=== PATIENT | female | born 1940 | race Caucasian/White ===

== ENCOUNTER 2024-03-20 10:29 | Outpatient (CLI) | payer MEDICARE, OTHER, SELFPAY ==
[2024-03-20 19:34] LABS: Appearance Urine Clear (Clear); Bilirubin Urine Negative (Negative); Blood Urine Negative (Negative); Color Urine Yellow (Yellow); Glucose Urine UA Negative (Negative); Ketones Urine Negative (Negative); Leukocyte Esterase Ur Negative LEU/UL (Negative); Nitrate Urine Negative (Negative); Protein Urine Negative (Negative); Specific Grav Ur 1.005 (1.001-1.035); Urobilinogen Urine 0.2 mg/dL (<2.0); pH Urine 6.5 (5.0-9.0)
[2024-03-20 21:18] LABS: Add Urine Microscopic? NO
== END 2024-03-20 10:30 | disposition home or self-care (01) ==
PROVIDERS: PCP Nurse Practitioner Adult Health; Visit Provider Nurse Practitioner Adult Health
DX: N39.0 Urinary tract infection, site not specified (principal)
CPT/HCPCS: 81003; 87086; 87088

== ENCOUNTER 2024-04-03 16:04 | Outpatient (CLI) | payer MEDICARE, OTHER, SELFPAY ==
[2024-04-03 19:17] LABS: Appearance Urine Clear (Clear); Bilirubin Urine Negative (Negative); Blood Urine Negative (Negative); Color Urine Yellow (Yellow); Glucose Urine UA Negative (Negative); Ketones Urine Negative (Negative); Leukocyte Esterase Ur Negative LEU/UL (Negative); Nitrate Urine Negative (Negative); Protein Urine Negative (Negative); Specific Grav Ur 1.006 (1.001-1.035); Urobilinogen Urine 0.2 mg/dL (<2.0)
[2024-04-03 19:27] LABS: Add Urine Microscopic? NO
== END 2024-04-03 16:05 | disposition home or self-care (01) ==
LOC: ANHBWCLAB 16:07
PROVIDERS: PCP Nurse Practitioner Adult Health; Visit Provider Nurse Practitioner Adult Health
DX: N39.0 Urinary tract infection, site not specified (principal)
CPT/HCPCS: 81003; 87086

== ENCOUNTER 2024-05-01 13:13 | Outpatient (CLI) | payer MEDICARE, OTHER, SELFPAY ==
[2024-05-01 20:13] LABS: Appearance Urine Clear (Clear); Bacteria Urine Rare /hpf; Bilirubin Urine Negative (Negative); Blood Urine Negative (Negative); Color Urine Dark Yellow (Yellow); Glucose Urine UA Negative (Negative); Ketones Urine Negative (Negative); Leukocyte Esterase Ur Trace LEU/UL (Negative); Nitrate Urine Positive (Negative); Protein Urine Negative (Negative); RBC Urine 0-2 /hpf (0-2); Specific Grav Ur 1.006 (1.001-1.035); Squamous Epithelial Cell Urine Occasional /hpf (Few); Urobilinogen Urine 0.2 mg/dL (<2.0); WBC Urine 0-5 /hpf (0-3)
[2024-05-01 20:22] LABS: Add Urine Microscopic? YES
== END 2024-05-01 13:14 | disposition home or self-care (01) ==
PROVIDERS: PCP Nurse Practitioner Adult Health; Visit Provider Nurse Practitioner Adult Health
DX: N39.0 Urinary tract infection, site not specified (principal)
CPT/HCPCS: 81001; 87086

== ENCOUNTER 2024-05-08 11:58 | Outpatient (CLI) | payer MEDICARE, OTHER, SELFPAY ==
[2024-05-08 19:12] LABS: Basophils Absolute Auto 0.1 K/mm3 (0.0-0.1); Eosinophils Absolute Auto 0.2 K/mm3 (0-0.3); Eosinophils Percent Auto 2.5 % (0-4.4); Hematocrit 41.8 % (37.0-47.0); Hemoglobin 13.4 g/dL (12.0-15.0); Immature Granulocyte Absolute 0.02 K/mm3 (0.00-0.031); Immature Granulocyte Percent A 0.3 % (0-0.5); Lymphocytes Absolute Auto 1.54 K/mm3 (0.9-3.2); Lymphocytes Percent Auto 25.5 % (18.3-44.2); Mean Corpuscular HGB Conc 32.1 g/dl (32-36); Mean Corpuscular Hemoglobin 34.1 pg (26-34); Mean Corpuscular Volume 106.4 fl (80-100); Mean Platelet Volume 10.1 fl (7.4-10.4); Monocytes Absolute Auto 0.6 K/mm3 (0.1-0.6); Monocytes Percent Auto 10.1 % (2.6-8.5); Neutrophils Absolute Auto 3.7 K/mm3 (1.3-6.7); Neutrophils Percent Auto 60.6 % (45.5-73.1); Platelet Count Result 240 k/mm3 (150-375); Red Blood Count 3.93 M/mm3 (4.2-5.4)
[2024-05-08 19:57] LABS: Platelet Estimate Adequate (Adequate); Schistocytes None Seen
[2024-05-08 19:58] LABS: Macrocytosis 1+ (NORMAL)
[2024-05-08 20:33] LABS: Alanine Aminotransferase 17 U/L (6-35); Albumin Level 4.6 g/dL (3.5-5.1); Alkaline Phosphatase 93 U/L (38-126); Anion Gap 12 mmol/L (4-12); Aspartate Amino Transferase 45 U/L (14-36); Bilirubin,Total 0.7 mg/dL (0.2-1.3); Blood Urea Nitrogen 28 mg/dL (7-17); Calcium 9.7 mg/dL (8.4-10.2); Carbon Dioxide 26 mmol/L (22-30); Chloride 97 mmol/L (98-107); Estimated Glomerular Filt Rate 31; Glucose 112 mg/dL (65-110); Potassium 4.7 mmol/L (3.4-5.0); Sodium 135 mmol/L (137-145)
[2024-05-08 20:34] LABS: Appearance Urine Clear (Clear); Bacteria Urine 1+ /hpf; Bilirubin Urine Negative (Negative); Blood Urine Negative (Negative); Color Urine Yellow (Yellow); Glucose Urine UA Negative (Negative); Hyaline Casts Urine Present /lpf; Ketones Urine Negative (Negative); Leukocyte Esterase Ur 1+ LEU/UL (Negative); Nitrate Urine Negative (Negative); Protein Urine Negative (Negative); RBC Urine 0-2 /hpf (0-2); Specific Grav Ur 1.008 (1.001-1.035); Squamous Epithelial Cell Urine Few /hpf (Few); Urobilinogen Urine 0.2 mg/dL (<2.0); WBC Urine 0-5 /hpf (0-3); pH Urine 6.5 (5.0-9.0)
[2024-05-08 20:35] LABS: Add Urine Microscopic? YES
== END 2024-05-08 11:59 | disposition home or self-care (01) ==
PROVIDERS: PCP Nurse Practitioner Adult Health; Visit Provider Nurse Practitioner Adult Health
DX: R10.31 Right lower quadrant pain (principal)
CPT/HCPCS: 36415; 80053; 81001; 85025; 87077; 87086; 87088; 87186

== ENCOUNTER 2024-05-11 07:17 | Outpatient (CLI) | payer MEDICARE, OTHER, SELFPAY ==
--- NOTE | ~2024-05-11 | US_ITS ---
US abdomen limited INDICATION: Right upper quadrant pain PROCEDURE: Realtime right upper abdominal ultrasound. COMPARISON: No prior studies for comparison. FINDINGS: The pancreas is normal without focal mass or pancreatic ductal dilation. Liver echotexture is normal without focal mass or intrahepatic biliary dilatation. There is normal directional flow i n the portal vein. There is gallbladder sludge. Shadowing is noted, suspicious for stones. Common bile duct measures 7 m m. No sonographic Neff's sign. IMPRESSION: 1: Gallbladder sludge and possible gallstones. No gallbladder wall thickening or pericholecystic flui d. Mildly dilated common bile duct. Consider cholecystitis in the appropriate clinical setting. Reviewed, dictated and finalized at location B. IMPRESSION: 1: Gallbladder sludge and possible gallstones. No gallbladder wall thickening o r pericholecystic fluid. Mildly dilated common bile duct. Consider cholecystiti s in the appropriate clinical setting.
== END 2024-05-11 07:18 ==
LOC: MICIMG 07:18
PROVIDERS: PCP Nurse Practitioner Adult Health; Visit Provider Nurse Practitioner Adult Health
DX: K80.20 Calculus of gallbladder without cholecystitis without obstruction (principal)
CPT/HCPCS: 76705

== ENCOUNTER 2024-05-11 08:10 | Outpatient (CLI) | payer MEDICARE, OTHER, SELFPAY ==
[2024-05-11 09:22] LABS: Iron 127 ug/dL (37-170)
[2024-05-11 09:31] LABS: Percent Iron Saturation 40 % (20-50)
== END 2024-05-11 08:11 | disposition home or self-care (01) ==
PROVIDERS: PCP Nurse Practitioner Adult Health; Visit Provider Nurse Practitioner Adult Health
DX: D64.9 Anemia, unspecified (principal)
CPT/HCPCS: 36415; 82607; 82728; 83540; 83550

== ENCOUNTER 2024-06-12 12:33 | Outpatient (CLI) | payer MEDICARE, OTHER, SELFPAY ==
[2024-06-12 19:13] LABS: Add Urine Microscopic? NO; Appearance Urine Clear (Clear); Bilirubin Urine Negative (Negative); Blood Urine Negative (Negative); Color Urine Yellow (Yellow); Glucose Urine UA Negative (Negative); Ketones Urine Negative (Negative); Leukocyte Esterase Ur Negative LEU/UL (Negative); Nitrate Urine Negative (Negative); Protein Urine Negative (Negative); Specific Grav Ur 1.006 (1.001-1.035); Urobilinogen Urine 0.2 mg/dL (<2.0)
== END 2024-06-12 12:34 | disposition home or self-care (01) ==
LOC: ANHBWCLAB 12:35
PROVIDERS: PCP Nurse Practitioner Adult Health; Visit Provider Nurse Practitioner Adult Health
DX: N39.0 Urinary tract infection, site not specified (principal)
CPT/HCPCS: 81003

== ENCOUNTER 2024-07-04 10:45 | Outpatient (CLI) | payer MEDICARE, OTHER, SELFPAY ==
[2024-07-04 19:42] LABS: Add Urine Microscopic? YES; Appearance Urine Cloudy (Clear); Bacteria Urine None Seen /hpf; Bilirubin Urine Negative (Negative); Blood Urine Negative (Negative); Color Urine Yellow (Yellow); Glucose Urine UA Negative (Negative); Ketones Urine Negative (Negative); Leukocyte Esterase Ur Negative LEU/UL (Negative); Nitrate Urine Negative (Negative); Non Pathogenic Casts 0-2; Protein Urine Negative (Negative); Specific Grav Ur 1.007 (1.001-1.035); Squamous Epithelial Cell Urine Occasional /hpf (Few); Urobilinogen Urine 0.2 mg/dL (<2.0); WBC Urine 0-5 /hpf (0-3)
== END 2024-07-04 10:46 | disposition home or self-care (01) ==
PROVIDERS: PCP Nurse Practitioner Adult Health; Visit Provider Nurse Practitioner Adult Health
DX: R39.9 Unspecified symptoms and signs involving the genitourinary system (principal)
CPT/HCPCS: 81001; 87086

== ENCOUNTER 2025-01-14 16:17 | Outpatient (CLI) | payer MEDICARE, OTHER, SELFPAY ==
--- OUTSIDE RECORDS SUMMARY | 2025-01-14 17:26 | XMS_ITS ---
Author Name Esperanza Wolf Address [address] [place] [address] Phone [phone] [facility] Address [address] [place] [address] Phone [phone] Care Team Providers Care Inspector Floor Sub Assembly Name Role Phone Esperanza Wolf Unavailable [phone] Carly Coleman Unavailable Deisi White Unavailable [phone] Functional Status No Results Mental Status No Results Allergies and Intolerances Name Onset Date Reaction Severity Lasix (Allergy) MonDec 09 12:32:00 EST 2024 Sulfa (Sulfonamide Antibiotics) (Allergy) Mon 12:32:00 EST 2024 sulfamethoxazole-trimethoprim (Allergy) MonDec 09 12:32:00 EST 2024 amoxicillin (Allergy) MonDec 09 12:31:00 EST 20 25 Encounters Program Name Primary Diagnosis Admission Date/Time Dis charge Date/Time [facility] MonDec 09 08:00:00 EST 2024Dec 30 08:30:00 EDT 2024 Immunizations Name Dates Status TST-PPD intradermal MonDec 09 01:00:00 EST 2024 Completed TST-PPD intradermal MonDec 16 01:00:00 EST 2024 Completed TST-PPD intradermal MonDec 18 01:00:00 EST 2024 Completed TST-PPD intradermal MonDec 11 01:00:00 EST 2024 Completed Medications Medication Directions Start Date End Date HYDROcodone 5 mg-acetaminophen 325 mg tablet 2 tablets TABLET Oral 1 Time Daily Indication: Pain MonDec 24 18:33:00 EDT 2024Dec 30 01:00:00 EDT 2024 Miralax 17 gram oral powder packet 17 g POWDER IN PACKET (EA) Oral 2 Times Daily Indication: constipation MonDec 20 11:05:00 EST 2024Dec 30 01:00:00 EDT 2024 Miralax 17 gram oral powder packet 17 g POWDER IN PACKET (EA) Oral 1 Time Daily Indication: constipation MonDec 19 18:26:00 EST 2024Dec 20 11:07:00 EST 2024 fluconazole 150 mg tablet 1 TABLET Oral Every 3 Days for 4 Days Indication: yeast infection MonDec 18 07:00:00 EST 2024Dec 22 06:59:00 EDT 2024 HYDROcodone 5 mg-acetaminophen 325 mg tablet 2 tablet TABLET Oral 1 Time Daily 2 tablets Indication: pain MonDec 17 14:00:00 EST 2024Dec 24 18:34:00 EDT 2024 HYDROcodone 5 mg-acetaminophen 325 mg tablet 1 tablet TABLET Oral 1 Time Daily Indication: pain MonDec 17 07:00:00 EST 2024Dec 17 14:02:00 EST 2024 Vitamin C 500 mg tablet 1 tablet TABLET Oral 2 Times Daily Indication: supplement MonDec 15 21:00:00 EST 2024Dec 30 01:00:00 EDT 2024 Miralax 17 gram oral powder packet 17 grams POWDER IN PACKET (EA) Oral Every 2 Days Indication: Constipation MonDec 10 17:02:00 EST 2024Dec 10 17:03:00 EST 2024 Miralax 17 gram oral powder packet 17 g POWDER IN PACKET (EA) Oral Every 2 Days Indication: constipation MonDec 11 09:00:00 EST 2024Dec 19 18:28:00 EST 2024 albuterol sulfate HFA 90 mcg/actuation aerosol inhaler 2 puffs HFA AEROSOL WITH ADAPTER (GRAM) Inhalation PRN Every 6 Hours Indication: SOB MonDec 09 12:36:00 EST 2024Dec 30 01:00:00 EDT 2024 anastrozole 1 mg tablet 1 tab TABLET Ora l 1 Time Daily Indication: Breast cancer MonDec 09 12:37:00 EST 2024Dec 30 01:00:00 EDT 2024 Vitamin C 500 mg chewable tablet 1 tab TABLET,CHEWABLE Oral 2 Times Daily Indication: Supplement MonDec 09 12:38:00 EST 2024Dec 15 12:22:00 EST 2024 aspirin 81 mg tablet,delayed release 1 tab TABLET, DELAYED RELEASE (ENTERIC COATED) Oral 1 Time Daily Indication: Heart health MonDec 09 12:39:00 EST 2024Dec 30 01:00:00 EDT 2024 atorvastatin 20 mg tablet 1 tab TABLET O ral 1 Time Daily Indication: HLD MonDec 10 12:40:00 EST 2024Dec 30 01:00:00 EDT 2024 Oyster Shell Calcium-Vitamin D3 500 mg-5 mcg (200 unit) tablet 1 tab TABLET Oral 1 Time Daily Indication: Supplement MonDec 09 13:09:00 EST 2024Dec 30 01:00:00 EDT 2024 DILT-XR 180 mg capsule, extended release 1 cap CAPSULE,EXTENDED-RELEASE 24HR DEGRADABLE Oral 1 Time Daily Indication: A-fib MonDec 09 13:10:00 EST 2024Dec 30 01:00:00 EDT 2024 Eliquis 2.5 mg tablet 1 tab TABLET Oral 2 Times Daily Indication: A-fib MonDec 09 13:11:00 EST 2024Dec 30 01:00:00 EDT 2024 ergocalciferol (vitamin D2) 1,250 mcg (50,000 unit) capsule 1 cap CAPSULE Oral 1 Time Weekly Indication: Supplement MonDec 09 13:12:00 EST 2024Dec 30 01:00:00 EDT 2024 ferrous sulfate 325 mg (65 mg iron) tablet,delayed release 1 tab TABLET, DELAYED RELEASE (ENTERIC COATED) Oral 1 Time Daily Indication: Anemia MonDec 09 14:12:00 EST 2024Dec 30 01:00:00 EDT 2024 HYDROcodone 5 mg-acetaminophen 325 mg tablet 1-2 tabs TABLET Oral PRN Every 4 Hours Indication: Pain MonDec 09 13:14:00 EST 2024Dec 09 19:00:00 EST 2024 Miralax 17 gram oral powder packet 17 grams POWDER IN PACKET (EA) Oral Every 3 Days Indication: Constipation MonDec 09 13:15:00 EST 2024Dec 10 17:03:00 EST 2024 nebivoloL 20 mg tablet 1 tab TABLET Oral 1 Time Daily Indication: A-fib/HTN MonDec 09 13:16:00 EST 2024Dec 30 01:00:00 EDT 2024 omeprazole 40 mg capsule,delayed release 1 cap CAPSULE,DELAYED RELEASE (ENTERIC COATED) Oral 2 Times Daily Indication: GERD MonDec 09 13:17:00 EST 2024Dec 30 01:00:00 EDT 2024 ondansetron 4 mg disintegrating tablet 1 tab TABLET,DISINTEGRATING Oral PRN Every 6 Hours Indication: N/V MonDec 09 13:17:00 2024Dec 29 15:35:00 EDT 2024 Stimulant Laxative Plus 8.6 mg-50 mg tablet 1 tab TABLET Oral 1 Time Daily Indication: Constipation MonDec 09 13:18:00 EST 2024Dec 09 19:22:00 EST 2024 torsemide 10 mg tablet 1 tab TABLET Oral 1 Time Daily Indication: Edema MonDec 09 13:19:00 EST 2024Dec 30 01:00:00 EDT 2024 TubersoL 5 tub. unit/0.1 mL intradermal injection solution 0.1 ml VIAL (ML) Intradermal 1 Time Weekly for 2 Weeks Indication: TB screeening 1st injection on admission, then one week after. Read between 48 and 72 hours MonDec 09 15:37:00 EST 2024Dec 23 15:36:00 EDT 2024 TubersoL 5 tub. unit/0.1 mL intradermal injection solution Read Results VIAL (ML) Other 1 Time Weekly for 2 Weeks Indication: TB screening Read results between 48-72 hours after 1st and 2nd (1 week apart). Any reading of 10mm or greater results in a positive test, an x-ray will need to be ordered as a follow up. MonDec 09 15:38:00 EST 2024Dec 23 15:37:00 EDT 2024 HYDROcodone 5 mg-acetaminophen 325 mg tablet 1-2 tabs TABLET Oral PRN Every 4 Hours Indication: Pain MonDec 09 18:59:00 EST 2024Dec 30 01:00:00 EDT 2024 Stimulant Laxative Plus 8.6 mg-50 mg tablet 1 tab TABLET Oral PRN 2 Times Daily Indication: Constipation MonDec 09 19:21:00 EST 2024Dec 29 15:35:00 EDT 2024 Problems Active Concerns * Aftercare following joint replacement surgery* Code: * Start Date: MonDec 09 00:00:00 EST 2024 * End Date: * Text: * Unspecified atrial fibrillation* Code: * Start Date: MonDec 09 00:00:00 EST 2024 * End Date: * Text: * Personal history of malignant neoplasm of breast* Code: * Start Date: MonDec 09 00:00:00 EST 2024 * End Date: * Text: * Chronic obstructive pulmonary disease, unspecified* Code: * Start Date: MonDec 09 00:00:00 EST 2024 * End Date: * Text: * Gastro-esophageal reflux disease without esophagitis* Code: * Start Date: MonDec 09 00:00:00 EST 2024 * End Date: * Text: * Unspecified glaucoma* Code: * Start Date: MonDec 09 00:00:00 EST 2024 * End Date: * Text: * Unspecified hearing loss, unspecified ear* Code: * Start Date: MonDec 09 00:00:00 EST 2024 * End Date: * Text: * Old myocardial infarction* Code: * Start Date: MonDec 09 00:00:00 EST 2024 * End Date: * Text: * Pulmonary hypertension, unspecified* Code: * Start Date: MonDec 09 00:00:00 EST 2024 * End Date: * Text: * Personal history of nicotine dependence* Code: * Start Date: MonDec 09 00:00:00 EST 2024 * End Date: * Text: * Vitamin D deficiency, unspecified* Code: * Start Date: MonDec 09 00:00:00 2024 * End Date: * Text: * Presence of artificial knee joint, bilateral* Code: * Start Date: MonDec 09 00:00:00 EST 2024 * End Date: * Text: * Presence of coronary angioplasty implant and graft* Code: * Start Date: MonDec 09 00:00:00 EST 2024 * End Date: * Text: * group home (current) use of aromatase inhibitors* Code: * Start Date: MonDec 09 00:00:00 EST 2024 * End Date: * Text: * superintendent terminal (current) use of aspirin* Code: * Start Date: MonDec 09 00:00:00 EST 2024 * End Date: * Text: * Hyperlipidemia, unspecified* Code: * Start Date: MonDec 09 00:00:00 EST 2024 * End Date: * Text: * group home (current) use of anticoagulants* Code: * Start Date: MonDec 09 00:00:00 2024 * End Date: * Text: * Anemia, unspecified* Code: * Start Date: MonDec 09 00:00:00 2024 * End Date: * Text: * superintendent terminal (current) use of opiate analgesic* Code: * Start Date: MonDec 09 00:00:00 2024 * End Date: * Text: * Constipation, unspecified* Code: * Start Date: MonDec 09 00:00:00 2024 * End Date: * Text: * Hypertensive chronic kidney disease with stage 1 through stage 4 chronic kidney disease, or unspecified chronic kidney disease* Code: * Start Date: MonDec 09 00:00:00 2024 * End Date: * Text: * Chronic kidney disease, stage 3b* Code: * Start Date: MonDec 09 00:00:00 2024 * End Date: * Text: * Secondary hyperparathyroidism of renal origin* Code: * Start Date: MonDec 09 00:00:00 2024 * End Date: * Text: * Elevation of levels of liver transaminase levels* Code: * Start Date: MonDec 09 00:00:00 2024 * End Date: * Text: * [id number] Betsy receives a therapeutic diet. (12)* Code: * Start Date: MonDec 17 00:00:00 2024 * End Date: * Text: [id number] Betsy receives a therapeutic diet. (12) * LSS_Falls - Betsy is at risk for falls/injury as evidenced by: history of falls, cognitive status/behavior, vision status, continence, mobility, balance.* Code: * Start Date: MonDec 19 00:00:00 2024 * End Date: * Text: LSS_Falls - Betsy is at risk for falls/injury as evidenced by: history of falls, cognitive status/behavior, vision status, continence, mobility, balance. * LSS_Pain - Betsy is experiencing pain or is at high risk for pain.* Code: * Start Date: MonDec 19 00:00:00 2024 * End Date: * Text: LSS_Pain - Betsy is experiencing pain or is at high risk for pain. * LSS_Skin Integrity - (Potential Alteration of)- Betsy is at risk for developing impaired skin integrity.* Code: * Start Date: MonDec 19 00:00:00 EST 2024 * End Date: * Text: LSS_Skin Integrity - (Potential Alteration of)- Betsy is at risk for developing impaired skinintegrity. * LSS_ADLs - Betsy has ADL selfcare deficit related to decreased mobility and muscle weakness* Code: * Start Date: MonDec 19:00:00 EST 2024 * End Date: * Text: LSS_ADLs - Betsy has ADL selfcare deficit related to decreased mobility and muscle weakness * LSS_Vision - Betsy has impaired vision as evidenced by: legally blind ( ), blurry/hazy/cloudy vision ( ), double vision ( ), side vision deficit ( ), visual loss ( ).* Code: * Start Date: MonDec 19 00:00:00 EST 2024 * End Date: * Text: LSS_Vision - Betsy has impaired vision as evidenced by: legally blind ( ), blurry/hazy/cloudyvision ( ), double vision ( ), side vision deficit ( ), visual loss ( ). * LSS_Social Services- Betsy's wishes will be followed (Advanced Directive/Code Status).* Code: * Start Date: MonDec 20::2024 * End Date: * Text: LSS_Social ServicesMadelaine Meyer's wishes will be followed (Advanced Directive/Code Status). * LSS_Social Services- Betsy will be involved in goal development to the best of his or her ability.* Code: * Start Date: MonDec 20::00 2024 * End Date: * Text: LSS_Social Services- Betsy will be involved in goal development to the best of his or her ability. * LSS_Social Services- Betsy has family/friends who are supportive.* Code: * Start Date: MonDec 20::00 EST 2024 * End Date: * Text: JESSS_Social ServicesMadelaine Meyer has family/friends who are supportive. * LSS_Social Services- Betsy's mobility level is different than prior level due to current medical condition.* Code: * Start Date: MonDec 20:00:00 2024 * End Date: * Text: MACY_Social Ramírez Meyer's mobility level is different than prior level due to current medical condition. * ADRIANASocial ServicesMadelaine Meyer will be involved in discharge planning.* Code: * Start Date: MonDec 20 00:00:00 EST 2024 * End Date: * Text: ADRIANASocial Ramírez Meyer will be involved in discharge planning. Resolved Concerns * Problem Presence of right artificial knee joint* Code: * Start Date: MonDec 09 00:00:00 EST 2024 * End Date: MonDec 11 00:00:00 EST 2024 * Problem Essential (primary) hypertension* Code: * Start Date: MonDec 09 00:00:00 EST 2024 * End Date: MonDec 13 00:00:00 EST 2024 Vital Signs Vital Sign Measurement Date Systolic Blood Pressure 118.00 mm[Hg] MonDec 30 09:39:44 EDT 2024 Diastolic Blood Pressure 77.00 mm[Hg] MonDec 30 09:39:44 EDT 2024 Systolic Blood Pressure 118.00 mm[Hg] MonDec 30 09:39:44 EDT 2024 Diastolic Blood Pressure 77.00 mm[Hg] MonDec 30 09:39:44 EDT 2024 Heart Rate 91.00 /min MonDec 30 09:39 :44 EDT 2024 Heart Rate 91.00 /min MonDec 30 09:39 :44 EDT 2024 Systolic Blood Pressure 113.00 mm[Hg] MonDec 30 01:18:37 EDT 2024 Diastolic Blood Pressure 69.00 mm[Hg] MonDec 30 01:18:37 EDT 2024 Heart Rate 82.00 /min MonDec 30 01:18 :37 EDT 2024 Body temperature 97.30 [degF] MonDec 30 01:1 8:37 EDT 2024 Respiratory rate 16.00 /min MonDec 30 01:1 8:37 EDT 2024 Pulse Oximetry 98.00 % MonDec 30 01:18 :37 EDT 2024 Body weight 155.20 [lb_av] MonDec 29 12:46 :35 EDT 2024 Systolic Blood Pressure 104.00 mm[Hg] MonDec 29 08:32:23 EDT 2024 Diastolic Blood Pressure 66.00 mm[Hg] MonDec 29 08:32:23 EDT 2024 Heart Rate 88.00 /min Sun Mar 16 08:32 :23 EDT 2024 Body temperature 97.50 [degF] Sun Mar 16 08:3 2:23 EDT 2024 Respiratory rate 18.00 /min Sun Mar 16 08:3 2:23 EDT 2024 Pulse Oximetry 92.00 % Sun Mar 16 08:32 :23 EDT 2024 Systolic Blood Pressure 104.00 mm[Hg] Sun Mar 16 08:31:37 EDT 2024 Diastolic Blood Pressure 66.00 mm[Hg] Sun Mar 16 08:31:37 EDT 2024 Systolic Blood Pressure 104.00 mm[Hg] Sun Mar 16 08:31:37 EDT 2024 Diastolic Blood Pressure 66.00 mm[Hg] Sun Mar 16 08:31:37 EDT 2024 Heart Rate 88.00 /min Sun Mar 16 08:31 :37 EDT 2024 Heart Rate 88.00 /min Sun Mar 16 08:31 :37 EDT 2024 Systolic Blood Pressure 121.00 mm[Hg] Sun Mar 16 00:52:48 EDT 2024 Diastolic Blood Pressure 66.00 mm[Hg] Sun Mar 16 00:52:48 EDT 2024 Heart Rate 92.00 /min Sun Mar 16 00:52 :48 EDT 2024 Body temperature 97.30 [degF] Sun Mar 16 00:5 2:48 EDT 2024 Respiratory rate 16.00 /min Sun Mar 16 00:5 2:48 EDT 2024 Pulse Oximetry 98.00 % Sun Mar 16 00:52 :48 EDT 2024 Body weight 156.40 [lb_av] Sat Mar 15 15:34 :06 EDT 2024 Systolic Blood Pressure 101.00 mm[Hg] Sat Mar 15 09:31:33 EDT 2024 Diastolic Blood Pressure 66.00 mm[Hg] Sat Mar 15 09:31:33 EDT 2024 Heart Rate 80.00 /min Sat Mar 15 09:31 :33 EDT 2024 Body temperature 97.50 [degF] Sat Mar 15 09:3 1:33 EDT 2024 Respiratory rate 18.00 /min Sat Mar 15 09:3 1:33 EDT 2024 Pulse Oximetry 94.00 % Sat Mar 15 09:31 :33 EDT 2024 Systolic Blood Pressure 101.00 mm[Hg] Sat Mar 15 09:19:27 EDT 2024 Diastolic Blood Pressure 66.00 mm[Hg] Sat Mar 15 09:19:27 EDT 5 Systolic Blood Pressure 101.00 mm[Hg] Sat Mar 15 09:19:27 EDT 2024 Diastolic Blood Pressure 66.00 mm[Hg] Sat Mar 15 09:19:27 EDT 2024 Heart Rate 80.00 /min Sat Mar 15 09:19 :27 EDT 2024 Heart Rate 80.00 /min Sat Mar 15 09:19 :27 EDT 2024 Systolic Blood Pressure 104.00 mm[Hg] Sat Mar 15 03:15:32 EDT 2024 Diastolic Blood Pressure 59.00 mm[Hg] Sat Mar 15 03:15:32 EDT 2024 Heart Rate 91.00 /min [facility] Mar 15 03:15 :32 EDT 2024 Body temperature 97.40 [degF] [facility] Mar 15 03:1 5:32 EDT 2024 Respiratory rate 20.00 /min [facility] Mar 15 03:1 5:32 EDT 2024 Pulse Oximetry 98.00 % [facility] Mar 15 03:15 :32 EDT 2024 Body weight 157.00 [lb_av] Mon Mar 14 15:03 :59 EDT 2024 Systolic Blood Pressure 107.00 mm[Hg] Mon Mar 14 10:50:53 EDT 2024 Diastolic Blood Pressure 74.00 mm[Hg] Mon Mar 14 10:50:53 EDT 2024 Heart Rate 97.00 /min Mon 14 10:50 :53 EDT 2024 Body temperature 98.60 [degF] Mon Mar 14 10:5 0:53 EDT 2024 Respiratory rate 20.00 /min Mon 14 10:5 0:53 EDT 2024 Pulse Oximetry 96.00 % Mon 14 10:50 :53 EDT 2024 Systolic Blood Pressure 107.00 mm[Hg] Mon Mar 14 09:13:21 EDT 2024 Diastolic Blood Pressure 74.00 mm[Hg] Mon Mar 14 09:13:21 EDT 2024 Systolic Blood Pressure 107.00 mm[Hg] Mon Mar 14 09:13:21 EDT 2024 Diastolic Blood Pressure 74.00 mm[Hg] Mon Mar 14 09:13:21 EDT 2024 Heart Rate 97.00 /min Mon 14 09:13 :21 EDT 2024 Heart Rate 97.00 /min Mon 14 09:13 :21 EDT 2024 Systolic Blood Pressure 109.00 mm[Hg] Mon 14 01:51:50 EDT 2024 Diastolic Blood Pressure 69.00 mm[Hg] Mon 14 01:51:50 EDT 2024 Heart Rate 90.00 /min Mon 14 01:51 :50 EDT 2024 Body temperature 97.60 [degF] Mon 14 01:5 1:50 EDT 2024 Respiratory rate 18.00 /min Mon 14 01:5 1:50 EDT 2024 Pulse Oximetry 96.00 % Mon 14 01:51 :50 EDT 2024 Body weight 159.70 [lb_av] Karendec 13 16:09 :53 EDT 2024 Systolic Blood Pressure 109.00 mm[Hg] Karendec 13 09:47:54 EDT 2024 Diastolic Blood Pressure 68.00 mm[Hg] Karendec 13 09:47:54 EDT 2024 Heart Rate 99.00 /min Karendec 13 09:47 :54 EDT 2024 Body temperature 97.30 [degF] Karendec 13 09:4 7:54 EDT 2024 Respiratory rate 18.00 /min Karendec 13 09:4 7:54 EDT 2024 Pulse Oximetry 97.00 % Karendec 13 09:47 :54 EDT 2024 Systolic Blood Pressure 109.00 mm[Hg] Karendec 13 08:48:23 EDT 2024 Diastolic Blood Pressure 68.00 mm[Hg] Karendec 13 08:48:23 EDT 2024 Systolic Blood Pressure 109.00 mm[Hg] Karendec 13 08:48:23 EDT 2024 Diastolic Blood Pressure 68.00 mm[Hg] Karendec 13 08:48:23 EDT 2024 Heart Rate 99.00 /min Karendec 13 08:48 :23 EDT 2024 Heart Rate 99.00 /min Karendec 13 08:48 :23 EDT 2024 Systolic Blood Pressure 113.00 mm[Hg] Karendec 13 00:13:33 EDT 2024 Diastolic Blood Pressure 65.00 mm[Hg] Karendec 13 00:13:33 EDT 2024 Heart Rate 80.00 /min Karendec 13 00:13 :33 EDT 2024 Body temperature 97.40 [degF] Karendec 13 00:1 3:33 EDT 2024 Respiratory rate 18.00 /min Mon 13 00:1 3:33 EDT 2024 Pulse Oximetry 95.00 % MonDec 26 00:13 :33 EDT 2024 Body weight 160.00 [lb_av] MonDec 25 12:43 :18 EDT 2024 Systolic Blood Pressure 110.00 mm[Hg] MonDec 25 08:41:20 EDT 2024 Diastolic Blood Pressure 79.00 mm[Hg] MonDec 25 08:41:20 EDT 2024 Systolic Blood Pressure 110.00 mm[Hg] MonDec 25 08:41:20 EDT 2024 Diastolic Blood Pressure 79.00 mm[Hg] MonDec 25 08:41:20 EDT 2024 Heart Rate 84.00 /min MonDec 25 08:41 :20 EDT 2024 Heart Rate 84.00 /min MonDec 25 08:41 :20 EDT 2024 Systolic Blood Pressure 110.00 mm[Hg] MonDec 25 08:15:08 EDT 2024 Diastolic Blood Pressure 79.00 mm[Hg] MonDec 25 08:15:08 EDT 2024 Heart Rate 84.00 /min MonDec 25 08:15 :08 EDT 2024 Body temperature 98.60 [degF] MonDec 25 08:1 5:08 EDT 2024 Respiratory rate 18.00 /min MonDec 25 08:1 5:08 EDT 2024 Pulse Oximetry 96.00 % MonDec 25 08:15 :08 EDT 2024 Systolic Blood Pressure 116.00 mm[Hg] MonDec 24 23:34:51 EDT 2024 Diastolic Blood Pressure 69.00 mm[Hg] MonDec 24 23:34:51 EDT 2024 Heart Rate 82.00 /min MonDec 24 23:34 :51 EDT 2024 Body temperature 97.80 [degF] MonDec 24 23:3 4:51 EDT 2024 Respiratory rate 20.00 /min MonDec 24 23:3 4:51 EDT 2024 Pulse Oximetry 95.00 % MonDec 24 23:34 :51 EDT 2024 Body weight 160.50 [lb_av] MonDec 24 17:04 :13 EDT 2024 Systolic Blood Pressure 127.00 mm[Hg] MonDec 24 09:04:26 EDT 2024 Diastolic Blood Pressure 80.00 mm[Hg] MonDec 24 09:04:26 EDT 5 Heart Rate 91.00 /min MonDec 24 09:04 :26 EDT 5 Body temperature 98.20 [degF] MonDec 24 09:0 4:26 EDT 2024 Respiratory rate 18.00 /min MonDec 24 09:0 4:26 EDT 2024 Pulse Oximetry 97.00 % MonDec 24 09:04 :26 EDT 2024 Systolic Blood Pressure 127.00 mm[Hg] MonDec 24 08:19:16 EDT 5 Diastolic Blood Pressure 80.00 mm[Hg] MonDec 24 08:19:16 EDT 2024 Systolic Blood Pressure 127.00 mm[Hg] MonDec 24 08:19:16 EDT 2024 Diastolic Blood Pressure 80.00 mm[Hg] MonDec 24 08:19:16 EDT 2024 Heart Rate 91.00 /min MonDec 24 08:19 :16 EDT 2024 Heart Rate 91.00 /min MonDec 24 08:19 :16 EDT 2024 Systolic Blood Pressure 115.00 mm[Hg] MonDec 23 23:06:36 EDT 2024 Diastolic Blood Pressure 66.00 mm[Hg] MonDec 23 23:06:36 EDT 2024 Heart Rate 78.00 /min MonDec 23 23:06 :36 EDT 2024 Body temperature 96.80 [degF] MonDec 23 23:0 6:36 EDT 2024 Respiratory rate 18.00 /min MonDec 23 23:0 6:36 EDT 2024 Pulse Oximetry 97.00 % MonDec 23 23:06 :36 EDT 2024 Body weight 160.20 [lb_av] MonDec 23 15:04 :55 EDT 2024 Systolic Blood Pressure 118.00 mm[Hg] MonDec 23 09:18:46 EDT 5 Diastolic Blood Pressure 78.00 mm[Hg] MonDec 23 09:18:46 EDT 5 Heart Rate 96.00 /min MonDec 23 09:18 :46 EDT 2024 Body temperature 97.10 [degF] MonDec 23 09:1 8:46 EDT 2024 Respiratory rate 16.00 /min MonDec 23 09:1 8:46 EDT 2024 Pulse Oximetry 97.00 % MonDec 23 09:18 :46 EDT 2024 Systolic Blood Pressure 118.00 mm[Hg] Mon 10 09:17:14 EDT 5 Diastolic Blood Pressure 78.00 mm[Hg] Mon 10 09:17:14 EDT 2024 Systolic Blood Pressure 118.00 mm[Hg] Mon 10 09:17:14 EDT 2024 Diastolic Blood Pressure 78.00 mm[Hg] Mon 10 09:17:14 EDT 5 Heart Rate 96.00 /min Mon 10 09:17 :14 EDT 2024 Heart Rate 96.00 /min MonDec 23 09:17 :14 EDT 2024 Systolic Blood Pressure 122.00 mm[Hg] MonDec 23 01:07:30 EDT 2024 Diastolic Blood Pressure 69.00 mm[Hg] MonDec 23 01:07:30 EDT 2024 Heart Rate 93.00 /min MonDec 23 01:07 :30 EDT 2024 Body temperature 98.30 [degF] MonDec 23 01:0 7:30 EDT 2024 Respiratory rate 18.00 /min MonDec 23 01:0 7:30 EDT 2024 Pulse Oximetry 99.00 % MonDec 23 01:07 :30 EDT 2024 Body weight 160.40 [lb_av] MonDec 22 18:23 :27 EDT 2024 Systolic Blood Pressure 124.00 mm[Hg] MonDec 22 10:07:56 EDT 2024 Diastolic Blood Pressure 78.00 mm[Hg] MonDec 22 10:07:56 EDT 2024 Heart Rate 92.00 /min MonDec 22 10:07 :56 EDT 2024 Body temperature 98.00 [degF] MonDec 22 10:0 7:56 EDT 2024 Respiratory rate 20.00 /min MonDec 22 10:0 7:56 EDT 2024 Pulse Oximetry 97.00 % MonDec 22 10:07 :56 EDT 2024 Systolic Blood Pressure 124.00 mm[Hg] MonDec 22 09:55:36 EDT 2024 Diastolic Blood Pressure 78.00 mm[Hg] MonDec 22 09:55:36 EDT 2024 Systolic Blood Pressure 124.00 mm[Hg] MonDec 22 09:55:36 EDT 2024 Diastolic Blood Pressure 78.00 mm[Hg] MonDec 22 09:55:36 EDT 2024 Heart Rate 92.00 /min MonDec 22 09:55 :36 EDT 2025 Heart Rate 92.00 /min Sun Mar 09 09:55 :36 EDT 5 Systolic Blood Pressure 110.00 mm[Hg] Sat Mar 08 23:42:20 EST 2024 Diastolic Blood Pressure 69.00 mm[Hg] Sat Mar 08 23:42:20 EST 2024 Heart Rate 88.00 /min Sat Mar 08 23:42 :20 EST 2024 Body temperature 97.80 [degF] Sat Mar 08 23:4 2:20 EST 2024 Respiratory rate 18.00 /min Sat Mar 08 23:4 2:20 EST 2024 Pulse Oximetry 97.00 % Sat Mar 08 23:42 :20 EST 2024 Body weight 160.00 [lb_av] Sat Mar 08 15:56 :42 EST 2024 Systolic Blood Pressure 116.00 mm[Hg] Sat Mar 08 10:54:07 EST 2024 Diastolic Blood Pressure 72.00 mm[Hg] Sat Mar 08 10:54:07 EST 2024 Heart Rate 91.00 /min Sat Mar 08 10:54 :07 EST 2024 Body temperature 98.50 [degF] Sat Mar 08 10:5 4:07 EST 2024 Respiratory rate 20.00 /min Sat Mar 08 10:5 4:07 EST 2024 Pulse Oximetry 95.00 % Sat Mar 08 10:54 :07 EST 2024 Systolic Blood Pressure 116.00 mm[Hg] Sat Mar 08 09:26:13 EST 2024 Diastolic Blood Pressure 72.00 mm[Hg] Sat Mar 08 09:26:13 EST 2024 Systolic Blood Pressure 116.00 mm[Hg] Sat Mar 08 09:26:13 EST 2024 Diastolic Blood Pressure 72.00 mm[Hg] Sat Mar 08 09:26:13 EST 2024 Heart Rate 91.00 /min Sat Mar 08 09:26 :13 EST 2024 Heart Rate 91.00 /min Sat Mar 08 09:26 :13 EST 2024 Systolic Blood Pressure 100.00 mm[Hg] Sat Mar 08 01:01:23 EST 2024 Diastolic Blood Pressure 61.00 mm[Hg] Sat Mar 08 01:01:23 EST 2024 Heart Rate 80.00 /min Sat Mar 08 01:01 :23 EST 5 Body temperature 98.10 [degF] Sat Mar 08 01:0 1:23 EST 2024 Respiratory rate 20.00 /min Sat Mar 08 01:0 1:23 EST 2024 Pulse Oximetry 97.00 % Sat Mar 08 01:01 :23 EST 5 Body weight 187.90 [lb_av] MonDec 20 14:49 :44 EST 2024 Systolic Blood Pressure 129.00 mm[Hg] MonDec 20 10:40:41 EST 2024 Diastolic Blood Pressure 80.00 mm[Hg] MonDec 20 10:40:41 EST 2024 Heart Rate 91.00 /min MonDec 20 10:40 :41 EST 2024 Body temperature 97.50 [degF] MonDec 20 10:4 0:41 EST 2024 Respiratory rate 20.00 /min MonDec 20 10:4 0:41 EST 2024 Pulse Oximetry 92.00 % MonDec 20 10:40 :41 EST 2024 Systolic Blood Pressure 129.00 mm[Hg] MonDec 20 09:10:02 EST 2024 Diastolic Blood Pressure 80.00 mm[Hg] MonDec 20 09:10:02 EST 2024 Systolic Blood Pressure 129.00 mm[Hg] MonDec 20 09:10:02 EST 2024 Diastolic Blood Pressure 80.00 mm[Hg] MonDec 20 09:10:02 EST 2024 Heart Rate 102.00 /min MonDec 20 09:10 :02 EST 2024 Heart Rate 102.00 /min MonDec 20 09:10 :02 EST 2024 Systolic Blood Pressure 120.00 mm[Hg] MonDec 19 23:28:27 EST 2024 Diastolic Blood Pressure 72.00 mm[Hg] MonDec 19 23:28:27 EST 2024 Heart Rate 97.00 /min MonDec 19 23:28 :27 EST 2024 Body temperature 97.40 [degF] MonDec 19 23:2 8:27 EST 2024 Respiratory rate 18.00 /min MonDec 19 23:2 8:27 EST 2024 Pulse Oximetry 96.00 % MonDec 19 23:28 :27 EST 2024 Body weight 160.20 [lb_av] MonDec 19 13:00 :03 EST 2024 Systolic Blood Pressure 127.00 mm[Hg] MonDec 19 09:06:28 EST 2024 Diastolic Blood Pressure 75.00 mm[Hg] MonDec 19 09:06:28 EST 5 Systolic Blood Pressure 127.00 mm[Hg] MonDec 19 09:06:28 EST 2024 Diastolic Blood Pressure 75.00 mm[Hg] MonDec 19 09:06:28 EST 2025 Systolic Blood Pressure 127.00 mm[Hg] Mon 06 09:06:28 EST 2024 Diastolic Blood Pressure 75.00 mm[Hg] Mon 06 09:06:28 EST 2024 Heart Rate 99.00 /min Mon 06 09:06 :28 EST 2024 Heart Rate 99.00 /min Mon 06 09:06 :28 EST 2024 Heart Rate 99.00 /min Mon 06 09:06 :28 EST 2024 Body temperature 97.40 [degF] Mon 06 09:0 6:28 EST 2024 Respiratory rate 18.00 /min MonDec 19 09:0 6:28 EST 2024 Pulse Oximetry 97.00 % MonDec 19 09:06 :28 EST 2024 Systolic Blood Pressure 126.00 mm[Hg] MonDec 18 22:59:25 EST 2024 Diastolic Blood Pressure 88.00 mm[Hg] MonDec 18 22:59:25 EST 2024 Heart Rate 86.00 /min MonDec 18 22:59 :25 EST 2024 Body temperature 97.40 [degF] MonDec 18 22:5 9:25 EST 2024 Respiratory rate 18.00 /min MonDec 18 22:5 9:25 EST 2024 Pulse Oximetry 98.00 % MonDec 18 22:59 :25 EST 2024 Body weight 161.90 [lb_av] MonDec 18 10:17 :18 EST 2024 Systolic Blood Pressure 118.00 mm[Hg] MonDec 18 08:38:22 EST 2024 Diastolic Blood Pressure 71.00 mm[Hg] MonDec 18 08:38:22 EST 2024 Systolic Blood Pressure 118.00 mm[Hg] MonDec 18 08:38:22 EST 2024 Diastolic Blood Pressure 71.00 mm[Hg] MonDec 18 08:38:22 EST 2024 Systolic Blood Pressure 118.00 mm[Hg] MonDec 18 08:38:22 EST 2024 Diastolic Blood Pressure 71.00 mm[Hg] MonDec 18 08:38:22 EST 2024 Heart Rate 74.00 /min MonDec 18 08:38 :22 EST 2024 Heart Rate 74.00 /min MonDec 18 08:38 :22 EST 2024 Heart Rate 74.00 /min MonDec 18 08:38 :22 EST 2024 Body temperature 97.60 [degF] Wed Mar 05 08:3 8:22 EST 2024 Respiratory rate 18.00 /min MonDec 18 08:3 8:22 EST 2024 Pulse Oximetry 97.00 % MonDec 18 08:38 :22 EST 2024 Systolic Blood Pressure 128.00 mm[Hg] MonDec 18 00:24:48 EST 2024 Diastolic Blood Pressure 87.00 mm[Hg] MonDec 18 00:24:48 EST 2024 Heart Rate 86.00 /min MonDec 18 00:24 :48 EST 2024 Body temperature 97.30 [degF] MonDec 18 00:2 4:48 EST 2024 Respiratory rate 18.00 /min MonDec 18 00:2 4:48 EST 2024 Pulse Oximetry 97.00 % MonDec 18 00:24 :48 EST 2024 Body weight 160.40 [lb_av] MonDec 17 11:05 :04 EST 2024 Systolic Blood Pressure 124.00 mm[Hg] MonDec 17 09:28:53 EST 2024 Diastolic Blood Pressure 64.00 mm[Hg] MonDec 17 09:28:53 EST 2024 Systolic Blood Pressure 124.00 mm[Hg] MonDec 17 09:28:53 EST 2024 Diastolic Blood Pressure 64.00 mm[Hg] MonDec 17 09:28:53 EST 2024 Heart Rate 95.00 /min MonDec 17 09:28 :53 EST 2024 Heart Rate 95.00 /min MonDec 17 09:28 :53 EST 2024 Systolic Blood Pressure 124.00 mm[Hg] MonDec 17 08:24:35 EST 2024 Diastolic Blood Pressure 64.00 mm[Hg] MonDec 17 08:24:35 EST 2024 Heart Rate 95.00 /min MonDec 17 08:24 :35 EST 2024 Body temperature 97.50 [degF] MonDec 17 08:2 4:35 EST 2024 Respiratory rate 18.00 /min MonDec 17 08:2 4:35 EST 2024 Pulse Oximetry 96.00 % MonDec 17 08:24 :35 EST 2024 Systolic Blood Pressure 112.00 mm[Hg] Mon 04 01:34:01 EST 2024 Diastolic Blood Pressure 60.00 mm[Hg] Mon 04 01:34:01 EST 2024 Heart Rate 69.00 /min Mon 04 01:34 :01 EST 2024 Body temperature 97.30 [degF] MonDec 17 01:3 4:01 EST 2024 Respiratory rate 18.00 /min MonDec 17 01:3 4:01 EST 2024 Pulse Oximetry 96.00 % MonDec 17 01:34 :01 EST 2024 Systolic Blood Pressure 125.00 mm[Hg] MonDec 16 11:29:45 EST 2024 Diastolic Blood Pressure 85.00 mm[Hg] MonDec 16 11:29:45 EST 2024 Body weight 161.60 [lb_av] MonDec 16 11:29 :45 EST 2024 Heart Rate 112.00 /min MonDec 16 11:29 :45 EST 2024 Body temperature 97.40 [degF] MonDec 16 11:2 9:45 EST 2024 Respiratory rate 20.00 /min MonDec 16 11:2 9:45 EST 2024 Pulse Oximetry 97.00 % MonDec 16 11:29 :45 EST 2024 Systolic Blood Pressure 125.00 mm[Hg] MonDec 16 09:24:29 EST 2024 Diastolic Blood Pressure 85.00 mm[Hg] MonDec 16 09:24:29 EST 2024 Systolic Blood Pressure 125.00 mm[Hg] MonDec 16 09:24:29 EST 2024 Diastolic Blood Pressure 85.00 mm[Hg] MonDec 16 09:24:29 EST 2024 Heart Rate 112.00 /min MonDec 16 09:24 :29 EST 2024 Heart Rate 112.00 /min MonDec 16 09:24 :29 EST 2024 Systolic Blood Pressure 113.00 mm[Hg] MonDec 15 23:06:27 EST 2024 Diastolic Blood Pressure 71.00 mm[Hg] MonDec 15 23:06:27 EST 2024 Heart Rate 82.00 /min MonDec 15 23:06 :27 EST 2024 Body temperature 97.80 [degF] MonDec 15 23:0 6:27 EST 2024 Respiratory rate 18.00 /min MonDec 15 23:0 6:27 EST 2024 Pulse Oximetry 99.00 % MonDec 15 23:06 :27 EST 2024 Systolic Blood Pressure 124.00 mm[Hg] MonDec 15 10:47:43 EST 2024 Diastolic Blood Pressure 76.00 mm[Hg] MonDec 15 10:47:43 EST 2024 Body weight 161.80 [lb_av] MonDec 15 10:47 :43 EST 2025 Heart Rate 91.00 /min Sun Mar 10:47 :43 EST 2024 Body temperature 97.80 [degF] Sun Mar 10:4 7:43 EST 2024 Respiratory rate 18.00 /min Sun Mar 10:4 7:43 EST 2024 Pulse Oximetry 97.00 % Sun Mar 10:47 :43 EST 2024 Systolic Blood Pressure 124.00 mm[Hg] Sun Mar 02 09:20:47 EST 2024 Diastolic Blood Pressure 76.00 mm[Hg] Sun Mar 09:20:47 EST 2024 Systolic Blood Pressure 124.00 mm[Hg] Sun Mar 09:20:47 EST 2024 Diastolic Blood Pressure 76.00 mm[Hg] Sun Mar 09:20:47 EST 2024 Heart Rate 91.00 /min Sun Mar 09:20 :47 EST 2024 Heart Rate 91.00 /min Sun Mar 09:20 :47 EST 2024 Systolic Blood Pressure 118.00 mm[Hg] Sun Mar 03:52:46 EST 2024 Diastolic Blood Pressure 72.00 mm[Hg] Sun Mar 03:52:46 EST 2024 Heart Rate 96.00 /min Sun Mar 03:52 :46 EST 2024 Body temperature 97.30 [degF] Sun Mar 03:5 2:46 EST 2024 Respiratory rate 18.00 /min Sun Mar 03:5 2:46 EST 2024 Pulse Oximetry 97.00 % Sun Mar 03:52 :46 EST 2024 Body weight 164.20 [lb_av] Sat Mar 11:18 :25 EST 2024 Systolic Blood Pressure 114.00 mm[Hg] Sat Mar 09:33:29 EST 2024 Diastolic Blood Pressure 73.00 mm[Hg] Sat Mar 09:33:29 EST 2024 Systolic Blood Pressure 114.00 mm[Hg] Sat Mar 09:33:29 EST 2024 Diastolic Blood Pressure 73.00 mm[Hg] Sat Mar 01 09:33:29 EST 2024 Systolic Blood Pressure 114.00 mm[Hg] Sat Mar 09:33:29 EST 2024 Diastolic Blood Pressure 73.00 mm[Hg] Sat Mar 09:33:29 EST 5 Heart Rate 106.00 /min Sat Mar 01 09:33 :29 EST 2024 Heart Rate 106.00 /min Sat Mar 09:33 :29 EST 2024 Heart Rate 106.00 /min Sat Mar 01 09:33 :29 EST 2024 Body temperature 97.90 [degF] MonDec 14 09:3 3:29 EST 2024 Respiratory rate 18.00 /min MonDec 14 09:3 3:29 EST 2024 Pulse Oximetry 97.00 % MonDec 14 09:33 :29 EST 2024 Systolic Blood Pressure 130.00 mm[Hg] Monb 23:46:33 EST 2024 Diastolic Blood Pressure 89.00 mm[Hg] Monb 23:46:33 EST 5 Heart Rate 92.00 /min MonDec 13 23:46 :33 EST 2024 Body temperature 97.50 [degF] Monb 23:4 6:33 EST 2024 Respiratory rate 18.00 /min Monb 23:4 6:33 EST 2024 Pulse Oximetry 94.00 % MonDec 13 23:46 :33 EST 2024 Body weight 162.20 [lb_av] Monb 15:36 :57 EST 2024 Systolic Blood Pressure 120.00 mm[Hg] Monb 10:41:59 EST 2024 Diastolic Blood Pressure 75.00 mm[Hg] Monb 10:41:59 EST 2024 Heart Rate 91.00 /min Monb 10:41 :59 EST 2024 Body temperature 98.00 [degF] Monb 10:4 1:59 EST 2024 Respiratory rate 20.00 /min MonDec 13 10:4 1:59 EST 2024 Pulse Oximetry 96.00 % MonDec 13 10:41 :59 EST 2024 Systolic Blood Pressure 120.00 mm[Hg] Monb 08:34:42 EST 2024 Diastolic Blood Pressure 75.00 mm[Hg] Monb 08:34:42 EST 5 Systolic Blood Pressure 120.00 mm[Hg] Monb 08:34:42 EST 2024 Diastolic Blood Pressure 75.00 mm[Hg] Monb 08:34:42 EST 2024 Heart Rate 91.00 /min MonDec 13 08:34 :42 EST 2024 Heart Rate 91.00 /min Monb 08:34 :42 EST 5 Systolic Blood Pressure 113.00 mm[Hg] Karen Feb 23:21:13 EST 5 Diastolic Blood Pressure 72.00 mm[Hg] Karenb 23:21:13 EST 2024 Heart Rate 93.00 /min Karen Feb 27 23:21 :13 EST 2024 Body temperature 98.20 [degF] Karen Feb 27 23:2 1:13 EST 2024 Respiratory rate 19.00 /min Karen Feb 27 23:2 1:13 EST 2024 Pulse Oximetry 95.00 % Karen Feb 27 23:21 :13 EST 2024 Body weight 162.20 [lb_av] Karen Feb 27 10:56 :10 EST 2024 Systolic Blood Pressure 105.00 mm[Hg] Karen Feb 27 10:46:54 EST 2024 Diastolic Blood Pressure 69.00 mm[Hg] Karen Feb 27 10:46:54 EST 2024 Heart Rate 99.00 /min Karen Feb 27 10:46 :54 EST 2024 Body temperature 98.20 [degF] Karen Feb 27 10:4 6:54 EST 2024 Respiratory rate 18.00 /min Karen Feb 27 10:4 6:54 EST 2024 Pulse Oximetry 98.00 % Karen Feb 27 10:46 :54 EST 2024 Systolic Blood Pressure 105.00 mm[Hg] Karen Feb 27 09:15:51 EST 5 Diastolic Blood Pressure 69.00 mm[Hg] Karen Feb 27 09:15:51 EST 2024 Systolic Blood Pressure 105.00 mm[Hg] Karen Feb 27 09:15:51 EST 5 Diastolic Blood Pressure 69.00 mm[Hg] Karen Feb 27 09:15:51 EST 2024 Heart Rate 99.00 /min Karen Feb 27 09:15 :51 EST 2024 Heart Rate 99.00 /min Karen Feb 27 09:15 :51 EST 5 Systolic Blood Pressure 109.00 mm[Hg] Wed Feb 26 22:20:02 EST 2024 Diastolic Blood Pressure 70.00 mm[Hg] Wed Feb 26 22:20:02 EST 2024 Heart Rate 82.00 /min Wed Feb 26 22:20 :02 EST 2024 Body temperature 97.60 [degF] Wed Feb 22:2 0:02 EST 2024 Respiratory rate 18.00 /min Wed Feb 26 22:2 0:02 EST 2024 Pulse Oximetry 96.00 % Wed Feb 22:20 :02 EST 2024 Systolic Blood Pressure 128.00 mm[Hg] Wed Feb 11:05:40 EST 2024 Diastolic Blood Pressure 80.00 mm[Hg] Wed Feb 11:05:40 EST 2024 Body weight 163.60 [lb_av] Mon Feb 11:05 :40 EST 2024 Heart Rate 97.00 /min Wed Feb 11:05 :40 EST 2024 Body temperature 97.80 [degF] Mon Feb 11:0 5:40 EST 2024 Respiratory rate 18.00 /min Wed Feb 11:0 5:40 EST 2024 Pulse Oximetry 95.00 % Mon Feb 11:05 :40 EST 2024 Systolic Blood Pressure 128.00 mm[Hg] Wed Feb 09:16:08 EST 2024 Diastolic Blood Pressure 80.00 mm[Hg] Mon Feb 09:16:08 EST 2024 Systolic Blood Pressure 128.00 mm[Hg] Wed Feb 09:16:08 EST 2024 Diastolic Blood Pressure 80.00 mm[Hg] Wed Feb 09:16:08 EST 2024 Heart Rate 97.00 /min Mon Feb 09:16 :08 EST 2024 Heart Rate 97.00 /min Mon Feb 09:16 :08 EST 2024 Systolic Blood Pressure 119.00 mm[Hg] Monb 23:39:36 EST 2024 Diastolic Blood Pressure 69.00 mm[Hg] Monb 23:39:36 EST 2024 Heart Rate 83.00 /min Monb 23:39 :36 EST 2024 Body temperature 98.10 [degF] Monb 23:3 9:36 EST 2024 Respiratory rate 20.00 /min Monb 23:3 9:36 EST 2024 Pulse Oximetry 96.00 % Monb 23:39 :36 EST 2024 Body weight 164.20 [lb_av] Monb 14:17 :22 EST 2024 Systolic Blood Pressure 127.00 mm[Hg] Mon Feb 09:03:03 EST 2024 Diastolic Blood Pressure 76.00 mm[Hg] Mon Feb 09:03:03 EST 2024 Heart Rate 97.00 /min Mon Feb 09:03 :03 EST 2024 Body temperature 97.40 [degF] Mon Feb 09:0 3:03 EST 2024 Respiratory rate 18.00 /min Mon Feb 09:0 3:03 EST 2024 Pulse Oximetry 95.00 % Monb 09:03 :03 EST 2024 Systolic Blood Pressure 127.00 mm[Hg] Mon Feb 08:54:22 EST 2024 Diastolic Blood Pressure 76.00 mm[Hg] Mon Feb 08:54:22 EST 2024 Systolic Blood Pressure 127.00 mm[Hg] Mon Feb 08:54:22 EST 2024 Diastolic Blood Pressure 76.00 mm[Hg] Mon Feb 08:54:22 EST 2024 Heart Rate 97.00 /min Monb 08:54 :22 EST 2024 Heart Rate 97.00 /min Mon Feb 08:54 :22 EST 2024 Systolic Blood Pressure 112.00 mm[Hg] Monb 00:18:12 EST 2024 Diastolic Blood Pressure 66.00 mm[Hg] Monb 00:18:12 EST 2024 Heart Rate 91.00 /min Monb 00:18 :12 EST 2024 Body temperature 97.20 [degF] Monb 00:1 8:12 EST 2024 Respiratory rate 22.00 /min Monb 00:1 8:12 EST 2024 Pulse Oximetry 97.00 % Monb 00:18 :12 EST 2024 Systolic Blood Pressure 114.00 mm[Hg] Monb 12:33:00 EST 2024 Diastolic Blood Pressure 70.00 mm[Hg] Monb 12:33:00 EST 2024 Heart Rate 100.00 /min Monb 12:33 :00 EST 2024 Body temperature 97.40 [degF] MonDec 09 12:3 3:00 EST 2024 Respiratory rate 18.00 /min Monb 12:3 3:00 EST 2024 Pulse Oximetry 97.00 % MonDec 09 12:33 :00 EST 2024 Body Height 60.00 [in_i] MonDec 09 12:33 :00 EST 5 Reason for Referral
--- OUTSIDE RECORDS SUMMARY | 2025-01-14 17:26 | XMS_ITS | CONTINUITY OF CARE DOCUMENT ---
Author Name doris george Address Unknown Organization [facility] Address [address] [address] [place] [address] Phone [phone] Care Team Providers Care Real Estate Paralegal Name Role Phone Sima GARCIA, Triny Unavailable JUANJOSE MECHANICAL SHOVEL OPERATOR, KEN M Unavailable SOW MECHANICAL SHOVEL OPERATOR, KEN M Unavailable PROBLEMS Condition Status Date Provider Notes Family History of Hypertension: completed - David Walker CAD - tetlin vessel active Triny rockwell MD Hx of NSTEMI active Triny Gao MD Tobacco use, quit active Theodore Walker COPD active Triny Gao MD Hyperlipidemia active Adelita Hernandez Hypertension active ? Theodore Walker Atrial fib chronic active Triny Gao MD Mitral regurgitation active Triny bryan MD Sick sinus syndrome active Triny rockwell MD CHF - diastolic active Triny Gao MD Current use of Warfarin - IN R per [facility] active Triny Gao MD ENCOUNTERS Date Type Provider Location Encounter Diag nosis - In-person encounter Office Visit Triny Gao MD [place] [facility] Atrial fib chronicSick sinus syndromeCHF - diastolicCurrent use of Warfarin - INR per HV - In-person encounter Office Visit Triny Gao MD [facility] Office - In-person encounter Office Visit Triny Gao MD [facility] [place] Hx of NSTEMIHyperlipidemiaMitral regurgitation - In-person encounter Office Visit Triny Gao MD [facility] Office - In-person encounter Office Visit Triny Gao [place] [facility] [facility] [place]-person encounter Office Visit Triny Gao MD [facility] - In-person encounter Office Visit Triny Gao MD [facility] [place] Atrial fib chronic - In-person encounter Office Visit Triny Gao MD [facility] Office - In-person encounter Office Visit Triny Gao MD [facility] Family History of Hypertension:CAD - tetlin vesselHx of NSTEMITobacco use, quitCOPDHyperlipidemiaHypertension VITAL SIGNS Date Observation Value Provider Body Mass Index (Ratio) 26.15 kg/m2 Jimmy Gao MD blood pressure, diastolic 72 mm[Hg] Da jaycee Dillon blood pressure, systolic 118 mm[Hg] Dac [facility] oxygen saturation, oximetry 94 % [facility] respiratory rate E&M 16 /min Ana V oss pulse rate 109 /min Ana Dillon weight E&M 167 [lb_av] Ana Dillon height E&M 67 [in_i] Ana Dillon Body Mass Index (Ratio) 25.21 kg/m2 Jimmy Gao MD blood pressure, resting Yes Anti ruddy Dobson blood pressure, diastolic 78 mm[Hg] An tiruddy Dobson blood pressure, systolic 122 mm[Hg] Ant charlene Dobson oxygen saturation, oximetry 98 % Sahara Dobson respiratory rate E&M 18 /min Eliseo Dobson pulse rate 109 /min Sahara Jone s weight E&M 161 [lb_av] Sahara Jian s blood pressure, diastolic 70 mm[Hg] Yazan Hanley blood pressure, systolic 118 mm[Hg] Edwar Gaonahley pulse rate 84 /min Marilee Gaonahley oxygen saturation, oximetry 95 % Marilee Gaonahley respiratory rate E&M 18 /min Marilee Gaonahley Body Mass Index (Ratio) 25.09 kg/m2 Niko Hanley weight E&M 160.2 [lb_av] Marilee ying blood pressure, diastolic 80 mm[Hg] Ralph Elizabeth blood pressure, systolic 118 mm[Hg] Brodie Joyby pulse rate 78 /min Ana Joyby oxygen saturation, oximetry 97 % Ana Joyby respiratory rate E&M 16 /min Ana Joyby Body Mass Index (Ratio) 25.06 kg/m2 Jack Joyby weight E&M 160 [lb_av] Ana Joyby blood pressure, diastolic 80 mm[Hg] Mitchel Herrera blood pressure, systolic 122 mm[Hg] Addison Herrera pulse rate 107 /min Maria Teresa Herrera oxygen saturation, oximetry 98 % Maria Teresa Herrera respiratory rate E&M 17 /min Maria Teresa Herrera Body Mass Index (Ratio) 25.06 kg/m2 Cait Herrera weight E&M 160 [lb_av] Maria Teresa Herrera pulse rate 100 /min Lorri Ramirez oxygen saturation, oximetry 100 % Lorri Ramirez blood pressure, diastolic 96 mm[Hg] Al ky Ramirez blood pressure, systolic 133 mm[Hg] All matteo Ramirez respiratory rate E&M 18 /min Lorri Ramirez Body Mass Index (Ratio) 24.90 kg/m2 Jesus Ramirez weight E&M 159 [lb_av] Lorri Ramirez blood pressure, diastolic 80 mm[Hg] Ralph Elizabeth blood pressure, systolic 112 mm[Hg] Brodie Elizabeth pulse rate 78 /min Ana Elizabeth oxygen saturation, oximetry 98 % Ana Elizabeth respiratory rate E&M 18 /min Ana Elizabeth Body Mass Index (Ratio) 24.99 kg/m2 Jack Elizabeth weight E&M 159.6 [lb_av] Ana Elizabeth blood pressure, diastolic 80 mm[Hg] Ralph Elizabeth blood pressure, systolic 120 mm[Hg] Brodie Elizabeth pulse rate 77 /min Ana Elizabeth oxygen saturation, oximetry 98 % Ana Eliazbeth respiratory rate E&M 18 /min Ana Elizabeth Body Mass Index (Ratio) 25.37 kg/m2 Jack Elizabeth height E&M 67 [in_i] Ana Elizabeth weight E&M 162 [lb_av] Ana Elizabeth ALLERGIES Allergy Name Onset Date Reaction Criticality Status SULFA Low Criticality active AMOXICILLIN Low Criticality active RESULTS Date Observation Value Provider Reference Range Interpretation Location coagulation managed by Abilio Garcia RN international normalized ratio (INR) 1.97 Abilio Garcia RN Normal prothrombin time (patient) 23.1 s Abilio Garcia RN coagulation managed by Adelita Hernandez prothrombin time (patient) 22.2 s Sahara Dobson international normalized ratio (INR) 1.8 Sahara Dobson Normal coagulation managed by Adelita Hernandez international normalized ratio (INR) 1.7 Sahara Dobson Normal prothrombin time (patient) 20.8 s Sahara Dobson coagulation managed by Abilio Garcia RN international normalized ratio (INR) 1.79 Abilio Garcia RN Normal prothrombin time (patient) 20.9 s Abilio Garcia RN coagulation managed by Aminta Matthews RN prothrombin time (patient) 37.6 s Aminta Matthews RN international normalized ratio (INR) 3.13 Aminta Matthews RN Normal coagulation managed by Francisco Boland RN international normalized ratio (INR) 3.99 Francisco Boland RN Normal prothrombin time (patient) 48.5 s Francisco Boland RN coagulation managed by Abilio Garcia RN international normalized ratio (INR) 2.94 Abilio Garcia RN Normal prothrombin time (patient) 35.2 s Abilio Garcia RN coagulation managed by Francisco Boland RN international normalized ratio (INR) 2.94 Francisco Boland RN Normal prothrombin time (patient) 35.1 s Francisco Boland RN coagulation managed by Diana Dorsey RN international normalized ratio (INR) 3.8 Marilee Hanley Normal prothrombin time (patient) 36.6 s Marilee Hanley coagulation managed by Diana Dorsey RN international normalized ratio (INR) 3.0 Diana Dorsey RN Normal prothrombin time (patient) 38.1 s Diana Dorsey RN coagulation managed by Abilio Garcia RN international normalized ratio (INR) 3.7 Ivis Jacksonal Normal prothrombin time (patient) 40.7 s Ivis O'Nikita international normalized ratio (INR) 1.8 Corry Price RN Normal international normalized ratio (INR) 1.8 Marilee Talon Normal prothrombin time (patient) 18.8 s Marilee Talon coagulation managed by Adelita Hernandez international normalized ratio (INR) 1.1 Marilee Talon Normal prothrombin time (patient) 13.1 s Marilee Talon coagulation managed by Diana Dorsey RN international normalized ratio (INR) 1.8 Marilee Talon Normal prothrombin time (patient) 21.2 s Marilee Talon coagulation managed by Diana Dorsey RN international normalized ratio (INR) 1.9 Ivis O'Nikita Normal prothrombin time (patient) 23.1 s Ivis O'Nikita coagulation managed by Abilio Garcia RN international normalized ratio (INR) 1.9 Marilee Talon Normal prothrombin time (patient) 22.9 s Marilee Talon triglyceride, serum, fasting 79 mg/dL Triny Gao MD HDL cholesterol, serum 103 mg/dL ulius Sima GARCIA LDL cholesterol, serum 35 mg/dL ulius Sima GARCIA cholesterol, serum 154 mg/dL ulius Sima GARCIA coagulation managed by Diana Dorsey RN prothrombin time (patient) 20.0 s Ana [place] international normalized ratio (INR) 1.7 Ana [place] Normal international normalized ratio (INR) 1.3 Ana [place] Low prothrombin time (patient) 16.2 s Ana Elizabeth HISTORY OF MEDICATION USE Medication Status Instructions Dates Provider Indications Com ments LISINOPRIL 2.5 MG ORAL TABLET active one tablet each night Triny Gao MD ASPIRIN EC 81 MG ORAL TABLET DELAYED RELEASE active one tab daily Triny Gao MD stop brillinta. c ontinue coumadin COUMADIN 3 MG ORAL TABLET active Take 1 tab (3mg) sat/sun only Adelita Hernandez COUMADIN 4 MG ORAL TABLET active 1 tab daily, Mon-Monday Adelita Hernandez COUMADIN 1 MG ORAL TABLET completed take 1 tab with 3mg coumadin - Corry Price RN DILTIAZEM HCL 60 MG ORAL TABLET active One tablet four times a day Triny Gao MD BYSTOLIC 20 MG ORAL TABLET active ONE TAB. DAILY Triny Gao MD DILTIAZEM HCL 30 MG ORAL TABLET completed 1 tablet 3 times a day - Maria Teresa Herrera COUMADIN 5 MG ORAL TABLET completed take one tab daily - Abilio Garcia RN stop fish oil and aspirin because pt starts coumadin CALCIUM 1000 + D 1000-800 MG-UNIT ORAL TABLET active take one tab by mouth every day Lorri Ramirez E-400 400 UNIT ORAL CAPSULE active take one cap by mouth every day Lorri Ramirez PROBIOTIC DAILY ORAL CAPSULE active take one tab by mouth every day Lorri Ramirez PRAVACHOL 20 MG ORAL TABLET completed ONE TAB. DAILY - Corry Price RN may substitute to preffered statin TRIAMTERENE-HCT Z 37.5-25 MG ORAL TABLET active one tablet by mouth once daily Ana SHEN VITAMIN C 500 MG ORAL TABLET active one tablet by mouth twice daily Triny Gao MD ATORVASTATIN CALCIUM 20 MG ORAL TABLET active take one tab daily Corry Price RN LISINOPRIL TABLET completed one tablet by mouth once daily - Ana Elizabeth MIRALAX ORAL POWDER active every other night Ana Elizabeth OMEPRAZOLE 40 MG ORAL CAPSULE DELAYED RELEASE active one tablet by mouth once daily Ana Elizabeth ASPIRIN 81 MG ORAL TABLET completed one tablet by mouth once daily - Triny Gao MD BRILINTA 90 MG ORAL TABLET completed twice daily - Triny Gao MD BYSTOLIC 20 MG ORAL TABLET completed one tablet by mouth once daily - Maria Teresankechi Herrera SOCIAL HISTORY Date Observation Value Provider number of years as a smoker 56 a Triny Gao MD social history reviewed E&M revi ewed - no changes required Triny Gao MD passive cigarette sm torrey exposure yes Ana Bernadette smoking, year quit 2015 Ana Tiny s smoking, date started 1960 Ana Bernadette cigarette use yes Ana Bernadette smoking status Former smoker Ana Bernadette smoking history, tot al pack/year 57 Adelita Hernandez smoking status Former smoker Sahara Dubon olga lidia smoking history, tot al pack/year 56 Francisco Boland RN social history reviewed E&M revi ewed - no changes required Triny Gao MD social history E&M Smoking Histo ry: Cali nieves is a former smoker. Triny Gao MD passive cigarette sm torrey exposure yes Triny Gao MD smoking, year quit 2015 Triny soto MD smoking, date started 1959 Margarito Gao MD cigarette use yes Triny licea MD smoking status Former smoker Triny grewal MD social history reviewed E&M revi ewed - no changes required Triny Gao MD smoking, year quit 2015 Triny soto MD smoking, date started 1959 Margarito Gao MD cigarette use yes Triny licea MD smoking status Former smoker Triny grewal MD social history reviewed E&M revi ewed - no changes required Triny Gao MD social history reviewed E&M revi ewed - no changes required Triny Gao MD social history E&M Smoking Histo ry: Patient is a former smoker. Triny Gao MD smoking, year quit 2015 Lorri whitfield smoking, date started 1959 Karie Ramirez cigarette use yes Lorri Ramirez smoking status Former smoker Lorri Batresashley cabral social history E&M S moking History: P atelkin is a former smoker. Triny Gao MD smoking status Former smoker Triny grewal MD social history reviewed E&M revi ewed - no changes required Triny Gao MD social history E&M Smoking Histo ry: Cali nieves is a former smoker. Theodore Walker social history reviewed E&M revi ewed - no changes required Theodore Walker number of grandchildren Triny Elizabeth smoking, year quit 2015 Ana devi smoking, date started 1959 Ana Elizabeth cigarette use yes Ana Elizabeth smoking status Former smoker Ana Elizabeth FUNCTIONAL STATUS Date Observation Value Provider HRA, CV Assess/Plan, Angina (inactive) Management Plan continue current therapy Triny Gao MD HRA, CV Assess/Plan, Angina (inactive) Management Plan continue current therapy Triny Gao MD HRA, CV Assess/Plan, Angina (inactive) Management Plan continue current therapy Triny Gao MD HRA, CV Assess/Plan, Angina (inactive) Management Plan continue current therapy Triny Gao MD HRA, CV Assess/Plan, Angina (inactive) Management Plan continue current therapy Triny Gao MD HRA, CV Assess/Plan, Angina (inactive) Management Plan continue current therapy Theodore Walker FAMILY HISTORY Family Member Condition Father Family History of Hy pertension: INSURANCE PROVIDERS Payer name Policy type / Coverage type [employer] Other 3 [id number] [place] B Medicare [id number] ADVANCE DIRECTIVES Name Date LIVING WILL ON FILE TREATMENT PLAN Date Name Performer Cardiology Follow up faxed 12/06/16:Continues on Warfarin for chronic afib. INR monitored by [facility]. Triny Gao MD Cardiology Follow up faxed 12/06/16:No chest pain. Her updated medication list for this problem includes: Lisinopril 2.5 Mg Oral Tabs (Lisinopril) ..... One tablet each night Aspirin Ec 81 Mg Tbec (Aspirin) ..... One tab daily Coumadin 3 Mg Tabs (Warfarin sodium) ..... Take 1 tab (3mg) sat/sun only Coumadin 4 Mg Oral Tabs (Warfarin sodium) ..... 1 tab daily, mon-monday Diltiazem Hcl 60 Mg Tabs (Diltiazem hcl) ..... One tablet four times a day Bystolic 20 Mg Tabs (Nebivolol hcl) ..... One tab. daily Triny Gao MD Cardiology Follow up faxed 12/06/16:Her updated medication list for this problem includes: Lisinopril 2.5 Mg Oral Tabs (Lisinopril) ..... One tablet each night Aspirin Ec 81 Mg Tbec (Aspirin) ..... One tab daily Coumadin 3 Mg Tabs (Warfarin sodium) ..... Take 1 tab (3mg) sat/sun only Coumadin 4 Mg Oral Tabs (Warfarin sodium) ..... 1 tab daily, mon-monday Diltiazem Hcl 60 Mg Tabs (Diltiazem hcl) ..... One tablet four times a day Bystolic 20 Mg Tabs (Nebivolol hcl) ..... One tab. daily Triamterene-hctz 37.5-25 Mg Oral Tabs (Triamterene-hctz) ..... One tablet by mouth once daily Triny Gao MD Cardiology Follow up faxed 12/06/16:PFT's 03/28/2016: C onclusions: Minimal Obstructive Airways Disease. Following administration of bronchodilators, there is no significant response. No restriction. Moderate Diffusion Defect Triny Gao MD Cardiology Follow up faxed 12/06/16:Mild to moderate on echo in July 2016. Triny Gao MD Cardiology Follow up faxed 12/06/16:Her updated medication list for this problem includes: Aspirin Ec 81 Mg Tbec (Aspirin) ..... One tab daily Coumadin 3 Mg Tabs (Warfarin sodium) ..... Take 1 tab (3mg) sat/sun only Coumadin 4 Mg Oral Tabs (Warfarin sodium) ..... 1 tab daily, mon-monday Bystolic 20 Mg Tabs (Nebivolol hcl) ..... One tab. daily 11/24/2016 Telesentry: R hythm: Atrial Fibrillation T he average heart rate was 126BPM with a maximum heart rate of 160BPM. The minimum heart rate was 91BPM. D kobi collection was limited due to poor signal at patient's residence. Multiple attempts to troubleshoot this issue were unsuccessful. Data w as only collected on patient's first day of wearing monitor. Triny Gao MD Cardiology Follow up faxed 12/06/16:Cannot tolerate being bradycardic. Recommend AV node ablation and [facility] pacemaker implantation at [facility]. Triny Gao MD EP: O rders: [id number] [phone] MOD Complex (CPT-44044) Triny Gao MD Cardiology faxed :Her updated medication list for this problem includes: Atorvastatin Calcium 20 Mg Oral Tabs (Atorvastatin calcium) ..... Take one tab daily Triny Gao MD Cardiology faxed :Her updated medication list for this problem includes: Diltiazem Hcl 60 Mg Tabs (Diltiazem hcl) ..... One tablet three times a day Bystolic 20 Mg Tabs (Nebivolol hcl) ..... One tab. daily Triamterene-hctz 37.5-25 Mg Oral Tabs (Triamterene-hctz) ..... One tablet by mouth once daily BP today: 118/70 P rior BP: 118/80 (06/29/2016) Triny Gao MD Cardiology faxed :No asiprin due to coumadin and brillinta. Her updated medication list for this problem includes: Bystolic 20 Mg Tabs (Nebivolol hcl) ..... One tab. daily Diltiazem Hcl 60 Mg Tabs (Diltiazem hcl) ..... One tablet three times a day Coumadin 5 Mg Oral Tabs (Warfarin sodium) ..... Take one tab daily Brilinta 90 Mg Oral Tabs (Ticagrelor) ..... Twice daily Orders: S NOMED-CT: [id number] Current Medications Documented ([facility]-[id number]) E KG (CPT-14609) M obile Cardiac Tele (CPT-87848) Triny Gao MD Cardiology faxed 06/17 12/29:Her updated medication list for this problem includes: Atorvastatin Calcium 20 Mg Oral Tabs (Atorvastatin calcium) ..... Take one tab daily Triny Gao MD Cardiology faxed 06/17 12/29:BP today: 118/80 P rior BP: 122/80 (06/22/2016) Triny Gao MD Cardiology faxed 06/17 12/29:Patient continues to not-smoke. She needs to limit her exposure to second-hand smoke and it would benefit her greatly if her stopped smoking altogether or at least stopped smoking in their house/car. Triny Gao MD Cardiology faxed 07/08/16:No hesham na. Triny Gao MD Cardiology faxed 06/17 12/29:Her updated medication list for this problem includes: Bystolic 20 Mg Tabs (Nebivolol hcl) ..... One tab. daily Warfarin Sodium 3 Mg Oral Tabs (Warfarin sodium) ..... Take on tab daily Brilinta 90 Mg Oral Tabs (Ticagrelor) ..... Twice daily Diltiazem 60mg Oral Tabs ................... TID Doubled dose of Diltiazem. Amiodarone is not an option due to significantly decreased DLCO. If both tachy and eder arrhythmia are seen, in a patient with rate that is difficult to control, a pacemaker would be recommended. Triny Gao MD Cardiology faxed 06/17 12/29:Recommended scheduling an appointment with a mechanical cad drafter. Triny Gao MD Cardiology faxed 06/29/16 1337:No chest pain. Triny Gao MD Cardiology faxed 06/16 01/29 1337:BP today: 122/80 P rior BP: 133/96 (05/18/2016) Her updated medication list for this problem includes: Diltiazem Hcl 30 Mg Tabs (Diltiazem hcl) ..... One tablet three times a day Bystolic 20 Mg Tabs (Nebivolol hcl) ..... One tab. daily Triamterene-hctz 37.5-25 Mg Oral Tabs (Triamterene-hctz) ..... One tablet by mouth once daily Triny Gao MD Cardiology faxed 06/16 01/29 1337:Cardioverted on 06/14/2016. Was put on Amiodarone. Back in Afib now. Triny Gao MD EP faxed 05/28/16 Triny bryan MD EP faxed 05/28/16:Her updated medication list for this problem includes: Diltiazem Hcl 30 Mg Tabs (Diltiazem hcl) ..... 1 tablet 3 times a day Triamterene-hctz 37.5-25 Mg Oral Tabs (Triamterene-hctz) ..... One tablet by mouth once daily Bystolic 20 Mg Oral Tabs (Nebivolol hcl) ..... One tablet by mouth once daily BP today: 133/96 P rior BP: 112/80 (03/30/2016) Triny Gao MD EP faxed 05/28/16: H er updated medication list for this problem includes: Aspirin 81 Mg Oral Tabs (Aspirin) ..... One tablet by mouth once daily Brilinta 90 Mg Oral Tabs (Ticagrelor) ..... Twice daily Bystolic 20 Mg Oral Tabs (Nebivolol hcl) ..... One tablet by mouth once daily Triny Gao MD EP faxed 03/31/16: T he following medications were removed from the medication list: Lisinopril Tabs (Lisinopril tabs) ..... One tablet by mouth once daily Her updated medication list for this problem includes: Triamterene-hctz 37.5-25 Mg Oral Tabs (Triamterene-hctz) ..... One tablet by mouth once daily Aspirin 81 Mg Oral Tabs (Aspirin) ..... One tablet by mouth once daily Bystolic 20 Mg Oral Tabs (Nebivolol hcl) ..... One tablet by mouth once daily BP today: 112/80 P rior BP: 120/80 (02/24/2016) Triny Gao MD EP faxed 03/31/16 Triny bryan MD Cardiology faxed 02/14 03/31 1012:BP today: 120/80 Her updated medication list for this problem includes: Triamterene-hctz 37.5-25 Mg Oral Tabs (Triamterene-hctz) ..... One tablet by mouth once daily Lisinopril Tabs (Lisinopril tabs) ..... One tablet by mouth once daily Aspirin 81 Mg Oral Tabs (Aspirin) ..... One tablet by mouth once daily Bystolic 20 Mg Oral Tabs (Nebivolol hcl) ..... One tablet by mouth once daily Theodore Walker Cardiology faxed 02/14 03/31 1012:Her updated medication list for this problem includes: Atorvastatin Calcium 20 Mg Oral Tabs (Atorvastatin calcium) ..... Take one tab daily Theodore Walker Cardiology faxed 03/10/16 1012:Or ders: PFT'moiz Walker Cardiology faxed 03/10/16 1012 David Walker Cardiology faxed 02/14 03/31 1012:Her updated medication list for this problem includes: Lisinopril Tabs (Lisinopril tabs) ..... One tablet by mouth once daily Aspirin 81 Mg Oral Tabs (Aspirin) ..... One tablet by mouth once daily Brilinta 90 Mg Oral Tabs (Ticagrelor) ..... Twice daily Bystolic 20 Mg Oral Tabs (Nebivolol hcl) ..... One tablet by mouth once daily Theodore Walker Date Name ABLATION w/ Anesthes ia Pacemaker Bi-V - CNE DLCO - 48226 FRC - 77984 FVC - 15785 Mobile Cardiac Tele Mobile Cardiac Tele Holter Monitor 24 Hr Mobile Cardiac Tele Cardioversion - CNE JAYDA - CNE Aortic Abdominal Ult rasound Complete Echo LIPID PANEL PROBNP, N TERMINAL CBC (INCLUDES DIFF/P LT) COMPREHENSIVE METABO LIC PANEL W/EGFR DLCO - 70095 FRC - 84139 FVC - 10606 HISTORY OF PROCEDURES Procedure Date Procedure Name Provider Procedure Notes S tatus EKG Triny rockwell MD completed SNOMED-CT: [id number] Current Medications Documented Triny Gao MD completed Tika rockwell MD completed Mobile Cardiac Telem etry - Tech Triny Gao MD completed Mobile Cardiac Telem etry - Prof Triny Gao MD completed SNOMED-CT: [id number] Current Medications Documented Saulius Kalkiloitis completed EKG ulius Guanakito rockwell MD completed Tika rockwell MD completed Tika rockwell MD completed Tika rockwell MD completed Tika rockwell MD completed Schedule Followup Triny licea MD in 6 months completed EKG Triny rockwell MD completed SNOMED-CT: 325862786220840 Current Medications Documented Saulius Kalkiloitis completed Tika rockwell MD completed Protime Marilee Hanley completed Holter, 24 or 48 Marilee Hanley com pleted Protjuan carlos rockwell MD completed Protime Triny rockwell MD completed Tika rockwell MD completed Tika rockwell MD completed SNOMED-CT: [id number] Smoking Cessation Counseling Triny Gao MD completed SNOMED-CT: 141854506485405 Current Medications Documented Saulius Kalkiloitis completed Tika rockwell MD completed Protjuan carlos rockwell MD completed EKG Triny rockwell MD completed SNOMED-CT: 510904078916043 Current Medications Documented ulius Kalkiki GARCIA completed EKG Triny rockwell MD completed SNOMED-CT: [id number] Current Medications Documented ulius Sima GARCIA completed Schedule Followup Triny licea MD 4 months completed EKG Triny rockwell MD completed SNOMED-CT: [id number] Current Medications Documented ulius Sima GARCIA completed BLOOD COUNT HEMOGLOBIN Saulius Evans alvaitis MD completed FVC - 53175 Triny rockwell MD completed FRC - 42652 Triny rockwell MD completed DLCO - 90276 Triny rockwell MD completed EKG Triny rockwell MD completed SNOMED-CT: 214483494053512 Current Medications Documented Triny Gao MD completed
--- OUTSIDE RECORDS SUMMARY | 2025-01-14 17:27 | XMS_ITS | Clinical Summary ---
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 Name Role Phone Stas Stafford MD Unavailable [phone] Zachary Gabriel MD Unavailable [phone] Mode Sanderson MD PhD Unavailable [phone] [facility] Un[facility] Latesha Munroe NP Primary Care Provider [phone] Javan Puente NP Unavailable [phone] Allergies Active Allergy Reactions Criticality Noted Date Comments Amoxicillin Hives,Rash,Itching Medium 04/21/2017 Furosemide Hives Medium 01/04/2019 Sulfa (Sulfonamide Antibiotics) Hives,Itching,Rash Medium 09/30/2009 Sulfamethoxazole-Trimethoprim Itching Low 2016 Medications polyethylene glycol (MIRALAX) 17 gram/dose powder take 15 milliliter by oral route every 3 days powder mixed with 8 oz. water, juice, soda, coffee, or tea 0 0 02/11/20 16 Active aspirin (ASPIR-81) 81 mg tablet take 1 tablet by oral route every day 0 0 03/16/20 17 Active albuterol HFA (PROVENTIL HFA,VENTOLIN HFA,PROAIR HFA) 90 mcg/actuation inhaler INHALE 2 PUFFS BY MOUTH EVERY 6 HOURS NEEDED 18 g 04/07/20 20 Active torsemide (DEMADEX) 10 mg tablet Take 1 tablet (10 mg total) by mouth daily 01/14/20 21 Active omeprazole (PriLOSEC) 40 mg capsule Take 1 tablet twice daily x 1 month 60 capsule 03/10/20 22 Active Additional Information Patient taking differently: 40 mg oral Daily, (No instructions reported), Reported on 01/03/2025 ergocalciferol (VITAMIN D) 50,000 unit capsule TAKE 1 CAPSULE BY MOUTH 1 TIME A WEEK 12 capsule 2 07/22/20 22 Active nebivoloL (BYSTOLIC) 20 mg tabletIndications: Primary hypertension TAKE 1 TABLET(20 MG) BY MOUTH DAILY 90 tablet 1 11/07/19 23 Active atorvastatin (LIPITOR) 20 mg tablet Take 1 tablet (20 mg total) by mouth daily 90 tablet 1 12/28/19 23 Active anastrozole (ARIMIDEX) 1 mg tabletIndications: Hormone Receptor + Postmenopausal Advanced Breast Cancer Take 1 tablet (1 mg total) by mouth daily 30 tablet 11 08/29/20 24 Active Eliquis 2.5 mg tabletIndications: Persistent atrial fibrillation (HCC) TAKE 1 TABLET(2.5 MG) BY MOUTH TWICE DAILY 60 tablet 11 08/29/20 24 Active DILT-XR 180 mg 24 hr capsule TAKE 1 CAPSULE(180 MG) BY MOUTH DAILY 90 capsule 3 09/10/20 24 Active calcium citrate 250 mg calcium tablet tablet Take by mouth every evening Active HYDROcodone-acetam inophen (NORCO) 5-325 mg per tabletIndications: Pain Take 1-2 tablets by mouth every 4 (four) hours as needed for pain 63 tablet 12/06/19 25 Active senna-docusate (PERICOLACE) 8.6-50 mg 1-2 times daily as needed for constipation 60 tablet 1 12/09/19 25 Active ondansetron (ZOFRAN) 4 mg tablet Every 4-6 hours as needed 30 tablet 1 12/09/19 25 Active Additional Information Patient not taking.Reported on 01/03/2025 ascorbic acid (VITAMIN C) 500 mg tablet,chewable Take 1 tablet/chew tab (500 mg total) by mouth 2 (two) times a day 60 tablet/chew tab 12/09/19 25 Active ferrous sulfate 325 mg (65 mg of elemental iron) tabletIndications: Iron Deficiency Anemia Take 1 tablet (325 mg total) by mouth daily with breakfast 30 tablet 12/09/19 025 nitrofurantoin monohydrate (MACROBID) 100 mg capsuleIndications :Acute cystitis without hematuria Take 1 capsule (100 mg total) by mouth 2 (two) times a day for 5 days 10 capsule 01/04/20 25 025 Active Problems Problem Noted Date Diagnosed Date Status post total knee replacement, right 2024 Status post total right knee replacement 025 Acquired valgus deformity knee, right 09/02/2024 Malignant neoplasm of upper- outer quadrant of left breast in female, estrogen receptor positive 03/28/2024 Cancer Staging:Clinical stage from 04/04/2024:Stage IA(cT1b, cN0, cM0, G1, ER+, AK+, HER2-) - Signed by Mode Sanderson MD PhD on 04/04/2024 Pathologic stage from 05/24/2024:Stage IA(pT1c, pN0(sn), cM0, G2, ER+, AK+, HER2-) - Signed by Mode Sanderson MD PhD on 07/04/2024 Dysphagia 02/08/2023 Non-seasonal allergic rhinitis due to pollen Assessment & Plan (02/01/2023 11:10 AM CDT): - chronic, worse - has stopped all her antihistamines and allergy medications as they were not effective - advices to start taking nasal steroids Acute low back pain 08/24/2022 Assessment & Plan (08/24/2022 12:34 PM DRIFTMAN): Tylenol as needed for pain. Prediabetes 10/05/2021 Assessment & Plan (02/01/2023 11:06 AM CDT): - chronic, stable - most recent A1c as shown below - has known hx of CAD- - currently on atorvastatin 20 mg daily - not on any medications for prediabetes - continue current management - recheck labs, order placed Lab Results Component Value Date HGBA1C 6.2 (H) 01/20/2022 HGBA1C 5.8 (H) 04/21/2021 HGBA1C 5.9 (H) 03/26/2019 Assessment & Plan (09/13/2022 12:20 PM DRIFTMAN): - chronic, stable - most recent A1c as shown below - has known hx of CAD- - currently on atorvastatin 20 mg daily - not on any medications for prediabetes - continue current management Lab Results Component Value Date HGBA1C 6.2 (H) 01/20/2022 HGBA1C 5.8 (H) 04/21/2021 HGBA1C 5.9 (H) 03/26/2019 Assessment & Plan (05/11/2022 12:23 PM CDT): - chronic, stable - most recent A1c as shown below - has known hx of CAD- - currently on atorvastatin 20 mg daily - not on any medications for prediabetes - continue current management Lab Results Component Value Date HGBA1C 6.2 (H) 01/20/2022 HGBA1C 5.8 (H) 04/21/2021 HGBA1C 5.9 (H) 03/26/2019 Assessment & Plan (01/20/2022 10:17 AM CDT): - chronic, stable - most recent A1c as shown below Lab Results Component Value Date HGBA1C 5.8 (H) 04/21/2021 - has known hx of CAD- - currently on atorvastatin 20 mg daily - no on any medications for prediabetes - will monitor from time to time, check A1c Assessment & Plan (10/05/2021 9:48 AM DRIFTMAN): - chronic, stable - most recent A1c as shown below Lab Results Component Value Date HGBA1C 5.8 (H) 04/21/2021 - has known hx of CAD- - currently on atorvastatin 20 mg daily - no on any medications for prediabetes - will monitor from time to time Former smoker 09/24/2021 Assessment & Plan (01/20/2022 10:16 AM CDT): Social History Tobacco Use Smoking Status Former Smoker Packs/day: 0.25 Types: Cigarettes Quit date: 2013 Years since quittin.2 Smokeless Tobacco Never Used Tobacco Comment Smoking History Packs/day: 6 Cigarettes - quit after AR in 2013 - also got a lot of second hand smoking from her in past History of colon polyps 07/23/2021 Overview (09/07/2021): - colonoscopy on 09/05 - found one polyp, repeat in 5 years Family history of colon cancer in mother 021 Overview (07/23/2021): Added automatically from request for surgery [id number] Vitamin B12 deficiency 04/21/2021 Assessment & Plan (02/01/2023 11:07 AM CDT): Lab Results Component Value Date VITB12 482 01/20/2022 - chronic condition, not at goal - not taking daily Vitamin B12 oral Supplementation --> restart therapy - most recent labs as shown below - check labs Assessment & Plan (05/11/2022 12:22 PM CDT): - chronic condition, stable - currently on daily Vitamin B12 oral Supplementation - continue current therapy Lab Results Component Value Date VITB12 482 01/20/2022 Assessment & Plan (01/20/2022 10:18 AM CDT): Lab Results Component Value Date VITB12 475 04/21/2021 - chronic condition, stable - currently on daily Vitamin B12 oral Supplementation - continue current therapy Assessment & Plan (04/21/2021 10:51 AM CDT): Lab Results Component Value Date VITB12 346 09/30/2020 - Patient is currently on daily Vitamin B12 oral Supplementation - Condition is stable - will determine if she needs continued therapy with vitamin B12 Secondary hyperparathyroidism 12/23/2020 Asymptomatic microscopic hematuria 10/19/2020 Overview (04/21/2021): - on anticoagulation due to Atrial fibrillation - noted on 09/2020, also past labs have showed it - will check again in future and if persistent will have urology take a look at her Macrocytosis without anemia 09/29/2020 Glaucoma of both eyes 07/10/2020 Assessment & Plan (07/10/2020 10:08 AM CDT): - follows with ophthalmology - currently uses Latanoprost in both eyes Tortuous aorta 06/26/2020 Assessment & Plan (06/26/2020 12:39 PM CDT): 06/2019 - incidental finding on CXR Continue HTN control, statin, ASA S/P total knee arthroplasty, left 06/25/2020 Assessment & Plan (06/26/2020 11:46 AM CDT): 06/03/2020 - Dr. Ziggy Contreras [facility] - patient has graduated from PT and OT Follow-up visit scheduled with Ortho 07/14/2020 Basal cell carcinoma 05/11/2020 History of odontogenic keratocyst 03/31/2020 Assessment & Plan (01/20/2022 10:33 AM CDT): - s/p surgical removal, at least 5 or more years ago - it was a benign condition, told it was a cyst - done by dental surgeon Cyst of right ovary 03/04/2020 Assessment & Plan (03/04/2020 11:26 AM CDT): Will follow up with [employer]. Ultrasound for monitoring in 6 months approximately 08/2020 CKD (chronic kidney disease) stage 4, GFR 15-29 ml/min 12/25/2019 Assessment & Plan (02/01/2023 11:05 AM CDT): - chronic, stable - follows with nephrology Dr. Gabriel - hx of CAD as well as Hypertension - she is curerntly on Torsemide 10mg Every other day - already on Aldactone 25 mg daily - she is on calcitrol and on vitamin D supplementation - stable with some improvement in renal function - recheck labs Lab Results Component Value Date CREATININE 1.98 (H) 11/08/2022 BUNSER 39 (H) 11/08/2022 SODIUM 134 (L) 11/08/2022 POTASSIUM 4.2 11/08/2022 CO2 26 11/08/2022 Lab Results Component Value Date 25HYDROVITD 72 01/20/2022 25HYDROVITD 50 08/27/2020 25HYDROVITD 38 03/26/2019 25HYDROVITD 27 (L) 02/07/2019 25HYDROVITD 46 05/18/2018 Assessment & Plan (09/13/2022 12:19 PM DRIFTMAN): - chronic, stable - follows with nephrology Dr. Gabriel - zackary of CAD as well as Hypertension - she is curerntly on Torsemide 10mg Every other day - already on Aldactone 25 mg daily - she is on calcitrol and on vitamin D supplementation - stable with some improvement in renal function Lab Results Component Value Date CREATININE 1.76 (H) 08/11/2022 BUNSER 24 08/11/2022 SODIUM 136 08/11/2022 POTASSIUM 4.3 08/11/2022 CO2 26 08/11/2022 Assessment & Plan (08/24/2022 12:34 PM DRIFTMAN): Increase water intake. Assessment & Plan (05/11/2022 12:27 PM CDT): - follows with nephrology Dr. Gabriel - zackary of CAD as well as Hypertension - she is curerntly on Torsemide 10mg Every other day - already on Aldactone 25 mg daily - she is on calcitrol and on vitamin D supplementation - stable with some improvement in renal function Lab Results Component Value Date CREATININE 1.93 (H) 03/10/2022 BUNSER 32 (H) 03/10/2022 SODIUM 135 03/10/2022 POTASSIUM 4.7 03/10/2022 CO2 26 03/10/2022 Assessment & Plan (04/21/2021 11:08 AM CDT): - follows with nephrology Dr. Gabriel - zackary of CAD as well as Hypertension - she is curerntly on Torsemide 10mg Every other day - already on Aldactone 25 mg daily - she is on calcitrol and on vitamin D supplementation - stable with some improvement in renal function Assessment & Plan (10/19/2020 12:19 PM DRIFTMAN): - follows with nephrology Dr. Harvey raymundo of CAD as well as Hypertension - she is curerntly on Torsemide 10mg Every other day - already on Aldactone 25 mg daily - she is on calcitrol and on vitamin D supplementation - will obtain a BMP to see where her renal function is, stable or changing at this time Assessment & Plan (07/10/2020 11:16 AM CDT): - follows with nephrology - based on most recent lab results patient is waxing and waning between stage 3 and 4 CKD - she is curerntly on Torsemide 10mg Every other day - already on Aldactone 25 mg daily - she is on calcitrol and on vitamin D supplementation Assessment & Plan (06/26/2020 11:51 AM CDT): Next appt with Nephrology Nov 2020 Already decreased the spironolactone to 25 mg daily instead of 50 mg daily encouraged hydration Will decrease the torsemide to every OTHER day. BMI 26.0-26.9,adult 12/04/2019 Assessment & Plan (06/26/2020 11:38 AM CDT): discussed healthy diet, exercise and adequate sleep Body mass index is 25.13 kg/m . Assessment & Plan (12/04/2019 7:43 AM DRIFTMAN): Healthy BMI noted, encouraged to maintain current BMI Osteopenia of left hip 04/15/2019 Assessment & Plan (05/15/2019 7:43 PM CDT): Discussed treatment options with patient including Prolia injections every 6 months. With her declining kidney function recommended this as the best option, bisphosphonates would not be the best option due to her kidney function. I discussed that she will need dental clearance prior to starting Prolia injections. Would also want to monitor her electrolytes after starting injection therapy. I discussed the potential side effects of osteonecrosis of the jaw and fracture, also susceptibility to infection. She would like to think more about this and discuss more at her follow-up appointment if she would like to pursue Prolia. I discussed the risk factors of osteopenia and osteoporosis such as fracture and complications from hip fracture including but not limited due to pneumonia, hospitalization and . She will continue exercising 30 minutes daily. I recommended that she start calcium supplement she should get 1200 mg of calcium daily either through diet or supplement. Continue vitamin D3 67570 units once weekly. Acute cystitis without hematuria 07/24/2018 Overview (09/19/2018): 09/14/3018 Patient saw urology nurse practitioner at [facility]. Started Methenamine Hippurate 1 g BID with 500 mg vitamin C BID. Follow up in 1 year Assessment & Plan (08/24/2022 12:35 PM DRIFTMAN): Will prescribe antibiotics, however will lower the does and treat longer due to her chronic kidney disease stage 4. Patient is aware that if she does not improve in the next 24-36 hours, she has to go to her nearest emergency room for further evaluation and management. Urine culture sent. Assessment & Plan (05/27/2021 1:54 PM CDT): Urine dip positive for nitrates. However she did take AZO sometime within the last 24 hours. Treat her for presumed UTI again. I also gave her Diflucan to take with her antibiotics. Pelvic exam unremarkable. BVP swab taken and will await results. Assessment & Plan (05/17/2021 2:32 PM CDT): Urine dip shows 1+ leukocytes. However she is having acute symptoms. Will restart Cipro 250 b.i.d. for 7 days. I told her if symptoms do not resolve or they returned after she is done with Cipro the wound we should consider doing a swab for BV which she has had in the past in 2019. Urine sent for culture. Assessment & Plan (08/11/2018 4:50 PM CDT): Patient with recurrent UTIs. Has now been on 2 courses of Cipro 1 of 3 days in 1 of 7 days with minimal improvement of symptoms. Urine dip was positive for leukocyte esterase today, negative for nitrites. Will send for culture. Recommend she follow up with her Urology specialist. We will help coordinate that appointment today. Encouraged aggressive hydration. If patient develops fever, nausea, vomiting, confusion she should seek emergency care. Joint pain 01/25/2018 Lower urinary tract symptoms (LUTS) 12/27/2017 Assessment & Plan (10/05/2021 9:44 AM DRIFTMAN): - chronic, recurrent condition, not at goal - patient with longstanding LUTs at times without any UTIs on urine cultures - she has had evaluation by urology in the past and at one time was told to try elavil but she was not interested in it per documentation due to potential side effects - patient does not recall this - I think it is likely to be interstitial cystitis - she has seen Urology in past without much help, told to go to PCP for UTIs - however, recommend Urogynecology, referral will be placed Assessment & Plan (07/10/2020 11:19 AM CDT): - patient with longstanding LUTs that have been treated for UTI - however, she states UA as well as urine cultures are often negative - she has had evaluation by urology in the past and at one time was told to try elavil but she was not interested in it per documentation due to potential side effects - patient does not recall this - I think it is likely to be interstitial cystitis - had long discussion with her and she is open to Urology referral again Assessment & Plan (12/27/2017 1:54 PM CDT): No improvement with macrobid, cipro, or levaquin. Patient doesn't want to try the elavil as recommended by Urology because of the side effect profile. I doubt patient has a UTI at this point. Recommend no douching. No cleaning inside vagina. Increase the premarin vaginal cream Send urine for culture. Benign hypertension with chronic kidney disease, stage IV 06/12/2017 Assessment & Plan (02/01/2023 11:05 AM CDT): - chronic, stable - BP is well controlled at this time with current medications - currently following with nephrology due to CKD stage 4 - currently on Bystolic 20mg, Cardizem 180mg daily - she is also on Spironolactone and Torsemide - following with Nephrology for CKD Stage 4 - continue current therapy - monitor eletrolytes regularly Lab Results Component Value Date POTASSIUM 4.2 11/08/2022 Assessment & Plan (01/12/2023 10:25 AM CDT): BP Readings from Last 3 Encounters: 01/12/23 114/80 12/29/22 117/82 12/23/22 118/74 Vitals BP 114/80 (BP Location: Left arm, Patient Position: Sitting) Pulse 79 Resp 16 Ht 165.1 cm (5' 5 ) Wt 69.9 kg (154 lb) LMP (LMP Unknown) SpO2 98% BMI 25.63 kg/m Lab Results Component Value Date POTASSIUM 4.2 11/08/2022 At goal at this time - continue aldactone 25 mg every day Assessment & Plan (09/13/2022 12:19 PM DRIFTMAN): - chronic, stable - BP is well controlled at this time with current medications - currently following with nephrology due to CKD stage 4 - currently on Bystolic 20mg, Cardizem 180mg daily - she is also on Spironolactone and Torsemide - continue current therapy - monitor eletrolytes regularly Lab Results Component Value Date POTASSIUM 4.3 08/11/2022 Assessment & Plan (05/11/2022 12:25 PM CDT): - chronic, stable - BP is well controlled at this time with current medications - currently following with nephrology due to CKD stage 4 - currently on Bystolic 20mg, Cardizem 180mg daily - she is also on Spironolactone and Torsemide - continue current therapy - monitor eletrolytes regularly Lab Results Component Value Date POTASSIUM 4.7 03/10/2022 Assessment & Plan (10/05/2021 9:46 AM DRIFTMAN): - chronic, stable - BP is well controlled at this time with current medications - currently following with nephrology due to CKD stage 4 - currently on Bystolic 20mg, Cardizem 180mg daily - she is also on Spironolactone and Torsemide - continue current therapy - monitor eletrolytes regularly Assessment & Plan (10/19/2020 12:20 PM DRIFTMAN): - BP is well controlled at this time with current medications - currently following with nephrology due to CKD stage 4 - currently on Bystolic 20mg, Cartia XT 180mg daily - she is also on Spironolactone and Torsemide Assessment & Plan (07/10/2020 10:06 AM CDT): - currently following with nephrology due to CKD stage 4 - currently on Bystolic 20mg, Cartia XT 180mg daily - BP well controlled at this time Assessment & Plan (06/26/2020 12:41 PM CDT): Currently taking Cartia XT 180 mg daily; bystolic 20 mg daily; spironolactone 50 mg daily; and Demadex 10 mg daily Although she already decreased the spironolactone over the past week or two BP well controlled Assessment & Plan (03/04/2020 11:29 AM CDT): Continue current medication Condition stable Assessment & Plan (12/04/2019 7:41 AM DRIFTMAN): Continue current medication Condition stable Assessment & Plan (08/07/2019 4:15 PM CDT): Hypertension is improving with treatment. Continue current treatment regimen. Dietary sodium restriction. Regular aerobic exercise. Continue current medications. Blood pressure will be reassessed at the next regular appointment. Assessment & Plan (05/15/2019 7:40 PM CDT): Hypertension is improving with treatment. Continue current treatment regimen. Dietary sodium restriction. Regular aerobic exercise. Continue current medications. Blood pressure will be reassessed at the next regular appointment. Assessment & Plan (03/21/2019 11:56 AM CDT): Hypertension is improving with treatment. Continue current treatment regimen. Dietary sodium restriction. Regular aerobic exercise. Continue current medications. Blood pressure will be reassessed at the next regular appointment. Assessment & Plan (12/23/2018 7:39 PM CDT): Hypertension is improving with treatment. Continue current treatment regimen. Dietary sodium restriction. Weight loss. Continue current medications. Blood pressure will be reassessed at the next regular appointment. Assessment & Plan (09/21/2018 12:27 PM DRIFTMAN): Hypertension is improving with treatment. Continue current treatment regimen. Dietary sodium restriction. Weight loss. Continue current medications. Blood pressure will be reassessed at the next regular appointment. Vitamin D deficiency 05/15/2017 Assessment & Plan (02/01/2023 11:07 AM CDT): - chronic condition, stable status - continue current management - most recent labs as shown below - continue with vitamin D supplementation Lab Results Component Value Date 25HYDROVITD 72 01/20/2022 25HYDROVITD 50 08/27/2020 25HYDROVITD 38 03/26/2019 25HYDROVITD 27 (L) 02/07/2019 25HYDROVITD 46 05/18/2018 Assessment & Plan (05/15/2019 7:43 PM CDT): Continue vitamin D3 14298 units once weekly, Calcitrol 0.25 mcg daily. Assessment & Plan (03/21/2019 11:54 AM CDT): Continue vitamin D3 68913 units once weekly, Calcitrol 0.25 mcg daily. She will have vitamin-D level with next lab work for Nephrology. Assessment & Plan (04/08/2018 9:33 PM CDT): Plan to check Vitamin D level. Assessment & Plan (01/28/2018 1:57 PM CDT): Check Vitamin D level. History of myocardial infarction 03/02/2017 Assessment & Plan (04/21/2021 10:41 AM CDT): - hx of AR, s/p stent plaecment in 2013 - currently on lipitor 20mg daily, aspirin 81mg daily but not on beta abhi - goal LDL < 70 Lab Results Component Value Date LDLCALC 58 07/10/2020 - [facility] Assessment & Plan (07/10/2020 10:07 AM CDT): - hx of AR, s/p stent plaecment in 2013 - currently on lipitor 20mg daily, aspirin 81mg daily but bot on bet ablocker - [facility] Stafford Assessment & Plan (05/15/2017 2:15 PM CDT): Coronary artery disease is stable. Concerned of stress she is under with her and his outburst. Continue current treatment regimen. Dietary sodium restriction. Stop smoking. Cardiac status will be reassessed at her upcoming appt with Patient Observer.. Myocardial infarction 03/02/2017 Overview (02/26/2021): Overview: Myocardial infarction Last Assessment & Plan: Coronary artery disease is stable. Concerned of stress she is under with her and his outburst. Continue current treatment regimen. Dietary sodium restriction. Stop smoking. Cardiac status will be reassessed at her upcoming appt with Patient Observer.. Sick sinus syndrome 11/25/2016 [facility] (current) use of anticoagulants 2015 Chronic atrial fibrillation, unspecified 016 Assessment & Plan (05/11/2022 12:38 PM CDT): - chronic, stable - persitent afib - currently on Eliquis 2.5mg BID and Diltiazem Xl 180mg - CHADS2-Vasc of 5 - was on coumadin ,now on eliquis - failed cardioversion in 2016 - she is also on aspirin 81mg due to hx of CAD - following with Cardiology - currently stable, continue with current medications Assessment & Plan (04/21/2021 10:43 AM CDT): - currently on Eliquis 2.5mg BID and Diltiazem Xl 180mg - she is also on aspirin 81mg due to hx of CAD - currently stable, continue with current medications - following with Cardiology Assessment & Plan (10/19/2020 12:22 PM DRIFTMAN): - currently on Eliquis 2.5mg BID and Diltiazem Xl 180mg - she is also on aspirin 81mg due to hx of CAD - following with Cardiology - currently stable, continue with current medications Assessment & Plan (07/10/2020 10:04 AM CDT): - currently on Eliquis 2.5mg BID and Diltiazem Xl 180mg - she is also on aspirin 81mg due to hx of CAD Assessment & Plan (03/04/2020 11:27 AM CDT): Tolerating Eliquis 5 mg BID well. Continue Diltiazem 180 mg daily for rate control. Assessment & Plan (12/04/2019 7:42 AM DRIFTMAN): Will transition to xarelto, repeat INR next Monday if INR less than 2 we can start xarelto. She is to hold coumadin today then take 2 mg every other day until her next INR test Assessment & Plan (08/07/2019 4:14 PM CDT): Stable. Continue Bystolic 20 mg daily, diltiazem 180 mg daily and warfarin for stroke prophylaxis. Assessment & Plan (03/21/2019 11:57 AM CDT): Stable. Continue Bystolic 20 mg daily, diltiazem 180 mg daily and warfarin for stroke prophylaxis. Repeat INR in 1 week. Assessment & Plan (12/23/2018 7:38 PM CDT): Stable. Continue Bystolic 20 mg daily and warfarin 3 mg daily for stroke prophylaxis. Repeat INR in 1 month. Assessment & Plan (09/21/2018 12:25 PM DRIFTMAN): Stable. Continue Bystolic 20 mg daily and warfarin 3 mg daily for stroke prophylaxis. Repeat INR in 1 month. Assessment & Plan (08/11/2018 4:52 PM CDT): Rate controlled. Continue current therapy. INR minimally elevated at 3.43 after completing course of ciprofloxacin. Recommend checking INR next week. Standing order placed in computer. Assessment & Plan (04/08/2018 9:37 PM CDT): Controlled. On warfarin. Will check PT/INR Assessment & Plan (05/15/2017 2:22 PM CDT): Stable. Remains on coumadin. Mixed hyperlipidemia 02/24/2016 Assessment & Plan (02/01/2023 11:06 AM CDT): - chronic condition, well controlled - hx of CAD and hypertension - she is currently on Lipitor 20mg daily - continue with current therapy at this time Lab Results Component Value Date CHOL 147 01/20/2022 CHOL 164 04/21/2021 CHOL 130 07/10/2020 Lab Results Component Value Date HDL 73 01/20/2022 HDL 84 04/21/2021 HDL 57 07/10/2020 Lab Results Component Value Date LDLCALC 61 01/20/2022 LDLCALC 70 04/21/2021 LDLCALC 58 07/10/2020 LDL 35 05/24/2016 LDL 82 02/05/2016 LDL 97 01/27/2016 Lab Results Component Value Date TRIG 65 01/20/2022 TRIG 50 04/21/2021 TRIG 76 07/10/2020 Assessment & Plan (05/11/2022 12:23 PM CDT): - chronic condition, well controlled - hx of CAD and hypertension - she is currently on Lipitor 20mg daily - continue with current therapy at this time Lab Results Component Value Date LDLCALC 61 01/20/2022 Assessment & Plan (01/20/2022 10:17 AM CDT): - chronic condition, well controlled - hx of CAD and hypertension - she is currently on Lipitor 20mg daily Lab Results Component Value Date LDLCALC 70 04/21/2021 - continue with current therapy at this time Assessment & Plan (04/21/2021 10:52 AM CDT): - hx of CAD and hypertension - she is currently on Lipitor 20mg daily Lab Results Component Value Date LDLCALC 58 07/10/2020 - continue with current therapy at this time Assessment & Plan (10/19/2020 12:21 PM DRIFTMAN): - hx of CAD and hypertension - she is currently on Lipitor 20mg daily - LDL within goal of 58 on 06/2020 - continue with current therapy Assessment & Plan (07/10/2020 10:05 AM CDT): - she is currently on Lipitor 20mg daily - will check lipid panel Assessment & Plan (08/07/2019 4:15 PM CDT): Lipid abnormalities are unchanged. Nutritional counseling was provided. and Pharmacotherapy as ordered. Lipids will be reassessed Today. Recommended repeat lipid profile with next INR. Assessment & Plan (03/21/2019 11:55 AM CDT): Lipid abnormalities are unchanged. Nutritional counseling was provided. and Pharmacotherapy as ordered. Lipids will be reassessed in 3 months. Assessment & Plan (12/23/2018 7:40 PM CDT): Lipid abnormalities are improving with treatment. Last checked 06/12/2018 Nutritional counseling was provided. and Pharmacotherapy as ordered. Lipids will be reassessed May 2019. Assessment & Plan (09/21/2018 12:27 PM DRIFTMAN): Lipid abnormalities are improving with treatment. Last checked 06/12/2018 Nutritional counseling was provided. and Pharmacotherapy as ordered. Lipids will be reassessed May 2019. Assessment & Plan (04/08/2018 9:34 PM CDT): Lipid abnormalities are controlled. . Pharmacotherapy as ordered. Lipids will be reassessed today. Assessment & Plan (05/15/2017 2:23 PM CDT): Lipid abnormalities are well controlled. . Pharmacotherapy as ordered. On atorvastatin. Lipids will be reassessed today and recheck in 6 months. Chronic obstructive pulmonary disease 02/24/2016 Overview (02/26/2021): Last Assessment & Plan: - stable without exacerbation - currently on on rescue inhaler albuterol inhaler Assessment & Plan (07/10/2020 11:16 AM CDT): - stable without exacerbation - currently on on rescue inhaler albuterol inhaler Assessment & Plan (08/07/2019 4:15 PM CDT): COPD is stable. Discussed monitoring symptoms and use of quick-relief medications and contacting us early in the course of exacerbations. Warning signs of respiratory distress were reviewed with the patient. Counseled to avoid exposure to cigarette smoke. Continue follow up with pulmonology Assessment & Plan (03/21/2019 11:56 AM CDT): COPD is stable. Discussed monitoring symptoms and use of quick-relief medications and contacting us early in the course of exacerbations. Warning signs of respiratory distress were reviewed with the patient. Counseled to avoid exposure to cigarette smoke. Continue follow up with pulmonology Assessment & Plan (12/23/2018 7:41 PM CDT): COPD is unchanged. Albuterol p.r.n. Chest x-ray will be ordered today to evaluate dyspnea on exertion Discussed monitoring symptoms and use of quick-relief medications and contacting us early in the course of exacerbations. Warning signs of respiratory distress were reviewed with the patient. Mitral regurgitation 02/05/2016 Atherosclerosis of augustine co ronary artery of augustine heart without angina pectoris 02/04/2016 Assessment & Plan (04/21/2021 10:42 AM CDT): - 10/2019 - Stress test - Mild, small, fixed, anteroapical defect. No ischemia; Normal left ventricular performance; Calculated gated EF 55% - currently on aspirin 81mg daily, Lipitor 20mg daily - most recent LDL below, Goal LDL < 70 Lab Results Component Value Date LDLCALC 58 07/10/2020 - currently on Bystolic 20 mg dialy - follows with Cardiology - Dr. Stafford Assessment & Plan (10/19/2020 12:25 PM DRIFTMAN): - 10/2019 - Stress test - Mild, small, fixed, anteroapical defect. No ischemia; Normal left ventricular performance; Calculated gated EF 55% - currently on aspirin 81mg daily, Lipitor 20mg daily - Lipid panel shows LDL of 58 on 06/2020 - follows with Cardiology - Dr. Stafford Assessment & Plan (07/10/2020 11:17 AM CDT): 10/2019 - Stress test - Mild, small, fixed, anteroapical defect. No ischemia; Normal left ventricular performance; Calculated gated EF 55% - currently on aspirin 81mg daily, Lipitor 20mg daily - will check lipid panel - follows with ardiology Assessment & Plan (06/25/2020 7:15 PM CDT): 10/2019 - Stress test - Mild, small, fixed, anteroapical defect. No ischemia; Normal left ventricular performance; Calculated gated EF 55% Assessment & Plan (03/04/2020 11:26 AM CDT): -History of NSTEMI. stable. No chest pain today. -Medications as prescribed. -Lipids due at follow up. Continue care with Dr. Nolan Assessment & Plan (08/07/2019 4:14 PM CDT): -History of NSTEMI. stable. No chest pain today. -Continue Bystolic 20 mg daily, triamterene-HCTZ 37.5-25 mg daily, diltiazem extended release 120 mg daily, aspirin 81 mg daily, atorvastatin 20 mg daily Continue care with Dr. Nolan Assessment & Plan (03/21/2019 11:56 AM CDT): -History of NSTEMI. stable. No chest pain today. -Continue Bystolic 20 mg daily, triamterene-HCTZ 37.5-25 mg daily, diltiazem extended release 120 mg daily, aspirin 81 mg daily, atorvastatin 20 mg daily Continue care with Dr. Nolan Assessment & Plan (12/23/2018 7:39 PM CDT): -History of NSTEMI. stable. No chest pain today. -Continue Bystolic 20 mg daily, triamterene-HCTZ 37.5-25 mg daily, diltiazem extended release 120 mg daily, aspirin 81 mg daily, atorvastatin 20 mg daily Continue care with Dr. Nolan Assessment & Plan (09/21/2018 12:26 PM DRIFTMAN): -History of NSTEMI. stable. No chest pain today. -Continue Bystolic 20 mg daily, lisinopril 2.5 mg, triamterene-HCTZ 37.5-25 mg daily, diltiazem extended release 120 mg daily, aspirin 81 mg daily, atorvastatin 20 mg daily Continue care with Dr. Nolan Gastroesophageal reflux disease 03/01/2014 Assessment & Plan (10/05/2021 9:45 AM DRIFTMAN): - chronic, stable - currently on omeprazole 40 mg daily - continue current medications - avoid trigger foods Assessment & Plan (04/21/2021 10:44 AM CDT): - currently on omeprazole 40 mg daily - working well for her - continue current medications Assessment & Plan (07/10/2020 10:09 AM CDT): - currently on omeprazole 40 mg daily - working well for her -Continue on current meds, encouraged healthy diet and exercise. Avoid trigger foods including: carbonated beverages, caffeine, spicy, fried foods, tomatoes, cucumbers, and mint Avoid eating/drinking anything for at least 2 hours before bed. Sleep with bed propped. 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 Plans to have total knee replacement in 2019. Will schedule pre-op when surgery date it scheduled. Handicap placard filled out today. Assessment & Plan (12/23/2018 7:43 PM CDT): Continue follow-up with Orthopedic Resolved Problems Problem Noted Date Diagnosed Date Resolved Date Cholelithiasis 09/20/2024 11/12/2024 Neoplasm of soft tissue 05/07/2021 04/0 04/2022 Hematuria 06/30/2020 07/10/2020 Syncope 06/25/2020 04/21/2021 Assessment & Plan (06/26/2020 12:36 PM CDT): 06/18/2020 - ER Visit [facility] - Cr 1.65, eGFR 29 (stable) EKG unchanged to prior Glu 128, Ca++ 10.7 Microcytosis w/out anemia X-ray left hip and pelvis normal. INR 1.5 Currently under a lot of emotional stress Some persistent symptoms and low BP Recommend decrease the Demadex from 10 mg daily to 10 mg every OTHER day. Continue on spironolactone 25 mg daily (patient already decreased from 50 mg daily) Follow-up for BP check and repeat labs Hypokalemia 10/11/2019 06/26/2020 Monitoring for anticoagulant use 05/24/2019 01/20/2022 Assessment & Plan (03/04/2020 11:29 AM CDT): Continue Eliquis BID tolerating well. Assessment & Plan (08/07/2019 4:16 PM CDT): Discussed importance of iron are monitoring. Patient has been compliant. Muscle cramps 05/15/2019 03/04/2020 Assessment & Plan (05/15/2019 7:44 PM CDT): Discussed checking electrolytes due to muscle cramps. Patient is still on Bumex 1 mg b.i.d. And potassium 10 mEq b.i.d.. Encouraged adequate hydration. Fatigue 03/21/2019 03/04/2020 Assessment & Plan (03/21/2019 11:59 AM CDT): Previous CBC unremarkable. Encourage ways to relieve stress. Will check a TSH today. Encounter for Medicare annual wellness exam 03/21/2019 10/11/2019 Assessment & Plan (03/21/2019 11:59 AM CDT): See patient plan. DEXA ordered today. Mammogram will be due in 2018. She will bring POA paperwork to her next appointment identifies son Pop as POA. Dyspnea on exertion 12/23/2018 03/21/20 19 Assessment & Plan (03/21/2019 11:50 AM CDT): Resolved. Assessment & Plan (12/23/2018 7:42 PM CDT): COPD versus coronary artery disease versus heart failure. Chest x-ray ordered today as well as BNP. Recommend follow-up with Cardiology. Discussed warning signs of when to seek emergency care for chest pain including chest pain that does not go away, severe in nature, associated dizziness, shortness of breath or fatigue. Abrasion 09/21/2018 12/20/2018 Assessment & Plan (09/21/2018 12:25 PM DRIFTMAN): Appears to be healing well. Recommended avoiding peroxide. Use soap and water to clean wound. Mupirocin ointment t.i.d. For the next 7-10 days. Discussed warning signs of when to return to clinic including signs of worsening infection: Erythema, drainage, fevers. Diarrhea of presumed infectious origin 09/04/2018 12/20/2018 Fecal smearing 09/04/2018 09/21/2018 Situational stress 06/22/2018 1 Assessment & Plan (03/04/2020 11:30 AM CDT): Encourage patient to reach out to social networks for further support. She identifies son as good support as well. Assessment & Plan (08/07/2019 4:14 PM CDT): Encourage patient to reach out to social networks for further support. She identifies son as good support as well. Assessment & Plan (03/21/2019 11:55 AM CDT): Encourage patient to reach out to social networks for further support. She identifies son as good support as well. Assessment & Plan (12/23/2018 7:40 PM CDT): Offered counseling. Patient declined need for medication today. She will look further into counseling Assessment & Plan (09/21/2018 12:28 PM DRIFTMAN): Offered counseling again for patient today. Encouraged her to go to therapist that either I recommended at her last office visit or [facility] in [place]. -Discussed ways to relieve stress. -offered medication, patient declines Poison la dermatitis 06/22/20182017 Endometrial hyperplasia 06/22/201802/14 Overview (06/22/2018): Endometrial thickness 7 mm on ultrasound. She was seen at [facility] by Dr. Hopkins who did an endometrial biopsy on 04/21/2017 which was negative. BMI 26.0-26.9,adult 01/28/2018 03/04/20 Assessment & Plan (09/21/2018 12:25 PM DRIFTMAN): Continue physical activity and healthy diet Assessment & Plan (04/08/2018 9:38 PM CDT): weight is improved with lifestyle change. Discussed the patient's BMI. The BMI is above average; BMI management plan is completed. General weight loss/lifestyle modification strategies discussed (elicit support from others; identify saboteurs; non-food rewards, etc). Assessment & Plan (01/28/2018 1:59 PM CDT): Weight is unchanged. Discussed the patient's BMI. The BMI is above average; BMI management plan is completed. General weight loss/lifestyle modification strategies discussed (elicit support from others; identify saboteurs; non-food rewards, etc). Vaginal itching 01/25/2018 03/04/2020 Assessment & Plan (08/11/2018 4:53 PM CDT): Exam consistent with a jagdish vulvovaginitis. Will treat with clotrimazole cream. Could be contributing to burning upon urination. Secondary to postmenopausal atrophy. Discussed use of premarin cream and hx of UTIs-benefits and risks reviewed Assessment & Plan (01/28/2018 1:58 PM CDT): Secondary to postmenopausal atrophy. Discussed use of premarin cream and hx of UTIs-benefits and risks reviewed Medication monitoring encounter 2017 07/10/2020 Assessment & Plan (01/25/2018 12:11 PM CDT): INR elevated. Plan to change warfarin dose to 3 mg to T-TH-S-S and 4 mg to M-W-F and recheck 2 weeks. Abdominal discomfort 11/12/2017 03/ 018 Assessment & Plan (11/12/2017 8:20 PM DRIFTMAN): Reviewed colonoscopy. Feel possibly related to diverticulosis. Encouraged to start Levaquin recently purchased. Apply warm compress and start liquid diet and advance slowly. Call Monday with update. Endometrial thickening on ultra sound 05/15/2017 04/02/2018 Assessment & Plan (05/15/2017 2:12 PM CDT): EMB was negative. Planning to repeat US in 6 months. Hypertension 03/02/2017 01/20/2022 Assessment & Plan (04/08/2018 9:34 PM CDT): Hypertension is well controlled. . Continue current treatment regimen. Dietary sodium restriction. Blood pressure will be reassessed at the next regular appointment. Assessment & Plan (05/15/2017 2:13 PM CDT): Hypertension is well controlled. . Continue current treatment regimen. Dietary sodium restriction. Blood pressure will be reassessed at the next regular appointment. Chronic diastolic (congestive) heart failure 7 05/11/2022 Acute non-ST elevation myoca rdial infarction (NSTEMI) 02/04/2016 04/21/2021 Primary open angle glaucoma 09/08/2014 05/11/2022 Frequent UTI 03/01/2014 02/15/2021 Assessment & Plan (06/26/2020 12:35 PM CDT): Check UA today Assessment & Plan (03/04/2020 11:29 AM CDT): Patient with frequent UTI symptoms. Previously on Premarin, but this was not helping her symptoms. She was told to stop this medication today. Previously seeing Aminta Hernandez NP. Recommended additional urology consultation regarding urinary symptoms. She will be referred to [facility] at [facility] today. Assessment & Plan (05/15/2017 2:22 PM CDT): Has been stable. Current smoker 03/01/2014 06/22/2018 Overview (01/20/2017): Smoker Assessment & Plan (05/15/2017 2:24 PM CDT): Tobacco use is unchanged. Smoking cessation counseling was provided. Tobacco use will be reassessed at the next regular appointment. Encounters Date Type Department Care Team Description 01/05/2025 Results Follow-Up [facility] at [address] [phone] Vu Berg NP 01/03/2025 2:10 PM CDT - 01/03/2025 11:59 PM CDT Hospital Encounter [address] [address] Acute cystitis without hematuria Discharge Disposition: Discharge to home or self care 01/03/2025 2:00 PM CDT Office Visit [facility] Medical [facility] at [address] [place] [phone] uEla Patel PA Acute cystitis without hematuria (Primary Dx) 12/30/2024 11:15 AM CDT Telemedicine [facility] Medical [facility] Orth[facility]ics [facility] Sports Medicine [address] [place] [address] [address] [place] [phone] Abel, Stu R., PA S/P TKR (total knee replacement) not using cement, right (Primary Dx); Orthopedic aftercare 12/05/2024 9:01 AM DRIFTMAN Anesthesia Event [facility] Operating [facility] [address] [place] [address] Erin Dickinson MD 12/05/2024 8:45 AM DRIFTMAN - 12/05/2024 11:15 AM DRIFTMAN Surgery [facility] [address] [place] [address] Min Malhotra MD Right total knee arthroplasty with robotic assistance 12/05/2024 6:45 AM DRIFTMAN - 12/09/2024 1:40 PM DRIFTMAN Hospital Encounter [facility] [address] [place] [address] Min Malhotra MD Status post total knee replacement, right (Primary Dx); Primary osteoarthritis of right knee Discharge Disposition: Discharge to [facility] 11/28/2024 9:15 AM DRIFTMAN Office Visit [facility] Oncology [address] [place] [address] Medical Office [address] [place] [address] Ava Pimentel NP Malignant neoplasm of upper-outer quadrant of left breast in female, estrogen receptor positive (HCC) (Primary Dx) 11/28/2024 8:45 AM DRIFTMAN Lab [facility] [address] [facility] [address] [place] [address] Malignant neoplasm of upper-outer quadrant of left breast in female, estrogen receptor positive (HCC) 11/25/2024 Telephone [facility] at [facility] [address] [place] [address] Jimi Dumont MA 11/21/2024 Orders Only [facility] Orthopedics and Sports Medicine [address] [place] [address] [address] [place] [address] Min Malhotra MD Primary osteoarthritis of right knee (Primary Dx) 11/12/2024 1:15 PM DRIFTMAN Office Visit [facility] [address] [place] [address] [address] [place] [address] Radha Vidales NP Calculus of gallbladder with chronic cholecystitis without obstruction (Primary Dx) 11/06/2024 12:24 PM DRIFTMAN - 11/06/2024 11:59 PM DRIFTMAN Hospital Encounter [facility] [address] [place] [address] Pre-op testing Discharge Disposition: Discharge to home or self care 11/06/2024 12:23 PM DRIFTMAN - 11/06/2024 11:59 PM DRIFTMAN Hospital Encounter [facility] [address] [place] [address] Pre-op testing Discharge Disposition: Discharge to home or self care 11/06/2024 12:20 PM DRIFTMAN Lab [address] [address] Pre-op testing 11/01/2024 Telephone [facility] [address] [place] [address] José Manuel Arroyo MA 10/30/2024 Telephone [facility] [address] [place] [address] Min Malhotra MD 10/28/2024 12:32 PM DRIFTMAN Anesthesia Event [facility] [address] [place] [address] Erin Dickinson MD Reynolds, Ethan Emerson, MD 10/28/2024 12:15 PM DRIFTMAN - 10/28/2024 1:45 PM DRIFTMAN Surgery [facility] [address] [place] [address] Zaki Vazquez MD LAPAROSCOPIC CHOLECYSTECTOMY 10/28/2024 10:32 AM DRIFTMAN - 10/28/2024 3:25 PM DRIFTMAN Hospital Encounter [facility] [address] [place] [address] Zaki Vazquez MD Biliary calculus of other site without obstruction Discharge Disposition: Discharge to home or self care 10/25/2024 2:45 PM DRIFTMAN Office Visit [facility] at [place] [address] [place] [address] [address] [place] [address] Vu Berg NP Dysuria (Primary Dx); Acute midline thoracic back pain 10/25/2024 2:37 PM DRIFTMAN - 10/25/2024 11:59 PM DRIFTMAN Hospital Encounter [address] [address] Dysuria Discharge Disposition: Discharge to home or self care 10/18/2024 3:04 PM DRIFTMAN - 10/18/2024 11:59 PM DRIFTMAN Hospital Encounter [address] [address] Dysuria Discharge Disposition: Discharge to home or self care 10/18/2024 3:00 PM DRIFTMAN Office Visit [facility] at [address] [place] [phone] Eula Patel PA Dysuria (Primary Dx) from Last 3 Months Immunizations Immunization Administration Dates Next Due Influenza, Quadrivalent, Hig h Dose, Preservative Free, Intrr 06/30/2022,06/25/2021,06/26/2020 Influenza, Trivalent, Adjuva nted, Intramuscular 06/19/2019 Influenza, Trivalent, High D ose, Split, Preservative Free, Intramuscular 08/16/2017,07/12/2016,07/05/2015,06/24,06/24/2014 Influenza, Trivalent, Preser vative Free, Intramuscular 07/31/2013 Influenza, Unspecified 06/16/2024,06/16/2018,10/2016 Pneumococcal Conjugate PCV 13 03/24/2016 Pneumococcal Polysaccharide PPV23 09/04/2014, Tdap 09/04/2014,09/04/2014 ZOSTER LIVE 02/12/2019,10/11/2018 ZOSTER Recombinant 02/12/2019,10/11/2018 Surgical History Surgery Date Site/Laterality Comments CARPAL TUNNEL RELEASE 10/16/2011 - 10/15/2012 [facility] OTHER SURGICAL HISTORY Hammer toe repair and Right great toe repair OTHER SURGICAL HISTORY 10/16/2007 - 10/15/2008 Knee arthroscopy x 2; Dr. Fernandes [facility] HAND SURGERY 10/16/2012 - 10/15/2013 Left REPLACEMENT TOTAL KNEE 05/16/2020 - 06/15/2020 Left COLONOSCOPY 07/26/2016 CARDIAC STENT PLACEMENT 1 BREAST SURGERY 05/24/2024 Left breast lumpectomy LAPAROSCOPIC CHOLECYSTECTOMY 10/28/2024 Medical History Medical History Date Comments Recurrent urinary tract infection Atrial fibrillation (HCC) 12/05/2016 Myocardial infarction (HCC) 01/2016 NSTE AR Gastroesophageal reflux disease 03/01/2014 Vitamin D deficiency 05/15/2017 Pulmonary hypertension (HCC) COPD (chronic obstructive pu lmonary disease) (HCC) triggers are air quality and second hand smoking Osteoarthritis of both knees Glaucoma Essential hypertension Smoking former Kidney disease HL (hearing loss) Cancer (HCC) Breast Left Breast cancer (HCC) Family History Medical History Relation Name Comments Heart attack Brother Cancer Father Cancer; /Cancer , unknown; Hypertension Father Other Father Brain Tumors; / Brain tumors; /Blastoma brain tumors; Cause of : Blastoma brain tumors Cancer Mother Cancer, unknown ; Colon cancer Mother Cancer, colon; /Cancer, colon; /Cancer, colon; Cause of : Cancer, colon Hypertension Mother Hypertension; Ovarian cancer Mother Cancer, ovari an; /Cancer, ovarian; Rheumatic fever Mother Rheumatic fe romulo; Breast cancer Neg Hx Thyroid cancer Neg Hx Relation Name Status Comments Brother Father (Age 82) Mother (Age 81) Social History Tobacco Use Types Packs/Day Years Used Date Smoking Tobacco: Former Cigarettes Q uit: 2013 Smokeless Tobacco: Never Tobacco Cessation:Counseling Given: Not Answered Comments:Smoking History Packs/day: 6 Cigarettes Alcohol Use Standard Drinks/Week Comments Never 0 (1 standard drink = 0.6 oz pur e alcohol) [employer] Utilities Answer Date Recorded In the past 12 months has [employer], gas, oil, or water [employer] threatened to shut off services in your home? No 12/06/2024 Social Connection and Isolat ion Panel [NHANES] Answer Date Recorded In a typical week, how many times do you talk on the phone with family, friends, or neighbors? More than three times a week 12/06/2024 How often do you get togethe r with friends or relatives? More than three times a week 12/06/2024 How often do you attend chur ch or yarsanism services? 1 to 4 times per year 12/06/2024 Do you belong to any clubs o r organizations such as voodoo groups, unions, fraternal or athletic groups, or school groups? Patient declined 12/06/2024 How often do you attend meet ings of the clubs or organizations you belong to? Patient declined 12/06/2024 Are you , , di vorced, , never , or living with a partner? 12/06/2024 AUDIT-C Answer Date Recorded Q1: How often do you have a drink containing alc ohol? 2-4 times a month 11/27/2024 Q2: How many drinks containi ng alcohol do you have on a typical day when you are drinking? 1 or 2 11/27/2024 Q3: How often do you have si x or more drinks on one occasion? Never 11/27/2024 Overall Financial Resource Strain (CARDIA) Answe r Date Recorded How hard is it for you to pa y for the very basics like food, housing, medical care, and heating? Somewhat hard 12/06/2024 PHQ-2 Answer Date Recorded PHQ-2 Total Score (If total score is 3 or more points, staff should administer the PHQ-9) 0 12/05/2024 Hunger Vital Sign Answer Date Recorded Within the past 12 months, y ou worried that your food would run out before you got the money to buy more. Never true 12/06/19 25 Within the past 12 months, t he food you bought just didn't last and you didn't have money to get more. Never true 12/06/2024 PRAPARE - Transportation Answer Date Re corded In the past 12 months, has l ack of transportation kept you from medical appointments or from getting medications? No 11/17 In the past 12 months, has l ack of transportation kept you from meetings, work, or from getting things needed for daily living? No 12/06/2024 Housing Stability Vital Sign Answer Cristofer e Recorded In the last 12 months, was t here a time when you were not able to pay the mortgage or rent on time? No 12/06/2024 In the past 12 months, how m any times have you moved where you were living? 0 12/06/2024 At any time in the past 12 m [facility], were you homeless or living in a chcf (including now)? No 12/06/2024 Personal Safety Answer Date Recorded Have you ever been in or are you currently in a harmful physical or emotional relationship or is someone making you feel afraid or unsafe? Denies 12/05/2024 Comments No Sex and Gender Information Value Date Recorded Sex Assigned at Not on file Legal Sex Female 1:46 AM DRIFTMAN Gender Identity Not on file Sexual Orientation Not on file Occupation Industry Job Start Date Job End Date Retired Not on file Not on file Not on file Obstetrics History Para Term AB IAB SAB Ectopic Multiple Livin g Live Births 2 2 2 2 2 Date Outcome GA Total Labor Labor/2nd/3rd Weight Sex Type Anes PTL Chanelle A1 A5 Name Clin 1963 Term 40w 0d 3.345 kg (7 lb 6 oz) M Vaginal Living 1963 Term 40w 0d 3.941 kg (8 lb 11 oz) M Vaginal Living Last Filed Vital Signs Vital Sign Reading Time Taken Comments Blood Pressure 128/78 01/03/2025 2:10 PM CDT Pulse 88 01/03/2025 2:10 PM CDT Temperature 36.7 C (98.1 F) 01/03/2025 2:10 PM CDT Respiratory Rate 19 01/03/2025 2:10 PM CDT Oxygen Saturation 99% 01/03/2025 2:10 PM CDT Inhaled Oxygen Concentration - - Weight 69.9 kg (154 lb) 01/03/2025 2:10 PM CDT Height 165.1 cm (5' 5 ) 01/03/2025 2:10 PM CDT Body Mass Index 25.63 01/03/2025 2:10 PM CDT Plan of Treatment Health Maintenance Due Date Last Done Comments Hepatitis B Screening 1958 Well Visit 65+ 01/20/2023 01/20/2022, 04/0 03/2021, 03/21/2019 Covid-19 Vaccine (2023-2 5 season) 2024 05/17/2022, 10/31/2021, 12/09/2020, Additional history exists DTaP/Tdap/Td Vaccine (3 - Td or Tdap) 09/04/2024 09/04/2014, 09/04/2014 Depression Screening 11/14/2025 11/14/2024, 02/01/2023, 12/23/2022, Additional history exists Fall Risk Assessment 12/09/2025 12/09/2024, 11/14/2024, 09/20/2024, Additional history exists Colon Cancer Screening-Colonoscopy 09/06/2026 09/06/2021, 07/26/2016, 07/26/2016, Additional history exists Osteoporosis Screening-Bone Density Scan 09/05/2029 09/05/2024, 04/09/2019, 04/09/2019, Additional history exists Zoster Vaccine Completed 02/12/2019, 01/16, 10/11/2018, Additional history exists Pneumococcal vaccine 65+ Completed 024, 03/24/2016, 09/04/2014, Additional history exists Influenza Vaccine Completed 06/24/2024, , 06/30/2022, Additional history exists Medical Devices Implanted Type Area B2B Account Executive Device Identifier Shelf Expiration Date Model / Serial / Lot [employer] Attune Cruciate Retain Cementless Knee Right 5 Component Femoral [id number] - [id number] Implanted:Qty: 1 on 12/05/2024 by Min Malhotra MD at [facility] Right: Knee [employer] [id number] 03/15/2032 [id number] / / [id number] [employer] Insert Attune Right Medial Stabilized Size 5 10mm [id number] - [id number] Implanted:Qty: 1 on 12/05/2024 by Min Malhotra MD at [facility] Right: Knee [employer] 10/15/2032 [id number] / / [id number] [employer] Attune Fb Tib Base Sz 5 Por [id number] - [id number] Implanted:Qty: 1 on 12/05/2024 by Min Malhotra MD at [facility] Right: Knee [employer] 05/15/2034 [id number] / / [id number] Procedures Procedure Name Priority Date/Time Associated Diagnosis Comments URINE CULTURE Routine 01/03/2025 2:10 PM CDT Acute cystitis without hematuria POCT URINALYSIS DIPSTICK Routine 01/03/2025 2:09 PM CDT Acute cystitis without hematuria EGFR Routine 12/06/2024 7:26 AM DRIFTMAN BASIC METABOLIC PANEL Routine 12/06/2024 7:26 AM DRIFTMAN SURGICAL PATHOLOGY Routine 12/05/2024 1:33 PM DRIFTMAN Primary osteoarthritis of right knee XR KNEE RIGHT 1 OR 2 VIEWS IP Routine 12/05/2024 11:42 AM DRIFTMAN ANESTHESIA SPINAL BLOCK Routine 12/05/2024 9:20 AM DRIFTMAN ARTHROPLASTY TOTAL KNEE 12/05/2024 8:35 AM DRIFTMAN Primary osteoarthritis of right knee Special Needs Depuy Attune , Velys, NMES, CPM, Cooling unit, 1 liter beta rinse and aquamantys (overnight)< POTASSIUM LEVEL Routine 12/05/2024 7:20 AM DRIFTMAN APTT STAT 12/05/2024 7:20 AM DRIFTMAN PROTIME-INR STAT 12/05/2024 7:20 AM DRIFTMAN EGFR Routine 11/28/2024 8:25 AM DRIFTMAN Malignant neoplasm of upper-outer quadrant of left breast in female, estrogen receptor positive (HCC) DIFFERENTIAL AUTO Routine 11/28/2024 8:25 AM DRIFTMAN Malignant neoplasm of upper-outer quadrant of left breast in female, estrogen receptor positive (HCC) CBC WITH AUTO DIFFERENTIAL Routine 11/28/2024 8:25 AM DRIFTMAN Malignant neoplasm of upper-outer quadrant of left breast in female, estrogen receptor positive (HCC) COMPREHENSIVE METABOLIC PANEL Routine 11/28/2024 8:25 AM DRIFTMAN Malignant neoplasm of upper-outer quadrant of left breast in female, estrogen receptor positive (HCC) CEA Routine 11/28/2024 8:25 AM DRIFTMAN Malignant neoplasm of upper-outer quadrant of left breast in female, estrogen receptor positive (HCC) CANCER ANTIGEN 15-3 Routine 11/28/2024 8:25 AM DRIFTMAN Malignant neoplasm of upper-outer quadrant of left breast in female, estrogen receptor positive (HCC) ECG 12-LEAD Routine 11/06/2024 1:11 PM DRIFTMAN Pre-op testing XR CHEST PA LATERAL 2 VIEWS Schedule Routine, Read Routine (OP Routine) 11/06/2024 12:46 PM DRIFTMAN Pre-op testing URINALYSIS, MICROSCOPIC ONLY Routine 11/06/2024 12:31 PM DRIFTMAN Pre-op testing URINALYSIS AND REFLEX TO MICROSCOPIC AND CULTURE Routine 11/06/2024 12:31 PM DRIFTMAN Pre-op testing EGFR Routine 11/06/2024 12:28 PM DRIFTMAN Pre-op testing DIFFERENTIAL AUTO Routine 11/06/2024 12:28 PM DRIFTMAN Pre-op testing CBC WITH AUTO DIFFERENTIAL Routine 11/06/2024 12:28 PM DRIFTMAN Pre-op testing COMPREHENSIVE METABOLIC PANEL Routine 11/06/2024 12:28 PM DRIFTMAN Pre-op testing SURGICAL PATHOLOGY Routine 10/28/2024 1:39 PM DRIFTMAN Biliary calculus of other site without obstruction AK AN ELECTIVE ENDOTRACHEAL AIRWAY Routine 10/28/2024 12:49 PM DRIFTMAN LAPAROSCOPIC CHOLECYSTECTOMY 10/28/2024 12:17 PM DRIFTMAN Biliary calculus of other site without obstruction ECG 12-LEAD Routine 10/28/2024 11:17 AM DRIFTMAN POTASSIUM, WHOLE BLOOD STAT 10/28/2024 11:15 AM DRIFTMAN URINE CULTURE Routine 10/25/2024 2:52 PM DRIFTMAN Dysuria POCT URINALYSIS DIPSTICK Routine 10/25/2024 2:51 PM DRIFTMAN Dysuria POCT URINALYSIS DIPSTICK Routine 10/18/2024 3:07 PM DRIFTMAN Dysuria URINE CULTURE Routine 10/18/2024 3:07 PM DRIFTMAN Dysuria DEXA AXIAL SKELETON BONE DENSITY 1 OR MORE SITES Schedule Routine, Read Routine (OP Routine) 09/05/2024 11:26 AM DRIFTMAN FDC (current) use of aromatase inhibitors COLONOSCOPY 09/06/2021 9:21 AM DRIFTMAN from Last 3 Months or Most Recently Relevant to Health Maintenance Results * (ABNORMAL) Urine culture Urine, bladder (01/03/2025 2:10 PM CDT) Report Final Report: Greater than or equal to 100,000 colonies/mL of Enterococcus faecalis (.) Comment:Testing performed by : [facility], [address] [place]., [address] Organism ENTEROCOCCUS FAECALIS JOLENE Urine, bladder 01/03/2025 2: 10 PM CDT 01/04/2025 2:59 AM CDT Narrative JOLENE PATTERSON - 01/06/2025 3:10 PM CDT Testing performed by [facility] Microbiology Laboratory ([phone]) Organism Antibiotic Method Susceptibility Enterococcus faecalis Ampicillin (KIRA) INTERPRETATIO N Susceptible Enterococcus faecalis Vancomycin (KIRA) INTERPRETATIO N Susceptible Enterococcus faecalis Linezolid (KIRA) INTERPRETATIO N Susceptible Enterococcus faecalis Doxycycline (KIRA) INTERPRETATIO N Resistant Enterococcus faecalis Nitrofurantoin (KIRA) INTERPRETAT ION Susceptible Eula ORTIZ LAB MICROBIOLOGY - GENERAL ORDERABLES Final Result JOLENE [id number] [address] Department of Laboratories [place], [place] [id number] * (ABNORMAL) POCT urinalysis dipstick (01/03/2025 2:09 PM CDT) Color, Urine, POC [place] Clarity, ur, POC Clear Clear Glucose, ur, POC 100.(A) Negative MG/DL Bilirubin, ur, POC Negative Negative, Small, Moderate, Large Ketones, ur, POC Negative Negative Specific [place], POC 1.005 1.003 - 1.030 Blood, ur, POC Negative Negative pH, ur, POC 5.0 5.0 - 8.0 Protein, ur, POC Negative Negative Urobilinogen, urine, POC 1.0 0.2 - 1.0 mg/dL Nitrite, ur, POC Positive(A) Negative Leukocytes, ur, POC Negative Negative Lot Number [id number] Urine 01/03/2025 2:09 PM CDT us Eula ORTIZ POINT OF CARE TEST ORDERABLES Final Result * (ABNORMAL) eGFR (12/06/2024 7:26 AM DRIFTMAN) [facility] eGFR 40(L) >=60 mL/min/1. 73 m2 Comment: Interpretive Data Reference Interval Normal >/= 90 mL/min/1.73m2 Mildly decreased* 60 - 89 mL/min/1.73m2 Mildly to moderately decreased 45 - 59 mL/min/1.73m2 Moderately to severely decreased 30 - 44 mL/min/1.73m2 Severely decreased 15 - 29 mL/min/1.73m2 Kidney Failure < 15 mL/min/1.73m2 *Relative to young adult level Estimated glomerular filtration rate is determined by the 2020 CKD-EPI equation recommended by the National Kidney Foundation (A Unifying Approach to GFR Estimation: Recommendations of the NKF-ASK Task Force on Reassessing the Inclusion of Race in Diagnosing Kidney Disease, JASN 2020). The CKD-EPI equation should not be used for patients with unstable renal function and has not been validated in children and those over 70. Current interpretive data was last reviewed 2021. Blood 12/06/2024 7:26 AM DRIFTMAN 12/06/2024 7:46 AM DRIFTMAN us Javan Puente CUSTOMER SERVICE SPECIALIST LAB BLOOD ORDERABLES Fin al Result [facility]) 1 [facility] Department [place] [address] * (ABNORMAL) Basic metabolic panel (12/06/2024 7:26 AM DRIFTMAN) Sodium 135 135 - 145 mmol/L Potassium, pl 4.0 3.3 - 4.9 mmol/L [facility] ([place]) Chloride 103 97 - 110 mmol/L [facility] ([place]) CO2 22 22 - 32 mmol/L [facility] ([place]) Anion gap 9 2 - 15 mmol/L [facility] ([place]) BUN 20 6 - 25 mg/dL [facility] ([place]) Creatinine 1.32(H) 0.60 - 1.10 mg/dL [facility] ([place]) Glucose 132 70 - 199 mg/dL [facility] ([place]) Comment: Interpretive Data Fasting glucose >/= 126 mg/dl is diagnostic for diabetes. Fasting is defined as no caloric intake for at least 8 hours. Fasting glucose between 100 mg/dl to 125 mg/dl is diagnostic of prediabetes. In a patient with classic symptoms of hyperglycemia or hyperglycemic crisis, a random glucose >/= 200 mg/dl is diagnostic for diabetes. In the absence of unequivocal hyperglycemia, results should be confirmed by repeat testing. The classification and Diagnosis of Diabetes Diabetes Care 2021; 46: S19-S40. Current interpretive data was last revised 2022. Calcium 8.6 8.5 - 10.3 mg/dL [facility] ([place]) Blood 12/06/2024 7:26 AM DRIFTMAN 12/06/2024 7:46 AM DRIFTMAN Javan Puente NP LAB BLOOD ORDERABLES Fin al Result [facility] ([place]) [address] [place] [address] Department [place] [address] * Surgical pathology (12/05/2024 1:33 PM DRIFTMAN) Tissue (Bone Fragment(s),) 12/05/2024 9:54 AM DRIFTMAN Narrative PATHOLOGY [facility] ([place]) - 12/09/2024 4:07 PM DRIFTMAN EPIC results best viewed via link to PDF [facility] Department of Pathology [address] [place] [id number] Note to Patients: This report may contain a detailed description of human tissue sent by a health care provider to the laboratory for pathologic evaluation. The content of this report is essential for diagnosis and may provide important critical findings. This information may be unfamiliar to patients to review without a medical professional present. It is advised that the patient review this report in the presence of a health care provider who can answer questions and explain the details. Final Report Patient Name: PEDRO PABLO RECINOS Address: [address] [place] [address] [place] [address] Gender: F : 1940 (Age: 84) Service: Surgery Location: [facility] Hospital #: [id number] Patient Type: [facility] Taken: 12/05/2024 Received: 12/05/2024 Accessioned: 12/05/2024 Reported: 12/09/2024 Physician(s):Dr. Min Malhotra M.D. Diagnosis: Right knee, arthroplasty: - Degenerative joint disease consistent with osteoarthritis. Haile Phillips M.D. Report Electronically Reviewed and Signed Out By Haile Phillips M.D. 12/09/2024 16:07:37 Specimen(s) Received: A: Right knee bone and tissue Microscopic Description: Sections show fragments of benign bone and cartilage. The overlying articular cartilaginous surface shows degenerative features including areas of erosion with fissures and clefting. The underlying medullary space shows some focal medullary fibrosis. No significant inflammatory infiltrate is seen. There is no evidence of malignancy. Sections from the soft tissue shows benign fibroconnective tissue with reactive synovium. Clinical History: Osteoarthritis of right knee. Right total knee arthroplasty. Gross Description: The container is labeled PEDRO PABLO RECINOS and right knee . It is a 6 x 5 x 4 cm in aggregate of irregularly-shaped fragments of bone and an approximate 10 cc aggregate of soft tissue consisting of adipose tissue, portions of menisci and some synovium. Recognizable pieces of bone include the tibial plateau and portions of femoral condyles. Some of the bone fragments are covered by articular cartilage showing varying degrees of degenerative changes that include eburnation, pitting and roughened granularity. Decalcified and represented in two cassettes. Markus Murillo R.N., P.A./Poppy Mcguire M.D. REPORT IMAGES AND SCANNED DOCUMENTS, IF INCLUDED, ONLY VIEWABLE IN PDF VERSION OF REPORT The performance characteristics of some immunohistochemical stains, fluorescence in-situ hybridization tests and immunophenotyping by flow cytometry cited in this report (if any) were determined by the Surgical Pathology Department at [facility] as part of an ongoing quality control representative program and in compliance with federally mandated regulations drawn from the Clinical Laboratory Improvement Act of 1988 (CLIA '88). Some of these tests rely on the use of analyte specific reagents and are subject to specific labeling requirements by the US Food and Drug Administration. Such diagnostic tests may only be performed in a facility that is certified by the Department of Health and Human Services as a high complexity laboratory under CLIA '88. The FDA has determined that such clearance or approval is not necessary. This test is used for clinical purposes. It should not be regarded as investigational or for research. Nevertheless, federal rules concerning the medical use of analyte specific reagents require that the following disclaimer be attached to the report: This test was developed and its performance characteristics determined by the Surgical Pathology Department [facility]. It has not been cleared or approved by the U. S. Food and Drug Administration. Note for decalcified specimens: This assay has not been validated on decalcified tissues. Results should be interpreted with caution given the possibility of false negativity on decalcified specimens Min Malhotra MD LAB PATHOLOGY ORDERABLES [facility] al Result PATHOLOGY [facility] ([place]) [address] [place], [place] [id number] * XR Knee Right 1 or 2 Views (12/05/2024 11:42 AM DRIFTMAN) Anatomical Region Laterality Modality Lower Extremities, Knee Right Computed Radiography 12/05/2024 2:15 PM DRIFTMAN Narrative 12/05/2024 2:18 PM DRIFTMAN EXAM DESCRIPTION: XR KNEE RIGHT 1 OR 2 VIEWS REASON FOR STUDY: post op right knee post op TECHNIQUE: 2 radiographic view(s) of the right knee . COMPARISON: 08/01/2024 FINDINGS: Interval right knee arthroplasty. Alignment is near anatomic. No evidence of periprosthetic fracture or loosening. There is gas in the surrounding soft tissues. There are atherosclerotic vascular calcifications. IMPRESSION: Interval right knee arthroplasty with expected postoperative findings. THIS IS AN ELECTRONICALLY VERIFIED FINAL REPORT 12/05/2024 2:18 PM - Electronically signed by Miguel Elkins M.D. AM: AM Report ID: [id number] Reading Location: [id number] Procedure Note Miguel Elkins MD - 12/05/2024 EXAM DESCRIPTION: XR KNEE RIGHT 1 OR 2 VIEWS REASON FOR STUDY: post op right knee post op TECHNIQUE: 2 radiographic view(s) of the right knee . COMPARISON: 08/01/2024 FINDINGS: Interval right knee arthroplasty. Alignment is near anatomic. Noevidence of periprosthetic fracture or loosening. There is gas in the surroundingsoft tissues. There are atherosclerotic vascular calcifications. IMPRESSION: Interval right knee arthroplasty with expected postoperative findings. THIS IS AN ELECTRONICALLY VERIFIED FINAL REPORT 12/05/2024 2:18 PM - Electronically signed by Miguel Elkins M.D. AM: AM Report ID: [id number] Reading Location: [id number] Javan Be Cnidi CUSTOMER SERVICE SPECIALIST IMG XR PROCEDURES Final Result * Spinal Block (12/05/2024 9:20 AM DRIFTMAN) Narrative Adan Singh CRNA - 12/05/2024 9:20 AM DRIFTMAN Adan Singh CRNA 12/05/2024 9:20 AM Spinal Block Patient location: OR End time: 12/05/2024 9:10 AM Reason for block: primary anesthetic Staff: Supervising provider: Erin Dickinson MD Placed by: MAJOR ASSEMBLER:Adan Singh CRNA Procedure prep: Preprocedure checklist: patient identified, procedure contraindications assessed, site marked, procedure consent, surgical consent, IV checked, risks, benefits and alternatives discussed, monitors and equipment checked and timeout performed Patient position: sitting Procedure performed while patient: awake Monitoring: oximetry and blood pressure Prep solution: chlorhexadine/alcohol PPE: provider hat/mask, sterile gloves and sterile drape Skin infiltrated with lidocaine 1%: yes Spinal: Approach: midline Introducer used: yes Location: L3-4 Spinal injection: CSF demonstrated, no aspiration of heme and no paresthesias noted Number of attempts: 2 Other sites attempted: L3-4 Spinal Needle: Needle type: Armando Needle gauge: 22 G Needle length: 5 cm Assessment: Sensory deficit - left: T4 Sensory deficit - right: T4 Events: patient tolerated procedure well with no complications Erin Dickinson MD ANESTHESIA ORDERABLES Fi nal Result * aPTT (12/05/2024 7:20 AM DRIFTMAN) aPTT 34 28 - 38 sec [facility] ([place]) Comment: Interpretive Data Heparin therapeutic range: 66.0 - 100.0 seconds. Range based on correlation with therapeutic heparin activity range of 0.3 - 0.7 Units/mL. Current interpretive data was last revised on 2023. Blood 12/05/2024 7:20 AM DRIFTMAN 12/05/2024 7:22 AM DRIFTMAN Erin Dickinson MD LAB BLOOD ORDERABLES Fin al Result [facility] ([place]) 1 [facility] Department [place] [address] * Protime-INR (12/05/2024 7:20 AM DRIFTMAN) PT 10.6 9.7 - 13.0 sec [facility] ([place]) INR 0.98 0.90 - 1.20 [facility] ([place]) Comment: Interpretive data Oral anticoagulant therapeutic ranges: Venous thromboembolism prophylaxis or treatment: 2.0-3.0 CARDIOLOGY Standard range: 2.0-3.0 High-intensity range: 2.5-3.5 Refer to indication-specific guidelines for appropriate target ranges for prosthetic heart valve replacement. Current interpretive data was last revised on 2019. Blood 12/05/2024 7:20 AM DRIFTMAN 12/05/2024 7:22 AM DRIFTMAN Erin Dickinson MD LAB BLOOD ORDERABLES Fin al Result [facility] ([place]) 1 [facility] [place] [address] * Potassium (12/05/2024 7:20 AM DRIFTMAN) Potassium, pl 3.9 3.3 - 4.9 mmol/L Blood 12/05/2024 7:20 AM DRIFTMAN 12/05/2024 7:22 AM DRIFTMAN Erin Dickinson MD LAB BLOOD ORDERABLES Fin al Result Performing Organization Address [facility] Co de Phone Number [facility] ([place]) 1 [facility] Department [place] [address] * (ABNORMAL) eGFR (11/28/2024 8:25 AM DRIFTMAN) eGFR 48(L) >=60 mL/min/1. 73 m2 Comment: Interpretive Data Reference Interval Normal >/= 90 mL/min/1.73m2 Mildly decreased* 60 - 89 mL/min/1.73m2 Mildly to moderately decreased 45 - 59 mL/min/1.73m2 Moderately to severely decreased 30 - 44 mL/min/1.73m2 Severely decreased 15 - 29 mL/min/1.73m2 Kidney Failure < 15 mL/min/1.73m2 *Relative to young adult level Estimated glomerular filtration rate is determined by the 2020 CKD-EPI equation recommended by the National Kidney Foundation (A Unifying Approach to GFR Estimation: Recommendations of the NKF-ASK Task Force on Reassessing the Inclusion of Race in Diagnosing Kidney Disease, JASN 2020). The CKD-EPI equation should not be used for patients with unstable renal function and has not been validated in children and those over 70. Current interpretive data was last reviewed 2021. Testing performed by: [facility], [facility], [place], [address] Blood 11/28/2024 8:25 AM DRIFTMAN 11/28/2024 8:58 AM DRIFTMAN us Nidhi Powell CUSTOMER SERVICE SPECIALIST LAB BLOOD ORDERABLES Final Re sult [facility] ([place]) 1 [facility] Department [place] [address] * Differential, auto (11/28/2024 8:25 AM DRIFTMAN) Neutrophil abs 2.3 1.5 - 6.5 K/cumm Comment:Testing performed by : [facility] [place] [address], Medical Office [facility] [address], [place] [address] Imm gran abs 0.0 0.0 - 0.1 K/cumm [facility] (ABDIEL) Comment:Testing performed by : [facility] [address], Medical Office [facility] [address], [place] [address] Lymphocyte abs 1.8 0.8 - 3.3 K/cumm [facility] ([place]EL) Comment:Testing performed by : [facility] [address], Medical Office [facility] [address], [place] [address] Monocyte abs 0.5 0.2 - 0.8 K/cumm [facility] ([place]) Comment:Testing performed by : [facility] [address], Medical Office [facility] [address], [place] [address] Eosinophil abs 0.5 0.0 - 0.5 K/cumm [facility] ([place]) Comment:Testing performed by : [facility] [address], Medical Office [facility] [address], [place] [address] Basophil abs 0.0 0.0 - 0.1 K/cumm [facility] ([place]) Comment:Testing performed by : [facility] [address], Medical Office [facility] [address], [place] [address] Neutrophil pct 44.3 % [facility] ([place]) Comment: Interpretive Data Percent cell count reference ranges are not reported, since discordance with absolute values may lead to misinterpretation of CBC data. Current Interpretive Data was last revised on 2022. Testing performed by: [facility] [address], Medical Office [address], [place] [address] Imm gran pct 0.2 % [facility] ([place]) Comment: Interpretive Data Percent cell count reference ranges are not reported, since discordance with absolute values may lead to misinterpretation of CBC data. Current Interpretive Data was last revised on 2022. Testing performed by: [facility] [address], Medical Office [facility] [address], [place] [address] Lymphocyte pct 35.9 % [facility] ([place]) Comment: Interpretive Data Percent cell count reference ranges are not reported, since discordance with absolute values may lead to misinterpretation of CBC data. Current Interpretive Data was last revised on 2022. Testing performed by: [facility] [address], Medical Office [facility] B [facility] [address], [place] [address] Monocyte pct 10.0 % [facility] ([place]EL) Comment: Interpretive Data Percent cell count reference ranges are not reported, since discordance with absolute values may lead to misinterpretation of CBC data. Current Interpretive Data was last revised on 2022. Testing performed by: [facility] [address], Medical Office [facility] B [facility] [address], [place] [address] Eosinophil pct 8.8 % [facility] ([place]EL) Comment: Interpretive Data Percent cell count reference ranges are not reported, since discordance with absolute values may lead to misinterpretation of CBC data. Current Interpretive Data was last revised on 2022. Testing performed by: [facility] [address], Medical Office [facility] B [facility] [address], [place] [address] Basophil pct 0.8 % [facility] ([place]EL) Comment: Interpretive Data Percent cell count reference ranges are not reported, since discordance with absolute values may lead to misinterpretation of CBC data. Current Interpretive Data was last revised on 2022. Testing performed by: [facility] [address], Medical Office [facility] [address], [place] [address] Blood 11/28/2024 8:25 AM DRIFTMAN 11/28/2024 8:28 AM DRIFTMAN Nidhi Powell CUSTOMER SERVICE SPECIALIST LAB BLOOD ORDERABLES Final Re sult JOLENE BOYLE (ABDIEL) 1 [facility] Department [place] [address] * (ABNORMAL) CBC with auto differential (11/28/2024 8:25 AM DRIFTMAN) WBC 5.1 3.8 - 9.9 K/cumm Comment:Testing performed by : [facility] [address], Medical Office [address], [place] [address] Hgb 12.1 11.9 - 15.5 g/dL [facility] ([place]EL) Comment:Testing performed by : [facility] [address], Medical Office [address], [place] [address] Hct 35.8 35.6 - 45.5 % [facility] ([place]) Comment:Testing performed by : [facility] [address], Medical Office [facility] [address], [place] [address] Plt 253 150 - 400 K/cumm [facility] ([place]EL) Comment:Testing performed by : [facility] [address], Medical Office [facility] [address], [place] [address] MPV 8.9(L) 9.1 - 12.3 fL [facility] ([place]) Comment:Testing performed by : [facility] [address], Medical Office [facility] [address], [place] [address] RBC 3.52(L) 3.90 - 5.20 M/cumm [facility] ([place]) Comment:Testing performed by : [facility] [address], Medical Office [address], [place] [address] MCV 101.7(H) 81.3 - 96.4 fL [facility] ([place]) Comment:Testing performed by : [facility] [address], Medical Office [address], [place] [address] MCH 34.4(H) 27.1 - 33.3 pg [facility] ([place]) Comment:Testing performed by : [facility] [address], Medical Office [address], [place] [address] MCHC 33.8 32.3 - 35.7 g/dL JOLENE BOYLE (ABDIEL) Comment:Testing performed by : [facility] [address], Medical Office [address], [place] [address] RDW CV 13.7 11.1 - 14.9 % JOLENE BOYLE (ABDIEL) Comment:Testing performed by : [facility] [address], Medical Office [address], [place] [address] RDW SD 52.4(H) 35.7 - 48.1 fL JOLENE BOYLE (ABDIEL) Comment:Testing performed by : [facility] [address], Medical Office [address], [place] [address] NRBC abs Not Measured 0.00 - 0.01 K/cumm JOLENE BOYLE (ABDIEL) Comment:Testing performed by : [facility] [address], Medical Office [address], [place] [address] Blood 11/28/2024 8:25 AM DRIFTMAN 11/28/2024 8:28 AM DRIFTMAN Nidhi Powell CUSTOMER SERVICE SPECIALIST LAB BLOOD ORDERABLES Final Re sult Performing Organization Address [facility]/ZIP Co de Phone Number JOLENE BOYLE (LARIMER) 1 [facility] [employer] [place] [address] * Cancer antigen 15-3 (11/28/2024 8:25 AM DRIFTMAN) CA 15-3 ag 18.0 1.0 - 30.0 units/mL Comment: Interpretive Data The Ann CA 15-3 assay procedure was used. Results from different manufacturers or methods may not be comparable. Serial testing should be performed using the same method. Testing performed by: [facility], [address] [place] [address], [place]., [address] Blood 11/28/2024 8:2 5 AM DRIFTMAN 11/28/2024 11:18 AM DRIFTMAN Nidhi Powell CUSTOMER SERVICE SPECIALIST LAB BLOOD ORDERABLES Final Re sult Performing Organization Address City/[facility]/ZIP Co de Phone Number JOLENE BOYLE (LARIMER) 1 [facility] Department [place] [address] * CEA (11/28/2024 8:25 AM DRIFTMAN) CEA 2.6 0.1 - 5.0 ng/mL Comment: Interpretive Data The Ann CEA assay procedure was used. Results from different manufacturers or methods may not be comparable. Serial testing should be performed using the same method. Testing performed by: [facility], [address] [place] [address], [place]., [address] Blood 11/28/2024 8:25 AM DRIFTMAN 11/28/2024 11:18 AM DRIFTMAN us Nidhi Powell CUSTOMER SERVICE SPECIALIST LAB BLOOD ORDERABLES Final Re sult [facility] ([place]) 1 [facility] Department [place] [address] * (ABNORMAL) Comprehensive metabolic panel (11/28/2024 8:25 AM DRIFTMAN) Pathologist [facility] Sodium 139 135 - 145 mmol/L Comment:Testing performed by : [place], [address] Potassium, pl 3.7 3.3 - 4.9 mmol/L [facility] ([place]) Comment:Testing performed by : [place], [address] Chloride 100 97 - 110 mmol/L [facility] ([place]) Comment:Testing performed by : [place], [address] CO2 25 22 - 32 mmol/L [facility] ([place]) Comment:Testing performed by : [place], [address] Anion gap 14 2 - 15 mmol/L [facility] ([place]) Comment:Testing performed by : [place], [address] BUN 18 6 - 25 mg/dL [facility] ([place]) Comment:Testing performed by : [place], [address] Creatinine 1.15(H) 0.60 - 1.10 mg/dL [facility] ([place]) Comment:Testing performed by : [place], [address] Glucose 90 70 - 199 mg/dL [facility] ([place]) Comment: Interpretive Data Fasting glucose >/= 126 mg/dl is diagnostic for diabetes. Fasting is defined as no caloric intake for at least 8 hours. Fasting glucose between 100 mg/dl to 125 mg/dl is diagnostic of prediabetes. In a patient with classic symptoms of hyperglycemia or hyperglycemic crisis, a random glucose >/= 200 mg/dl is diagnostic for diabetes. In the absence of unequivocal hyperglycemia, results should be confirmed by repeat testing. The classification and Diagnosis of Diabetes Diabetes Care 2021; 46: S19-S40. Current interpretive data was last revised 2022. Testing performed by: [facility], [place], [address] Calcium 9.7 8.5 - 10.3 mg/dL [facility] ([place]) Comment:Testing performed by : [place], [address] Bilirubin, total 0.4 0.1 - 1.2 mg/dL [facility] ([place]) Comment:Testing performed by : [facility], [place], [address] Protein, pl 7.6 6.5 - 8.5 g/dL [facility] ([place]) Comment:Testing performed by : [facility], [place], [address] Albumin 4.0 3.5 - 5.0 g/dL [facility] ([place]) Comment:Testing performed by : [facility], [place], [address] Alk phos 114 40 - 130 Units/L [facility] ([place]) Comment:Testing performed by : [facility], [place], [address] ALT 11 7 - 45 Units/L [facility] ([place]) Comment:Testing performed by : [facility], [place], [address] AST 19 10 - 45 Units/L [facility] ([place]) Comment:Testing performed by : [facility], [place], [address] Blood 11/28/2024 8:25 AM DRIFTMAN 11/28/2024 8:58 AM DRIFTMAN us Nidhi Powell NP LAB BLOOD ORDERABLES Final Re sult JOLENE BOYLE (ABDIEL) 1 [facility] Department [place] [address] * ECG 12 lead (11/06/2024 1:11 PM DRIFTMAN) 11/06/2024 1:07 PM DRIFTMAN Narrative [facility] - 11/06/2024 2:20 PM DRIFTMAN Vent Rate: 71 bpm RR Interval: 838 msec AK Interval: 0 msec QRS Duration: 98 msec QT Interval: 416 msec QTC Interval: 439 msec P-R-T Mobile: [id number] - 75 - 53 degrees IMPRESSION: ATRIAL FIBRILLATION WITH ABERRANT CONDUCTION OR VENTRICULAR PREMATURE COMPLEXES INDETERMINATE AXIS LOW QRS VOLTAGE IN PRECORDIAL LEADS [QRS DEFLECTION < 1.0 mV IN CHEST LEADS] INCOMPLETE RIGHT BUNDLE BRANCH BLOCK [90+ ms QRS DURATION, TERMINAL R IN V1/V2, 40+ ms S IN I/aVL/V4/V5/V6] ABNORMAL RHYTHM ECG NO CHANGE FROM PREVIOUS TRACING NOTED Electronically Signed By: Stas Stafford MD Min Malhotra MD ECG ORDERABLES Final Result Performing Organization Address [facility] de Phone Number [facility] [employer] [facility] * XR Chest PA Lateral 2 View (11/06/2024 12:46 PM DRIFTMAN) Anatomical Region Laterality Modality Body, Chest N/A Computed Radiogr aphy 11/07/2024 6:11 AM DRIFTMAN Narrative 11/07/2024 6:12 AM DRIFTMAN EXAM DESCRIPTION: XR CHEST PA LATERAL 2 VIEWS REASON FOR STUDY: Preop for right TKA dec 05 non smoker Hx of heart stent TECHNIQUE: Two views COMPARISON: 08/05/2024 FINDINGS: Heart size upper limits of normal to slightly enlarged. Aortic arch well-defined on the left. Central vascularity are not markedly enlarged. Lungs are well expanded without consolidation, effusion or pneumothorax. Lungs are moderately hyperexpanded suggesting air trapping emphysema. IMPRESSION: No acute findings. THIS IS AN ELECTRONICALLY VERIFIED FINAL REPORT 11/07/2024 6:12 AM - Electronically signed by Pop Escalante M.D. RB: RB Report ID: [id number] Reading Location: [id number] Procedure Note Pop Escalante MD - 11/07/2024 EXAM DESCRIPTION: XR CHEST PA LATERAL 2 VIEWS REASON FOR STUDY: Preop for right TKA dec 05 non smoker Hx of heart stent TECHNIQUE: Two views COMPARISON: 08/05/2024 FINDINGS: Heart size upper limits of normal to slightly enlarged. Aortic arch well-defined on the left. Central vascularity are not markedly enlarged. Lungs are well expanded without consolidation, effusion or pneumothorax. Lungs are moderately hyperexpanded suggesting air trapping emphysema. IMPRESSION: No acute findings. THIS IS AN ELECTRONICALLY VERIFIED FINAL REPORT 11/07/2024 6:12 AM - Electronically signed by Pop Escalante M.D. RB: RB Report ID: [id number] Reading Location: [place] [address] us Min Malhotra MD IMG XR PROCEDURES Final Resu lt * (ABNORMAL) Urinalysis reflex to microscopic and culture Urine (11/06/2024 12:31 PM DRIFTMAN) Color, ur Yellow Yellow Clarity, ur Turbid(A) Clear [facility] (ABDIEL) Specific gravity, ur 1.019 1.003 - 1.030 [facility] ([place]) pH, urine 5.5 [facility] ([place]) Comment: Interpretive Data U rine pH is affected by diet, medications, systemic acid-base disturbances, and renal tubular function. pH may affect urinary stone formation. For example, urine pH below 6.0 may help reduce the tendency for calcium phosphate stones and pH greater than 6.0 may reduce the tendency for uric acid stone formation. Source: [employer] Current Interpretive Data was last revised on 2017 Protein, ur ql Negative Negative [facility] ([place]) Glucose, ur ql Negative Negative [facility] ([place]) Ketones, ur Negative Negative [facility] (AB[place]EL) Bilirubin, ur Negative Negative [facility] ([place]) Blood, ur Negative Negative [facility] ([place]) Urobilinogen, ur <2.0 <2.0 mg/dL [facility] ([place]) Nitrite, ur Negative Negative [facility] (AB[place]EL) Leukocyte esterase, ur 1+(A) Negative [facility] ([place]) UA reflex comment Reflex to microscopic UA will be performed. [facility] ([place]) Urine 11/06/2024 12:3 1 PM DRIFTMAN 11/06/2024 12:40 PM DRIFTMAN us Min Malhotra MD LAB MICROBIOLOGY - GENERAL O RDERABLES Final Result Performing Organization Address [facility] Co de Phone Number JOLENE BOYLE (ABDIEL) [address] [place] [address] [employer] [place] [address] * (ABNORMAL) Urinalysis, microscopic only (11/06/2024 12:31 PM DRIFTMAN) WBC, ur 0-5 0 - 5 /HPF RBC, ur 0-2 0 - 2 /HPF [facility] ([place]) Epithelial cells, squamous, ur 11-20(A) 0 - 5 /HPF [facility] ([place]) Bacteria, ur Trace(A) [facility] ([place]) Hyaline casts, ur 21-50(A) 0 - 10 /LPF [facility] ([place]) Culture Reflex Comment Reflex conditions for urine culture (WBC >10) not met. [facility] ([place]) Urine 11/06/2024 12:3 1 PM DRIFTMAN 11/06/2024 12:40 PM DRIFTMAN us Min Malhotra MD LAB URINE ORDERABLES Final R esult Performing Organization Address [facility] Co de Phone Number JOLENE BOYLE (ABDIEL) 1 [facility] [place] [address] * (ABNORMAL) eGFR (11/06/2024 12:28 PM DRIFTMAN) eGFR 39(L) >=60 mL/min/1. 73 m2 Comment: Interpretive Data Reference Interval Normal >/= 90 mL/min/1.73m2 Mildly decreased* 60 - 89 mL/min/1.73m2 Mildly to moderately decreased 45 - 59 mL/min/1.73m2 Moderately to severely decreased 30 - 44 mL/min/1.73m2 Severely decreased 15 - 29 mL/min/1.73m2 Kidney Failure < 15 mL/min/1.73m2 *Relative to young adult level Estimated glomerular filtration rate is determined by the 2020 CKD-EPI equation recommended by the National Kidney Foundation (A Unifying Approach to GFR Estimation: Recommendations of the NKF-ASK Task Force on Reassessing the Inclusion of Race in Diagnosing Kidney Disease, JASN 2020). The CKD-EPI equation should not be used for patients with unstable renal function and has not been validated in children and those over 70. Current interpretive data was last reviewed 2021. Blood 11/06/2024 12:2 8 PM DRIFTMAN 11/06/2024 12:43 PM DRIFTMAN us Min Malhotra MD LAB BLOOD ORDERABLES Final R esult [facility] (LARIMER) 1 [facility] Department [place] [address] * Differential, auto (11/06/2024 12:28 PM DRIFTMAN) Pathologist [facility] [place] Neutrophil abs 4.7 1.5 - 6.5 K/cumm Imm gran abs 0.0 0.0 - 0.1 K/cumm [facility] ([place]) Lymphocyte abs 1.7 0.8 - 3.3 K/cumm [facility] ([place]) Monocyte abs 0.8 0.2 - 0.8 K/cumm [facility] ([place]) Eosinophil abs 0.3 0.0 - 0.5 K/cumm [facility] ([place]) Basophil abs 0.1 0.0 - 0.1 K/cumm [facility] ([place]) Neutrophil pct 62.7 % [facility] ([place]) Comment: Interpretive Data Percent cell count reference ranges are not reported, since discordance with absolute values may lead to misinterpretation of CBC data. Current Interpretive Data was last revised on 2018. Imm gran pct 0.4 % [facility] ([place]EL) Comment: Interpretive Data Percent cell count reference ranges are not reported, since discordance with absolute values may lead to misinterpretation of CBC data. Current Interpretive Data was last revised on 2018. Lymphocyte pct 22.5 % [facility] ([place]EL) Comment: Interpretive Data Percent cell count reference ranges are not reported, since discordance with absolute values may lead to misinterpretation of CBC data. Current Interpretive Data was last revised on 2018. Monocyte pct 10.3 % [facility] ([place]EL) Comment: Interpretive Data Percent cell count reference ranges are not reported, since discordance with absolute values may lead to misinterpretation of CBC data. Current Interpretive Data was last revised on 2018. Eosinophil pct 3.3 % [facility] ([place]EL) Comment: Interpretive Data Percent cell count reference ranges are not reported, since discordance with absolute values may lead to misinterpretation of CBC data. Current Interpretive Data was last revised on 2018. Basophil pct 0.8 % [facility] ([place]EL) Comment: Interpretive Data Percent cell count reference ranges are not reported, since discordance with absolute values may lead to misinterpretation of CBC data. Current Interpretive Data was last revised on 2018. Blood 11/06/2024 12:2 8 PM DRIFTMAN 11/06/2024 12:43 PM DRIFTMAN us Min Malhotra MD LAB BLOOD ORDERABLES Final R esult JOLENE BOYLE (ABDIEL) 1 [facility] Department of Laboratories [place], [place] [id number] * (ABNORMAL) CBC with auto differential (11/06/2024 12:28 PM DRIFTMAN) WBC 7.5 3.8 - 9.9 K/cumm Hgb 12.8 11.9 - 15.5 g/dL JOLENE BOYLE (ABDIEL) Hct 38.7 35.6 - 45.5 % [facility] ([place]) Plt 248 150 - 400 K/cumm [facility] ([place]) MPV 9.5 9.1 - 12.3 fL [facility] ([place]) RBC 3.72(L) 3.90 - 5.20 M/cumm [facility] ([place]) MCV 104.0(H) 81.3 - 96.4 fL [facility] ([place]) MCH 34.4(H) 27.1 - 33.3 pg [facility] ([place]) MCHC 33.1 32.3 - 35.7 g/dL [facility] ([place]) RDW CV 14.5 11.1 - 14.9 % [facility] ([place]) RDW SD 55.8(H) 35.7 - 48.1 fL [facility] ([place]) NRBC abs 0.00 0.00 - 0.01 K/cumm [facility] ([place]) Blood 11/06/2024 12:2 8 PM DRIFTMAN 11/06/2024 12:43 PM DRIFTMAN us Min Malhotra MD LAB BLOOD ORDERABLES Final R esult [facility] ([place]) 1 [facility] Department [place] [address] * (ABNORMAL) Comprehensive metabolic panel (11/06/2024 12:28 PM DRIFTMAN) Sodium 136 135 - 145 mmol/L Potassium, pl 4.4 3.3 - 4.9 mmol/L [facility] ([place]) Chloride 100 97 - 110 mmol/L [facility] ([place]) CO2 24 22 - 32 mmol/L [facility] ([place]) Anion gap 11 2 - 15 mmol/L [facility] ([place]) BUN 21 6 - 25 mg/dL [facility] ([place]) Creatinine 1.36(H) 0.60 - 1.10 mg/dL [facility] ([place]) Glucose 118 70 - 199 mg/dL [facility] ([place]) Comment: Interpretive Data Fasting glucose >/= 126 mg/dl is diagnostic for diabetes. Fasting is defined as no caloric intake for at least 8 hours. Fasting glucose between 100 mg/dl to 125 mg/dl is diagnostic of prediabetes. In a patient with classic symptoms of hyperglycemia or hyperglycemic crisis, a random glucose >/= 200 mg/dl is diagnostic for diabetes. In the absence of unequivocal hyperglycemia, results should be confirmed by repeat testing. The classification and Diagnosis of Diabetes Diabetes Care 2021; 46: S19-S40. Current interpretive data was last revised 2022. Calcium 10.0 8.5 - 10.3 mg/dL [facility] ([place]) Bilirubin, total 0.5 0.1 - 1.2 mg/dL [facility] ([place]) Protein, pl 7.6 6.5 - 8.5 g/dL [facility] ([place]) Albumin 3.8 3.5 - 5.0 g/dL [facility] ([place]) Alk phos 114 40 - 130 Units/L [facility] ([place]) ALT 11 7 - 45 Units/L [facility] ([place]) AST 17 10 - 45 Units/L [facility] ([place]) Blood 11/06/2024 12:2 8 PM DRIFTMAN 11/06/2024 12:43 PM DRIFTMAN Min Malhotra MD LAB BLOOD ORDERABLES Final R esult [facility] ([place]ER) [address] [place] [address] Department [place] [address] * Surgical pathology (10/28/2024 1:39 PM DRIFTMAN) Tissue (Gallbladder) 10/28/2024 1:09 PM DRIFTMAN Narrative PATHOLOGY [facility] ([place]ER) - 10/29/2024 3:44 PM DRIFTMAN EPIC results best viewed via link to PDF [facility] Department of Pathology [address] [place] [id number] Note to Patients: This report may contain a detailed description of human tissue sent by a health care provider to the laboratory for pathologic evaluation. The content of this report is essential for diagnosis and may provide important critical findings. This information may be unfamiliar to patients to review without a medical professional present. It is advised that the patient review this report in the presence of a health care provider who can answer questions and explain the details. Final Report Patient Name: PEDRO PABLO RECINOS Address: [address] [place] [address] Gender: F : 1940 (Age: 83) Service: Surgery Location: [facility] Hospital #: [id number] Patient Type: [facility] Taken: 10/28/2024 Received: 10/28/2024 Accessioned: 10/28/2024 Reported: 10/29/2024 Physician(s):Zaki Vazquez M.D. Diagnosis: A. Gallbladder, laparoscopic cholecystectomy- Chronic cholecystitis Cholelithiasis Poppy Mcguire M.D. Report Electronically Reviewed and Signed Out By Poppy Mcguire M.D. 10/29/2024 15:44:41 Specimen(s) Received: A: Gallbladder Microscopic Description: Microscopic examination corroborates the diagnosis. Clinical History: Biliary calculus of other site without obstruction. Laparoscopic cholecystectomy. Gross Description: The specimen is received in a single container labeled PEDRO PABLO RECINOS and gallbladder . It is a gallbladder that measures 9 x 5 cm. The serosa is pink-cummins and smooth. The wall measures up to 0.2 cm in thickness. The lumen contains green brown bile. 3 stones are within the lumen measuring up to 4 mm. The mucosa is green and velvety. The bile duct margin is inked blue. Represented in one cassette. Markus Murillo R.N., P.A./Elin Clemens M.D. REPORT IMAGES AND SCANNED DOCUMENTS, IF INCLUDED, ONLY VIEWABLE IN PDF VERSION OF REPORT The performance characteristics of some immunohistochemical stains, fluorescence in-situ hybridization tests and immunophenotyping by flow cytometry cited in this report (if any) were determined by the Surgical Pathology Department at [facility] as part of an ongoing quality control representative program and in compliance with federally mandated regulations drawn from the Clinical Laboratory Improvement Act of 1988 (CLIA '88). Some of these tests rely on the use of analyte specific reagents and are subject to specific labeling requirements by the US Food and Drug Administration. Such diagnostic tests may only be performed in a facility that is certified by the Department of Health and Human Services as a high complexity laboratory under CLIA '88. The FDA has determined that such clearance or approval is not necessary. This test is used for clinical purposes. It should not be regarded as investigational or for research. Nevertheless, federal rules concerning the medical use of analyte specific reagents require that the following disclaimer be attached to the report: This test was developed and its performance characteristics determined by the Surgical Pathology Department [facility]. It has not been cleared or approved by the U. S. Food and Drug Administration. Note for decalcified specimens: This assay has not been validated on decalcified tissues. Results should be interpreted with caution given the possibility of false negativity on decalcified specimens us Zaki Vazquez MD LAB PATHOLOGY ORDER DINAH Final Result PATHOLOGY [facility] [address] [place] [address] * AK AN ELECTIVE ENDOTRACHEAL AIRWAY (10/28/2024 12:49 PM DRIFTMAN) Narrative Min Thompson CRNA - 10/28/2024 12:49 PM DRIFTMAN Min Thompson CRNA 10/28/2024 12:49 PM Airway Patient location: OR Urgency: elective Indications for airway management: anesthesia Difficult airway: no Staff: Placed by: MAJOR ASSEMBLER: Min Thompson CRNA Emergent airway documentation: Risks and benefits discussed: yes Consent obtained: yes Consent given by: patient Airway prep: Preoxygenated: yes Patient position: sniffing MILS maintained throughout: yes Mask difficulty assessment: 1 - vent by mask Spontaneous ventilation during airway: absent Sedation level during airway: GA Final airway details: Final airway type: endotracheal airway Tube type: ETT ETT size: 7.0 mm Cuffed: yes Technique used for successful ETT placement: video laryngoscopy Insertion site: oral Blade type: Nguyễn Video blade type: Wilder Blade size: 3 Cormack-Lehane (video): grade I - full view of glottis Cuff inflated with: air ETT to teeth: 20 cm Placement verified by: auscultation and CO2 detection Airway secured with: silk tape Number of attempts: 1 Ventilation between attempts: none Planned trial extubation: yes us Erin Dickinson MD ANESTHESIA ORDERABLES Fi nal Result * ECG 12 lead (10/28/2024 11:17 AM DRIFTMAN) 10/28/2024 11:1 7 AM DRIFTMAN Narrative [facility] - 10/28/2024 1:38 PM DRIFTMAN Vent Rate: 91 bpm RR Interval: 659 msec AK Interval: 0 msec QRS Duration: 93 msec QT Interval: 388 msec QTC Interval: 436 msec P-R-T Mobile: [id number] - 12 - 32 degrees IMPRESSION: ATRIAL FIBRILLATION WITH ABERRANT CONDUCTION OR VENTRICULAR PREMATURE COMPLEXES LOW QRS VOLTAGE IN PRECORDIAL LEADS [QRS DEFLECTION < 1.0 mV IN CHEST LEADS] INCOMPLETE RIGHT BUNDLE BRANCH BLOCK [90+ ms QRS DURATION, TERMINAL R IN V1/V2, 40+ ms S IN I/aVL/V4/V5/V6] ABNORMAL RHYTHM ECG No change from prior EKG Electronically Signed By: Stas Stafford MD us Zaki Vazquez MD ECG ORDERABLES Fin al Result Performing Organization Address [facility] Co de Phone Number [facility] [employer] [facility] * Potassium, whole blood (10/28/2024 11:15 AM DRIFTMAN) Potassium, bld 3.7 3.3 - 4.9 mmol/L Comment: Interpretive Data This method is not able to assess for hemolysis, which may falsely increase potassium concentrations. If further testing is needed to evaluate this result, consider in-laboratory plasma potassium. Current Interpretive Data was last revised on 2022. Blood 10/28/2024 11:1 5 AM DRIFTMAN 10/28/2024 11:18 AM DRIFTMAN us Hector Vaughn MD LAB BLOOD ORDERABLES F inal Result Performing Organization Address City/[facility]/ZIP Co de Phone Number JOLENE BOYLE (LARIMER) 1 [facility] Department [place] [address] * Urine culture Urine, bladder (10/25/2024 2:52 PM DRIFTMAN) Report Final Report: Less than 100,000 colonies/mL (clinically insignificant growth based on current clinical standards) Comment:Testing performed by : [facility], [address] [place]., [address] Organism (CLINICALLY INSIGNIFICANT GROWTH JOLENE PATTERSON Urine, bladder 10/25/2024 2: 52 PM DRIFTMAN 10/25/2024 8:35 PM DRIFTMAN Narrative JOLENE PATTERSON - 10/27/2024 10:17 AM DRIFTMAN Testing performed by [facility] Microbiology Laboratory ([phone]) Vu Berg NP LAB MICROBIOLOGY - GENERA L ORDERABLES Final Result JOLENE [address] [address] Department [place] [address] * POCT urinalysis dipstick (10/25/2024 2:51 PM DRIFTMAN) Color, Urine, POC Light Yellow Clarity, ur, POC Clear Clear Glucose, ur, POC Negative Negative MG/DL Bilirubin, ur, POC Negative Negative, Small, Moderate, Large Ketones, ur, POC Negative Negative Specific [place], POC 1.005 1.003 - 1.030 Blood, ur, POC Negative Negative pH, ur, POC 5.5 5.0 - 8.0 Protein, ur, POC Negative Negative Urobilinogen, urine, POC 0.2 0.2 - 1.0 mg/dL Nitrite, ur, POC Negative Negative Leukocytes, ur, POC Negative Negative Lot Number [id number] Urine 10/25/2024 2:51 PM DRIFTMAN Vu Berg CUSTOMER SERVICE SPECIALIST POINT OF CARE TEST ORDERA BLES Final Result * POCT urinalysis dipstick (10/18/2024 3:07 PM DRIFTMAN) Color, Urine, POC Yellow Clarity, ur, POC Clear Clear Glucose, ur, POC Negative Negative MG/DL Bilirubin, ur, POC Negative Negative, Small, Moderate, Large Ketones, ur, POC Negative Negative Specific [place], POC 1.015 1.003 - 1.030 Blood, ur, POC Negative Negative pH, ur, POC 5.5 5.0 - 8.0 Protein, ur, POC Negative Negative Urobilinogen, urine, POC 0.2 0.2 - 1.0 mg/dL Nitrite, ur, POC Negative Negative Leukocytes, ur, POC Negative Negative Lot Number [id number] Urine 10/18/2024 3:07 PM DRIFTMAN Eula ORTIZ POINT OF CARE TEST ORDERABLES Final Result * Urine culture Urine, bladder (10/18/2024 3:07 PM DRIFTMAN) Report Final Report: Less than 100,000 colonies/mL (clinically insignificant growth based on current clinical standards) Comment:Testing performed by : [facility], [address] [place]., [address] Organism (CLINICALLY INSIGNIFICANT GROWTH [facility] Urine, bladder 10/18/2024 3: 07 PM DRIFTMAN 10/18/2024 10:08 PM DRIFTMAN Narrative JOLENE - 10/20/2024 7:40 AM DRIFTMAN Testing performed by [facility] Microbiology Laboratory ([phone]) Eula ORTIZ LAB MICROBIOLOGY - GENERAL ORDERABLES Final Result JOLENE [address] [address] Department [place] [address] * Dexa Axial Skeleton Bone Density 1 or 2 Site (09/05/2024 11:26 AM DRIFTMAN) Anatomical Region Laterality Modality Body N/A Other 09/05/2024 4:44 PM DRIFTMAN Narrative 09/05/2024 4:45 PM DRIFTMAN EXAM DESCRIPTION: DEXA AXIAL SKELETON BONE DENSITY 1 OR MORE SITES REASON FOR STUDY: 83 y/o year old F with given history of: Assess for bone loss while on AI., Assess for bone strength vs loss. 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 FINDINGS: AP LUMBAR SPINE L1-L4: Total BMD is 1.170 g/cm2 T-score is 1.1 LEFT HIP: Total BMD is 0.857 g/cm2 T-score is -0.7 Femoral neck BMD is 0.736 g/cm2 T-score is -1.0 FRAX: FRAX not reported due to T-scores of hip, femoral neck and/or spine being at or above -1.0 (Normal). IMPRESSION: Normal bone mass. REFERENCE: Bone mineral density: T-Score: Normal (T-score above or = -1.0) Low bone mass (T-score between -1.0 and -2.5) replaces the previously used term osteopenia Osteoporosis (T-score = or below -2.5) Z-Score: Within the expected range for age (Z-score above -2.0) Below the expected range for age (Z-score is -2.0 or below) Please see below follow up recommendations. Medical evaluation for secondary causes of low bone mineral density may be appropriate. FRAX is a World Health Organization validated fracture risk assessment tool that calculates a person's 10 year probability of a major osteoporosis related fracture and hip fracture. According to the National Osteoporosis Foundation guidelines, postmenopausal women and men age 50 or older with low bone mass and a 10 year probability of a major osteoporosis related fracture = or greater than 20% or a 10 year probability of a hip fracture = or greater than 3% should be considered for pharmacological treatment for the prevention of osteoporosis. For further information, including treatment recommendations, please refer to the 2019 ISCD Official Positions (http://www.iscd.org) and the NOF's Clinician's Guide to Prevention and Treatment of Osteoporosis (http://www.nof.org/professionals/clinical-guidelines) THIS IS AN ELECTRONICALLY VERIFIED FINAL REPORT 09/05/2024 4:45 PM - Electronically signed by Haile Adler M.D. MF: [email or web address] Report ID: [id number] Reading Location: [id number] Procedure Note Haile Adler MD - 09/05/2024 EXAM DESCRIPTION: DEXA AXIAL SKELETON BONE DENSITY 1 OR MORE SITES REASON FOR STUDY: 83 y/o year old F with given history of: Assess for bone loss while on AI., Assess for bone strength vs loss. 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 FINDINGS: AP LUMBAR SPINE L1-L4: Total BMD is 1.170 g/cm2 T-score is 1.1 LEFT HIP: Total BMD is 0.857 g/cm2 T-score is -0.7 Femoral neck BMD is 0.736 g/cm2 T-score is -1.0 FRAX: FRAX not reported due to T-scores of hip, femoral neck and/or spine beingat or above -1.0 (Normal). IMPRESSION: Normal bone mass. REFERENCE: Bone mineral density: T-Score: Normal (T-score above or = -1.0) Low bone mass (T-score between -1.0 and -2.5) replaces thepreviously used term osteopenia Osteoporosis (T-score = or below -2.5) Z-Score: Within the expected range for age (Z-score above -2.0) Below the expected range for age (Z-score is -2.0 or below) Please see below follow up recommendations. Medical evaluation forsecondary causes of low bone mineral density may be appropriate. FRAX is a World Health Organization validated fracture risk assessmenttool that calculates a person's 10 year probability of a major osteoporosisrelated fracture and hip fracture. According to the National OsteoporosisFoundation guidelines, postmenopausal women and men age 50 or older with low bonemass and a 10 year probability of a major osteoporosis related fracture = or greater than 20% or a 10 year probability of a hip fracture = or greaterthan 3% should be considered for pharmacological treatment for the preventionof osteoporosis. For further information, including treatment recommendations, please referto the 2019 ISCD Official Positions (http://www.iscd.org) and the NOF's Clinician's Guide to Prevention and Treatment of Osteoporosis (http://www.nof.org/professionals/clinical-guidelines) THIS IS AN ELECTRONICALLY VERIFIED FINAL REPORT 09/05/2024 4:45 PM - Electronically signed by Haile Adler M.D. MF: [email or web address] Report ID: [id number] Reading Location: [id number] us Ava Pimentel CUSTOMER SERVICE SPECIALIST IMG DXA PROCEDURES Final R esult * COLONOSCOPY (09/06/2021 9:21 AM DRIFTMAN) Anatomical Region Laterality Modality Other Narrative Procedure Note Abilio Pond MD - 09/06/2021 9:21 AM CST [facility] Patient Name: Pedro Pablo Recinos Procedure Date: 09/06/2021 9:21 AM Date of : 1940 Admit Type: Outpatient Age: 80 Gender: Female Attending MD: Abilio Pond M.D. Room: [facility] ENDOSCOPY ROOM 2 Note Status: Finalized Patient Profile: Refer to note in patient chart for documentation of history and physical. Procedure: Colonoscopy Indications: High risk colon cancer surveillance: Personalhistory of colonic polyps, Family history of colon cancerin a first-degree relative before age 60 years, Last colonoscopy: July 2016 Referring MD: Fernando Christina M.D. Providers: Abilio Pond M.D. Impression: - Hemorrhoids found on perianal exam. - One 5 mm polyp in the descending colon, removedwith a hot biopsy forceps. Resected and retrieved. - Diverticulosis in the sigmoid colon, in the descending colon, in the transverse colon and inthe ascending colon. - The examination was otherwise normal. Recommendation: - Discharge patient to home. - Resume previous diet. - Continue present medications. - Await pathology results. - Repeat colonoscopy in 5 years for surveillance. - Return to primary care physician as previously scheduled. - Resume Eliquis (apixaban) at prior dose in 3days. [Management]. Medicines: Propofol per Anesthesia Complications: No immediate complications. Estimated Blood Loss: Estimated blood loss: none. Procedure: Pre-Anesthesia Assessment: - This assessment was completed [Time ofAssessment] prior to the administration of sedation. The benefits, risks and alternatives of theprocedure and sedation were discussed and informed consentwas obtained. All questions were answered. Please referto the signed informed consent document in the medical record. The bowel preparation used was Miralax and bisacodyl tablets via single dose instruction. The scope was passed under direct vision. TheColonoscope [id number] was introduced through the anus and advanced to the the cecum, identified by appendiceal orifice and ileocecal valve. The colonoscopy was performed without difficulty. The patient tolerated the procedure well. The qualityof the bowel preparation was good. Findings: Hemorrhoids were found on perianal exam. A 5 mm polyp was found in the descending colon. The polyp wassessile. The polyp was removed with a hot biopsy forceps. Resection andretrieval were complete. Verification of patient identification for thespecimen was done by the physician and nurse using the patient's name andbirth date. Estimated blood loss was minimal. Multiple small and large-mouthed diverticula were found in thesigmoid colon, descending colon, transverse colon and ascending colon. The exam was otherwise without abnormality. Electronically signed by Abilio Pond M.D. Abilio Pond M.D. 09/06/2021 10:30:24 AM Number of Addenda: 0 Note Initiated On: 09/06/2021 9:21 AM Procedure Code(s): --- Professional --- 74425, Colonoscopy, flexible; with removal of tumor(s), polyp(s), or other lesion(s) by hot biopsy forceps Diagnosis Code(s): --- Professional --- K57.30, Diverticulosis of large intestine without perforation orabscess without bleeding Z80.0, Family history of malignant neoplasm of digestive organs K63.5, Polyp of colon K64.9, Unspecified hemorrhoids Z86.010, Personal history of colonic polyps CPT copyright 2019 [employer]. All rights reserved. The codes documented in this report are preliminary and upon navy material inspector reviewmay be revised to meet current compliance requirements. Recognized by the [employer] for promoting quality in endoscopy Abilio Pond MD ENDOSCOPY PROCEDURES Final Re sult from Last 3 Months or Most Recently Relevant to Health Maintenance Insurance MEDICARE [facility] Address: [address] [address] [employer] Advance Directives For more information, please contact: [phone] * Full Code (Latest Code Status on File) Date Activated Date Inactivated Comments 12/05/2024 12:43 PM 12/09/2024 5:40 PM * Full Code Date Activated Date Inactivated Comments 02/16/2023 8:08 AM 02/16/2023 1:59 PM * Full Code Date Activated Date Inactivated Comments 02/16/2023 8:08 AM 02/16/2023 8:08 AM * Full Code Date Activated Date Inactivated Comments 09/06/2021 9:41 AM 09/06/2021 3:29 PM * Full Code Date Activated Date Inactivated Comments 09/06/2021 9:39 AM 09/06/2021 9:41 AM Care Teams Grain Elevator Clerk Relationship Specialty Start Date End Date Latesha Munroe NP [facility] [place] [address] PCP - General Nurse Practitioner 08/05/24 Stas Stafford MD Consulting Physician Cardiology 01/08/19 Zachary Gabriel MD Consulting Physician Nephrology 03/04/20 Mode Sanderson MD PhD [address] [place] [id number] Radiation Oncologist Radiation Oncology 07/30/24 [place] [id number] [address] [facility] [address] [place] [address] Consulting Physician General Surgery 07/30/24 Javan Puente NP [address] [place] [address] [address] [place] [address] Nurse Practitioner Orthopedic Surgery 12/09/24
--- OUTSIDE RECORDS SUMMARY | 2025-01-14 17:27 | XMS_ITS | Clinical Summary ---
Author Organization Unknown Care Team Providers Care Tail Trimmer Name Role Phone [employer], JACK Unavailable Unavailable SOHAIL RN, JAVI Unavailable Unavailabl timothy LYN LPN, HENRY Unavailable Unavailable RAUL PT, MIKIE Unavailable Unavailable SHALA FOOD STOREROOM CLERK, XIOMARA Unavailable Unavailabl e ALEC OT, ANÍBAL Unavailable Unavailable Payers Payer Name Policy Type Policy Number Effective Date Expira tion Date MEDICARE.[facility] [id number] Problems Condition Name Condition Details Condition Category Status Onset Date Resolution Date Last Treatment Date Treating Clinician Comments AFTERCARE FOLLOWING JOINT REPLACEMENT SURGERY Active 01-01 00:00: 00 HYPERTENSIVE CHRONIC KIDNEY DISEASE W STG 1-4/UNSP CHR KDNY Active 01-01 00:00: 00 CHRONIC KIDNEY DISEASE, STAGE 3B Active 01-01 00:00: 00 ANEMIA IN CHRONIC KIDNEY DISEASE Active 01-01 00:00: 00 ATHSCL HEART DISEASE OF [place] CORONARY ARTERY W/O ANG PCTRS Active 01-01 00:00: 00 UNSPECIFIED ATRIAL FIBRILLATION Active 01-01 00:00: 00 CHRONIC OBSTRUCTIVE PULMONARY DISEASE, UNSPECIFIED Active 01-01 00:00: 00 SECONDARY HYPERPARATHY ROIDISM OF RENAL ORIGIN Active 01-01 00:00: 00 UNSPECIFIED OSTEOARTHRIT IS, UNSPECIFIED SITE Active 01-01 00:00: 00 VITAMIN D DEFICIENCY, UNSPECIFIED Active 01-01 00:00: 00 PULMONARY HYPERTENSION , UNSPECIFIED Active 01-01 00:00: 00 ACUTE CANDIDIASIS OF VULVA AND VAGINA Active 01-01 00:00: 00 UNSPECIFIED GLAUCOMA Active 01-01 00:00: 00 UNSPECIFIED HEARING LOSS, UNSPECIFIED EAR Active 01-01 00:00: 00 CONSTIPATION , UNSPECIFIED Active 01-01 00:00: 00 GASTRO-ESOPH AGEAL REFLUX DISEASE WITHOUT ESOPHAGITIS Active 01-01 00:00: 00 HYPERLIPIDEM IA, UNSPECIFIED Active 01-01 00:00: 00 OLD MYOCARDIAL INFARCTION Active 01-01 00:00: 00 PRESENCE OF RIGHT ARTIFICIAL KNEE JOINT Active 01-01 00:00: 00 PRESENCE OF LEFT ARTIFICIAL KNEE JOINT Active 01-01 00:00: 00 SCRIP CLERK (CURRENT) USE OF ASPIRIN Active 01-01 00:00: 00 SCRIP CLERK (CURRENT) USE OF ANTICOAGULAN TS Active 01-01 00:00: 00 SCRIP CLERK (CURRENT) USE OF AROMATASE INHIBITORS Active 12-14 00:00: 00 PERSONAL HISTORY OF MALIGNANT NEOPLASM OF BREAST Active 01-01 00:00: 00 PERSONAL HISTORY OF URINARY (TRACT) INFECTIONS Active 01-01 00:00: 00 PERSONAL HISTORY OF NICOTINE DEPENDENCE Active 01-01 00:00: 00 Allergies, Adverse Reactions, Alerts Allergy Name Allergy Type Status Severity Reaction(s) Onset Date Inactive Date Treating Clinician Comments LASIX Propensity to adverse reactions Active 2024-12 11:50:1 7 AMOXICILL IN-- Propensity to adverse reactions Active 2024-12 11:50:3 1 'SULFA DRUGS' Propensity to adverse reactions Active 2024-12 11:50:3 7 Medications Ordered Medication Name Filled Medication Name Start Date Stop Date Current Medication? Ordering Clinician Indication Dosage Frequency Signature (SIG) Comments Components atorvastati n 20 mg tablet 12-23 00:00: 00 Yes [id number] CHOLESTEROL 1 tablet DAILY 1 tablet DAILY (route: oral) Med Classific ation: Cardiovas cular Therapy Agents DILT-XR 180 mg capsule, extended release 09 00:00: 00 Yes [id number] A FIB 1 capsule DAILY 1 capsule DAILY (route: oral) Med Classific ation: Cardiovas cular Therapy Agents torsemide 10 mg tablet 2-17 00:00: 00 Yes [id number] FLUID OVERLOAD 1 tablet DAILY 1 tablet DAILY (route: oral) Med Classific ation: Cardiovas cular Therapy Agents Eliquis 2.5 mg tablet 2-14 00:00: 00 Yes [id number] BLOOD THINNER 1 tablet 2 TIMES DAILY 1 tablet 2 TIMES DAILY (route: oral) Med Classific ation: Hematolog ical Agents Antacid Regular Strength 200 mg-200 mg-20 mg/5 mL oral suspension - 00:00: 00 01-01 00:00 :00 No [id number] Per instruc tions Per instructio ns (route: oral) Med Classific ation: Gastroint estinal Therapy Agents chlorhexidi ne gluconate 0.12 % mouthwash 11-28 00:00: 00 01-01 00:00 :00 No [id number] Per instruc tions TWICE DAILY Per instructio ns TWICE DAILY (route: mucous membrane) Med Classific ation: Mouth-Thr oat-Denta l - Preparati ons diphenhydra mine 12.5 mg/5 mL oral liquid 11-28 00:00: 00 01-01 00:00 :00 No [id number] Per instruc tions Per instructio ns (route: oral) Med Classific ation: Respirato ry Therapy Agents lidocaine HCl 2 % mucosal solution 11-28 00:00: 00 01-01 00:00 :00 No [id number] Per instruc tions Per instructio ns (route: mucous membrane) Med Classific ation: Mouth-Thr oat-Denta l - Preparati ons anastrozole 1 mg tablet 01-01 00:00: 00 Yes [id number] BREAST CANCER 1 tablet DAILY 1 tablet DAILY (route: oral) Med Classific ation: Antineopl astics aspirin 81 mg tablet,yunier yed release 01-01 00:00: 00 Yes [id number] BLOOD THINNER 1 tablet DAILY 1 tablet DAILY (route: oral) Med Classific ation: Hematolog ical Agents ergocalcife rol (vitamin D2) 1,250 mcg (50,000 unit) capsule 01-01 00:00: 00 Yes [id number] SUPPLEMENT 1 capsule WEEKLY 1 capsule WEEKLY (route: oral) Med Classific ation: Electroly te Balance-N utritiona l Products ferrous sulfate 325 mg (65 mg iron) tablet 01-01 00:00: 00 Yes [id number] ANEMIA 1 tablet DAILY 1 tablet DAILY (route: oral) Med Classific ation: Electroly te Balance-N utritiona l Products hydrocodone 5 mg-acetamin ophen 325 mg tablet 01-01 00:00: 00 Yes [id number] NEEDED FOR MODERATE TO SEVERE PAIN. TAKE 2 TABS FOR PAIN RATING >7 ON 1/10 SCALE 1-2 tablet EVERY 4 HOURS 1-2 tablet EVERY 4 HOURS (route: oral) Med Classific ation: Analgesic , Anti-infl ammatory or Antipyret ic Miralax 17 gram oral powder packet 01-01 00:00: 00 Yes [id number] NEEDED FOR CONSTIPATIO N 17 gram DAILY 17 gram DAILY (route: oral) Med Classific ation: Gastroint estinal Therapy Agents nebivolol 20 mg tablet 01-01 00:00: 00 Yes [id number] HIGH BLOOD PRESSURE / AFIB 1 tablet DAILY 1 tablet DAILY (route: oral) Med Classific ation: Cardiovas cular Therapy Agents omeprazole 40 mg capsule,del ayed release 01-01 00:00: 00 Yes [id number] GERD 1 capsule EVERY 12 HOURS 1 capsule EVERY 12 HOURS (route: oral) Med Classific ation: Gastroint estinal Therapy Agents Oyster Shell Calcium-Vit luis D3 500 mg-5 mcg (200 unit) tablet 01-01 00:00: 00 Yes [id number] SUPPLEMENT 1 tablet DAILY 1 tablet DAILY (route: oral) Med Classific ation: Electroly te Balance-N utritiona l Products Vitamin C 500 mg tablet 01-01 00:00: 00 Yes [id number] SUPPLEMENT 1 tablet EVERY 12 HOURS 1 tablet EVERY 12 HOURS (route: oral) Med Classific ation: Electroly te Balance-N utritiona l Products Vital Signs Vital Name Observation Time Observation Value Commen ts Temperature 2025-01-14 12:26:00.000 97.1 [degF] Temperature 2025-01-09 14:51:00.000 97 [degF] Temperature 2025-01-09 14:22:00.000 97.3 [degF] Temperature 2025-01-07 14:00:00.000 96 [degF] Temperature 2025-01-01 12:54:00.000 97.4 [degF] BMI (%) 2025-01-01 12:07:04.000 25 kg/m2 Height 2025-01-01 12:06:52.000 65 [in_us] Pulse 2025-01-14 12:26:00.000 84 /min Pulse 2025-01-09 14:51:00.000 81 /min Pulse 2025-01-09 14:22:00.000 81 /min Pulse 2025-01-07 14:00:00.000 91 /min Pulse 2025-01-01 12:54:00.000 91 /min O2 Saturation (%) 2025-01-14 12:28:00.000 97 % O2 Saturation (%) 2025-01-09 14:51:00.000 98 % O2 Saturation (%) 2025-01-09 14:23:00.000 98 % O2 Saturation (%) 2025-01-07 14:00:00.000 98 % O2 Saturation (%) 2025-01-01 12:54:00.000 98 % Respirations 2025-01-14 12:26:00.000 18 /min Respirations 2025-01-09 14:51:00.000 18 /min Respirations 2025-01-09 14:22:00.000 18 /min Respirations 2025-01-07 14:00:00.000 18 /min Respirations 2025-01-01 12:54:00.000 18 /min Weight (lbs) 2025-01-01 12:07:04.000 155 [lb_av] Systolic Blood Pressure 2025-01-14 12:26:00.000 98 mm[ Hg] Systolic Blood Pressure 2025-01-09 14:51:00.000 112 mm [Hg] Systolic Blood Pressure 2025-01-09 14:22:00.000 112 mm [Hg] Systolic Blood Pressure 2025-01-07 14:00:00.000 112 mm [Hg] Systolic Blood Pressure 2025-01-01 12:54:00.000 112 mm [Hg] Diastolic Blood Pressure 2025-01-14 12:26:00.000 72 mm [Hg] Diastolic Blood Pressure 2025-01-09 14:51:00.000 68 mm [Hg] Diastolic Blood Pressure 2025-01-09 14:22:00.000 68 mm [Hg] Diastolic Blood Pressure 2025-01-07 14:00:00.000 78 mm [Hg] Diastolic Blood Pressure 2025-01-01 12:54:00.000 70 mm [Hg] Plan of Treatment Planned Activity Planned Date Details Comments Future Scheduled Test RN TO OBSE RVE, ASSESS, EVALUATE, AND DEVELOP AN INDIVIDUALIZED PLAN OF CARE. RN TO OBSERVE AND ASSESS, CORRESPONDENT/TUG BOAT ENGINEER TO OBSERVE FOR RISK FOR FALLS AND INSTRUCT IN FALL PREVENTION, HOME SAFETY, MEDICATION MANAGEMENT, INFECTION PREVENTION, AND NUTRITION MANAGEMENT. RN/CORRESPONDENT/TUG BOAT ENGINEER NURSE MAY PERFORM O2 SATURATION LEVEL ON ADMISSION AND PRN FOR SOB FOR RN TO ASSESS/CORRESPONDENT TO OBSERVE PATIENT, WITH NOTIFICATION TO THE PHYSICIAN IF SATURATION IS 90% IN THE ABSENCE OF MORE SPECIFIC PARAMETERS FROM THE PHYSICIAN. AGENCY MAY PERFORM A RESUMPTION OF CARE VISIT FOLLOWING ANY HOSPITAL ADMISSION. RN/CORRESPONDENT/TUG BOAT ENGINEER TO MONITOR CO-MORBID CONDITIONS LISTED ON THE PLAN OF CARE AND ANY NEW CONDITIONS THAT PRESENT THEMSELVES DURING THIS EPISODE TO IDENTIFY CHANGES AND INTERVENE TO MINIMIZE COMPLICATIONS. [code = RN TO OBSERVE, ASSESS, EVALUATE, AND DEVELOP AN INDIVIDUALIZED PLAN OF CARE. RN TO OBSERVE AND ASSESS, CORRESPONDENT/TUG BOAT ENGINEER TO OBSERVE FOR RISK FOR FALLS AND INSTRUCT IN FALL PREVENTION, HOME SAFETY, MEDICATION MANAGEMENT, INFECTION PREVENTION, AND NUTRITION MANAGEMENT. RN/CORRESPONDENT/TUG BOAT ENGINEER NURSE MAY PERFORM O2 SATURATION LEVEL ON ADMISSION AND PRN FOR SOB FOR RN TO ASSESS/CORRESPONDENT TO OBSERVE PATIENT, WITH NOTIFICATION TO THE PHYSICIAN IF SATURATION IS 90% IN THE ABSENCE OF MORE SPECIFIC PARAMETERS FROM THE PHYSICIAN. AGENCY MAY PERFORM A RESUMPTION OF CARE VISIT FOLLOWING ANY HOSPITAL ADMISSION. RN/CORRESPONDENT/TUG BOAT ENGINEER TO MONITOR CO-MORBID CONDITIONS LISTED ON THE PLAN OF CARE AND ANY NEW CONDITIONS THAT PRESENT THEMSELVES DURING THIS EPISODE TO IDENTIFY CHANGES AND INTERVENE TO MINIMIZE COMPLICATIONS.] Future Scheduled Test PHYSICAL T HERAPIST TO EVALUATE FOR EVALUATE AND TREAT [code = PHYSICAL THERAPIST TO EVALUATE FOR EVALUATE AND TREAT] Future Scheduled Test OCCUPATION AL THERAPIST TO EVALUATE FOR EVALUATE AND TREAT [code = OCCUPATIONAL THERAPIST TO EVALUATE FOR EVALUATE AND TREAT] Future Scheduled Test MEDICATION MANAGEMENT; RN/CORRESPONDENT/TUG BOAT ENGINEER TO REVIEW MEDICATIONS FOR INTERACTIONS, EFFECTIVENESS OF DRUG THERAPY, AND SIGNS/SYMPTOMS OF ADVERSE REACTIONS. MAY INSTRUCT AND REINFORCE MEDICATION TEACHING RELATED TO THE USE OF MEDICATIONS, DOSAGE, FREQUENCY, PURPOSE, SIDE EFFECTS, AND TO REPORT COMPLICATIONS. [code = MEDICATION MANAGEMENT; RN/CORRESPONDENT/TUG BOAT ENGINEER TO REVIEW MEDICATIONS FOR INTERACTIONS, EFFECTIVENESS OF DRUG THERAPY, AND SIGNS/SYMPTOMS OF ADVERSE REACTIONS. MAY INSTRUCT AND REINFORCE MEDICATION TEACHING RELATED TO THE USE OF MEDICATIONS, DOSAGE, FREQUENCY, PURPOSE, SIDE EFFECTS, AND TO REPORT COMPLICATIONS.] Future Scheduled Test ANTICOAGUL ATION MANAGEMENT; RN TO ASSESS AND TEACH, CORRESPONDENT/TUG BOAT ENGINEER TO OBSERVE/TEACH/MONITOR EFFECTIVENESS OF ANTICOAGULATION THERAPY. RN/CORRESPONDENT/TUG BOAT ENGINEER TO INSTRUCT ON SIGNS AND SYMPTOMS OF BLEEDING/ADVERSE REACTIONS TO REPORT TO PHYSICIAN. PT PRESCRIBED ELIQUIS [code = ANTICOAGULATION MANAGEMENT; RN TO ASSESS AND TEACH, CORRESPONDENT/TUG BOAT ENGINEER TO OBSERVE/TEACH/MONITOR EFFECTIVENESS OF ANTICOAGULATION THERAPY. RN/CORRESPONDENT/TUG BOAT ENGINEER TO INSTRUCT ON SIGNS AND SYMPTOMS OF BLEEDING/ADVERSE REACTIONS TO REPORT TO PHYSICIAN. PT PRESCRIBED ELIQUIS] Future Scheduled Test RESPIRATOR Y SYSTEM MANAGEMENT; RN TO ASSESS AND TEACH, CORRESPONDENT/TUG BOAT ENGINEER TO OBSERVE AND TEACH RELATED TO ALTERED RESPIRATORY STATUS TO MINIMIZE COMPLICATIONS AND REDUCE HOSPITALIZATION. [code = RESPIRATORY SYSTEM MANAGEMENT; RN TO ASSESS AND TEACH, CORRESPONDENT/TUG BOAT ENGINEER TO OBSERVE AND TEACH RELATED TO ALTERED RESPIRATORY STATUS TO MINIMIZE COMPLICATIONS AND REDUCE HOSPITALIZATION.] Future Scheduled Test COPD MANAG EMENT; RN TO ASSESS AND TEACH, CORRESPONDENT/TUG BOAT ENGINEER TO OBSERVE AND TEACH SIGNS/SYMPTOMS OF COPD EXACERBATION AND PROVIDE EARLY INTERVENTIONS TO MINIMIZE RISK OF HOSPITALIZATION. RN/CORRESPONDENT/TUG BOAT ENGINEER TO INSTRUCT ON SELF-CARE MANAGEMENT INCLUDING BREATHING TECHNIQUES, AIRWAY CLEARANCE, AND PROPER USE OF COPD MEDICATIONS. RN TO ASSESS AND TEACH, CORRESPONDENT/TUG BOAT ENGINEER TO OBSERVE AND TEACH PATIENT/CAREGIVER ABILITY TO MONITOR AND RECORD VITAL SIGNS INCLUDING PULSE OXIMETRY AND BLOOD PRESSURE. PULSE OXIMETER AND BP MONITOR TO BE PROVIDED IF NEEDED [code = COPD MANAGEMENT; RN TO ASSESS AND TEACH, CORRESPONDENT/TUG BOAT ENGINEER TO OBSERVE AND TEACH SIGNS/SYMPTOMS OF COPD EXACERBATION AND PROVIDE EARLY INTERVENTIONS TO MINIMIZE RISK OF HOSPITALIZATION. RN/CORRESPONDENT/TUG BOAT ENGINEER TO INSTRUCT ON SELF-CARE MANAGEMENT INCLUDING BREATHING TECHNIQUES, AIRWAY CLEARANCE, AND PROPER USE OF COPD MEDICATIONS. RN TO ASSESS AND TEACH, CORRESPONDENT/TUG BOAT ENGINEER TO OBSERVE AND TEACH PATIENT/CAREGIVER ABILITY TO MONITOR AND RECORD VITAL SIGNS INCLUDING PULSE OXIMETRY AND BLOOD PRESSURE. PULSE OXIMETER AND BP MONITOR TO BE PROVIDED IF NEEDED ] Future Scheduled Test FALL REDUC TION MANAGEMENT; RN TO ASSESS AND OBSERVE, CORRESPONDENT/TUG BOAT ENGINEER TO OBSERVE FALL RISK FACTORS AND EDUCATE PATIENT/CAREGIVER ON STRATEGIES TO MINIMIZE THE RISK OF FALLING. [code = FALL REDUCTION MANAGEMENT; RN TO ASSESS AND OBSERVE, CORRESPONDENT/TUG BOAT ENGINEER TO OBSERVE FALL RISK FACTORS AND EDUCATE PATIENT/CAREGIVER ON STRATEGIES TO MINIMIZE THE RISK OF FALLING.] Future Scheduled Test ANEMIA MAN AGEMENT; RN TO ASSESS AND TEACH, TUG BOAT ENGINEER/CORRESPONDENT TO OBSERVE AND TEACH AND PROVIDE EDUCATION ON ANEMIA. [code = ANEMIA MANAGEMENT; RN TO ASSESS AND TEACH, TUG BOAT ENGINEER/CORRESPONDENT TO OBSERVE AND TEACH AND PROVIDE EDUCATION ON ANEMIA.] Future Scheduled Test PAIN MANAG EMENT; RN TO ASSESS AND TEACH, TUG BOAT ENGINEER/CORRESPONDENT TO OBSERVE AND TEACH AND PROVIDE EDUCATION ON PAIN MANAGEMENT TECHNIQUES. [code = PAIN MANAGEMENT; RN TO ASSESS AND TEACH, TUG BOAT ENGINEER/CORRESPONDENT TO OBSERVE AND TEACH AND PROVIDE EDUCATION ON PAIN MANAGEMENT TECHNIQUES.] Future Scheduled Test CANCER MAN AGEMENT; RN TO ASSESS AND TEACH, TUG BOAT ENGINEER/CORRESPONDENT TO OBSERVE AND TEACH AND PROVIDE EDUCATION ON CANCER. [code = CANCER MANAGEMENT; RN TO ASSESS AND TEACH, TUG BOAT ENGINEER/CORRESPONDENT TO OBSERVE AND TEACH AND PROVIDE EDUCATION ON CANCER.] Future Scheduled Test RISK FOR H OSPITALIZATION; RN TO ASSESS/TEACH, TUG BOAT ENGINEER/CORRESPONDENT TO OBSERVE/TEACH PATIENT/CAREGIVER ON RISK FOR HOSPITALIZATION/EMERGENCY ROOM VISITS, TEACH SIGNS AND SYMPTOMS THAT PUT PATIENT AT RISK, WHEN TO NOTIFY NURSE/PHYSICIAN OF COMPLICATIONS/DECLINE, AND WHEN TO CALL 911. [code = RISK FOR HOSPITALIZATION; RN TO ASSESS/TEACH, TUG BOAT ENGINEER/CORRESPONDENT TO OBSERVE/TEACH PATIENT/CAREGIVER ON RISK FOR HOSPITALIZATION/EMERGENCY ROOM VISITS, TEACH SIGNS AND SYMPTOMS THAT PUT PATIENT AT RISK, WHEN TO NOTIFY NURSE/PHYSICIAN OF COMPLICATIONS/DECLINE, AND WHEN TO CALL 911.] Future Scheduled Test CARDIOVASC ULAR SYSTEM; RN TO ASSESS/TEACH, CORRESPONDENT/TUG BOAT ENGINEER TO OBSERVE/TEACH RELATED TO ALTERED CARDIOVASCULAR STATUS TO MINIMIZE COMPLICATIONS AND REDUCE HOSPITALIZATION. [code = CARDIOVASCULAR SYSTEM; RN TO ASSESS/TEACH, CORRESPONDENT/TUG BOAT ENGINEER TO OBSERVE/TEACH RELATED TO ALTERED CARDIOVASCULAR STATUS TO MINIMIZE COMPLICATIONS AND REDUCE HOSPITALIZATION.] Future Scheduled Test ACUTE MYOC ARDIAL INFARCT; RN TO ASSESS/TEACH, CORRESPONDENT/TUG BOAT ENGINEER TO OBSERVE/TEACH WARNING SIGNS AND SYMPTOMS TO AVOID HOSPITALIZATION. [code = ACUTE MYOCARDIAL INFARCT; RN TO ASSESS/TEACH, CORRESPONDENT/TUG BOAT ENGINEER TO OBSERVE/TEACH WARNING SIGNS AND SYMPTOMS TO AVOID HOSPITALIZATION.] Future Scheduled Test HYPERTENSI ON MANAGEMENT; RN TO ASSESS AND TEACH, CORRESPONDENT/TUG BOAT ENGINEER TO OBSERVE AND TEACH WARNING SIGNS AND SYMPTOMS TO AVOID HOSPITALIZATION. [code = HYPERTENSION MANAGEMENT; RN TO ASSESS AND TEACH, CORRESPONDENT/TUG BOAT ENGINEER TO OBSERVE AND TEACH WARNING SIGNS AND SYMPTOMS TO AVOID HOSPITALIZATION.] Future Scheduled Test ARRHYTHMIA MANAGEMENT; RN TO ASSESS AND TEACH, CORRESPONDENT/TUG BOAT ENGINEER TO OBSERVE AND TEACH WARNING SIGNS AND SYMPTOMS TO AVOID HOSPITALIZATION. [code = ARRHYTHMIA MANAGEMENT; RN TO ASSESS AND TEACH, CORRESPONDENT/TUG BOAT ENGINEER TO OBSERVE AND TEACH WARNING SIGNS AND SYMPTOMS TO AVOID HOSPITALIZATION.] Goal Patient Goal - T O BE ABLE TO WALK WITHOUT PAIN Goal Provider Goal - A PLAN OF CARE WILL BE ESTABLISHED THAT MEETS THE PATIENTS NEEDS. PATIENT WILL DEMONSTRATE OXYGEN SATURATION WITHIN NORMAL LIMITS OR PATIENTS OPTIMAL LEVEL ESTABLISHED BY THE PHYSICIAN THROUGHOUT CARE. CHANGES TO CO-MORBID CONDITIONS AND ANY NEW CONDITIONS WILL BE IDENTIFIED AND REPORTED TO THE PHYSICIAN. Goal Provider Goal - PATIENT WILL BENEFIT FROM PT SERVICES BY 5.17.25 Goal Provider Goal - PATIENT WILL BENEFIT FROM OT SERVICES BY 5.17.25 Goal Provider Goal - PATIENT/CAREGIVER TO VERBALIZE, AND CONSISTENTLY DEMONSTRATE EFFECTIVE, SAFE MANAGEMENT OF MEDICATION INCLUDING KNOWLEDGE OF EFFECTIVENESS, POTENTIAL SIDE EFFECTS AND DRUG REACTIONS AND WHEN TO CONTACT THE APPROPRIATE CARE PROVIDER. PATIENT/CAREGIVER WILL BE ABLE TO VERBALIZE UNDERSTANDING OF MEDICATION REGIMEN AND ACCURATELY TAKE MEDICATIONS PRESCRIBED WITHOUT ADVERSE EFFECTS BY 5.17.25 Goal Provider Goal - INEFFECTIVE ANTICOAGULATION THERAPY WILL BE IDENTIFIED AND PROMPTLY REPORTED TO THE PHYSICIAN. PATIENT / CAREGIVER WILL VERBALIZE UNDERSTANDING OF MEASURES TO MAINTAIN EFFECTIVE ANTICOAGULATION THERAPY BY 5.17.25 Goal Provider Goal - PATIENT / CAREGIVER WILL VERBALIZE/DEMONSTRATE UNDERSTANDING OF MEASURES TO MANAGE ALTERED RESPIRATORY STATUS BY 5.17.25 Goal Provider Goal - PATIENT / CAREGIVER WILL VERBALIZE/DEMONSTRATE AN ABILITY TO ADHERE TO SELF-MANAGEMENT OF COPD TO MINIMIZE COMPLICATIONS AND AVOID HOSPITALIZATION BY 5.17.25 Goal Provider Goal - PATIENT/CAREGIVER WILL VERBALIZE/DEMONSTRATE UNDERSTANDING OF FALL RISK FACTORS AND IMPLEMENT STRATEGIES TO MINIMIZE FALL RISK. PATIENT/CAREGIVER WILL VERBALIZE/DEMONSTRATE AN ABILITY TO ADHERE TO FALL REDUCTION SELF-MANAGEMENT AND LIFE-STYLE CHANGES BY 5.17.25 Goal Provider Goal - PATIENT/CAREGIVER WILL VERBALIZE UNDERSTANDING OF CARE AND MANAGEMENT OF ANEMIA BY 5.17.25 Goal Provider Goal - PATIENT / CAREGIVER WILL VERBALIZE / DEMONSTRATE UNDERSTANDING OF PAIN CONTROL MEASURES BY 5.17.25 Goal Provider Goal - PATIENT / CAREGIVER WILL VERBALIZE/DEMONSTRATE UNDERSTANDING OF MEASURES TO MINIMIZE COMPLICATIONS AND REDUCE HOSPITALIZATION RELATED TO CANCER BY 5.17.25 Goal Provider Goal - PATIENT/CAREGIVER WILL VERBALIZE UNDERSTANDING OF SIGNS AND SYMPTOMS THAT PUT THE PATIENT AT RISK FOR HOSPITALIZATION /EMERGENCY ROOM VISITS, WHEN TO NOTIFY NURSE/PHYSICIAN OF COMPLICATIONS/DECLINE AND WHEN TO CALL 911. Goal Provider Goal - PATIENT / CAREGIVER WILL VERBALIZE/DEMONSTRATE UNDERSTANDING OF MEASURES TO MANAGE ALTERED CARDIOVASCULAR STATUS BY 5.17.25 Goal Provider Goal - PATIENT / CAREGIVER WILL VERBALIZE/DEMONSTRATE CARE AND SELF-MANAGEMENT OF AMI TO MINIMIZE COMPLICATIONS AND AVOID HOSPITALIZATION BY 5.17.25 Goal Provider Goal - PATIENT / CAREGIVER WILL VERBALIZE/DEMONSTRATE AN ABILITY TO ADHERE TO SELF-MANAGEMENT OF HTN TO MINIMIZE COMPLICATIONS AND AVOID HOSPITALIZATION BY 5.17.25 Goal Provider Goal - PATIENT / CAREGIVER WILL VERBALIZE/DEMONSTRATE AN ABILITY TO ADHERE TO SELF-MANAGEMENT OF HEART ARRHYTHMIA TO MINIMIZE COMPLICATIONS AND AVOID HOSPITALIZATION BY 5.17.25 Encounters Start Date/Time End Date/Time Encounter Type Admission Type Attending [facility] Care Department Encounter ID Discharge Date Discharge Status Discharge Condition Discharge Reason Percent Goals Met 2025-01-01 00:00:00 2025-03-01 00:00:00 Outpatient NEW ADMISSION JAVI SAUCEDA [facility] [id number] 28.95
--- OUTSIDE RECORDS SUMMARY | 2025-01-14 17:27 | XMS_ITS | Clinical Summary ---
Author Organization [facility] [place] Address [address] [place] [address] Phone Care Team Providers Care Teacher Instrumental Name Role Phone Fernando Christina MD Primary Care Provider Allergies Active Allergy Reactions Criticality Noted Date Comments Amoxicillin Hives,Itching,Rash Medium 02/24/2016 Furosemide Hives Medium 01/04/2019 Sulfa Antibiotics Hives,Itching,Rash Medium 04/21/2017 Medications Nebivolol HCl 20 MG Tablet 02/24/2022 Active apixaban (ELIQUIS) 2.5 MG Tablet Take 2.5 mg by mouth. 03/09/2021 Active dilTIAZem (CARDIZEM) 60 MG Tablet Take by mouth. 06/22/2016 Active calcitRIOL (ROCALTROL) 0.25 MCG Capsule 04/07/2022 Active atorvastatin (LIPITOR) 20 MG Tablet 04/02/2022 Active spironolactone (ALDACTONE) 25 MG Tablet Take 25 mg by mouth. 09/23/2019 Active torsemide (DEMADEX) 10 MG Tablet 03/30/2022 Active aspirin EC 81 MG Tablet Delayed Response 81 mg. 11/16/2016 Active ergocalciferol (VITAMIN D) 63339 UNIT Capsule TAKE 1 CAPSULE BY MOUTH 1 TIME A WEEK 02/11/2022 Active omeprazole (PriLOSEC) 40 MG CAPSULE DELAYED RELEASE Take 1 tablet twice daily x 1 month 10/16/1969 Active latanoprost (XALATAN) 0.005 % Solution INSTILL 1 DROP IN BOTH EYES EVERY DAY IN THE EVENING 04/11/2022 Active Calcium Carb-Cholecalci ferol (Calcium 1000 + D) 1000-800 MG-UNIT Tablet Take by mouth. 10/16/1969 Active Active Problems No known active problems Social History Tobacco Use Types Packs/Day Years Used Date Smoking Tobacco: Never Smokeless Tobacco: Never Alcohol Use Standard Drinks/Week Comments Yes 0 (1 standard drink = 0.6 oz pur e alcohol) once in a while Comments Unknown Sex and Gender Information Value Date Recorded Sex Assigned at Not on file Legal Sex Female 10:21 PM CDT Gender Identity Not on file Sexual Orientation Not on file Last Filed Vital Signs Vital Sign Reading Time Taken Comments Blood Pressure 104/72 04/21/2022 1:31 PM CDT Pulse 81 04/21/2022 1:31 PM CDT Temperature 36.4 C (97.5 F) 04/21/2022 1:31 PM CDT Respiratory Rate 16 04/21/2022 1:31 PM CDT Oxygen Saturation 95% 04/21/2022 1:31 PM CDT Inhaled Oxygen Concentration - - Weight - - Height - - Body Mass Index - - Plan of Treatment Health Maintenance Due Date Last Done Comments Hepatitis C Virus (HCV) Screening 1940 Respiratory Syncytial Virus (RSV) Immunization (Adult) (1 - 1-dose 75+ series) 2016 Influenza Immunization (#1) 06/16/202406/16, 06/26/2020, 06/19/2019, Additional history exists SARS-COV-2 Immunization ( season) 2024 05/17/2022, 10/31/2021, 12/09/2020, Additional history exists DTaP/Tdap/Td Immunization Discontinued 09/04/2014 TdaP Immunization Completed 09/04/2014 Pneumococcal Immunization (50+ years) Completed 03/24/2016, 09/04/2014 Zoster Immunization Completed 02/12/2019, 02/12/2019, 10/11/2018, Additional history exists Hepatitis B Immunization Aged Out No longer eligible based on patient's age to complete this topic Meningococcal Immunization (ACWY) Aged Out No longer eligible based on patient's age to complete this topic Rotavirus Immunization Aged Out No lo nger eligible based on patient's age to complete this topic Insurance [employer] Care Teams Teacher Instrumental Relationship Specialty Start Date End Date Fernando Christina MD [address] [place] [address] [place] [address] PCP - General Family Medicine 04/21/22
--- OUTSIDE RECORDS SUMMARY | 2025-01-14 17:27 | XMS_ITS | Continuity of Care Document ---
Author Organization [employer] [facility] Address [address] [facility] [address] [facility] [address]al [address] [place] [id number] Phone Care Team Providers Care Executive Communications Manager Name Role Phone River HAILE, Heather Unavailable Unavailable Allergies, Adverse Reactions, Alerts Substance Reaction Status Criticality amoxicillin Active No Information Sulfa (Sulfonamide Antibiotics) Active No Information Medications Medication Instructions Dosage Effective Dates (start - stop) Status Comments torsemide 10 mg tablet take 1 tablet by oral route every day 10 MG - Active spironolactone 25 mg tablet take 1 tablet by oral route every day 25 MG - Active triamterene 37.5 mg-hydrochlorothiazid e 25 mg capsule take 1 capsule by oral route every day 1.00 capsule - Active Calcium 600 + D(3) 600 mg calcium-200 unit capsule take 1 by oral route every day 1 - Active diltiazem ER (XR/XT) 120 mg capsule,extended release 24 hr, controlled take 1 capsule by oral route every day 120 MG - Active atorvastatin 20 mg tablet take 1 tablet by oral route every day 20 MG - Active warfarin 3 mg tablet take 1 tablet by oral route every day 3 MG - Active methenamine hippurate 1 gram tablet take 1 tablet by oral route 2 times every day 1 G - Active omeprazole 40 mg capsule,delayed release take 1 capsule by oral route every day before a meal 40 MG - Active Bystolic 20 mg tablet take 1 tablet (20MG) by oral route every day 20 MG - Active aspirin 81 mg chewable tablet chew 1 tablet (81MG) by oral route every day 81 MG - Active Procedures Procedure Date No Charge Optomap Fundus Photos No Charge GDX Posterior Segment Office/outpatient Visit, Est Visual Field Examination(s) SCODI, Posterior Segment No Charge Optomap Fundus Photos Office/outpatient Visit, Est No Charge Refraction Post-op Follow-up Visit XCAPSL CTRC RMVL W/ECP XCAPSL CTRC RMVL W/ECP [employer]OL[facility]-Professional Post-op Follow-up Visit Remove Cataract, Post Op Care Drainage Of Eye XCAPSL CTRC RMVL W/ECP [employer]-Professional No Charge GDX Retina IOLMaster-Technical No Charge Refraction Fundus Photography W/ Report Corneal Topography Office/outpatient Visit, Est Visual Field Examination(s) Fundus Photography W/ Report Office/outpatient Visit, Est SCODI, Posterior Segment No Charge Optomap Fundus Photos 022 Eye Exam & Treatment Fundus Photography W/ Report Office/outpatient Visit, Est Fundus Photography W/ Report Visual Field Examination(s) Eye Exam & Treatment SCODI, Posterior Segment Eye Exam & Treatment Visual Field Examination(s) Fundus Photography W/ Report Office/outpatient Visit, Est SCODI, Posterior Segment Eye Exam & Treatment Visual Field Examination(s) Office/outpatient Visit, Est No Charge Refraction Visual Field Examination(s) SCODI, Posterior Segment Eye Exam & Treatment Office/outpatient Visit, Est Office/outpatient Visit, Est Visual Field Examination(s) SCODI, Posterior Segment Office/outpatient Visit, Est Eye Exam & Treatment Optic Nerve Head Eval IPO Reduced 15% SCODI, Posterior Segment Office/outpatient Visit, Est Optic Nerve Head Eval IPO Reduced 15% Visual Field Examination(s) Office/outpatient Visit, Est Optic Nerve Head Eval IPO Reduced 15% Office/outpatient Visit, Est Optic Nerve Head Eval IPO Reduced 15% Eye Exam & Treatment Optic Nerve Head Eval IPO Reduced 15% Office/outpatient Visit, Est Optic Nerve Head Eval IPO Reduced 15% Special Eye Evaluation Office/outpatient Visit, Est Optic Nerve Head Eval IPO Reduced 15% Optic Nerve Topography Optic Nerve Topography Office/outpatient Visit, Est Optic Nerve Head Eval IPO Reduced 15% Eye Exam & Treatment Optic Nerve Head Eval IPO Reduced 15% Office/outpatient Visit, Est Optic Nerve Head Eval IPO Reduced 15% Visual Field Examination(s) Eye Exam & Treatment Optic Nerve Head Eval Office/outpatient Visit, Est Optic Nerve Head Eval Office/outpatient Visit, Est Optic Nerve Head Eval Office/outpatient Visit, Est Visual Field Examination(s) Fundus Photography W/ Report Advance Directives Directive Yes / No Effective Date File Name Other Directive No N/A N/A WARNING:The information contained in this section is historical and is provided for information only and does not constitute a legal document or any assurance that the information is still accurate. Please verify the information with the ferraro of the legal document before using it for clinical purposes. Encounters Encounter Description Practice Location Reason(s) For Visit Diagnoses Date Provider Providers Copied on Encounter Office/outpa tient Visit, [facility], [address] [place] [address] [address], [place], [place], [address], tel:[phone] SEC [facility] Professional Complete Exam (chief complaint) Primary open angle glaucoma (POAG) of both eyes, mild stagePseudoph marilee Sep-3 0-202 4 River OD Heather. [address] [place] [address] [address], [address], [place], [place], [address], [place]. tel:[phone] Referring Provider: Farzad Rubio OD, [facility] [address] [place], [address]. tel:[phone] Office/outpa tient Visit, [facility], [address], [place], [place], [address], [place] tel:[phone] SEC [place] Professional glaucoma, pressure check (chief complaint) Primary open-angle glaucoma, bilateral, moderate stageDry eye syndrome of bilateral lacrimal glandsMGD (meibomian gland dysfunction) Dec-2 5-202 4 River OD Heather. [address], [address], [place], [place], [address], [place]. tel:[phone] Referring Provider: Farzad Rubio OD, [facility] [address] [place], [address]. tel:[phone] [facility], [address] [place] [address] [address], [place], [place], [address], [place] tel:[phone] SEC Brett GILMAN Professional Post-Op (chief complaint) Post op visitDry eye syndrome of bilateral lacrimal glandsPrimary open angle glaucoma of both eyes, unspecified glaucoma stage Feb-0 4 River OD Heather. [address] [place] [address] [address], [address], [place], [place], [address], [place]. tel:[phone] Referring Provider: Farzad Rubio OD, [facility] [address] [place], [address]. tel:[phone] [facility], [address] [place] [address] [address], [place], [place], [address], tel:[phone] SEC Brett GILMAN Professional 1 Day CE/IOL/ECP PO (chief complaint) Post op visit 4 Tl OD Eula. [address] [place] [address], [address], [place], [place], [address], [place]. tel:[phone] Referring Provider: Farzad Rubio OD, [facility] [address] [place], [address]. tel:[phone] [facility], [address] [place] [address] [address], [place], [place], [address], [place] tel:[phone] [facility] No Information 4 Deangelo Callahan. [address] [place] [address], [address], [place], [place], [address], [place]. tel:[phone] Referring Provider: Farzad Rubio OD, [facility] [address] [place], [address]. tel:[phone] [facility], [address] [place] [address] [address], [place], [place], [address], [place] tel:[phone] SEC [place] No Information 4 Olin London. [address] [place] [address] [address], [address], [place], [place], [address], [place]. tel:[phone] Referring Provider: Farzad Rubio OD, [facility] [address] [place], [address]. tel:[phone] [facility] Eye [facility], [address] [place] [address] [address], [place], [place], [address], tel:[phone] SEC [place] Professional 2 Week CE/IOL/ECP PO (chief complaint) Post op visit Oct-0 6- 3 River OD Heather. [address] [place] [address] [address], [address], [place], [place], [address], [place]. tel:[phone] Referring Provider: aFrzad Rubio OD, [facility] [address] [place], [address]. tel:[phone] [facility], [address] [place] [address] [address], [place], [place], [address], [place] tel:[phone] SEC [place] Professional 1 Day CE/IOL/ECP (chief complaint) Post op visit Sep-2 3 Tl OD Eula. [address] [place] [address] [address], [address], [place], [place], [address], [place]. tel:[phone] Referring Provider: Farzad Rubio OD, [facility] [address] [place], [address]. tel:[phone] [facility], [address] [place] [address] [address], [place], [place], [address], [place] tel:[phone] [facility] [place] No Information Sep-2 3 Deangelo London. [address] [place] [address] [address], [address], [place], [place], [address], [place]. tel:[phone] Referring Provider: Farzad Rubio OD, [facility] [address] [place], [address]. tel:[phone] [facility] Eye [facility], [address] [place] [address] [address], [place], [place], [address], [place] tel:[phone] SEC [place] No Information Sep-2 0- 3 Olin London. [address] [place] [address] [address] [facility], [address], [place], [place], [address], [place]. tel:[phone] Referring Provider: Farzad Rubio OD, [facility] [address] [place], [address]. tel:[phone] Office/outpa tient Visit, [facility], [address] [place] [address] [address], [place], [place], [address], [place] tel:[phone] SEC Brett MUKUL Professional Cataract evaluation (chief complaint) Combined forms of age-related cataract, bilateralPrim isaiah open-angle glaucoma, bilateral, moderate stage Aug-0 3 Deangelo Callahan. [address] [place] [address] [address] [facility], [address], [place], [place], [address], [place]. tel:[phone] Referring Provider: Farzad Rubio OD, [facility] [address] [place], [address]. tel:[phone] Office/outpa tient Visit, [facility], [address] [place] [address] [address], [place], [place], [address], [place] tel:[phone] SEC [place] MUKUL Professional glaucoma, pressure check (chief complaint) Age-related nuclear cataract, bilateralPrim isaiah open-angle glaucoma, bilateral, moderate stage John-2 0- 3 Sree Holguin. [address] [facility], [address], [place], [place], [address], [place]. tel:[phone] Referring Provider: Farzad Rubio OD, [facility] [address] [place], [address]. tel:[phone] [facility], [address] [place] [address] [address], [place], [place], [address], [place] tel:[phone] SEC Brett GILMAN Professional Complete Exam (chief complaint) Age-related nuclear cataract, bilateralPrim isaiah open-angle glaucoma, bilateral, moderate stageDrusen (degenerative ) of macula, left eye Sep- 2 Sree Holguin. [address], [address], [place], [place], [address], [place]. tel:[phone] Referring Provider: Farzad Rubio OD, [facility] [address] [place], [address]. tel:[phone] Office/outpa tient Visit, Est [facility], [address], [place], [place], [address], [place] tel:[phone] SEC Brett GILMAN Professional 6 month IOP check (chief complaint) Age-related nuclear cataract, bilateralPrim isaiah open-angle glaucoma, bilateral, moderate stage John- 2 Sree Holguin. [address], [address], [place], [place], [address], [place]. tel:[phone] Referring Provider: Farzad Rubio OD, [facility] [address] [place], [address]. tel:[phone] [facility], [address], [place], [place], [address], [place] [phone] SEC Brett GILMAN Professional Complete Exam (chief complaint) Primary open-angle glaucoma, bilateral, moderate stageAge-rela ellen nuclear cataract, bilateralDrus en (degenerative ) of macula, left eyeDry eye syndrome of bilateral lacrimal glands Sep- 1 Sree Holguin. [address] [facility], [address], [place], [place], [address], [place]. tel:[phone] Referring Provider: Farzad Rubio OD, [facility] [address] [place], [address]. tel:[phone] [facility], [address], [place], [place], [address], [place] tel:[phone] SEC [place] Professional Complete Exam (chief complaint) Primary open-angle glaucoma, bilateral, moderate stageAge-rela ellen nuclear cataract, right eyeCombined forms of age-related cataract, left eyeDrusen (degenerative ) of macula, left eye Dec-2 0-201 9 Sree Holguin. [address] [employer] [address], [address], [place], [place], [address], [place]. tel:[phone] Referring Provider: Farzad Rubio OD, [facility] [address] [place], [address]. tel:[phone] Office/outpa tient Visit, [facility], [address], [place], [place], [address], [place] tel:[phone] SEC [place] Professional glaucoma, pressure check (chief complaint) Primary open-angle glaucoma, bilateral, moderate stage John-2 4-201 9 Sree Holguin. [address], [address], [place], [place], [address], [place]. tel:[phone] Referring Provider: Farzad Rubio OD, [facility] [address] [place], [address]. tel:[phone] [facility], [address], [place], [place], [address], [place] tel:[phone] SEC [place] Professional Complete Exam (chief complaint) Primary open-angle glaucoma, bilateral, moderate stageSuperfic ial punctate keratitis of both eyesAge-relat ed nuclear cataract, right eyeCombined forms of age-related cataract, left eyePinguecula of left eye Nov-0 9-201 8 Sree Holguin. [address], [address], [place], [place], [address], [place]. tel:[phone] Referring Provider: Farzad Rubio OD, [facility] [address] [place], [address]. tel:[phone] [facility], [address], [place], [place], [address], [place] tel:[phone] SEC Brett GILMAN Professional No Information Oct-2 8 Sree Holguin. [address] [facility], [facility] [place], [address], [place]. tel:[phone] Office/outpa tient Visit, Est [facility] Eye [facility], [address] [place] [address] [address], [place], [place], [address], [place] tel:[phone] SEC Brett GILMAN Professional glaucoma, pressure check (chief complaint) No Information 8 Sree Holguin. [address] [facility], [facility] [place], [address], . tel:[phone] Referring Provider: Farzad Rubio OD, [facility] [address] [place], [address]. tel:[phone] [facility], [address] [place] [address] [address], [place], [place], [address], [place] tel:[phone] SEC Brett GILMAN Professional Complete Exam (chief complaint) No Information Oct-0 7 Sree Holguin. [address] [facility], [facility] [place], [address], [place]. tel:[phone] Referring Provider: Farzad Rubio OD, [facility] [address] [place], [address]. tel:[phone] [facility], [address] [place] [address] [address], [place], [place], [address], [place] tel:[phone] SEC Brett GILMAN Professional No Information 7 Sree Holguin. [address] [facility], [facility] [place], [address], . tel:[phone] Office/outpa tient Visit, Est [facility] Eye [facility], [address] [place] [address] [address], [place], [place], [address], [place] tel:[phone] SEC Brett GILMAN Professional 6 month IOP check (chief complaint) No Information 6 Wankum Marcus. [address], [address] [place], [place], [address], [place]. tel:[phone] Referring Provider: Farzad Rubio OD, [facility] [address] [place], [address]. tel:[phone] Office/outpa tient Visit, [facility], [address] [place] [address] [address], [place], [place], [address], [place] [phone] SEC rBett GILMAN Professional 2 month IOP check for POAG (chief complaint) No Information 6 Wankum Marcus. [address], [address] [place], [place], [address], [place]. tel:[phone] Referring Provider: Farzad Rubio OD, [facility] [address] [place], [address]. tel:[phone] Office/outpa tient Visit, [facility], [address] [place] [address] [address], [place], [place], [address], [place] [phone] SEC Brett GILMAN Professional POAG (chief complaint) No Information 6 Wankum Marcus. [address], [address] [place], [address], [place]. tel:[phone] Referring Provider: Farzad Rubio OD, [facility] [address] [place], [address]. tel:[phone] [facility] Eye [facility], [address] [place] [address] [address], [place], [place], [address], [place] tel:[phone] SEC Brett GILMAN Professional No Information - 6 Wankum Marcus. [address], [address] [place], [address], [place]. tel:[phone] [facility] Eye [facility], [address], [place], [place], [address], [place] tel:[phone] SEC Brett GILMAN Professional Complete Eye Exam (chief complaint) No Information 4 Alice Velazquez. [address], [address], [place], [place], [address], [place]. tel:[phone] Referring Provider: Farzad Rubio OD, [facility] [address] [place], [address]. tel:[phone] Office/outpa tient Visit, [facility], [address], [place], [place], [address], [place] [phone] SEC Brett GILMAN Professional 7 month IOP check and VF (chief complaint) No Information 4 Alice Velazquez. [address], [address], [place], [place], [address], [place]. tel:[phone] Referring Provider: Farzad Rubio OD, [facility] [address] [place], [address]. tel:[phone] Office/outpa tient Visit, [facility], [address] [place] [address] [address], [place], [place], [address], [place] [phone] SEC Brett GILMAN Professional 9 month IOP check (chief complaint) No Information 3 Alice Velazquez. [address], [address], [place], [place], [address], [place]. tel:[phone] Referring Provider: Farzad Rubio OD, [facility] [address] [place], [address]. tel:[phone] [facility], [address] [place] [address] [address], [place], [place], [address], [place] [phone] No Information 3 Bharath Blanchard. [address], [address], [place], [address], [place]. tel:[phone] Office/outpa tient Visit, [facility], [address], [place], [place], [address], [place] tel:[phone] SEC Brett GILMAN Professional No Information 2 Alice Velazquez. [address] [facility], [address] [place], [address], [place]. tel:[phone] Referring Provider: Farzad Rubio OD, [facility] [address] [place], [address]. tel:[phone] [facility], [address], [place], [place], [address], [place] tel:[phone] SEC Brett GILMAN Professional No Information 2 Alice Velazquez. [address] [facility], [address] [place], [address], [place]. tel:[phone] Referring Provider: Farzad Rubio OD, [facility] [address] [place], [address]. tel:[phone] Office/outpa tient Visit, [facility], [address], [place], [place], [address], [place] tel:[phone] SEC Brett GILMAN Professional No Information 1 Alice Velazquez. [address] [employer], [address] [place], [place], [address], [place]. tel:[phone] Referring Provider: Marcus Delong, [address], [place], [address] . tel:[phone] Office/outpa tient Visit, [facility], [address], [place], [place], [address], [place] tel:[phone] SEC Brett GILMAN Professional No Information -201 0 Wankángela Velazquez. [address] [facility], [address] [place], [place], [address], [place]. tel:[phone] Referring Provider: Marcus Delong, [address] [facility] [place], [address] . tel:[phone] Office/outpa tient Visit, [facility], [address], [place], [place], [address], [place] tel:[phone] SEC Brett MUKUL Professional No Information 0 Wankángela Marcus. [address] [facility], [facility] [place], [place], [address], [place]. tel:[phone] [facility], [address], [place], [place], [address], [place] tel:[phone] SEC Brett GILMAN Professional No Information 6200 9 Wankángela Marcus. [address] [facility], [facility] [place], [address], [place]. tel:[phone] Office/outpa tient Visit, [facility], [address], [place], [place], [address], [place] tel:[phone] SEC Brett GILMAN Professional No Information 2 1-200 9 Wankángela Velazquez. [address] [facility], [address] [place], [address], [place]. tel:[phone] Referring Provider: Marcus Delong, [address] [facility] [place], [address] . tel:[phone] [facility], [address], [place], [place], [address], [place] tel:[phone] SEC [place] Professional No Information 8200 8 Alice Velazquez. [address], [address] [place], [place], [address], . tel:[phone] Office/outpa tient Visit, [facility], [address] [facility] [address], [place], [place], [address], tel:[phone] SEC Brett MUKUL Professional No Information 200 8 Alice Velazquez. [address], [address] [place], [place], [address], [place]. tel:[phone] Office/outpa tient Visit, [facility], [address] [facility] [address], [place], [place], [address], [place] tel:[phone] SEC [place] Professional No Information 7 Alice Velazquez. [address] [employer] [address], [facility] [place], [address], [place]. tel:[phone] Office/outpa tient Visit, [facility], [address] [place] [address] [address], [place], [place], [address], [place] tel:[phone] SEC [place] Professional No Information 7 Alice Velazquez. [address], [facility] [place], [address], . tel:[phone] Referring Provider: Marcus Delong [address] [place] [place], [address] . tel:[phone] Family History Family Member Type Diagnosis Age At Onset Father Problem (finding) glaucoma Brother Problem (finding) glaucoma Problem (finding) Payers Payer name Insurance type Covered alliance party ID Authoriza tion(s) [place] [id number] [facility] CI [id number] Social History Type Description Quantity Date Captured Comments Alcohol Use Details Caffeine Use Details 2 cups per day Tobacco Use Status Ex-cigarette smoker 024 Smoking Status Former smoker Smoking Tobacco Use Details Cigarette: Age Started: 19, Age Stopped: 74, Years Used 56 Cigarette: 5 Cigarettes per day, Pack Year: 13.75 Sex Female Gender Identity Female Chief Complaint And Reason For Visit From encounter dated '07/15/2024 11:30'. Complete Exam (chief complaint). Description: The 83 year old patient presents for a complete IOL and IOP check ou. Patient is pseudo ou with ECP ou. Patient will be doing 5 days of radiation. Patient denies any changes in vision ou. Patient wears OTC reading glasses. Reason For Referral Reason For Referral No Information Plan Of Treatment Date Type Action Status Goal Tobacco cessation counseling completed Goal Tobacco cessation counseling completed Goal Tobacco cessation counseling completed Goal Tobacco cessation counseling completed Goal Tobacco cessation counseling completed Goal Tobacco cessation counseling completed Appointment Mago Recinos BOOKED Patient Education Cataract Surgery: What to Expect at Home completed Patient Education Cataract Surgery: What to Expect at Home completed Patient Education Cataracts: Care Instruc tions completed Patient Education Open-Angle Glaucoma: Ca re Instructions completed Patient Education Open-Angle Glaucoma: Ca re Instructions completed Patient Education Open-Angle Glaucoma: Ca re Instructions completed Patient Education Open-Angle Glaucoma: Ca re Instructions completed Patient Education Open-Angle Glaucoma: Ca re Instructions completed History Of Present Illness Encounter Date Complaint History Of Prese nt Illness Complete Exam The 83 year old patient presents for a complete IOL and IOP check ou. Patient is pseudo ou with ECP ou. Patient will be doing 5 days of radiation. Patient denies any changes in vision ou. Patient wears OTC reading glasses. glaucoma, pressure check The 83 year old patient presents for a 6 week POAG ou IOP check. Patient is pseudo ou with ECP. Patient is using Ivizia bid ou. Patient states her vision seems pretty good and sometimes wears reading glasses. Post-Op The 82 year old patient presents for evaluation of 2 week STD + ECP Post-Op in the right eye. Pt is using Ketorolac TID OD, Prednisolone BID OD. Pt states her vision is good, it seems like up close is not as good but she is still getting by with using +2.50 readers. 1 Day CE/IOL/ECP PO The 82 year old patient presents for evaluation of 1 Day CE/IOL/ECP PO in the right eye. Pt states no pain or discomfort in OD, Pt states that vision in OD still seems a little bit blurry, but pt does state that vision does seem brighter. Pt has all gtts and understands how to take them as instructed. 2 Week CE/IOL/ECP PO The 82 year old patient presents for evaluation of 2 Week CE/IOL/ECP Eyehance PO in the left eye. Pt states vision is OS seems pretty good. Pt states no pain or discomfort. Pt has all gtts and understands how to take them as instructed. Pt does plan on have OD done with Surgery, Pt complains on not being able to watch tv due to decreased vision and has trouble seeing road signs. 1 Day CE/IOL/ECP The 82 year old patient presents for evaluation of 1 Day CE/IOL/ECP in the left eye. Pt states no changes in vision, pt states no pain or discomfort. Pt has all gtts and understands how to take them as instructed. Cataract evaluation The 82 year old patient presents for evaluation of Cataract evaluation in the right eye and left eye. Patient is using Latanoprost qhs ou. Patient states she is having a harder time seeing the captions on the TV OU x several mos. Pt states she is just not seeing as well as she should glaucoma, pressure check The 82 year old patient presents for a 6 month POAG ou IOP check. Patient is using Latanoprost qhs ou. Patient states she is having a harder time seeing the captions on the TV. Complete Exam The 81 year old patient presents for a complete POAG ou IOP check. Patient is using Latanoprost qhs ou. Patient denies any changes in vision ou. Patient uses AT qd ou. 6 month IOP check The 81 year ol d patient presents for evaluation of 6 month IOP check in the right eye and left eye. Hx of POAG OU, Drusen OS, and Cataracts OU. Patient denies any problems or changes with eyes. VA seems stable OU. Patient using Yu qd OU last used last night @ 9pm. Tech sent refills today. Complete Exam The 80 year old female presents for a complete POAG ou IOP check. Patient is using Latanoprost qhs ou. Patient denies any changes in vision ou. Complete Exam The 78 year old female presents for a complete POAG ou IOP check. Patient uses Latanoprost qhs ou. Patient denies any changes in vision ou. Patient went to the ER yesterday because her feet are swollen. glaucoma, pressure check The 78 year old female presents for a 6 month POAG ou IOP check. Patient uses Latanoprost qhs ou. Patient denies any changes in vision ou. Patient states the new bottle of Latanoprost is hard to squeeze a drop out. Complete Exam The 77 year old female presents for a complete POAG ou IOP check. Patient is using Latanoprost qhs ou. Patient denies any changes in vision ou. glaucoma, pressure check The 77 year old female presents for a 6 month POAG ou IOP check. Patient uses Latanoprost qhs ou. Patient denies any changes in vision ou. Complete Exam The 76 year old female presents for Complete Exam in the right eye and left eye. Patient denies any pain or discomfort at this time, states v/a is stable, uses latanoprost QHS OU-states she needs a refill. Patient states she went to another doctor and they told her she had bronchitis, but states she is not contagious unless she has a fever. States she had to have an emergency root canal last night. Hx of cataracts OU, POAG OU, ZOHAIB OU. 6 month IOP check The 75 year ol d female presents for 6 month IOP check. Patient has hx of POAG, moderate stage OU. She currently uses Latanoprost QD OU. Patient reports stable VA OU. Patient denies flashes and floaters OU. She denies pain, discomfort or irritation today OU. patient states that she forgot to use gtt last night 2 month IOP check for POAG The [age] year old female presents for a 2 month IOP check for POAG in the right eye and left eye. Patient denies any problems or changes with VA. Patient using Latanoprost QD OU. POAG The 74 year old female presents for a complete exam c VF 24-2 monitoring POAG OU. Pt states v/a OU has been stable, without complaints. Pt denies any pain or discomfort. Pt uses Latanoprost QHS OU and AFT QAM OU. Complete Eye Exam The 73 year ol d female presents for Complete Eye Exam. Patient Hx Cataract OU and COAG. Patient uses Latanoprost QHS OU. Patient reports OU vision seems to be stable. Patient uses AFT QAM OU. Patient reports that she gets a lot of matter OU mostly in the mornings, but also throughout the day OU. Patient states it has become very bothersome. Functional Status Date Functional Assessmen t No Information Instructions Date Instruction Additional Infor leila Impression/Plan Impression/Plan Impression/Plan Impression/Plan Impression/Plan Impression/Plan Impression/Plan Impression/Plan Impression/Plan Impression/Plan Impression/Plan Impression/Plan Impression/Plan Impression/Plan Use of eye drops discussed. Rela ellen to Primary open-angle glaucoma, bilateral, moderate stage Impression/Plan Primary open-angle g laucoma, left eye, moderate stage - Educational material provided Related to Primary open-angle glaucoma, left eye, moderate stage Follow up - Return i n 6 months with Ezio Balbuena M.D. for IOP check with VF. Impression/Plan - PO AG OU:- IOP normal- Condition is stable- OCT ON is stable- HVF today is stable to possibly mildly worse compared to previous. Observe closely- Continue Latanoprost [facility]HS [facility]- [facility] Vision is stable- Will monitorReturn to clinic in 6 months for IOP check with repeat 24-2 visual joe or sooner with problems. Primary open angle g laucoma of both eyes, moderate stage - Educational material provided Related to Primary open angle glaucoma of both eyes, moderate stage Follow up - Return i n 6 months with Marcus Jenkins M.D. for Complete Exam , IOP check , OCT (ON) , Visual Field (24-2). Impression/Plan - In traocular pressure well controlled, tolerating medications. Will continue with same regimen. Return to clinic in 6 months for complete IOP check, OCT ON and 24-2 visual joe or sooner with any problems. Primary open angle g laucoma of both eyes, moderate stage - Educational material provided Related to Primary open angle glaucoma of both eyes, moderate stage Follow up - Return i n 6 months with Marcus Jenkins M.D. for IOP check. Impression/Plan - In traocular pressure well controlled, tolerating medications. Will continue with same regimen. Return to clinic in 6 months for IOP check or sooner with any problems. Impression/Plan - In traocular pressure slightly elevated today; optic nerve stable; no change to VF; OCT ON shows minimal change in the left eye. Will continue to monitor. Continue Latanoprost QD OU. If no improvement to IOP at next visit, consider switching gtts. RTC in 2 months for an IOP check. Follow up - RTC in 2 months for an IOP check. - 6mths-vf Related to POAG - Primary open-angle glaucoma - latanaprost qd ouoct today Rel ated to POAG - Primary open-angle glaucoma ZOHAIB - Use AT's as needed Related to ZOHAIB - AThumidifier Related to ZOHAIB - 6mths Related to POAG - Primary open-angle glaucoma poag-stable iop and vf - latanaprost qd ou-yrs rx Educational materials provided to patient. Educational materials provided to patient. Related to POAG - Primary open-angle glaucoma nsc - observation Related to SEN ILE NUCLEAR CATARACT nsc - no tx needed Related to Pr imary Open-Angle Glaucoma nsc ou - no tx needed Related to Cataract, Nuclear Sclerosis poag-stable - latanaprost qd-yrs rx Related to Primary Open-Angle Glaucoma - 6mths-vf Related to Prima ry Open-Angle Glaucoma Assessments Type Assessment Date assessment Primary open angle glaucoma (POA G) of both eyes, mild stage assessment Pseudophakia Patient Care Teams Name Effective Dates (start - stop) Status Members No Information
--- OUTSIDE RECORDS SUMMARY | 2025-01-14 17:27 | XMS_ITS | Encounter Summary ---
Author Organization [facility] Address [address] [place] [address] Phone Care Team Providers Care Lead Qa Analyst Name Role Phone Lisa Arias NP Primary Care Provider [phone] Min Malhotra MD Unavailable [phone] Abdias Reno Unavailable [phone] Diaz Salgado MD Unavailable Aminta Hernandez NP Unavailable [phone] Dionte Juárez MD PhD Unavailable [phone] Ezio Balbuena MD Unavailable [phone] Bert Hopkins MD Unavailable Ziggy Morales MD Unavailable [phone] Tram Gonzalez MA Unavailable Stas Stafford MD Unavailable [phone] Tram Gonzalez MA Unavailable oRman Herron MD Unavailable [phone] Rosemarie Rapp SIGNAL INTEGRITY ENGINEER Unavailable [phone] Zachary Gabriel MD Unavailable Ziggy Contreras MD Unavailable VlMode garces MD PhD Unavailable [phone] Genny Hernandez MD Unavailable Latesha Munroe SIGNAL INTEGRITY ENGINEER Primary Care Provider [phone] Allen Zuñiga OT Unavailable Unavailable Javan Puente SIGNAL INTEGRITY ENGINEER Unavailable [phone] Encounter Details Date Type Department Care Team (Late st Contact Info) Description 06/25/2018 Telephone [facility] Cardiology [address] [place] [address] [place] [id number] Dionte Juárez MD PhD [address] [facility] [address] [place] [address] Social History Tobacco Use Types Packs/Day Years Used Date Smoking Tobacco: Former Smokeless Tobacco: Never Comments:Smoking History Pac ks/day: 6 Cigarettes Alcohol Use Standard Drinks/Week Comments Yes 0 (1 standard drink = 0.6 oz pur e alcohol) Comments No Sex and Gender Information Value Date Recorded Sex Assigned at Not on file 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 Gender Identity Not on file Sexual Orientation Not on file Occupation Industry Job Start Date Job End Date Retired Not on file Not on file Not on file documented as of this encounter Plan of Treatment Not on file documented as of this encounter Visit Diagnoses Not on filedocumented in this encounter Additional Health Concerns Infection Onset Date Last Indicated Resolved Time COVID: Suspected 02/26/2021 02/26/2021 02/26/2021 1:45 PM CDT COVID: Suspected 07/07/2021 07/07/2021 07/07/2021 2:28 PM CDT COVID19 07/07/2021 07/07/2021 07/21/2021 3:05 AM CDT COVID: Suspected 02/25/2022 02/25/2022 02/25/2022 5:18 PM CDT COVID: Suspected 03/08/2022 03/08/2022 03/09/2022 3:05 AM CDT COVID: Suspected 03/08/2022 03/08/2022 03/09/2022 6:23 AM CDT COVID: Suspected 07/12/2022 07/12/2022 07/12/2022 3:30 PM CDT COVID: Suspected 08/01/2023 08/01/2023 08/01/2023 10:35 AM CDT COVID: Suspected 08/04/2023 08/04/2023 08/04/2023 12:37 PM CDT COVID: Suspected 09/21/2024 09/21/2024 09/22/2024 3:05 AM BUSINESS CENTER MANAGER documented as of this encounter Care Teams Lead Qa Analyst Relationship Specialty Start Date End Date Lisa Arias NP PCP - General Family Medicine 06/22/18 07/09/20 Latesha Munroe NP [address] [place] [address] [place] [address] PCP - General Nurse Practitioner 08/05/24 Min Malhotra MD [address] [place] [address] DR SOWMYA Rodriguez [address] [address] Surgeon Orthopedic Surgery 06/22/18 07/09/20 Abdias Reno PA [address] [place] [address] DR SOWMYA Rodriguez [address] [address] Physician Hotel Custodian Orthopedic Surgery 06/22/18 0 Diaz Salgado MD [address] [place] [address] DR SOWMYA Rodriguez [address] [address] Consulting Physician Gastroenterology 06/22/18 11/27/24 Aminta Hernandez, ANDRE [address] [place] [address] DR SOWMYA Rodriguez [address] [address] Nurse Practitioner Urology 06/22/18 03/03/20 Dionte Juárez MD PhD [address] [place] [address] DR SOWMYA Rodriguez [facility] [address] [place] [address] Referring Physician Electrophysiology 06/22/18 07/09/20 Ezio Balbuena MD [address] [place] [address] DR SOWMYA Rodriguez [facility] [address] [place] [address] Referring Physician Ophthalmology 06/22/18 11/27/24 Bert Hopkins MD [address] [place] [address] DR SOWMYA Rodriguez [facility] [address] [place] [address] Consulting Physician Obstetrics and Gynecology 06/22/18 03/03/20 [place] [id number] [place] [address] Consulting Physician Pulmonary Disease 06/22/18 5 Tram Gonzalez MA [address] [place] [address] ACO Care Swatch Clerk 01/07/19 01/08/19 Stas Stafford MD [address] [place] [address] Consulting Physician Cardiology 01/08/19 Tram Gonzalez MA [address] [facility] [address] [place] [address] ACO Care Swatch Clerk 07/16/19 07/17/19 Roman Herron MD [address] [place] [address] [address] [place] [address] Consulting Physician Nephrology 08/23/19 03/03/20 Rosemarie Rapp, SIGNAL INTEGRITY ENGINEER [address] [facility] [place] [address] Nurse Practitioner Obstetrics and Gynecology 03/04/20 11/27/24 Zachary Gabriel MD [address] [facility] [address] [place] [address] Consulting Physician Nephrology 03/04/20 [place] [address] [address] [place] [address] Referring Physician Orthopedic Surgery 07/10/20 5 Mode Sanderson MD PhD [address] [place] [address] Radiation Oncologist Radiation Oncology 07/30/24 [place] [address] [address] [facility] [address] [place] [address] Consulting Physician General Surgery 07/30/24 Allen Zuñiga, OT Occupational Therapist Occupational Therapy 11/27/24 11/27/24 Javan Puente, ANDRE [address] [place] [address] [facility] [address] [place] [address] Nurse Practitioner Orthopedic Surgery 12/09/24 documented as of this encounter
--- OUTSIDE RECORDS SUMMARY | 2025-01-14 17:27 | XMS_ITS | Encounter Summary ---
Author Organization [facility] Healthcare Address [address] [place] [address] Care Team Providers Care Skiver Operator Name Role Phone Stas Stafford MD Unavailable [phone] Zachary Gbariel MD Unavailable [phone] tingMode MD PhD Unavailable [phone] Bertrand Chaffee HospitalGenny MD Unavailable Latesha Munroe NP Primary Care Provider [phone] Javan Puente NP Unavailable [phone] Encounter Details Date Type Department Care Team (Late st Contact Info) Description 01/05/2025 Results Follow-Up [facility] at [address] [place] [address] Vu Berg, ANDRE [address] [facility] [place] [address] Social History Tobacco Use Types Packs/Day Years Used Date Smoking Tobacco: Former Cigarettes Q uit: 2014 Smokeless Tobacco: Never Comments:Smoking History Pac ks/day: 6 Cigarettes Alcohol Use Standard Drinks/Week Comments Never 0 (1 standard drink = 0.6 oz pur e alcohol) [facility] Utilities Answer Date Recorded In the past 12 months has [employer] electric, gas, oil, or water company threatened to shut off services in your [...] often do you attend chur ch or zoroastrianism services? 1 to 4 times per year 12/06/2024 Do you belong to any clubs o r organizations such as confucianism groups, unions, fraternal or athletic groups, or [...] any time in the past 12 [facility], were you homeless or living in a fdc (including now)? No 12/06/2024 Personal Safety Answer Date Recorded Have you ever been in or are you currently in a harmful physical or emotional relationship or is someone making you feel afraid or unsafe? 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 * Result Encounter Note - Kathy Hudson NP - 01/06/2025 5:50 PM CDT Please call patient with positive cx result. Organism is susceptible to Macrobid as prescribed. F/Uwith PCP if s/s are not improving. documented in this encounter Plan of Treatment Not on file documented as of this encounter Visit Diagnoses Not on filedocumented in this encounter Care Teams Skiver Operator Relationship Specialty Start Date End Date Latesha Munroe NP [address] [place] [address] [place] [address] PCP - General Nurse Practitioner 08/05/24 Stas Stafford MD Consulting Physician Cardiology 01/08/19 Zachary Gabriel MD Consulting Physician Nephrology 03/04/20 Mode Sanderson MD PhD [address] [place] [address] Radiation Oncologist Radiation Oncology 07/30/24 [place] [address] [address] Consulting Physician General Surgery 07/30/24 Javan Puente NP [address] [address] Nurse Practitioner Orthopedic Surgery 12/09/24 documented as of this encounter
--- OUTSIDE RECORDS SUMMARY | 2025-01-14 17:27 | XMS_ITS ---
Author Organization [facility] Address [address] [place] [address] Care Team Providers Care Reo Asset Manager Name Role Phone Stas Stafford MD Unavailable [phone] Zachary Gabriel MD Unavailable [phone] Mode Sanderson MD PhD Unavailable [phone] Genny leach MD Unavailable Latesha Munroe NP Primary Care Provider Javan Puente NP Unavailable [phone] Active Problems Problem Noted Date Diagnosed Date Status post total knee replacement, right 2024 Status post total right knee replacement 025 Acquired valgus deformity knee, right 09/02/2024 Malignant neoplasm of upper- outer quadrant of left breast in female, estrogen receptor positive 03/28/2024 Cancer Staging:Clinical stage from 04/04/2024:Stage IA(cT1b, cN0, cM0, G1, ER+, UT+, HER2-) - Signed by Mode Sanderson MD PhD on 04/04/2024 Pathologic stage from 05/24/2024:Stage IA(pT1c, pN0(sn), cM0, G2, ER+, UT+, HER2-) - Signed by Mode Sanderson MD PhD on 07/04/2024 Dysphagia 02/08/2023 Non-seasonal allergic rhinitis due to pollen Assessment & Plan (02/01/2023 11:10 AM CDT): - chronic, worse - has stopped all her antihistamines and allergy medications as they were not effective - advices to start taking nasal steroids Acute low back pain 08/24/2022 Assessment & Plan (08/24/2022 12:34 PM ELECTRICAL HARDWARE ENGINEER): Tylenol as needed for pain. Prediabetes 10/05/2021 [...] 03/26/2019 Assessment & Plan (09/13/2022 12:20 PM ELECTRICAL HARDWARE ENGINEER): - chronic, stable - most recent A1c [...] A1c Assessment & Plan (10/05/2021 9:48 AM ELECTRICAL HARDWARE ENGINEER): - chronic, stable - most recent A1c [...] History Packs/day: 6 Cigarettes - quit after NM in 2013 - also got a lot of second hand smoking from her in past History of colon polyps 07/23/2021 Overview (09/07/2021): - colonoscopy on 09/05 - found one polyp, repeat in 5 years Family history of colon cancer in mother 021 Overview (07/23/2021): Added automatically from request for surgery [id number] Vitamin B12 deficiency 04/21/2021 Assessment & Plan [...] AM CDT): 06/03/2020 - Dr. Ziggy Contreras [facility] HomeHealth - patient has graduated from PT [...] 11:26 AM CDT): Will follow up with [employer]. Ultrasound for monitoring in 6 months approximately [...] 05/18/2018 Assessment & Plan (09/13/2022 12:19 PM ELECTRICAL HARDWARE ENGINEER): - chronic, stable - follows with nephrology [...] 08/11/2022 Assessment & Plan (08/24/2022 12:34 PM ELECTRICAL HARDWARE ENGINEER): Increase water intake. Assessment & Plan (05/11/2022 [...] function Assessment & Plan (10/19/2020 12:19 PM ELECTRICAL HARDWARE ENGINEER): - follows with nephrology Dr. Gabriel - [...] . Assessment & Plan (12/04/2019 7:43 AM ELECTRICAL HARDWARE ENGINEER): Healthy BMI noted, encouraged to maintain current [...] through diet or supplement. Continue vitamin D3 67675 units once weekly. Acute cystitis without hematuria 07/24/2018 Overview (09/19/2018): 09/14/3018 Patient saw urology nurse practitioner at [facility]. Started Methenamine Hippurate 1 g BID with 500 mg vitamin C BID. Follow up in 1 year Assessment & Plan (08/24/2022 12:35 PM ELECTRICAL HARDWARE ENGINEER): Will prescribe antibiotics, however will lower the [...] 12/27/2017 Assessment & Plan (10/05/2021 9:44 AM ELECTRICAL HARDWARE ENGINEER): - chronic, recurrent condition, not at goal [...] day Assessment & Plan (09/13/2022 12:19 PM ELECTRICAL HARDWARE ENGINEER): - chronic, stable - BP is well [...] 03/10/2022 Assessment & Plan (10/05/2021 9:46 AM ELECTRICAL HARDWARE ENGINEER): - chronic, stable - BP is well controlled at this time with current medications - currently following with nephrology due to CKD stage 4 - currently on Bystolic 20mg, Cardizem 180mg daily - she is also on Spironolactone and Torsemide - continue current therapy - monitor eletrolytes regularly Assessment & Plan (10/19/2020 12:20 PM ELECTRICAL HARDWARE ENGINEER): - BP is well controlled at this [...] stable Assessment & Plan (12/04/2019 7:41 AM ELECTRICAL HARDWARE ENGINEER): Continue current medication Condition stable Assessment & [...] appointment. Assessment & Plan (09/21/2018 12:27 PM ELECTRICAL HARDWARE ENGINEER): Hypertension is improving with treatment. Continue current [...] (05/15/2019 7:43 PM CDT): Continue vitamin D3 13236 units once weekly, Calcitrol 0.25 mcg daily. Assessment & Plan (03/21/2019 11:54 AM CDT): Continue vitamin D3 43721 units once weekly, Calcitrol 0.25 mcg daily. She will have vitamin-D level with next lab work for Nephrology. Assessment & Plan (04/08/2018 9:33 PM CDT): Plan to check Vitamin D level. Assessment & Plan (01/28/2018 1:57 PM CDT): Check Vitamin D level. History of myocardial infarction 03/02/2017 Assessment & Plan (04/21/2021 10:41 AM CDT): - hx of NM, s/p stent plaecment in 2013 - currently on lipitor 20mg daily, aspirin 81mg daily but not on beta abhi - goal LDL < 70 Lab Results Component Value Date LDLCALC 58 07/10/2020 - follows [facility] cardiology Dr. Stafford Assessment & Plan (07/10/2020 10:07 AM CDT): - hx of NM, s/p stent plaecment in 2013 - currently on lipitor 20mg daily, aspirin 81mg daily but bot on bet ablocker - follows [facility] cardiology Dr. Stafford Assessment & Plan (05/15/2017 2:15 PM CDT): Coronary artery disease is stable. Concerned of stress she is under with her and his outburst. Continue current treatment regimen. Dietary sodium restriction. Stop smoking. Cardiac status will be reassessed at her upcoming appt with [facility].. Myocardial infarction 03/02/2017 Overview (02/26/2021): Overview: Myocardial infarction Last Assessment & Plan: Coronary artery disease is stable. Concerned of stress she is under with her and his outburst. Continue current treatment regimen. Dietary sodium restriction. Stop smoking. Cardiac status will be reassessed at her upcoming appt with [facility].. Sick sinus syndrome 11/25/2016 nursing home (current) use of anticoagulants 2015 Chronic atrial [...] Cardiology Assessment & Plan (10/19/2020 12:22 PM ELECTRICAL HARDWARE ENGINEER): - currently on Eliquis 2.5mg BID and [...] control. Assessment & Plan (12/04/2019 7:42 AM ELECTRICAL HARDWARE ENGINEER): Will transition to xarelto, repeat INR next [...] month. Assessment & Plan (09/21/2018 12:25 PM ELECTRICAL HARDWARE ENGINEER): Stable. Continue Bystolic 20 mg daily and [...] time Assessment & Plan (10/19/2020 12:21 PM ELECTRICAL HARDWARE ENGINEER): - hx of CAD and hypertension - [...] 2019. Assessment & Plan (09/21/2018 12:27 PM ELECTRICAL HARDWARE ENGINEER): Lipid abnormalities are improving with treatment. Last [...] the patient. Mitral regurgitation 02/05/2016 Atherosclerosis of [place] ronary artery of [place] heart without angina pectoris 02/04/2016 Assessment & [...] Stafford Assessment & Plan (10/19/2020 12:25 PM ELECTRICAL HARDWARE ENGINEER): - 10/2019 - Stress test - Mild, [...] Nolan Assessment & Plan (09/21/2018 12:26 PM ELECTRICAL HARDWARE ENGINEER): -History of NSTEMI. stable. No chest pain today. -Continue Bystolic 20 mg daily, lisinopril 2.5 mg, triamterene-HCTZ 37.5-25 mg daily, diltiazem extended release 120 mg daily, aspirin 81 mg daily, atorvastatin 20 mg daily Continue care with Dr. Nolan Gastroesophageal reflux disease 03/01/2014 Assessment & Plan (10/05/2021 9:45 AM ELECTRICAL HARDWARE ENGINEER): - chronic, stable - currently on omeprazole [...] knee Assessment & Plan (09/24/2021 11:06 AM ELECTRICAL HARDWARE ENGINEER): - chronic, stable, not at goal - [...] 7:43 PM CDT): Continue follow-up with Orthopedic Current Treatment and Therapy Plans No current plan information found. Past Treatment and Therapy Plans No past plan information found. Radiation Treatments * Course [id number]/17/2024 - 07/23/2024 Treatment Period Energy Fraction Dose Fractions Total Dose Plans Planned LT_BREAST 07/17/2024 - 07/23/2024 520 5 / 2,600 Reference Points Delivered [id number]_[id number] 07/17/2024 - 07/23/2024 2,600 Resolved Problems Problem Noted Date Diagnosed Date [...] 12/20/2018 Assessment & Plan (09/21/2018 12:25 PM ELECTRICAL HARDWARE ENGINEER): Appears to be healing well. Recommended avoiding [...] counseling Assessment & Plan (09/21/2018 12:28 PM ELECTRICAL HARDWARE ENGINEER): Offered counseling again for patient today. Encouraged her to go to therapist that either I recommended at her last office visit or [facility] in [place]. -Discussed ways to relieve stress. -offered medication, patient declines Poison la dermatitis 06/22/20182017 Endometrial hyperplasia 06/22/201802/14 Overview (06/22/2018): Endometrial thickness 7 mm on ultrasound. She was seen at [facility] by Dr. Hopkins who did an endometrial biopsy on 04/21/2017 which was negative. BMI 26.0-26.9,adult 01/28/2018 03/04/20 Assessment & Plan (09/21/2018 12:25 PM ELECTRICAL HARDWARE ENGINEER): Continue physical activity and healthy diet Assessment [...] and recheck 2 weeks. Abdominal discomfort 11/12/2017 03/14/2 018 Assessment & Plan (11/12/2017 8:20 PM ELECTRICAL HARDWARE ENGINEER): Reviewed colonoscopy. Feel possibly related to diverticulosis. [...] urinary symptoms. She will be referred to [facility] group at [facility] today. Assessment & Plan (05/15/2017 2:22 PM CDT): Has been stable. Current smoker 03/01/2014 06/22/2018 Overview (01/20/2017): Smoker Assessment & Plan (05/15/2017 2:24 PM CDT): Tobacco use is unchanged. Smoking cessation counseling was provided. Tobacco use will be reassessed at the next regular appointment.
--- OUTSIDE RECORDS SUMMARY | 2025-01-14 17:27 | XMS_ITS | Encounter Summary ---
Author Organization [facility] Address [address] [place] [address] Phone Care Team Providers Care Personal Banking Representative Name Role Phone Ching Beyer NP Primary Care Provider [phone] Lisa Arias SURGICAL SERVICES TECH Primary Care Provider [phone] Min aMlhotra MD Unavailable [phone] Abdias Reno Unavailable [phone] Diaz Salgado MD Unavailable Aminta Hernandez SURGICAL SERVICES TECH Unavailable [phone] Dionte Juárez MD PhD Unavailable [phone] Ezio Balbuena MD Unavailable [phone] Bert Hopkins MD Unavailable [phone] Ziggy Morales MD Unavailable Lisa Arias SURGICAL SERVICES TECH Primary Care Provider [phone] Tram Gonzalez MA Unavailable Stas Stafford MD Unavailable [phone] Tram Gonzalez MA Unavailable Roman Herron MD Unavailable [phone] Rosemarie Rapp SURGICAL SERVICES TECH Unavailable [phone] Zachary Gabriel MD Unavailable [phone] Ziggy Contreras MD Unavailable [phone] Mode Sanderson MD PhD Unavailable [phone] Genny leach MD Unavailable Latesha Munroe SURGICAL SERVICES TECH Primary Care Provider [phone] Allen Zuñiga OT Unavailable Unavailable Javan Puente SURGICAL SERVICES TECH Unavailable [phone] Encounter Details Date Type Department Care Team (Late st Contact Info) Description 12/27/2017 Orders Only [facility] Provider, MD Vickey [facility] [place] [address] Social History Tobacco Use Types Packs/Day Years Used Date Smoking Tobacco: Former Smokeless Tobacco: Never Comments:Smoking History Pac ks/day: 6 Cigarettes Alcohol Use Standard Drinks/Week Comments Yes 0 (1 standard drink = 0.6 oz pur e alcohol) Comments No Sex and Gender Information Value Date Recorded Sex Assigned at Not on file Legal Sex Female 1:46 AM ASSISTANT PARALEGAL Gender Identity Not on file Sexual Orientation Not on file documented as of this encounter Plan of Treatment Not on file documented as of this encounter Procedures Procedure Name Priority Date/Time Associated Diagnosis Comments DISCHARGE LABORATORY CUMULATIVE REPORT 12/27/2017 12:00 AM CDT documented in this encounter Results * DISCHARGE LABORATORY CUMULATIVE REPORT (12/27/2017 12:00 AM CDT) Narrative 12/27/2017 12:00 AM CDT Ordered by an unspecified provider. Historical Provider LAB BLOOD ORDERABLES Grace l Result documented in this encounter Visit Diagnoses Not on filedocumented [...] COVID: Suspected 09/21/2024 09/21/2024 09/22/2024 3:05 AM ASSISTANT PARALEGAL documented as of this encounter Care Teams Personal Banking Representative Relationship Specialty [place] [address] [address] PCP - General 01/13/17 01/09/18 [place] [address] [address] PCP - General Family Medicine 06/22/18 07/09/20 [place] [address] [address] PCP - General 01/10/18 06/21/18 Latesha Munroe NP [address] [place] [address] [place] [address] PCP - General Nurse Practitioner 08/05/24 Min Malhotra MD [address] [place] [address] DR SOWMYA Rodriguez [address] [address] Surgeon Orthopedic Surgery 06/22/18 07/09/20 Abdias Reno PA [address] [place] [address] DR SOWMYA Rodriguez [address] [address] Physician Exit Booth Agent Orthopedic Surgery 06/22/18 0 Diaz Salgado MD [address] [place] [address] DR SOWMYA Rodriguez [address] [address] Consulting Physician Gastroenterology 06/22/18 11/27/24 Aminta Hernandez NP [address] [place] [address] DR SOWMYA Rodriguez [address] [address] Nurse Practitioner Urology 06/22/18 03/03/20 Dionte Juárez MD PhD [address] [place] [address] DR SOWMYA Rodriguez [address] [address] Referring Physician Electrophysiology 06/22/18 07/09/20 Ezio Balbuena MD [address] [place] [address] DR SOWMYA Rodriguez [address] [address] Referring Physician Ophthalmology 06/22/18 11/27/24 Bert Hopkins MD [address] [place] [address] DR SOWMYA Rodriguez [address] [address] Consulting Physician Obstetrics and Gynecology 06/22/18 03/03/20 [place] [address] [facility] [address] [place] [address] Consulting Physician Pulmonary Disease 06/22/18 5 Tram Gonzalez, AMANDA [address] [place] [address] [address] [place] [address] ACO Care Pulling Unit Floorhand 01/07/19 01/08/19 Stas Stafford MD [address] [place] [address] Drive [address] [place] [address] Consulting Physician Cardiology 01/08/19 Tram Gonzalez MA [address] [facility] [address] [place] [address] ACO Care Pulling Unit Floorhand 07/16/19 07/17/19 Roman Herron MD [address] [place] [address] [address] [place] [address] Consulting Physician Nephrology 08/23/19 03/03/20 Rosemarie Rapp SURGICAL SERVICES TECH [address] [place] [address] DR MORGAN [address] [place] [address] Nurse Practitioner Obstetrics and Gynecology 03/04/20 11/27/24 Zachary Gabriel MD [address] [place] [address] [address] [place] [address] Consulting Physician Nephrology 03/04/20 [place] [address] [place] [address] Referring Physician Orthopedic Surgery 07/10/20 5 Mode Sanderson MD PhD [address] [place] [address] Radiation Oncologist Radiation Oncology 07/30/24 [place] [address] [address] [facility] [address] [place], [place] [id number] Consulting Physician General Surgery 07/30/24 Allen Zuñiga OT Occupational Therapist Occupational Therapy 11/27/24 11/27/24 Javan Puente NP [address] [place] [address] DR [address] [place] [address] Nurse Practitioner Orthopedic Surgery 12/09/24 documented as of this encounter
--- OUTSIDE RECORDS SUMMARY | 2025-01-14 17:27 | XMS_ITS | Clinical Summary ---
Author Organization [facility] Address [address] [place] [address] Care Team Providers Care Meat Soaker Name Role Phone Stas Stafford MD Unavailable Lisa Arias PRESSER HAND-FULLING MILL OPERATOR Primary Care Provid er Unavailable Source Comments [facility],non-owned Affiliates and Associated Physician Practices is amultiple site organization consisting of ambulatory clinics and hospital sitesin [place], [place], [place] and [place]. This disclosure is being madepursuant to the Care Everywhere program and may not contain all information available regarding this patient. Last updated 18.[facility] Allergies Active Allergy Reactions Criticality Noted Date Comments Amoxicillin Itching Medium 04/21/2017 Sulfa Drugs Itching,Rash Medium 04/21/2017 Other reaction(s): Hives, Other (See comments) Reaction: Sulfamethoxazole W-Trimethoprim Itching Low 04/21/2017 Medications * Be aware that medications may not be up to date on this document. Alwaysverify current medications with the patient. Medication Sig Dispensed Refills Start Date End Date Status aspirin (ASPIRIN) 81 MG tablet Active atorvastatin (LIPITOR) 20 MG tablet TK 1 T PO QD IN THE LAY 5 03/26/2017 Active BYSTOLIC 20 MG tablet TK 1 T PO QD 4 03/14/2017 A ctive omeprazole (PRILOSEC) 40 MG capsule TK 1 C PO QD AC 3 02/06/2017 Active latanoprost (XALATAN) 0.005 % ophthalmic solution INT 1 GTT IN OU QD IN THE LAY 11 03/10/2017 Active calcitriol (ROCALTROL) 0.25 MCG capsule TK 1 C PO QD 12/08/2019 Active spironolactone (ALDACTONE) 25 MG tablet once daily 09/23/2019 Active dilTIAZem coated beads 24hr (CARDIZEM CD) 180 MG capsule TK 1 C PO ONCE D 11/29/2019 Active torsemide (DEMADEX) 10 MG tablet once daily 12/30/2019 Active vitamin D, ergocalciferol, (DRISDOL) 1.25 MG (09242 UT) capsule TK 1 C PO ONCE WEEKLY 01/21/2020 Active polyethylene glycol 3350 (MIRALAX) 17 GM/SCOOP powder take 15 milliliter by oral route every 3 days powder mixed with 8 oz. water, juice, soda, coffee, or tea 02/11/2016 Active apixaban (ELIQUIS) 5 MG tablet Take 5 mg by mouth 2 times daily Active Calcium Glycerophosphate (PRELIEF PO) Active Active Problems Problem Noted Date Diagnosed Date Glaucoma of both eyes 07/10/2020 Overview (07/15/2020): Last Assessment & Plan: - follows with ophthalmology - currently uses Latanoprost in both eyes Tortuous aorta 06/26/2020 Overview (07/15/2020): Last Assessment & Plan: 06/2019 - incidental finding on CXR Continue HTN control, statin, ASA Syncope 06/25/2020 Overview (07/15/2020): Last Assessment & Plan: 06/18/2020 - ER Visit [facility] - Cr [...] Follow-up for BP check and repeat labs Basal cell carcinoma 05/11/2020 Odontogenic neoplasm 03/31/2020 Cyst of right ovary 03/04/2020 Overview (06/26/2020): Last Assessment & Plan: Will follow up with PYRIDINE OPERATOR. Ultrasound for monitoring in 6 months approximately 08/2020 Renal failure, chronic, stage 3 (moderate) 12/24 Overview (07/15/2020): Last Assessment & Plan: - follows with nephrology - based on most recent lab results patient is waxing and waning between stage 3 and 4 CKD - she is curerntly on Torsemide 10mg Every other day - already on Aldactone 25 mg daily - she is on calcitrol and on vitamin D supplementation Primary osteoarthritis of left knee 01/08/2018 Mixed hyperlipidemia 05/15/2017 Overview (01/08/2018): Last Assessment & Plan: Lipid abnormalities are well controlled. . Pharmacotherapy as ordered. On atorvastatin. Lipids will be reassessed today and recheck in 6 months. Atrial fibrillation 03/02/2017 Overview (01/08/2018): Overview: AF - Atrial fibrillation Last Assessment & Plan: Stable. Remains on coumadin. Hypertension 03/02/2017 Overview (01/08/2018): Overview: Hypertension Last Assessment & Plan: Hypertension is well controlled. . Continue current treatment regimen. Dietary sodium restriction. Blood pressure will be reassessed at the next regular appointment. Myocardial infarction 03/02/2017 Overview (01/08/2018): Overview: Myocardial infarction Last Assessment & Plan: Coronary artery disease is stable. Concerned of stress she is under with her and his outburst. Continue current treatment regimen. Dietary sodium restriction. Stop smoking. Cardiac status will be reassessed at her upcoming appt with Meat Passer.. History of myocardial infarction 03/02/2017 Overview (07/15/2020): Last Assessment & Plan: - hx of CO, s/p stent plaecment in 2013 - currently on lipitor 20mg daily, aspirin 81mg daily but bot on bet ablocker - follows [facility] cardiology Dr. Stafford Chronic coronary artery disease 12/05/2016 Overview (06/26/2020): Last Assessment & Plan: -History of NSTEMI. stable. No chest pain today. -Medications as prescribed. -Lipids due at follow up. Continue care with Dr. Nolan Chronic obstructive pulmonary disease 12/05/2016 Overview (07/15/2020): Last Assessment & Plan: - stable without exacerbation - currently on on rescue inhaler albuterol inhaler Frequent UTI 03/01/2014 Overview (06/26/2020): Chronic urinary tract infection Last Assessment & Plan: Patient with frequent UTI symptoms. Previously on Premarin, but this was not helping her symptoms. She was told to stop this medication today. Previously seeing Aminta Hernandez NP. Recommended additional urology consultation regarding urinary symptoms. She will be referred to [facility] at [facility] today. Family History Medical History Relation Name Comments Cancer - Other Father Hypertension Father Cancer - Ovarian Mother Relation Name Status Comments Father Mother Social History Tobacco Use Types Packs/Day Years Used Date Smoking Tobacco: Former Cigarettes Q uit: 2016 Smokeless Tobacco: Never Alcohol Use Standard Drinks/Week Comments Yes 0 (1 standard drink = 0.6 oz pur e alcohol) occas Sex and Gender Information Value Date Recorded Sex Assigned at Not on file Gender Identity Not on file Sexual Orientation Not on file Last Filed Vital Signs Vital Sign Reading Time Taken Comments Blood Pressure 101/66 06/04/2020 3:56 PM CDT Pulse 95 06/04/2020 3:56 PM CDT Temperature 36.4 C (97.5 F) 06/04/2020 3:56 PM CDT Respiratory Rate 18 06/04/2020 3:56 PM CDT Oxygen Saturation 95% 06/04/2020 8:06 AM CDT Inhaled Oxygen Concentration - - Weight 69.5 kg (153 lb 3.2 oz) 06/03/2020 10:00 AM CDT Height 165.1 cm (5' 5 ) 06/03/2020 10:00 AM CDT stated Body Mass Index 25.49 06/03/2020 10:00 AM CDT Plan of Treatment Health Maintenance Due Date Last Done Comments MEDICARE AWV 12 MONTHS 1941 DTAP/TDAP/TD VACCINES (1 - Tdap) 1960 PNEUMOCOCCAL VACCINE 50+ (1 of 2 - PCV) 1960 ZOSTER VACCINE (1 of 2) 1991 Respiratory Syncytial Virus (RSV) Vaccine Pt: or over 60 yrs (1 - 1-dose 75+ series) 2016 COVID-19 VACCINE (2023- season) 2024 INFLUENZA VACCINE (#1) 2024 9, 06/16/2018, 08/16/2017, Additional history exists DEPRESSION SCREENING 10/16/2024 BONE DENSITY TESTING Completed 09/05/2024, 04/09/20 HEPATITIS B VACCINE Aged Out No longe r eligible based on patient's age to complete this topic HIB VACCINE Aged Out No longer eligi ble based on patient's age to complete this topic HPV VACCINE Aged Out No longer eligi ble based on patient's age to complete this topic MENINGOCOCCAL (Group B) VACCINE SHARED DECISION-MAKING Aged Out No longer eligible based on patient's age to complete this topic MENINGOCOCCAL GROUPS A/C/Y/W VACCINE Aged Out No longer eligible based on patient's age to complete this topic Medical Devices Implanted Type Area In School Suspension Aide Device Identifier Shelf Expiration Date Model / Serial / Lot Cmnt Bone Djo Srg Cblt 40gm Hvisc Strl Implanted:Qty: 1 on 06/03/2020 by Ziggy Contreras MD at [facility] Left: Knee [employer] 05/27/2021 [id number] / / [id number] Cmpnt Ptlr 28mm 1 Pg Wire Ascnt Arcm Kn Implanted:Qty: 1 on 06/03/2020 by Ziggy Contreras MD at [facility] Left: Knee [employer] 05/07/2025 [id number] / / [id number] Cmpnt Fem Kn Lt Cr Cmnt Prm Vngrd Intlk Implanted:Qty: 1 on 06/03/2020 by Ziggy Contreras MD at [facility] Left: Knee [employer] 02/12/2030 [id number] / / [id number] Tray Tib 71mm Kn Cocr I Beam Implanted:Qty: 1 on 06/03/2020 by Ziggy Contreras MD at [facility] Left: Knee [employer] 12/31/2029 [id number] / / [id number] As Tibial Bearing Implanted:Qty: 1 on 06/03/2020 by Ziggy Contreras MD at [facility] Left: Knee 05/06/2025 [id number] / / [id number] Advance Directives * Full Code (Latest Code Status on File) Date Activated Date Inactivated Comments 06/03/2020 3:04 PM 06/04/2020 7:36 PM Care Teams Meat Soaker Relationship Specialty Start Date End Date Lisa Arias APRN-FULLING MILL OPERATOR [address] [address] PCP - General Nurse Practitioner Family 05/12/20 Stas Stafford MD [address] [address] Cardiovascular Disease 04/24/20
--- OUTSIDE RECORDS SUMMARY | 2025-01-14 17:27 | XMS_ITS | Clinical Summary ---
Author Organization [facility] Address [address] [place] [address] Phone Care Team Providers Care Trimmer Meat Name Role Phone Lisa Arias DATA INTEGRITY ANALYST Primary Care Provider [phone] Allergies Active Allergy Reactions Criticality Noted Date Comments Amoxicillin Hives 06/24/2019 Furosemide Hives 06/24/2019 Sulfa Antibiotics Hives 06/24/2019 Medications DILTIAZEM CD 180 MG 24 hr capsule Take 1 capsule by mouth 1 (one) time each day 3 05/21/2019 Active ergocalciferol (VITAMIN D2) 74124 units capsule Take 1 capsule by mouth per week 3 04/30/2019 Active omeprazole (PriLOSEC) [address] capsule Take 20 mg by mouth 1 (one) time each day Do not crush or chew. Active aspirin 81 MG tablet Take 81 mg by mouth 1 (one) time each day Active atorvastatin (LIPITOR) 20 MG tablet Take 20 mg by mouth 1 (one) time each day Active apixaban (Eliquis) 5 MG tablet Take 2.5 mg by mouth 2 (two) times a day Active Calcium Carbonate (CALCIUM 600 PO) Take 1 tablet by mouth 1 (one) time each day Active estradiol (ESTRACE) 0.1 MG/GM vaginal cream 02/28/2023 Active anastrozole (ARIMIDEX) 1 MG chemo tablet Take 1 mg by mouth 1 (one) time each day Swallow whole with a drink of water. 07/31/2024 Active torsemide (DEMADEX) 10 MG tablet TAKE 1 TABLET(10 MG) BY MOUTH 1 TIME EACH DAY 30 tablet 5 12/02/2024 Active Active Problems Problem Noted Date Diagnosed Date Mixed hyperlipidemia 05/15/2017 Overview (12/23/2019): Last Assessment & Plan: Lipid abnormalities are well controlled. . Pharmacotherapy as ordered. On atorvastatin. Lipids will be reassessed today and recheck in 6 months. Atrial fibrillation 03/02/2017 Overview (12/23/2019): AF - Atrial fibrillation Last Assessment & Plan: Stable. Remains on coumadin. Hypertension 03/02/2017 Overview (12/23/2019): Hypertension Last Assessment & Plan: Hypertension is well controlled. . Continue current treatment regimen. Dietary sodium restriction. Blood pressure will be reassessed at the next regular appointment. Encounters Date Type Department Care Team Description 11/29/2024 Refill [facility]. [address] [place] [address] Zachary Gabriel MD 11/12/2024 Documentation Only [facility]. [address] [place] [address] Zachary Gabriel MD from Last 3 Months Immunizations Name Administration Dates Next Due Influenza (IM) Preservative Free 07/31/2013 Influenza Split High Dose Preservative Free IM 0 06/24/2014 Influenza, Trivalent, Adjuvanted 06/19/2019 Influenza, Unspecified 06/16/2018,07/16/2017 Pneumococcal Conjugate 13-Valent 03/24/2016 Pneumococcal Polysaccharide 09/04/2014 Tdap 09/04/2014 Zoster 02/12/2019,10/11/2018 Family History Medical History Relation Comments Glaucoma Brother Heart disease Brother Glaucoma Father Neuroblastoma Father Colon cancer Mother Ovarian cancer Mother Heart disease Paternal Grandfather Relation Status Comments Brother Father Mother Paternal Grandfather Social History Tobacco Use Types Packs/Day Years Used Date Smoking Tobacco: Former Cigarettes Q uit: 2013 Smokeless Tobacco: Never Tobacco Cessation:Counseling Given: Not Answered Alcohol Use Standard Drinks/Week Comments Yes 0 (1 standard drink = 0.6 oz pur e alcohol) AUDIT-C Answer Date Recorded Frequency of Alcohol Consumption 2-4 times a mon06/24/2019 Average Number of Drinks 1 or 2 019 Frequency of Binge Drinking Never 06/2019 Comments Unknown Sex and Gender Information Value Date Recorded Sex Assigned at Not on file Legal Sex Female 11:26 AM EDT Gender Identity Not on file Sexual Orientation Not on file Last Filed Vital Signs Vital Sign Reading Time Taken Comments Blood Pressure 124/85 07/11/2024 10:18 AM CDT Pulse 80 07/11/2024 10:18 AM CDT Temperature 36.7 C (98 F) 07/11/2024 10:18 AM CDT Respiratory Rate - - Oxygen Saturation 97% 07/11/2024 10:18 AM CDT Inhaled Oxygen Concentration - - Weight 70.3 kg (155 lb) 07/11/2024 10:18 AM CDT Height 165.1 cm (5' 5 ) 07/11/2024 10:18 AM CDT Body Mass Index 25.79 07/11/2024 10:18 AM CDT Plan of Treatment Health Maintenance Due Date Last Done Comments Influenza Vaccine (#1) 2024 9, 06/16/2018, 08/16/2017, Additional history exists Diabetes: Hemoglobin A1C 07/11/2024 01/20/2022 Diabetes: Ophthalmology Exam 07/11/2024 Diabetes: Pedal Pulse Checked 07/11/2024 Diabetes: Sensory Foot Exam 07/11/2024 Diabetes: Visual Foot Exam 07/11/2024 Pneumococcal Vaccine: 65+ Years Completed 03/24/2016, 09/04/2014 Hepatitis B Vaccine Aged Out No longe r eligible based on patient's age to complete this topic Insurance MEDICARE [employer] Care Teams Trimmer Meat Relationship Specialty Start Date End Date Lisa Arias FNP [address] [address] PCP - General Family Medicine 09/23/19
--- OUTSIDE RECORDS SUMMARY | 2025-01-14 17:27 | XMS_ITS | Data Portability ---
Author Organization [employer] [facility], Main Office Address [address] [place] [address] Care Team Providers Care Corn Breeder Name Role Phone P [facility] FAX OTHER JACK ALARCON Primary Care Provider Assessment Encounter Date Assessment Date Assessment LastModified by Organization Details LastModified Time 12/17/2024 12/17/2024 Statin on hold. Labs from 12/16 not drawn. Will draw in AM. Not available 12/17/2024 15:22:09 12/20/2024 12/20/2024 Per pt's request, schedule Miralax daily. Discussed with nursing attempt to have her be their first med pass of their day with her [place] included so she is pre-medicated prior to therapy sessions. Statin remains on hold. Continue to trend CMP for ability to resume. Not available 12/21/2024 13:53:02 12/23/2024 12/23/2024 Labs (CBC, CMP, CRP) on 12/25. Statin remains on hold. Continue to trend CMP for ability to resume. Not available 12/23/2024 17:14:23 12/25/2024 12/25/2024 Statin remains on hold. Continue to trend CMP for ability to resume. Not available 12/25/2024 14:55:06 12/29/2024 12/29/2024 d/c to home 12/30 with home health PT/OT and SN. f/u with PCP 1 week, ortho f/u is tomorrow. resume statin (nursing reports the patient has actually been getting daily since 12/15), d/c senna s and zofran - continue all other meds, scripts for norco and ferrous sulfate sent to [facility] The patient is homebound because of fall risk, gait instability and is unable to leave home safely because she requires considerable and taxing effort. The patient requires home health nursing for instruction, observation and assessment; PT for training to restore safe independent functional ambulation in the community; and OT for training to improve ability to fulfill ADLs. [facility] Not [facility] 12/30/2024 05:00:12 Plan of Treatment Reminders Order Date Submit Date Provider Last Modified By Organization Details Last Modified Time Details Appointments None recorded. Lab None recorded. Referral None recorded. Procedures None recorded. Surgeries None recorded. Imaging None recorded. Medication Orders hydrocodone 5 mg-acetamin ophen 325 mg tablet 2024 025 [id number] [address], [place], [id number], 05:01:55 ferrous sulfate 325 mg (65 mg iron) tablet,yunier yed release 2024 025 [facility] #[id number], [address], [place], [id number], 05:02:03 Patient TargetsNo targets recorded. Patient Instructions Encounter Date Encounter Id Patient Instructions Last Modified By Organization Details Last Modified Time 12/17/2024 [id number] I spent {{ 36#}} minutes providing care to the patient today. More than 50% of that time was spent in discussing the expected course of the disease, discussing prognosis, coordinating care and counseling of the patient/family. Not available 12/17/2024 15:22:37 12/20/[id number] I spent {{ 36#}} minutes providing care to the patient today. More than 50% of that time was spent in discussing the expected course of the disease, discussing prognosis, coordinating care and counseling of the patient/family. Not available 12/20/2024 17:18:59 12/23/[id number] I spent {{ 36#}} minutes providing care to the patient today. More than 50% of that time was spent in discussing the expected course of the disease, discussing prognosis, coordinating care and counseling of the patient/family. Not available 12/23/2024 17:15:18 12/25/2024 [id number] I spent {{ 34#}} minutes providing care to the patient today. More than 50% of that time was spent in discussing the expected course of the disease, discussing prognosis, coordinating care and counseling of the patient/family. Not available 12/25/2024 14:58:21 12/29/2024 [id number] I spent {{ 35#}} minutes providing care to the patient today. More than 50% of that time was spent in discussing the expected course of the disease, discussing prognosis, coordinating care and counseling of the patient/family. [email or web address] Not available 12/30/2024 04:54:16 Reason for Referral None Reported. Results Created Date Observation Date Name Description Value Unit Range Abnormal Flag Note LastModifiedBy Organization Detail LastModifiedTime Result Notes None recorded. Procedures Surgical History Date Name Laterality Status Provider Name and Address Organization Details Recorded Time lumpectomy of left breast completed Derrell Calhoun [place] - [facility] 12/11/2024 01:25:13 placement of stent in cardiac conduit completed [facility] 12/11/2024 01:25:23 Carpal Tunnel Release completed Derrell Calhoun [place] - [facility] 12/11/2024 01:25:48 colonoscopy completed Derrell PEREZ - [facility] 12/11/2024 01:25:55 Laparoscopic cholecystectomy completed Derrell Calhoun [place] - [facility] 12/11/2024 01:26:29 hammer toe operation completed Derrell PEREZ - [facility] 12/11/2024 01:26:43 Knee arthroscopy/surgery completed Derrell PEREZ - [facility] 12/11/2024 01:26:53 [place] [address] [place], [address], [place] - [facility] 12/13/2024 04:33:01 Imaging Results None recorded. Procedure Notes None recorded. Medical Equipment None Reported. Allergies Allergen ID Allergen Name Allergen Category Reaction Reaction Severity Criticality Documentation Date Start Date Code Code System Note Provider Name and Address Organization Details Recorded Time 66588 amoxicill in medicatio n Not available Not available Not available 12/09/2024 723 RxNorm Not Available Not Available Not Available 83525 furosemid e medicatio n Not available Not available Not available 12/09/2024 4603 RxNorm Not Available Not Available Not Available 06406 Substance with sulfonami de structure and antibacte rial mechanism of action (substanc e) medicatio n Not available Not available Not available 12/09/2024 96304 8003 SNOMED Not Available Not Available Not Available 78514 sulfameth oxazole / trimethop rim medicatio n Not available Not available Not available 12/09/2024 37082 RxNorm Not Available Not Available Not Available Medications Name Sig Start Date Stop Date Status Note LastModified by Organization Details LastModified Time Miralax 17 gram oral powder packet Take 17 g every other day by oral route. 12/13 completed Not Available Not Available Not Available Miralax 17 gram/dose oral powder Take 17 g twice a day by oral route. active Not Available Not Available No t Available anastrozol e 1 mg tablet Take 1 tablet every day by oral route. active Not Available Not Available No t Available atorvastat in 20 mg tablet Take 1 tablet every day by oral route. active Not Available Not Available No t Available Vitamin C 500 mg tablet Take 1 tablet twice a day by oral route. active Not Available Not Available No t Available fluconazol e 150 mg tablet Take 1 tablet every day by oral route for 1 day. 12/23 completed Repeat dose x 1 after 72 hours. Not Available Not Available Not Available hydrocodon e 5 mg-acetami nophen 325 mg tablet Take 1-2 tablets by mouth every 4 hours as needed 2024 active Not Available Not Available Not Avai lable torsemide 10 mg tablet Take 1 tablet every day by oral route. active Not Available Not Available No t Available omeprazole 40 mg capsule,de layed release Take 1 capsule twice a day by oral route. active Not Available Not Available No t Available aspirin 81 mg tablet,del ayed release Take 1 tablet every day by oral route. active Not Available Not Available No t Available ascorbic acid (vitamin C) 500 mg chewable tablet Take 1 tablet twice a day by oral route. active Not Available Not Available No t Available ergocalcif shakira (vitamin D2) 1,250 mcg (50,000 unit) capsule Take 1 capsule every week by oral route. active Not Available Not Available No t Available albuterol sulfate HFA 90 mcg/actuat ion aerosol inhaler Inhale 2 puffs every 6 hours by inhalati on route as needed. active Not Available Not Available No t Available ferrous sulfate 325 mg (65 mg iron) tablet,del ayed release Take 1 tablet every day by oral route. 2024 active Not Available Not Available Not Avai lable ondansetro n 4 mg disintegra ting tablet Place 1 tablet every 6 hours by translin gual route as needed. 12/30 completed Not Available Not Available Not Available Senna-S 8.6 mg-50 mg tablet Take 2 tablets every day by oral route as needed. 12/30 completed Not Available Not Available Not Available Oyster Shell Calcium-Vi tamin D3 500 mg-5 mcg (200 unit) tablet Take 1 tablet every day by oral route. active Not Available Not Available No t Available DILT-XR 180 mg capsule, extended release Take 1 capsule every day by oral route. active Not Available Not Available No t Available nebivolol 20 mg tablet Take 1 tablet every day by oral route. active Not Available Not Available No t Available Eliquis 2.5 mg tablet Take 1 tablet twice a day by oral route. active Not Available Not Available No t Available Vitals Date Recorded Body height Body mass index (BMI) Body weight Oxygen saturation Oxygen saturation in Arterial blood by Pulse oximetry Respiratory rate Body temperature Heart rate Systolic blood pressure Diastolic blood pressure Provider Name and Address Organization Details Last Updated DateTime 5 165.1 cm 26.7 kg/m2 44034.2 2 g 96 % 96 % 18 /min 97.5 [degF] 95 /min 124 mm[Hg] 64 mm[Hg] [place] [address] [place], [address], [place] - [facility] 5 14:59:38 Date Recorded Body height Body mass index (BMI) Body weight Heart rate Body temperature Respiratory rate Oxygen saturation Oxygen saturation in Arterial blood by Pulse oximetry Systolic blood pressure Diastolic blood pressure Provider Name and Address Organization Details Last Updated DateTime 5 165.1 cm 26.7 kg/m2 34399.5 g 102 /min 97.4 [degF] 18 /min 96 % 96 % 129 mm[Hg] 80 mm[Hg] [place] [address] [place], [address], [place] - [facility] 17:10:01 Date Recorded Body height Heart rate Body temperature Respiratory rate Oxygen saturation Oxygen saturation in Arterial blood by Pulse oximetry Body mass index (BMI) Body weight Systolic blood pressure Diastolic blood pressure Provider Name and Address Organization Details Last Updated DateTime 165.1 cm 96 /min 97.1 [degF] 16 /min 97 % 97 % 26.7 kg/m2 49571.5 g 118 mm[Hg] 78 mm[Hg] [place] [address] [place], [address], [facility] 16:24:57 Date Recorded Body height Heart rate Body temperature Respiratory rate Oxygen saturation Oxygen saturation in Arterial blood by Pulse oximetry Body mass index (BMI) Body weight Systolic blood pressure Diastolic blood pressure Provider Name and Address Organization Details Last Updated DateTime 165.1 cm 84 /min 98.6 [degF] 18 /min 96 % 96 % 26.6 kg/m2 20830.7 8 g 110 mm[Hg] 79 mm[Hg] [place] [address] [place], [address], [facility] 14:48:09 Date Recorded Body height Heart rate Body temperature Respiratory rate Oxygen saturation Oxygen saturation in Arterial blood by Pulse oximetry Body mass index (BMI) Body weight Systolic blood pressure Diastolic blood pressure Provider Name and Address Organization Details Last Updated DateTime 165.1 cm 88 /min 97.5 [degF] 18 /min 92 % 92 % 25.8 kg/m2 74752.5 4 g 104 mm[Hg] 66 mm[Hg] [place] [address] [place], [address] , [facility] 04:19:33 Social History Question Answer Notes LastModified by Organizat ion Details LastModified Time Tobacco Smoking Status Former Smoker Derrell sanchez, [facility] 12/11/2024 01:27:33 What Is Your Level Of Alcohol Consumption? Occasional Information not available 12/11/2024 What Is Your Code Status? Full Code Information not available 12/09/2024 When Did You Quit Smoking? 11-15yearssinc elastcigarette Information not available 12/11/2024 Do You Use Any Illicit Or Recreational Drugs? No Information not available 12/11/2024 Sex: Unknown Functional Status None recorded. Mental Status None recorded. Family History Relationship Description Onset Age of this Age Resolved Age Notes LastModified by Organization Details LastModified Time Mother Rheumatic fever Not available 2024 01:27:52 Mother Malignant tumor of colon Not available 2024 01:28:07 Mother Malignant tumor of ovary Not available 2024 01:28:17 Mother Hypertensive disorder Not available 2024 01:28:29 Father Hypertensive disorder Not available 2024 01:28:29 Father Neoplasm of brain Not available 2024 01:29:03 Brother Myocardial infarction Not available 12/11 01:29:11 Medical History Condition Response Osteoarthritis / DJD Y Urinary Tract Infection (UTI) Y Atrial Fibrillation Y Glaucoma Y COPD Y Pulmonary Hypertension Y Vitamin D Deficiency Y GERD / Reflux Y Myocardial Infarction (DE) Y Loss of Hearing / Deafness Y Cancer -- Breast Y Hypertension Y Gynecological HistoryNo gynecological history recorded. Obstetrics History GPAL:G 0 P 0 0 0 0 Past Encounters Encounter ID Performer Location Encounter Start Date Encounter Closed Date Diagnosis/Indication Diagnosis SNOMED-CT Code Diagnosis ICD10 Code Diagnosis Note [id number] Deisi Rodriguez, [address] [address] 12/10/2024 06:24:48 12/29/2024 02:14:52 Osteoarthritis of knee 793781320 M17.9 s/p elective right total knee replacemen t 12/05/[address] Elaine moon wound care - current dressing to remain x 7 daysice packs/elev ation/WBAT RLEcontinu e pain control with prn tylenol and norcoconti nue therapiesf /u with ortho as scheduled 12/30 Coronary arteriosclerosis 93995918 I25.10 history of cardiac stenting in 2013per stress test 10/2019, fixed anteroapic al defectShe is followed as an outpatient by Dr. Brayden sharif ASA, betablocke r therapy and statin Atrial fibrillation 4943 6004 I48.91 continue rate control with diltiazem and nebivololV TE prophylaxi s with eliquisout patient fu with cards as scheduled History of malignant neoplasm of breast 263605793 Z85.3 diagnosed in 2022, s/p lumpectomy and radiation therapycon tinue anastrozol econtinue outpatient f/u with Dr. Napier Hyperlipidemia 41178414 E78.5 presumed stable - continue statin therapy Anemia 907847193 D64.9 Hb per labs today = 10.8contin ue ferrous sulfatetre nd CBC Constipation 53181143 K5 9.00 continue routine miralax every other day and prn senna sadditiona l meds available per standing orders Vitamin D deficiency 347 90512 E55.9 continue replacemen t therapy Gastroesop hageal reflux disease without esophagitis 812753404 K21.9 continue omeprazole and prn zofran Chronic ob structive pulmonary disease 43954589 J44.9 not on routine inhalers - monitor for need Hypertensi ve renal disease 30905265 I12.9 on multi-drug therapy - continue Nebivolol, torsemide, diltiazemt rend pressures and adjust meds as clinically indicated Chronic ki 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 90147521 N25.81 continue fu with nephrology - she has been previously treated with calcitriol which has been discontinu ed due to side effects Liver enzy mes level above reference range 885049043 R74.01 alk phos and AST, ALT normal per pre-operat lsi labs 11/28/24 - will hold statin for now and repeat labs 12/16 - if continued up-trend, will d/c tylenol and norco and use oxycodone for pain control Physical deconditioning 0585368317 9102 R68.89 related to advanced age, recent right knee replacemen t, comorbidit iestherapi es are in place - monitor progresssh e will return home alone upon dc from [place] [id number] Carly Coleman NP [place] [address] [place] [address] 12/17/2024 12:29:30 12/29/2024 02:15:34 Osteoarthritis of knee 942776580 M17.9 s/p elective right total knee replacemen t on 12/05/[address] Min Malhotra.Co ntinue wound care - current dressing to remain x 7 days.Génesis nue ice packs/elev ation/WBAT RLE.Contin ue pain control with routine & PRN [place] & PRN tylenol.Co ntinue therapies and CPM.F/U with ortho as scheduled 12/30. Coronary arteriosclerosis 51178141 I25.10 History of cardiac stenting in 2013.Per stress test Oct, fixed anteroapic al defect.She is followed as an outpatient by Dr. Stafford.Cont inue ASA and Nebivolol. Statin is on hold due to elevated LFTs as above. Hypertensi ve renal disease 52033797 I12.9 on multi-drug therapy. Continue Nebivolol, Torsemide, and Diltiazem. Continue to trend blood pressures, monitor lytes and renal function, and adjust meds as clinically indicated. Atrial fibrillation 4943 6004 I48.91 Continue rate control with Diltiazem and Nebivolol. Continue VTE prophylaxi s with Eliquis. This is a long-term medication .Outpatien t f/u with Dr. Stafford cards as scheduled. History of malignant neoplasm of breast 186080581 Z85.3 Diagnosed in 2022, s/p lumpectomy and radiation therapy.Co ntinue Anastrozol e.Continue outpatient f/u with Dr. Napier. Hyperlipidemia 27290715 E78.5 Presumed stable. Statin is on hold as above for elevated LFTs. Anemia 925223742 D64.9 Hgb per labs here = 10.8.Génesis nue ferrous sulfate and trend CBC. Constipation 11398173 K5 9.00 Stable. Continue routine Miralax every other day and PRN senna s.Addition al meds available per standing orders. Vitamin D deficiency 347 28703 E55.9 Stable. Continue replacemen t therapy. Gastroesop hageal reflux disease without esophagitis 996064471 K21.9 Stable. Continue Omeprazole and PRN Zofran. Chronic ob structive pulmonary disease 16722596 J44.9 Not on routine inhalers. Monitor for need. Chronic ki dney disease 085930248 N18.9 Stage 3B with secondary hyperparat hyroidism per Dr. Zachary Gabriel' (nephrolog y) recent note.Recen t Cr trends from 1.3-2.0.Av oid additional nephrotoxi ns and monitor labs.F/U with Dr. Gabriel as OP. Hyperparat hyroidism due to renal insufficiency 07337973 N25.81 Continue f/u with Dr. Gabriel (nephrolog y).She has been previously treated with Calcitriol , which has been discontinu ed due to side effects. Liver enzy mes level above reference range 177578226 R74.01 Alk phos, AST, ALT were normal per pre-operat lis labs on 11/28/24. Now elevated.H olding statin for now with repeat labs ordered for 12/16. Does not appear these were drawn. Will reorder for AM.If LFTs continue up-trend, will d/c Tylenol and [place] and use Oxycodone for pain control. Physical deconditioning 7494563537 9102 R68.89 Related to advanced age, recent right knee replacemen t, comorbidit ies.Therap ies are in place - monitor progress.G oal is to return home alone upon d/c from . [id number] Carly Coleman NP [facility] [address] [place] [address] 12/20/2024 13:29:33 12/29/2024 02:16:25 Liver enzymes level above reference range 064380065 R74.01 Alk phos, AST, ALT were normal per pre-operat lis labs on 11/28/24. Now elevated.H olding statin for now. F/U LFTs have normalized . Pt desired tx with Diflucan so am completing this before re-evaluat ion for ability to add back statin. Osteoarthr itis of knee 413617975 M17.9 s/p elective right total knee replacemen t on 12/05/[address] Min Malhotra.Co ntinue wound care.Génesis nue ice packs/elev ation/WBAT RLE.Contin ue pain control with routine & PRN [place] & PRN tylenol. We discuss possibilit y of escalating to Oxycodone but she declines this measure, concerned may lead to confusion/ drowsiness . She plans to discuss further with her son but for now wants to keep her regimen as-is.Cont inue therapies and CPM.F/U with ortho as scheduled 12/30. Coronary arteriosclerosis 31698890 I25.10 History of cardiac stenting in 2013.Per stress test Oct, fixed anteroapic al defect.She is followed as an outpatient by Dr. Stafford.Cont inue ASA and Nebivolol. Statin is on hold due to elevated LFTs as above. Hypertensi ve renal disease 75976508 I12.9 on multi-drug therapy. Continue Nebivolol, Torsemide, and Diltiazem. Continue to trend blood pressures, monitor lytes and renal function, and adjust meds as clinically indicated. Atrial fibrillation 4943 6004 I48.91 Continue rate control with Diltiazem and Nebivolol. Continue VTE prophylaxi s with Eliquis. This is a long-term medication .Outpatien t f/u with Dr. Stafford cards as scheduled. Chronic ki dney disease 459493991 N18.9 Stage 3B with secondary hyperparat hyroidism per Dr. Zachary Gabriel' (nephrolog y) recent note.Recen t Cr trends from 1.3-2.0.Av oid additional nephrotoxi ns and monitor labs.F/U with Dr. Gabriel as OP. Hyperlipidemia 21811535 E78.5 Presumed stable. Statin is on hold as above for elevated LFTs. Anemia 596678091 D64.9 Hgb per labs here = 10.8.Génesis nue ferrous sulfate and trend CBC. Chronic ob structive pulmonary disease 02756345 J44.9 Not on routine inhalers. Monitor for need. 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 Gabriel (nephrolog y).She has been previously treated with Calcitriol , which has been discontinu ed due to side effects. Constipation 54898842 K5 9.00 Continue routine Miralax, increasing to daily per pt's request, and PRN senna s.Addition al meds available per standing orders. Gastroesop hageal reflux disease without esophagitis 805426513 K21.9 Stable. Continue Omeprazole and PRN Zofran. Vitamin D deficiency 347 97073 E55.9 Stable. Continue replacemen t therapy. History of malignant neoplasm of breast 391740299 Z85.3 Diagnosed in 2022, s/p lumpectomy and radiation therapy.Co ntinue Anastrozol e.Continue outpatient f/u with Dr. Napier. Physical deconditioning 4129683009 9102 R68.89 Related to advanced age, recent right knee replacemen t, comorbidit ies.Therap ies are in place - monitor progress.G oal is to return home alone upon d/c from . Candidiasis of vagina 72 565656 B37.31 Topical treatment ineffectiv e. Treating with Diflucan x 2 doses once confirmed LFTs have normalized . Will re-eval LFTs and rash next week. [id number] Carly Coleman NP [facility] [address] [place] [address] 12/23/2024 10:21:47 12/29/2024 02:17:42 Liver enzymes level above reference range 851435812 R74.01 Alk phos, AST, ALT were normal per pre-operat lis labs on 11/28/24. Now elevated.H olding statin for now. F/U LFTs have normalized . Pt desired tx with Diflucan so am completing this before re-evaluat ion for ability to add back statin. Candidiasis of vagina 72 248489 B37.31 Topical treatment ineffectiv e. Treating with Diflucan x 2 doses once confirmed LFTs have normalized . Will re-eval LFTs and rash next week. Osteoarthr itis of knee 518106924 M17.9 s/p elective right total knee replacemen t on 12/05/[address] Min Malhotra.Co ntinue wound care.Génesis nue ice packs/elev ation/WBAT RLE.Contin ue pain control with routine & PRN [place] & PRN tylenol. We discuss possibilit y of escalating to Oxycodone but she declines this measure, concerned may lead to confusion/ drowsiness . She plans to discuss further with her son but for now wants to keep her regimen as-is.Cont inue therapies and CPM.F/U with ortho as scheduled 12/30. Coronary arteriosclerosis 99863378 I25.10 History of cardiac stenting in 2013.Per stress test Oct, fixed anteroapic al defect.She is followed as an outpatient by Dr. Stafford.Cont inue ASA and Nebivolol. Statin is on hold due to elevated LFTs as above. Hypertensi ve renal disease 25084077 I12.9 on multi-drug therapy. Continue Nebivolol, Torsemide, and Diltiazem. Continue to trend blood pressures, monitor lytes and renal function, and adjust meds as clinically indicated. Atrial fibrillation 4943 6004 I48.91 Continue rate control with Diltiazem and Nebivolol. Continue VTE prophylaxi s with Eliquis. This is a long-term medication .Outpatien t f/u with Dr. Stafford (cards) as scheduled. Chronic ki dney disease 728030145 N18.9 Stage 3B with secondary hyperparat hyroidism per Dr. Zachary Gabriel' (nephrolog y) recent note.Recen t Cr trends from 1.3-2.0.Av oid additional nephrotoxi ns and monitor labs.F/U with Dr. Gabriel as OP. Hyperlipidemia 87641705 E78.5 Presumed stable. Statin is on hold as above for elevated LFTs. Anemia 561961991 D64.9 Hgb per labs here = 10.8.Génesis nue ferrous sulfate and trend CBC. Chronic ob structive pulmonary disease 96342094 J44.9 Not on routine inhalers. Monitor for need. 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 Gabriel (nephrolog y).She has been previously treated with Calcitriol , which has been discontinu ed due to side effects. Constipation 78858521 K5 9.00 Continue routine Miralax, increasing to daily per pt's request, and PRN senna s.Addition al meds available per standing orders. Gastroesop hageal reflux disease without esophagitis 599667461 K21.9 Stable. Continue Omeprazole and PRN Zofran. Vitamin D deficiency 347 20439 E55.9 Stable. Continue replacemen t therapy. History of malignant neoplasm of breast 056428102 Z85.3 Diagnosed in 2022, s/p lumpectomy and radiation therapy.Co ntinue Anastrozol e.Continue outpatient f/u with Dr. Napier. Physical deconditioning [id number] 9102 R68.89 Related to advanced age, recent right knee replacemen t, comorbidit ies.Therap ies are in place - monitor progress.G oal is to return home alone upon d/c from . [id number] Carly Coleman NP [address] [place] [address] 12/25/2024 09:33:33 01/05/2025 11:09:37 Osteoarthritis of knee [id number] M17.9 s/p elective right total knee replacemen t on 12/05/[address] Min Malhotra.Co ntinue wound care.Génesis nue ice packs/elev ation/WBAT RLE.Contin ue pain control with routine & PRN [place] & PRN tylenol. We discussed possibilit y of escalating to Oxycodone but she declines this measure, concerned may lead to confusion/ drowsiness .Continue therapies. She has graduated from the use of CPM as she has met flexion goal.F/U with ortho as scheduled 12/30. Hypertensi ve renal disease 69653519 I12.9 on multi-drug therapy. Continue Nebivolol, Torsemide, and Diltiazem. Continue to trend blood pressures, monitor lytes and renal function, and adjust meds as clinically indicated. Atrial fibrillation 4943 6004 I48.91 Continue rate control with Diltiazem and Nebivolol. Continue VTE prophylaxi s with Eliquis. This is a long-term medication .Outpatien t f/u with Dr. Stafford (cards) as scheduled. Chronic ki dney disease 581670180 N18.9 Stage 3B with secondary hyperparat hyroidism per Dr. Zachary Gabriel' (nephrolog y) recent note.Recen t Cr trends from 1.3-2.0.Av oid additional nephrotoxi ns and monitor labs.F/U with Dr. Gabriel as OP. Liver enzy mes level above reference range 688163462 R74.01 Alk phos, AST, ALT were normal per pre-operat lis labs on 11/28/24. Elevated upon arrival here.Stopp ed her statin and they have since normalized , even with tx of Diflucan.C ontinue to trend CMP and add back statin as able. Coronary arteriosclerosis 12907440 I25.10 History of cardiac stenting in 2013.Per stress test Oct, fixed anteroapic al defect.She is followed as an outpatient by Dr. Stafford.Cont inue ASA and Nebivolol. Statin is on hold due to elevated LFTs as above. Hyperlipidemia 32691106 E78.5 Presumed stable. Statin is on hold as above for elevated LFTs. Anemia 616920259 D64.9 Hgb per labs here = 9.5-10.8.C ontinue ferrous sulfate and trend CBC. Chronic ob structive pulmonary disease 00480073 J44.9 Not on routine inhalers. Monitor for need. 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 Gabriel (nephrolog y).She has been previously treated with Calcitriol , which has been discontinu ed due to side effects. Constipation 35969115 K5 9.00 Continue routine Miralax and PRN senna s.Addition al meds available per standing orders. Candidiasis of vagina 72 026764 B37.31 Topical treatment ineffectiv e. Treated with Diflucan x 2 doses with resolution . Continue supportive measures. Gastroesop hageal reflux disease without esophagitis 308161464 K21.9 Stable. Continue Omeprazole and PRN Zofran. Vitamin D deficiency 347 07945 E55.9 Stable. Continue replacemen t therapy. History of malignant neoplasm of breast 749347082 Z85.3 Diagnosed in 2022, s/p lumpectomy and radiation therapy.Co ntinue Anastrozol e.Continue outpatient f/u with Dr. Napier. Physical deconditioning 6028613334 9102 R68.89 Related to advanced age, recent right knee replacemen t, comorbidit ies.Therap ies are in place - monitor progress.G oal is to return home alone upon d/c from . [id number] Deisi Rodriguez DO [address] [place] [address] 12/29/2024 11:22:20 01/05/2025 05:09:24 Osteoarthritis of knee 980650113 M17.9 s/p elective right total knee replacemen t on 12/05/[address] Min Malhotra.Co ntinue wound care/WBAT RLEContinu e pain control with PRN [place] & PRN tylenolCon tinue therapies. F/U with ortho as scheduled 12/30. Hypertensi ve renal disease 16032329 I12.9 on multi-drug therapy. Continue Nebivolol, Torsemide, and Diltiazem. Blood pressures have been stable since admission to Atrial fibrillation 4943 6004 I48.91 Continue rate control with Diltiazem and Nebivolol. Continue VTE prophylaxi s with Eliquis.Ou tpatient f/u with [facility] ([facility] as scheduled. Chronic ki dney disease 549570164 N18.9 Stage 3B with secondary hyperparat hyroidism per Dr. Zachary Gabriel' (nephrolog y) recent note.Recen t Cr trends from 1.2-2.0.F/ U with Dr. Gabriel as scheuduled Liver enzy mes level above reference range 336629102 R74.01 Alk phos, AST, ALT were normal per pre-operat lis labs on 11/28/24. Elevated upon arrival here.Stopp ed her statin and they have since normalized continue statin daily Coronary arteriosclerosis 97651013 I25.10 History of cardiac stenting in 2013.Per stress test Oct, fixed anteroapic al defect.She is followed as an outpatient by Dr. Stafford.Cont inue ASA, Nebivolol and atorvastat in Hyperlipidemia 17941579 E78.5 Presumed stable. 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 Gabriel (nephrolog y).She has been previously treated with Calcitriol , which has been discontinu ed due to side effects. Constipation 44913906 K5 9.00 Continue routine MiralaxAdd itional meds available per standing orders. Gastroesop hageal reflux disease without esophagitis 484314241 K21.9 Stable. Continue Omeprazole - d/c'ing prn zofran as the patient has not required Vitamin D deficiency 347 69445 E55.9 Stable. Continue replacemen t therapy. Candidiasis of vagina 72 436583 B37.31 Topical treatment ineffectiv e. Treated with Diflucan x 2 doses with resolution . Continue supportive measures. History of malignant neoplasm of breast 397215143 Z85.3 Diagnosed in 2022, s/p lumpectomy and radiation therapy.Co ntinue Anastrozol e.Continue outpatient f/u with Dr. Napier. Health Concerns Section Related Observation LastModified by Organization Detai ls LastModified Time None Recorded Concern Status LastModified by Organization Details LastModified Time None Recorded Advance Directives Directive None Recorded Payers Encounter Date Sequence Insurance Name Policy Number Policy Ramesh Covered Member ID Ramesh Member ID Guarantor Name 12/17/2024 2 [employer] [place] (MEDICARE SUPPLEMENT) Mago K Legate [id number] Mago K Legate 12/17/2024 1 [place] Mago K Legate [id number] Mago K Legate 12/20/2024 2 [employer] (MEDICARE SUPPLEMENT) Mago K Legate [id number] Mago K Legate 12/20/2024 1 [place] Mago K Legate [id number] Mago K Legate 12/23/2024 2 [employer] [place]ARE [place]PP[place]) Mago K Legate [id number] Mago K Legate 12/23/2024 1 [place] Mago K Legate [id number] Mago K Legate 12/25/2024 2 [employer] [place] (MEDICARE [place]PP[place]) Mago K Legate [id number] Mago K Legate 12/25/2024 1 [place] Mago K Legate [id number] Mago K Legate 12/29/2024 2 [employer] [place] (MEDICARE SUPPLEMENT) Mago K Legate [id number] Mago K Legate 12/29/2024 1 [place] Mago Krueger Legate [id number] Mago Evans Legate Notes Date Note Type Note Provider Name and Address Organization Details Recorded Time 12/17/2024 text/html F/U elective rig ht knee replacement, post-operative pain, and chronic medical conditions.---Mago is a good historian. She is lying in bed this evening with ice to her knee. Pain is tolerable - she is doing well with therapy. No nursing concerns.---12/17/24 justus is lying in bed, positioning herself into a CPM machine with the help of therapy. She reports frustration that she received only 1 tab of [place] this morning before therapy rather than the 2 she requested. Have given okay for nursing to schedule 2 tabs in the mornings. Otherwise her PRN dosing of [place] is 1-2 tabs. She continues with poor extension per therapy but good flexion of her knee. VSS. Staff is without concerns. Per 12/16 therapy notes: Patient measured -15 to 75 degrees of extension. CPM set up today with staff to -10 to 80 degrees - 2 hours per day. Patient ambulated 30 feet on level surfaces with a FWW, requiring CGA. Patient required cueing for heel/toe gait pattern and weight shifting onto R LE. Patient performed sit to stand and pivot transfers requiring CGA. Carly Coleman, [address] [place], [address], [facility] 12/17/2024 15:22:43 12/20/2024 text/html F/U elective rig ht knee replacement, post-operative pain, and chronic medical conditions.---Mago is a good historian. She is lying in bed this evening with ice to her knee. Pain is tolerable - she is doing well with therapy. No nursing concerns.---12/17/24 justus is lying in bed, positioning herself into a CPM machine with the help of therapy. She reports frustration that she received only 1 tab of [place] this morning before therapy rather than the 2 she requested. Have given okay for nursing to schedule 2 tabs in the mornings. Otherwise her PRN dosing of [place] is 1-2 tabs. She continues with poor extension per therapy but good flexion of her knee. VSS. Staff is without concerns. Per 12/16 therapy notes: Patient measured -15 to 75 degrees of extension. CPM set up today with staff to -10 to 80 degrees - 2 hours per day. Patient ambulated 30 feet on level surfaces with a FWW, requiring CGA. Patient required cueing for heel/toe gait pattern and weight shifting onto R LE. Patient performed sit to stand and pivot transfers requiring CGA. ---12/20/24Sajuanito is seated in her recliner in her room, having just transferred herself standby so that she can have the ice pack applied to her knee by a EQUIPMENT INSPECTOR. She continues to report uncontrolled knee pain despite taking Lost [place]. She notes that, unfortunately due to timing, she did not get her routine Lost [place] until after therapy came and got her for her session. I discuss with nursing if they could make her their first med pass in the morning, this should help her receive the medication early on and that therapy can then coordinate her session with that. They will pass this on in report. We discuss a possible escalation in medication from [place] to Oxycodone and that this would allow us to schedule her Tylenol around the clock. She is nervous about taking Oxycodone as she is afraid that it will make her confused and drowsy. She does not recall a time that she has taken this medicine before and that this has occurred, but her concern is still there. For now, she wants to keep her regimen the same, but she does plan to discuss this further with her son this afternoon. She reports an improvement in her vaginal candidiasis after having received one dose of Diflucan. She will receive one more dose. VSS. Staff is without concerns. Per today's therapy notes: Conducted gait training with FWW 125' x 2 and 100' x 1 CGA to SBA pt requires cues and encouragement for toe off and heel strike to facilitate flexion during swing phase. pt also encouraged to walk to dine with staff. Carly Coleman, [address] [address] [place], [address], [facility] 12/21/2024 13:53:09 12/23/2024 text/html F/U elective rig ht knee replacement, post-operative pain, and chronic medical conditions.---Mago is a good historian. She is lying in bed this evening with ice to her knee. Pain is tolerable - she is doing well with therapy. No nursing concerns.---12/17/24 justus is lying in bed, positioning herself into a CPM machine with the help of therapy. She reports frustration that she received only 1 tab of [place] this morning before therapy rather than the 2 she requested. Have given okay for nursing to schedule 2 tabs in the mornings. Otherwise her PRN dosing of [place] is 1-2 tabs. She continues with poor extension per therapy but good flexion of her knee. VSS. Staff is without concerns. Per 12/16 therapy notes: Patient measured -15 to 75 degrees of extension. CPM set up today with staff to -10 to 80 degrees - 2 hours per day. Patient ambulated 30 feet on level surfaces with a FWW, requiring CGA. Patient required cueing for heel/toe gait pattern and weight shifting onto R LE. Patient performed sit to stand and pivot transfers requiring CGA. ---12/20/24Betsy is seated in her recliner in her room, having just transferred herself standby so that she can have the ice pack applied to her knee by a EQUIPMENT INSPECTOR. She continues to report uncontrolled knee pain despite taking [place]. She notes that, unfortunately due to timing, she did not get her routine Lost [place] until after therapy came and got her for her session. I discuss with nursing if they could make her their first med pass in the morning, this should help her receive the medication early on and that therapy can then coordinate her session with that. They will pass this on in report. We discuss a possible escalation in medication from [place] to Oxycodone and that this would allow us to schedule her Tylenol around the clock. She is nervous about taking Oxycodone as she is afraid that it will make her confused and drowsy. She does not recall a time that she has taken this medicine before and that this has occurred, but her concern is still there. For now, she wants to keep her regimen the same, but she does plan to discuss this further with her son this afternoon. She reports an improvement in her vaginal candidiasis after having received one dose of Diflucan. She will receive one more dose. VSS. Staff is without concerns. Per today's therapy notes: Conducted gait training with FWW 125' x 2 and 100' x 1 CGA to SBA pt requires cues and encouragement for toe off and heel strike to facilitate flexion during swing phase. pt also encouraged to walk to dine with staff. ---12/23/24Sa juanito is doing well today, reports an improvement in her pain since we last spoke and that she has been pushing herself a little harder as I really don't want to have to take that Oxycodone. She notes she graduated from the CPM machine today as her flexion is at goal. Her extension remains with room for improvement. She is in good spirits and motivated. VSS. Staff is without concerns today. Per today's therapy notes: Conducted gait training with FWW 150' CGA cues for heel strike and toe off; encouragement for R knee flexion. pt encouraged to do walking program. Seated R knee flexion 105 degrees -20 degrees of ext Carly Coleman, [employer]OCK [employer]SEMBLER [address] [place], [address], [facility] 12/23/2024 17:15:29 12/25/2024 text/html F/U elective rig ht knee replacement, post-operative pain, and chronic medical conditions.---Mago is a good historian. She is lying in bed this evening with ice to her knee. Pain is tolerable - she is doing well with therapy. No nursing concerns.---12/17/24 justus is lying in bed, positioning herself into a CPM machine with the help of therapy. She reports frustration that she received only 1 tab of [place] this morning before therapy rather than the 2 she requested. Have given okay for nursing to schedule 2 tabs in the mornings. Otherwise her PRN dosing of [place] is 1-2 tabs. She continues with poor extension per therapy but good flexion of her knee. VSS. Staff is without concerns. Per 12/16 therapy notes: Patient measured -15 to 75 degrees of extension. CPM set up today with staff to -10 to 80 degrees - 2 hours per day. Patient ambulated 30 feet on level surfaces with a FWW, requiring CGA. Patient required cueing for heel/toe gait pattern and weight shifting onto R LE. Patient performed sit to stand and pivot transfers requiring CGA. ---12/20/24Sajuanito is seated in her recliner in her room, having just transferred herself standby so that she can have the ice pack applied to her knee by a EQUIPMENT INSPECTOR. She continues to report uncontrolled knee pain despite taking [place]. She notes that, unfortunately due to timing, she did not get her routine Lost [place] until after therapy came and got her for her session. I discuss with nursing if they could make her their first med pass in the morning, this should help her receive the medication early on and that therapy can then coordinate her session with that. They will pass this on in report. We discuss a possible escalation in medication from [place] to Oxycodone and that this would allow us to schedule her Tylenol around the clock. She is nervous about taking Oxycodone as she is afraid that it will make her confused and drowsy. She does not recall a time that she has taken this medicine before and that this has occurred, but her concern is still there. For now, she wants to keep her regimen the same, but she does plan to discuss this further with her son this afternoon. She reports an improvement in her vaginal candidiasis after having received one dose of Diflucan. She will receive one more dose. VSS. Staff is without concerns. Per today's therapy notes: Conducted gait training with FWW 125' x 2 and 100' x 1 CGA to SBA pt requires cues and encouragement for toe off and heel strike to facilitate flexion during swing phase. pt also encouraged to walk to dine with staff. ---12/23/24Sa juanito is doing well today, reports an improvement in her pain since we last spoke and that she has been pushing herself a little harder as I really don't want to have to take that Oxycodone. She notes she graduated from the CPM machine today as her flexion is at goal. Her extension remains with room for improvement. She is in good spirits and motivated. VSS. Staff is without concerns today. Per today's therapy notes: Conducted gait training with FWW 150' CGA cues for heel strike and toe off; encouragement for R knee flexion. pt encouraged to do walking program. Seated R knee flexion 105 degrees -20 degrees of ext ---12/25/24Sajuanito is seated in her w/c in the common area, waiting for her room to be cleaned. She is doing well, without concerns to report today and is happy with her continued progress with therapy. While she still remains having pain, she notes it is improving slowly and overall is well-controlled. She notes having a dose scheduled first thing int he morning has been especially helpful for therapy. VSS. Staff is without concerns for her today. Per today's therapy notes: Conducted gait training with FWW 200' x 2 SBA cues for knee flexion; heel strike and toe off; pt tends to circumduct. Carly Coleman, [address] [place], [address], [facility] 12/25/2024 14:58:44 12/29/2024 text/html 84 Y/O pleasant female with a history of CAD, atrial fibrillation, HTN, HLD, GERD, CKD stage 3B, breasts cancer, COPD and OA admitted to [facility] for post acute rehab subsequent to an inpatient stay at [facility] 12/05-12/09/2024 for an elective right knee replacement per Dr. Hammond due to end stage OA. The patient had an uneventful post operative course. Pain is controlled with prn norco. New medications: ferrous sulfate, norco, vitamin C, zofran and senna sdose adjusted / discontinued medications: NONE Rehab course:---12/10/24Sa jelena is a good historian. She is lying in bed this evening with ice to her knee. Pain is tolerable - she is doing well with therapy. No nursing concerns.---12/17/24 justus is lying in bed, positioning herself into a CPM machine with the help of therapy. She reports frustration that she received only 1 tab of [place] this morning before therapy rather than the 2 she requested. Have given okay for nursing to schedule 2 tabs in the mornings. Otherwise her PRN dosing of [place] is 1-2 tabs. She continues with poor extension per therapy but good flexion of her knee. VSS. Staff is without concerns. Per 12/16 therapy notes: Patient measured -15 to 75 degrees of extension. CPM set up today with staff to -10 to 80 degrees - 2 hours per day. Patient ambulated 30 feet on level surfaces with a FWW, requiring CGA. Patient required cueing for heel/toe gait pattern and weight shifting onto R LE. Patient performed sit to stand and pivot transfers requiring CGA. ---12/20/24Sanddeonna is seated in her recliner in her room, having just transferred herself standby so that she can have the ice pack applied to her knee by a EQUIPMENT INSPECTOR. She continues to report uncontrolled knee pain despite taking [place]. She notes that, unfortunately due to timing, she did not get her routine [place] until after therapy came and got her for her session. I discuss with nursing if they could make her their first med pass in the morning, this should help her receive the medication early on and that therapy can then coordinate her session with that. They will pass this on in report. We discuss a possible escalation in medication from [place] to Oxycodone and that this would allow us to schedule her Tylenol around the clock. She is nervous about taking Oxycodone as she is afraid that it will make her confused and drowsy. She does not recall a time that she has taken this medicine before and that this has occurred, but her concern is still there. For now, she wants to keep her regimen the same, but she does plan to discuss this further with her son this afternoon. She reports an improvement in her vaginal candidiasis after having received one dose of Diflucan. She will receive one more dose. VSS. Staff is without concerns. Per today's therapy notes: Conducted gait training with FWW 125' x 2 and 100' x 1 CGA to SBA pt requires cues and encouragement for toe off and heel strike to facilitate flexion during swing phase. pt also encouraged to walk to dine with staff. ---12/23/24Sa juanito is doing well today, reports an improvement in her pain since we last spoke and that she has been pushing herself a little harder as I really don't want to have to take that Oxycodone. She notes she graduated from the CPM machine today as her flexion is at goal. Her extension remains with room for improvement. She is in good spirits and motivated. VSS. Staff is without concerns today. Per today's therapy notes: Conducted gait training with FWW 150' CGA cues for heel strike and toe off; encouragement for R knee flexion. pt encouraged to do walking program. Seated R knee flexion 105 degrees -20 degrees of ext ---12/25/24Sanddeonna is seated in her w/c in the common area, waiting for her room to be cleaned. She is doing well, without concerns to report today and is happy with her continued progress with therapy. While she still remains having pain, she notes it is improving slowly and overall is well-controlled. She notes having a dose scheduled first thing in the morning has been especially helpful for therapy. VSS. Staff is without concerns for her today. Per today's therapy notes: Conducted gait training with FWW 200' x 2 SBA cues for knee flexion; heel strike and toe off; pt tends to circumduct. ---12/29Sanddeonna is being seen in anticipation of discharge to home 12/30/24. She is doing well, walking up and down the hallways today with her WW. She has f/u scheduled with orthopedics tomorrow, has ordered a W/C for home use and has a WW being delivered to prior to discharge. No new complaints or concerns today. No nursing concerns. Deisi Rodriguez, [id number] [facility], [place], [id number], [facility] 12/30/2024 05:02:30 OBGyn Episode No OBEpisode recorded.
--- OUTSIDE RECORDS SUMMARY | 2025-01-14 17:27 | XMS_ITS | Referral Summary ---
Author Organization [facility] Address [address] [place] [address] Care Team Providers Care Apparel Cutter Name Role Phone Stas Stafford MD Unavailable [phone] Zachary Gabriel MD Unavailable [phone] [facility] MD PhD Unavailable [phone] [facility] Un[facility] Latesha Munroe NP Primary Care Provider Javan Puente NP Unavailable [phone] Encounters Date Type Department Care Team Description 01/05/2025 Results Follow-Up [facility] at [address] [address] Vu Berg NP 01/03/2025 2:10 PM CDT - 01/03/2025 11:59 PM CDT Hospital Encounter [address] [address] Acute cystitis without hematuria Discharge Disposition: Discharge to home or self care 01/03/2025 2:00 PM CDT Office Visit [facility] at [address] [place] [address] Eula Patel PA Acute cystitis without hematuria (Primary Dx) 12/30/2024 11:15 AM CDT Telemedicine [facility] [address] [place] [address] [address] [place] [address] Stu Roman PA S/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 12/05/2024 8:45 AM BELT GLASS SANDER - 12/05/2024 11:15 AM BELT GLASS SANDER Surgery [facility] Operating Room [address] [place] [address] Min Malhotra MD Right total knee arthroplasty with robotic assistance 12/05/2024 9:01 AM BELT GLASS SANDER Anesthesia Event [facility] Operating Room [address] [place] [address] Erin Dickinson MD 11/28/2024 8:45 AM BELT GLASS SANDER Lab [facility] [place] [facility] [address] [facility] [address] [place] [address] Malignant neoplasm of upper-outer quadrant of left breast in female, estrogen receptor positive (HCC) 11/28/2024 9:15 AM BELT GLASS SANDER Office Visit [facility] On[facility] [address] [place] [address] Medical Office [address] [place] [address] Ava Pimentel NP Malignant neoplasm of upper-outer quadrant of left breast in female, estrogen receptor positive (HCC) (Primary Dx) 11/25/2024 Telephone [facility] [address] [facility] [address] [place] [address] Jimi Dumont MA 11/21/2024 Orders Only [facility] [address] [place] [address] [address] [place] [address] Min Malhotra MD Primary osteoarthritis of right knee (Primary Dx) 11/12/2024 1:15 PM BELT GLASS SANDER Office Visit [facility] [address] [place] [address] [address] [place] [address] Radha Vidales NP Calculus of gallbladder with chronic cholecystitis without obstruction (Primary Dx) 11/06/2024 12:24 PM BELT GLASS SANDER - 11/06/2024 11:59 PM BELT GLASS SANDER Hospital Encounter [facility] Imaging Center [address] [place] [address] Pre-op testing Discharge Disposition: Discharge to home or self care 11/06/2024 12:23 PM BELT GLASS SANDER - 11/06/2024 11:59 PM BELT GLASS SANDER Hospital Encounter [facility] Cardiology [address] [place] [address] Pre-op testing Discharge Disposition: Discharge to home or self care 11/06/2024 12:20 PM BELT GLASS SANDER Lab [address] [address] Pre-op testing 11/01/[address] [place] [address] José Manuel Arroyo MA 10/30/2024 Telephone [facility] Orth[facility] Medicine [address] [place] [address] [address] [place] [address] Min Malhotra MD 10/28/2024 12:15 PM BELT GLASS SANDER - 10/28/2024 1:45 PM BELT GLASS SANDER Surgery [facility] Operating Room [address] [place] [address] Zaki Vazquez MD LAPAROSCOPIC CHOLECYSTECTOMY 10/28/2024 12:32 PM BELT GLASS SANDER Anesthesia Event [facility] Operating Room [address] [place] [address] Erin Dickinson MD Reynolds, Hector Russell MD 10/28/2024 10:32 AM BELT GLASS SANDER - 10/28/2024 3:25 PM BELT GLASS SANDER Hospital Encounter [facility] Operating Room [address] [place] [address] Zaki Vazquez MD Biliary calculus of other site without obstruction Discharge Disposition: Discharge to home or self care 10/25/2024 2:37 PM BELT GLASS SANDER - 10/25/2024 11:59 PM BELT GLASS SANDER Hospital Encounter [address] [address] Dysuria Discharge Disposition: Discharge to home or self care 10/25/2024 2:45 PM BELT GLASS SANDER Office Visit [facility] [place] [address] [facility] [address] [place] [address] Vu Berg NP Dysuria (Primary Dx); Acute midline thoracic back pain 10/18/2024 3:04 PM BELT GLASS SANDER - 10/18/2024 11:59 PM BELT GLASS SANDER Hospital Encounter [address] [address] Dysuria Discharge Disposition: Discharge to home or self care 10/18/2024 3:00 PM BELT GLASS SANDER Office Visit [facility] at [address] [place] [address] Eula Patel PA Dysuria (Primary Dx) from Last 3 Months Allergies Active Allergy Reactions Criticality Noted Date [...] mouth daily with breakfast 30 tablet 12/09/19 25 025 nitrofurantoin monohydrate (MACROBID) 100 mg capsuleIndications :Acute cystitis without hematuria Take 1 capsule (100 mg total) by mouth 2 (two) times a day for 5 days 10 capsule 01/04/20 25 025 Active Problems Problem Noted Date Diagnosed Date Status post total knee replacement, right 02/21/ 2025 Status post total right knee replacement 025 Acquired valgus deformity knee, right 09/02/2024 Malignant neoplasm of upper- outer quadrant of left breast in female, estrogen receptor positive 03/28/2024 Cancer Staging:Clinical stage from 04/04/2024:Stage IA(cT1b, cN0, cM0, G1, ER+, MA+, HER2-) - Signed by Mode Sanderson MD PhD on 04/04/2024 Pathologic stage from 05/24/2024:Stage IA(pT1c, pN0(sn), cM0, G2, ER+, MA+, HER2-) - Signed by Mode Sanderson MD PhD on 07/04/2024 Dysphagia 02/08/2023 Non-seasonal allergic rhinitis due to pollen Assessment & Plan (02/01/2023 11:10 AM CDT): - chronic, worse - has stopped all her antihistamines and allergy medications as they were not effective - advices to start taking nasal steroids Acute low back pain 08/24/2022 Assessment & Plan (08/24/2022 12:34 PM BELT GLASS SANDER): Tylenol as needed for pain. Prediabetes 10/05/2021 [...] 03/26/2019 Assessment & Plan (09/13/2022 12:20 PM BELT GLASS SANDER): - chronic, stable - most recent A1c [...] A1c Assessment & Plan (10/05/2021 9:48 AM BELT GLASS SANDER): - chronic, stable - most recent A1c [...] History Packs/day: 6 Cigarettes - quit after MT in 2013 - also got a lot of second hand smoking from her in past History of colon polyps 07/23/2021 Overview (09/07/2021): - colonoscopy on 09/05 - found one polyp, repeat in 5 years Family history of colon cancer in mother 021 Overview (07/23/2021): Added automatically from request for surgery [id number] Vitamin B12 deficiency 04/21/2021 Assessment & Plan [...] AM CDT): 06/03/2020 - Dr. Ziggy Contreras [facility] - patient has graduated from PT and [...] 11:26 AM CDT): Will follow up with WEDGER MACHINE. Ultrasound for monitoring in 6 months approximately [...] 05/18/2018 Assessment & Plan (09/13/2022 12:19 PM BELT GLASS SANDER): - chronic, stable - follows with nephrology [...] 08/11/2022 Assessment & Plan (08/24/2022 12:34 PM BELT GLASS SANDER): Increase water intake. Assessment & Plan (05/11/2022 [...] function Assessment & Plan (10/19/2020 12:19 PM BELT GLASS SANDER): - follows with nephrology Dr. Gabriel - [...] . Assessment & Plan (12/04/2019 7:43 AM BELT GLASS SANDER): Healthy BMI noted, encouraged to maintain current [...] through diet or supplement. Continue vitamin D3 61551 units once weekly. Acute cystitis without hematuria 07/24/2018 Overview (09/19/2018): 09/14/3018 Patient saw urology nurse practitioner at [facility]. Started Methenamine Hippurate 1 g BID with 500 mg vitamin C BID. Follow up in 1 year Assessment & Plan (08/24/2022 12:35 PM BELT GLASS SANDER): Will prescribe antibiotics, however will lower the [...] 12/27/2017 Assessment & Plan (10/05/2021 9:44 AM BELT GLASS SANDER): - chronic, recurrent condition, not at goal [...] day Assessment & Plan (09/13/2022 12:19 PM BELT GLASS SANDER): - chronic, stable - BP is well [...] 03/10/2022 Assessment & Plan (10/05/2021 9:46 AM BELT GLASS SANDER): - chronic, stable - BP is well controlled at this time with current medications - currently following with nephrology due to CKD stage 4 - currently on Bystolic 20mg, Cardizem 180mg daily - she is also on Spironolactone and Torsemide - continue current therapy - monitor eletrolytes regularly Assessment & Plan (10/19/2020 12:20 PM BELT GLASS SANDER): - BP is well controlled at this [...] stable Assessment & Plan (12/04/2019 7:41 AM BELT GLASS SANDER): Continue current medication Condition stable Assessment & [...] appointment. Assessment & Plan (09/21/2018 12:27 PM BELT GLASS SANDER): Hypertension is improving with treatment. Continue current [...] (05/15/2019 7:43 PM CDT): Continue vitamin D3 39197 units once weekly, Calcitrol 0.25 mcg daily. Assessment & Plan (03/21/2019 11:54 AM CDT): Continue vitamin D3 43932 units once weekly, Calcitrol 0.25 mcg daily. She will have vitamin-D level with next lab work for Nephrology. Assessment & Plan (04/08/2018 9:33 PM CDT): Plan to check Vitamin D level. Assessment & Plan (01/28/2018 1:57 PM CDT): Check Vitamin D level. History of myocardial infarction 03/02/2017 Assessment & Plan (04/21/2021 10:41 AM CDT): - hx of MT, s/p stent plaecment in 2013 - currently on lipitor 20mg daily, aspirin 81mg daily but not on beta abhi - goal LDL < 70 Lab Results Component Value Date LDLCALC 58 07/10/2020 - follows [facility] cardiology Dr. Stafford Assessment & Plan (07/10/2020 10:07 AM CDT): - hx of MT, s/p stent plaecment in 2013 - currently on lipitor 20mg daily, aspirin 81mg daily but bot on bet ablocker - follows [facility] cardiology Dr. Stafford Assessment & Plan (05/15/2017 2:15 PM CDT): Coronary artery disease is stable. Concerned of stress she is under with her and his outburst. Continue current treatment regimen. Dietary sodium restriction. Stop smoking. Cardiac status will be reassessed at her upcoming appt with Clinical Informatics Specialist.. Myocardial infarction 03/02/2017 Overview (02/26/2021): Overview: Myocardial infarction Last Assessment & Plan: Coronary artery disease is stable. Concerned of stress she is under with her and his outburst. Continue current treatment regimen. Dietary sodium restriction. Stop smoking. Cardiac status will be reassessed at her upcoming appt with Clinical Informatics Specialist.. 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 Assessment & Plan (12/04/2019 7:42 AM BELT GLASS SANDER): Will transition to xarelto, repeat INR next [...] month. Assessment & Plan (09/21/2018 12:25 PM BELT GLASS SANDER): Stable. Continue Bystolic 20 mg daily and [...] time Assessment & Plan (10/19/2020 12:21 PM BELT GLASS SANDER): - hx of CAD and hypertension - [...] 2019. Assessment & Plan (09/21/2018 12:27 PM BELT GLASS SANDER): Lipid abnormalities are improving with treatment. Last [...] the patient. Mitral regurgitation 02/05/2016 Atherosclerosis of [place] co ronary artery of [place] heart without angina pectoris 02/04/2016 Assessment & [...] Stafford Assessment & Plan (10/19/2020 12:25 PM BELT GLASS SANDER): - 10/2019 - Stress test - Mild, [...] - will check lipid panel - follows withc ardiology Assessment & Plan (06/25/2020 7:15 PM [...] Nolan Assessment & Plan (09/21/2018 12:26 PM BELT GLASS SANDER): -History of NSTEMI. stable. No chest pain today. -Continue Bystolic 20 mg daily, lisinopril 2.5 mg, triamterene-HCTZ 37.5-25 mg daily, diltiazem extended release 120 mg daily, aspirin 81 mg daily, atorvastatin 20 mg daily Continue care with Dr. Nolan Gastroesophageal reflux disease 03/01/2014 Assessment & Plan (10/05/2021 9:45 AM BELT GLASS SANDER): - chronic, stable - currently on omeprazole [...] knee Assessment & Plan (09/24/2021 11:06 AM BELT GLASS SANDER): - chronic, stable, not at goal - [...] 12/20/2018 Assessment & Plan (09/21/2018 12:25 PM BELT GLASS SANDER): Appears to be healing well. Recommended avoiding [...] counseling Assessment & Plan (09/21/2018 12:28 PM BELT GLASS SANDER): Offered counseling again for patient today. Encouraged her to go to therapist that either I recommended at her last office visit or Darren Magana in [place]. -Discussed ways to relieve stress. -offered medication, patient declines Poison la dermatitis 06/22/20182017 Endometrial hyperplasia 06/22/201802/14 Overview (06/22/2018): Endometrial thickness 7 mm on ultrasound. She was seen at [facility] by Dr. Hopkins who did an endometrial biopsy on 04/21/2017 which was negative. BMI 26.0-26.9,adult 01/28/2018 03/04/20 Assessment & Plan (09/21/2018 12:25 PM BELT GLASS SANDER): Continue physical activity and healthy diet Assessment [...] 018 Assessment & Plan (11/12/2017 8:20 PM BELT GLASS SANDER): Reviewed colonoscopy. Feel possibly related to diverticulosis. [...] urinary symptoms. She will be referred to [facility] physicians group at [facility] today. Assessment & Plan (05/15/2017 2:22 PM CDT): Has been stable. Current smoker 03/01/2014 06/22/2018 Overview (01/20/2017): Smoker Assessment & Plan (05/15/2017 2:24 PM CDT): Tobacco use is unchanged. Smoking cessation counseling was provided. Tobacco use will be reassessed at the next regular appointment. Immunizations Immunization Administration Dates Next Due Influenza, Quadrivalent, Hig h Dose, Preservative Free, Intrr 06/30/2022,06/25/2021,06/26/2020 Influenza, Trivalent, Adjuva nted, Intramuscular 06/19/2019 Influenza, Trivalent, High D ose, Split, Preservative Free, Intramuscular 08/16/2017,07/12/2016,07/05/2015,06/24,06/24/2014 Influenza, Trivalent, Preser vative Free, Intramuscular 07/31/2013 Influenza, Unspecified 06/16/2024,06/16/2018,10/2016 Pneumococcal Conjugate PCV 13 03/24/2016 Pneumococcal Polysaccharide PPV23 09/04/2014, Tdap 09/04/2014,09/04/2014 ZOSTER LIVE 02/12/2019,10/11/2018 ZOSTER Recombinant 02/12/2019,10/11/2018 Social History Tobacco Use Types Packs/Day Years Used Date Smoking Tobacco: Former Cigarettes Q uit: 2013 Smokeless Tobacco: Never Tobacco Cessation:Counseling Given: Not Answered Comments:Smoking History Packs/day: 6 Cigarettes Alcohol Use Standard Drinks/Week Comments Never 0 (1 standard drink = 0.6 oz pur e alcohol) [facility] yavaluities Answer Date Recorded In the past 12 months has e [employer], gas, oil, or water company threatened to [...] 12/06/2024 How often do you attend chur or yazidism services? 1 to 4 times per year 12/06/2024 Do you belong to any clubs o r organizations such as nondenominational groups, unions, fraternal or athletic groups, or [...] any time in the past 12 [facility], were you homeless or living in a assisted (including now)? No 12/06/2024 Personal Safety Answer Date Recorded Have you ever been in or are you currently in a harmful physical or emotional relationship or is someone making you feel afraid or unsafe? Denies 12/05/2024 Comments No Sex and Gender Information Value Date Recorded Sex Assigned at Not on file Legal Sex Female 1:46 AM BELT GLASS SANDER Gender Identity Not on file Sexual Orientation Not on file Occupation Industry Job Start Date Job End Date Retired Not on file Not on file Not on file Last Filed Vital Signs [...] 01/03/2025 2:10 PM CDT Plan of Treatment Not on file Medical Devices Implanted Type Area Visual Arts Teacher Device Identifier Shelf Expiration Date Model / Serial / Lot [employer] Attune Cruciate Retain Cementless Knee Right 5 Component Femoral [id number] - [id number] Implanted:Qty: 1 on 12/05/2024 by Min Malhotra MD at [facility] Right: Knee [employer] [id number] 03/15/2032 [id number] / / [id number] [employer] Insert Attune Right Medial Stabilized Size 5 10mm [id number] - [id number] Implanted:Qty: 1 on 12/05/2024 by Min Malhotra MD at [facility] Right: Knee [employer] 10/15/2032 [id number] / / [id number] [employer] Attune Fb Tib Base Sz 5 Por [id number] - [id number] Implanted:Qty: 1 on 12/05/2024 by Min Malhotra MD at [facility] Right: Knee [employer] 05/15/2034 [id number] / / [id number] Procedures Procedure Name Priority Date/Time Associated Diagnosis Comments URINE CULTURE Routine 01/03/2025 2:10 PM CDT Acute cystitis without hematuria POCT URINALYSIS DIPSTICK Routine 01/03/2025 2:09 PM CDT Acute cystitis without hematuria EGFR Routine 12/06/2024 7:26 AM BELT GLASS SANDER BASIC METABOLIC PANEL Routine 12/06/2024 7:26 AM BELT GLASS SANDER SURGICAL PATHOLOGY Routine 12/05/2024 1:33 PM BELT GLASS SANDER Primary osteoarthritis of right knee XR KNEE RIGHT 1 OR 2 VIEWS IP Routine 12/05/2024 11:42 AM BELT GLASS SANDER ANESTHESIA SPINAL BLOCK Routine 12/05/2024 9:20 AM BELT GLASS SANDER ARTHROPLASTY TOTAL KNEE 12/05/2024 8:35 AM BELT GLASS SANDER Primary osteoarthritis of right knee Special Needs Depuy Attune , Velys, NMES, CPM, Cooling unit, 1 liter beta rinse and aquamantys (overnight)< POTASSIUM LEVEL Routine 12/05/2024 7:20 AM BELT GLASS SANDER APTT STAT 12/05/2024 7:20 AM BELT GLASS SANDER PROTIME-INR STAT 12/05/2024 7:20 AM BELT GLASS SANDER EGFR Routine 11/28/2024 8:25 AM BELT GLASS SANDER Malignant neoplasm of upper-outer quadrant of left breast in female, estrogen receptor positive (HCC) DIFFERENTIAL AUTO Routine 11/28/2024 8:25 AM BELT GLASS SANDER Malignant neoplasm of upper-outer quadrant of left breast in female, estrogen receptor positive (HCC) CBC WITH AUTO DIFFERENTIAL Routine 11/28/2024 8:25 AM BELT GLASS SANDER Malignant neoplasm of upper-outer quadrant of left breast in female, estrogen receptor positive (HCC) COMPREHENSIVE METABOLIC PANEL Routine 11/28/2024 8:25 AM BELT GLASS SANDER Malignant neoplasm of upper-outer quadrant of left breast in female, estrogen receptor positive (HCC) CEA Routine 11/28/2024 8:25 AM BELT GLASS SANDER Malignant neoplasm of upper-outer quadrant of left breast in female, estrogen receptor positive (HCC) CANCER ANTIGEN 15-3 Routine 11/28/2024 8:25 AM BELT GLASS SANDER Malignant neoplasm of upper-outer quadrant of left breast in female, estrogen receptor positive (HCC) ECG 12-LEAD Routine 11/06/2024 1:11 PM BELT GLASS SANDER Pre-op testing XR CHEST PA LATERAL 2 VIEWS Schedule Routine, Read Routine (OP Routine) 11/06/2024 12:46 PM BELT GLASS SANDER Pre-op testing URINALYSIS, MICROSCOPIC ONLY Routine 11/06/2024 12:31 PM BELT GLASS SANDER Pre-op testing URINALYSIS AND REFLEX TO MICROSCOPIC AND CULTURE Routine 11/06/2024 12:31 PM BELT GLASS SANDER Pre-op testing EGFR Routine 11/06/2024 12:28 PM BELT GLASS SANDER Pre-op testing DIFFERENTIAL AUTO Routine 11/06/2024 12:28 PM BELT GLASS SANDER Pre-op testing CBC WITH AUTO DIFFERENTIAL Routine 11/06/2024 12:28 PM BELT GLASS SANDER Pre-op testing COMPREHENSIVE METABOLIC PANEL Routine 11/06/2024 12:28 PM BELT GLASS SANDER Pre-op testing SURGICAL PATHOLOGY Routine 10/28/2024 1:39 PM BELT GLASS SANDER Biliary calculus of other site without obstruction MA AN ELECTIVE ENDOTRACHEAL AIRWAY Routine 10/28/2024 12:49 PM BELT GLASS SANDER LAPAROSCOPIC CHOLECYSTECTOMY 10/28/2024 12:17 PM BELT GLASS SANDER Biliary calculus of other site without obstruction ECG 12-LEAD Routine 10/28/2024 11:17 AM BELT GLASS SANDER POTASSIUM, WHOLE BLOOD STAT 10/28/2024 11:15 AM BELT GLASS SANDER URINE CULTURE Routine 10/25/2024 2:52 PM BELT GLASS SANDER Dysuria POCT URINALYSIS DIPSTICK Routine 10/25/2024 2:51 PM BELT GLASS SANDER Dysuria POCT URINALYSIS DIPSTICK Routine 10/18/2024 3:07 PM BELT GLASS SANDER Dysuria URINE CULTURE Routine 10/18/2024 3:07 PM BELT GLASS SANDER Dysuria DEXA AXIAL SKELETON BONE DENSITY 1 OR MORE SITES Schedule Routine, Read Routine (OP Routine) 09/05/2024 11:26 AM BELT 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 SANDER 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 COLONOSCOPY 09/06/2021 9:21 AM BELT GLASS SANDER from Last 3 Months or Most Recently Relevant to Health Maintenance Results * (ABNORMAL) Urine culture Urine, bladder (01/03/2025 2:10 PM CDT) Report Final Report: Greater than or equal to 100,000 colonies/mL of Enterococcus faecalis (.) Comment:Testing performed by : [facility], [address] [facility], [place]., [address] Organism ENTEROCOCCUS FAECALIS JOLENE PATTERSON Urine, bladder 01/03/2025 2: 10 PM CDT 01/04/2025 2:59 AM CDT Narrative JOLENE PATTERSON - 01/06/2025 3:10 PM CDT Testing performed by [facility] Microbiology Laboratory ([phone]) Organism Antibiotic Method Susceptibility Enterococcus faecalis Ampicillin (KIRA) INTERPRETATIO N Susceptible Enterococcus faecalis Vancomycin (KIRA) INTERPRETATIO N Susceptible Enterococcus faecalis Linezolid (KIRA) INTERPRETATIO N Susceptible Enterococcus faecalis Doxycycline (KIRA) INTERPRETATIO N Resistant Enterococcus faecalis Nitrofurantoin (KIRA) INTERPRETAT ION Susceptible Eula ORTIZ LAB MICROBIOLOGY - GENERAL ORDERABLES Final Result JOLENE PATTERSON [id number] Department [place] [address] * (ABNORMAL) POCT urinalysis dipstick (01/03/2025 2:09 PM CDT) Pathologist [facility] Color, Urine, POC [place] Clarity, ur, POC Clear Clear Glucose, ur, POC 100.(A) Negative MG/DL Bilirubin, ur, POC Negative Negative, Small, Moderate, Large Ketones, ur, POC Negative Negative Specific [place], POC 1.005 1.003 - 1.030 Blood, ur, POC Negative Negative pH, ur, POC 5.0 5.0 - 8.0 Protein, ur, POC Negative Negative Urobilinogen, urine, POC 1.0 0.2 - 1.0 mg/dL Nitrite, ur, POC Positive(A) Negative Leukocytes, ur, POC Negative Negative Lot Number [id number] Urine 01/03/2025 2:09 PM CDT Eula ORTIZ POINT OF CARE TEST ORDERABLES Final Result * (ABNORMAL) eGFR (12/06/2024 7:26 AM BELT GLASS SANDER) Pathologist [facility] eGFR 40(L) >=60 mL/min/1. 73 m2 Comment: [...] last reviewed 2021. Blood 12/06/2024 7:26 AM BELT GLASS SANDER 12/06/2024 7:46 AM BELT GLASS SANDER us Javan Puente NP LAB BLOOD ORDERABLES Fin al Result [facility] ([place]) [address] [facility] Department [place] [address] * (ABNORMAL) Basic metabolic panel (12/06/2024 7:26 AM BELT GLASS SANDER) Sodium 135 135 - 145 mmol/L Potassium, pl 4.0 3.3 - 4.9 mmol/L [facility] ([place]) Chloride 103 97 - 110 mmol/L [facility] ([place]) CO2 22 22 - 32 mmol/L [facility] ([place]) Anion gap 9 2 - 15 mmol/L [facility] ([place]) BUN 20 6 - 25 mg/dL [facility] ([facility] Creatinine 1.32(H) 0.60 - 1.10 mg/dL [facility] ([place]) Glucose 132 70 - 199 mg/dL [facility] ([facility] Comment: Interpretive Data Fasting glucose [...] 2022. Calcium 8.6 8.5 - 10.3 mg/dL [facility] ([place]) Blood 12/06/2024 7:26 AM BELT GLASS SANDER 12/06/2024 7:46 AM BELT GLASS SANDER us Javan Be Cindi OPERATIONS SECTION MANAGER LAB BLOOD ORDERABLES Fin al Result [facility] ([facility] [address] [place] [address] [place] [address] * Surgical pathology (12/05/2024 1:33 PM BELT GLASS SANDER) Tissue (Bone Fragment(s),) 12/05/2024 9:54 AM BELT GLASS SANDER Narrative [facility] - 12/09/2024 4:07 PM BELT GLASS SANDER EPIC results best viewed via link to PDF [facility] Department of Pathology [address] [place] [id number] Note to Patients: This report may contain [...] Report Patient Name: PEDRO PABLO RECINOS Address: [address] [place] [address] [place] [address] Gender: F : 1940 (Age: 84) Service: Surgery Location: [facility] Hospital #: [id number] Patient Type: [facility] Taken: 12/05/2024 Received: 12/05/2024 Accessioned: 12/05/2024 Reported: [...] Description: The container is labeled PEDRO PABLO LEGATE and right knee . It is a [...] determined by the Surgical Pathology Department at [facility] as part of an ongoing quality compliance manager program and in compliance with federally mandated [...] characteristics determined by the Surgical Pathology Department [facility]. It has not been cleared or approved by the U. S. Food and Drug Administration. Note for decalcified specimens: This assay has not been validated on decalcified tissues. Results should be interpreted with caution given the possibility of false negativity on decalcified specimens us Min Malhotra MD LAB PATHOLOGY ORDERABLES Fin al Result [facility] ([facility]) [address] [place] [address] * XR Knee Right 1 or 2 Views (12/05/2024 11:42 AM BELT GLASS SANDER) Anatomical Region Laterality Modality Lower Extremities, Knee Right Computed Radiography 12/05/2024 2:15 PM BELT GLASS SANDER Narrative 12/05/2024 2:18 PM BELT GLASS SANDER EXAM DESCRIPTION: XR KNEE RIGHT 1 OR [...] Miguel Elkins M.D. AM: AM Report ID: [id number] Reading Location: [id number] Procedure Note Miguel Elkins MD - 12/05/2024 [...] Miguel Elkins M.D. AM: AM Report ID: [id number] Reading Location: [id number] Javanloretta Be Cindi OPERATIONS SECTION MANAGER IMG XR PROCEDURES Final Result * Spinal Block (12/05/2024 9:20 AM BELT GLASS SANDER) Narrative Adan Singh CRNA - 12/05/2024 9:20 AM BELT GLASS SANDER Adan Singh CRNA 12/05/2024 9:20 AM Spinal Block Patient location: OR End time: 12/05/2024 9:10 AM Reason for block: primary anesthetic Staff: Supervising provider: Erin Dickinson MD Placed by: GREASE RACK WORKER:Adan Singh CRNA Procedure prep: Preprocedure checklist: patient [...] patient tolerated procedure well with no complications Result [facility] Erin Dickinson MD ANESTHESIA ORDERABLES Fi nal Result * aPTT (12/05/2024 7:20 AM BELT GLASS SANDER) aPTT 34 28 - 38 sec [facility] Comment: Interpretive Data Heparin therapeutic range: 66.0 - 100.0 seconds. Range based on correlation with therapeutic heparin activity range of 0.3 - 0.7 Units/mL. Current interpretive data was last revised on 2023. Blood 12/05/2024 7:20 AM BELT GLASS SANDER 12/05/2024 7:22 AM BELT GLASS SANDER Erin Dickinson MD LAB BLOOD ORDERABLES Fin al Result [facility] ([place]) [address] [facility] [place] [address] * Protime-INR (12/05/2024 7:20 AM BELT GLASS SANDER) Pathologist [facility] PT 10.6 9.7 - 13.0 sec [facility] INR 0.98 0.90 - 1.20 [facility] ([place]) Comment: Interpretive data Oral anticoagulant therapeutic ranges: Venous thromboembolism prophylaxis or treatment: 2.0-3.0 CARDIOLOGY Standard range: 2.0-3.0 High-intensity range: 2.5-3.5 Refer to indication-specific guidelines for appropriate target ranges for prosthetic heart valve replacement. Current interpretive data was last revised on 2019. Blood 12/05/2024 7:20 AM BELT GLASS SANDER 12/05/2024 7:22 AM BELT GLASS SANDER Erin Dickinson MD LAB BLOOD ORDERABLES Fin al Result Performing Organization Address City/[facility]/ZIP Co de Phone Number [facility] ([place]) 1 [facility] [place] [place] [address] * Potassium (12/05/2024 7:20 AM BELT GLASS SANDER) [facility] Potassium, pl 3.9 3.3 - 4.9 mmol/L Blood 12/05/2024 7:20 AM BELT GLASS SANDER 12/05/2024 7:22 AM BELT GLASS SANDER Erin Dickinson MD LAB BLOOD ORDERABLES Fin al Result [facility] ([place]) [address] [facility] [place] [address] * (ABNORMAL) eGFR (11/28/2024 8:25 AM BELT GLASS SANDER) [facility] eGFR 48(L) >=60 mL/min/1. 73 m2 Comment: [...] was last reviewed 2021. Testing performed by: [facility], One [facility], [place], [address] Blood 11/28/2024 8:25 AM BELT GLASS SANDER 11/28/2024 8:58 AM BELT GLASS SANDER us Nidhi Powell OPERATIONS SECTION MANAGER LAB BLOOD ORDERABLES Final Re sult [facility] 1 [facility] Department [place] [address] * Differential, auto (11/28/2024 8:25 AM BELT GLASS SANDER) Neutrophil abs 2.3 1.5 - 6.5 K/cumm Comment:Testing performed by : [facility] [address], Medical Office [facility] [address], [place] [address] Imm gran abs 0.0 0.0 - 0.1 K/cumm [facility] ([place]) Comment:Testing performed by : [facility] [address], Medical Office [facility] [address], [place] [address] Lymphocyte abs 1.8 0.8 - 3.3 K/cumm [facility] ([place]) Comment:Testing performed by : [facility] [address], Medical Office [facility] [address], [place] [address] Monocyte abs 0.5 0.2 - 0.8 K/cumm [facility] ([place]) Comment:Testing performed by : [facility] [address], Medical Office [address], [place] [address] Eosinophil abs 0.5 0.0 - 0.5 K/cumm [facility] ([place]) Comment:Testing performed by : [facility] [address], Medical Office [address], [place] [address] Basophil abs 0.0 0.0 - 0.1 K/cumm [facility] ([place]) Comment:Testing performed by : [facility] [address], Medical Office [facility] [address], [place] [address] Neutrophil pct 44.3 % [facility] ([place]) Comment: Interpretive Data Percent cell count reference ranges are not reported, since discordance with absolute values may lead to misinterpretation of CBC data. Current Interpretive Data was last revised on 2022. Testing performed by: [facility] [address], Medical Office [facility] [address], [place] [address] Imm gran pct 0.2 % [facility] ([place]) Comment: Interpretive Data Percent cell count reference ranges are not reported, since discordance with absolute values may lead to misinterpretation of CBC data. Current Interpretive Data was last revised on 2022. Testing performed by: [facility] [address], Medical Office [facility] [address], [place] [address] Lymphocyte pct 35.9 % [facility] ([place]) Comment: Interpretive Data Percent cell count reference ranges are not reported, since discordance with absolute values may lead to misinterpretation of CBC data. Current Interpretive Data was last revised on 2022. Testing performed by: [facility] [address], Medical Office [facility] [address], [place] [address] Monocyte pct 10.0 % [facility] ([place]) Comment: Interpretive Data Percent cell count reference ranges are not reported, since discordance with absolute values may lead to misinterpretation of CBC data. Current Interpretive Data was last revised on 2022. Testing performed by: [facility] [address], Medical Office [address], [place] [address] Eosinophil pct 8.8 % [facility] ([place]) Comment: Interpretive Data Percent cell count reference ranges are not reported, since discordance with absolute values may lead to misinterpretation of CBC data. Current Interpretive Data was last revised on 2022. Testing performed by: [facility] [address], Medical Office [facility] [address], [place] [address] Basophil pct 0.8 % [facility] ([place]) Comment: Interpretive Data Percent cell count reference ranges are not reported, since discordance with absolute values may lead to misinterpretation of CBC data. Current Interpretive Data was last revised on 2022. Testing performed by: [facility] [address], Medical Office [facility] [address], [place] [address] Blood 11/28/2024 8:25 AM BELT GLASS SANDER 11/28/2024 8:28 AM BELT GLASS SANDER Nidhi Powell NP LAB BLOOD ORDERABLES Final Re sult [facility] ([place]) 1 [facility] Department [place] [address] * (ABNORMAL) CBC with auto differential (11/28/2024 8:25 AM BELT GLASS SANDER) WBC 5.1 3.8 - 9.9 K/cumm Comment:Testing performed by : [facility] [address], Medical Office [facility] [address], [place] [address] Hgb 12.1 11.9 - 15.5 g/dL [facility] ([place]) Comment:Testing performed by : [facility] [address], Medical Office [facility] [address], [place] [address] Hct 35.8 35.6 - 45.5 % [facility] ([place]) Comment:Testing performed by : [facility] [address], Medical Office [facility] [address], [place] [address] Plt 253 150 - 400 K/cumm [facility] ([place]) Comment:Testing performed by : [facility] [address], Medical Office [facility] [address], [place] [address] MPV 8.9(L) 9.1 - 12.3 fL [facility] ([place]) Comment:Testing performed by : [facility] [address], Medical Office [facility] [address], [place] [address] RBC 3.52(L) 3.90 - 5.20 M/cumm [facility] ([place]) Comment:Testing performed by : [facility] [address], Medical Office [facility] B [facility] [address], [place] [address] MCV 101.7(H) 81.3 - 96.4 fL [facility] ([place]) Comment:Testing performed by : [facility] [address], Medical Office [facility] [address], [place] [address] MCH 34.4(H) 27.1 - 33.3 pg [facility] ([place]) Comment:Testing performed by : [facility] [address], Medical Office [facility] [address], [place] [address] MCHC 33.8 32.3 - 35.7 g/dL [facility] ([place]) Comment:Testing performed by : [facility] [address], Medical Office [facility] [address], [place] [address] RDW CV 13.7 11.1 - 14.9 % [facility] ([place]) Comment:Testing performed by : [facility] [address], Medical Office [facility] [address], [place] [address] RDW SD 52.4(H) 35.7 - 48.1 fL [facility] ([place]) Comment:Testing performed by : [facility] [address], Medical Office [facility] B [facility] [address], [place] [address] NRBC abs Not Measured 0.00 - 0.01 K/cumm [facility] ([place]) Comment:Testing performed by : [facility] [address], Medical Office [facility] B [facility] [address], [place] [address] Blood 11/28/2024 8:25 AM BELT GLASS SANDER 11/28/2024 8:28 AM BELT GLASS SANDER Nidhi Powell OPERATIONS SECTION MANAGER LAB BLOOD ORDERABLES Final Re sult Performing Organization Address City/State/[facility] Co de Phone Number [facility] ([place] 1 [facility] [place] [place] [address] * Cancer antigen 15-3 (11/28/2024 8:25 AM BELT GLASS SANDER) CA 15-3 ag 18.0 1.0 - 30.0 units/mL Comment: Interpretive Data The Ann CA 15-3 assay procedure was used. Results from different manufacturers or methods may not be comparable. Serial testing should be performed using the same method. Testing performed by: [facility], [address] [place] [address]., [address] Blood 11/28/2024 8:25 AM BELT GLASS SANDER 11/28/2024 11:18 AM BELT GLASS SANDER Nidhi Powell NP LAB BLOOD ORDERABLES Final Re sult Performing Organization Address [facility] de Phone Number [facility] ([place]) [address] [place] [address] * CEA (11/28/2024 8:25 AM BELT GLASS SANDER) CEA 2.6 0.1 - 5.0 ng/mL Comment: Interpretive Data The Ann CEA assay procedure was used. Results from different manufacturers or methods may not be comparable. Serial testing should be performed using the same method. Testing performed by: [facility], [address] [place] [address]., [id number] Blood 11/28/2024 8:25 AM BELT GLASS SANDER 11/28/2024 11:18 AM BELT GLASS SANDER Nidhi Powell OPERATIONS SECTION MANAGER LAB BLOOD ORDERABLES Final Re sult Performing Organization Address [facility] Co de Phone Number [facility] ([place]) 1 [place] [address] * (ABNORMAL) Comprehensive metabolic panel (11/28/2024 8:25 AM BELT GLASS SANDER) Sodium 139 135 - 145 mmol/L Comment:Testing performed by : [facility], [facility], [place], [address] Potassium, pl 3.7 3.3 - 4.9 mmol/L [facility] ([place]) Comment:Testing performed by : [facility], [facility], [place], [address] Chloride 100 97 - 110 mmol/L [facility] ([place]) Comment:Testing performed by : [facility], [facility], [place], [address] CO2 25 22 - 32 mmol/L [facility] ([place]) Comment:Testing performed by : [facility], [facility], [place], [address] Anion gap 14 2 - 15 mmol/L [facility] ([place]) Comment:Testing performed by : [facility], [place], [address] BUN 18 6 - 25 mg/dL [facility] ([place]) Comment:Testing performed by : [facility], [place], [address] Creatinine 1.15(H) 0.60 - 1.10 mg/dL [facility] ([place]) Comment:Testing performed by : [facility], [place], [address] Glucose 90 70 - 199 mg/dL [facility] ([place]) [...] was last revised 2022. Testing performed by: [facility], [place], [address] Calcium 9.7 8.5 - 10.3 mg/dL [facility] ([place]) Comment:Testing performed by : [facility], [place], [address] Bilirubin, total 0.4 0.1 - 1.2 mg/dL [facility] ([place]) Comment:Testing performed by : [facility], [place], [address] Protein, pl 7.6 6.5 - 8.5 g/dL [facility] Comment:Testing performed by : [facility], [facility], [place], [address] Albumin 4.0 3.5 - 5.0 g/dL [facility] ([place]) Comment:Testing performed by : [facility], [place], [address] Alk phos 114 40 - 130 Units/L [facility] ([place]) Comment:Testing performed by : [facility], [place], [address] ALT 11 7 - 45 Units/L [facility] ([place]) Comment:Testing performed by : [facility], [place], [address] AST 19 10 - 45 Units/L [facility] Comment:Testing performed by : [facility], [place], [address] Blood 11/28/2024 8:25 AM BELT GLASS SANDER 11/28/2024 8:58 AM BELT GLASS SANDER us Nidhi Powell NP LAB BLOOD ORDERABLES Final Re sult [facility] 1 [facility] Department [place] [address] * ECG 12 lead (11/06/2024 1:11 PM BELT GLASS SANDER) 11/06/2024 1:07 PM BELT GLASS SANDER Narrative [facility] - 11/06/2024 2:20 PM BELT GLASS SANDER Vent Rate: 71 bpm RR Interval: 838 msec MA Interval: 0 msec QRS Duration: 98 msec QT Interval: 416 msec QTC Interval: 439 msec P-R-T Laporte: [id number] - 75 - 53 degrees IMPRESSION: ATRIAL [...] NOTED Electronically Signed By: Stas Stafford MD us Min Malhotra MD ECG ORDERABLES Final Result [facility] * XR Chest PA Lateral 2 View (11/06/2024 12:46 PM BELT GLASS SANDER) Anatomical Region Laterality Modality Body, Chest N/A Computed Radiogr aphy 11/07/2024 6:11 AM BELT GLASS SANDER Narrative 11/07/2024 6:12 AM BELT GLASS SANDER EXAM DESCRIPTION: XR CHEST PA LATERAL 2 VIEWS REASON FOR STUDY: Preop for right TKA feb 20 non smoker Hx of heart stent TECHNIQUE: [...] Pop Escalante M.D. RB: RB Report ID: [id number] Reading Location: [id number] Procedure Note Pop Escalante MD - 11/07/2024 EXAM DESCRIPTION: XR CHEST PA LATERAL 2 VIEWS REASON FOR STUDY: Preop for right TKA feb 20 non smoker Hx of heart stent TECHNIQUE: [...] Pop Escalante M.D. RB: RB Report ID: [id number] Reading Location: [id number] us Min Malhotra MD IMG XR PROCEDURES Final Resu lt * (ABNORMAL) Urinalysis reflex to microscopic and culture Urine (11/06/2024 12:31 PM BELT GLASS SANDER) Color, ur Yellow Yellow Clarity, ur Turbid(A) [...] tendency for uric acid stone formation. Source: [facility] [employer] Current Interpretive Data was last revised on [...] [facility] ([facility]) Urine 11/06/2024 12:3 1 PM BELT GLASS SANDER 11/06/2024 12:40 PM BELT GLASS SANDER Min Malhotra MD LAB MICROBIOLOGY - GENERAL O RDERABLES Final Result [facility] ([place]) 1 [facility] Department [place] [address] * (ABNORMAL) Urinalysis, microscopic only (11/06/2024 12:31 PM BELT GLASS SANDER) WBC, ur 0-5 0 - 5 /HPF RBC, ur 0-2 0 - 2 /HPF [facility] ([place]) Epithelial cells, squamous, ur 11-20(A) 0 - 5 /HPF [facility] ([place]) Bacteria, ur Trace(A) [facility] ([place]) Hyaline casts, ur 21-50(A) 0 - 10 /LPF [facility] ([place]) Culture Reflex Comment Reflex conditions for urine culture (WBC >10) not met. [facility] ([place]) Urine 11/06/2024 12:3 1 PM BELT GLASS SANDER 11/06/2024 12:40 PM BELT GLASS SANDER Min Malhotra MD LAB URINE ORDERABLES Final R esult [facility] ([place]) 1 [facility] Department [place] [address] * (ABNORMAL) eGFR (11/06/2024 12:28 PM BELT GLASS SANDER) eGFR 39(L) >=60 mL/min/1. 73 m2 Comment: [...] reviewed 2021. Blood 11/06/2024 12:2 8 PM BELT GLASS SANDER 11/06/2024 12:43 PM BELT GLASS SANDER Min Malhotra MD LAB BLOOD ORDERABLES Final R esult [facility] ([place]) 1 [facility] Department [place] [address] * Differential, auto (11/06/2024 12:28 PM BELT GLASS SANDER) Neutrophil abs 4.7 1.5 - 6.5 K/cumm [...] Neutrophil pct 62.7 % [facility] ([place]) Comment: Interpretive [...] revised on 2018. Monocyte pct 10.3 % [facility] ([place]) Comment: Interpretive Data [...] revised on 2018. Basophil pct 0.8 % [facility] ([place]) Comment: Interpretive Data Percent cell count reference ranges are not reported, since discordance with absolute values may lead to misinterpretation of CBC data. Current Interpretive Data was last revised on 2018. Blood 11/06/2024 12:2 8 PM BELT GLASS SANDER 11/06/2024 12:43 PM BELT GLASS SANDER Min Malhotra MD LAB BLOOD ORDERABLES Final R esult [facility] ([place]) 1 [facility] Department [place] [address] * (ABNORMAL) CBC with auto differential (11/06/2024 12:28 PM BELT GLASS SANDER) WBC 7.5 3.8 - 9.9 K/cumm Hgb 12.8 11.9 - 15.5 g/dL [facility] ([place]) Hct 38.7 35.6 - 45.5 % [...] [facility] ([facility]) Blood 11/06/2024 12:2 8 PM BELT GLASS SANDER 11/06/2024 12:43 PM BELT GLASS SANDER Min Malhotra MD LAB BLOOD ORDERABLES Final R esult [facility] ([place]) 1 [facility] Department [place] [address] * (ABNORMAL) Comprehensive metabolic panel (11/06/2024 12:28 PM BELT GLASS SANDER) Sodium 136 135 - 145 mmol/L Potassium, [...] 10.0 8.5 - 10.3 mg/dL [facility] ([place]) Bilirubin, total 0.5 0.1 - 1.2 mg/dL [facility] ([place]) Protein, pl 7.6 6.5 - 8.5 g/dL [facility] ([place]) Albumin 3.8 3.5 - 5.0 g/dL [facility] ([place]) Alk phos 114 40 - 130 Units/L [facility] ([place]) ALT 11 7 - 45 Units/L [facility] ([place]) AST 17 10 - 45 Units/L [facility] ([place]) Blood 11/06/2024 12:2 8 PM BELT GLASS SANDER 11/06/2024 12:43 PM BELT GLASS SANDER us Min Malhotra MD LAB BLOOD ORDERABLES Final R esult [facility]) [address] [place] [address] [place] [address] * Surgical pathology (10/28/2024 1:39 PM BELT GLASS SANDER) Tissue (Gallbladder) 10/28/2024 1:09 PM BELT GLASS SANDER Narrative [facility] - 10/29/2024 3:44 PM BELT GLASS SANDER EPIC results best viewed via link to PDF [facility] Department of Pathology [address] [place] [id number] Note to Patients: This report may contain [...] Report Patient Name: PEDRO PABLO RECINOS Address: [facility] [place] [address] Gender: F : 1940 (Age: 83) Service: Surgery Location: [facility] Hospital #: [id number] Patient Type: [facility] Taken: 10/28/2024 Received: 10/28/2024 Accessioned: 10/28/2024 Reported: [...] determined by the Surgical Pathology Department at [facility] as part of an ongoing quality compliance manager program and in compliance with federally mandated [...] characteristics determined by the Surgical Pathology Department [facility]. It has not been cleared or approved by the U. S. Food and Drug Administration. Note for decalcified specimens: This assay has not been validated on decalcified tissues. Results should be interpreted with caution given the possibility of false negativity on decalcified specimens us Zaki Vazquez MD LAB PATHOLOGY ORDER DINAH Final Result [facility] ([place]) [address] [place] [address] * MA AN ELECTIVE ENDOTRACHEAL AIRWAY (10/28/2024 12:49 PM BELT GLASS SANDER) Narrative Min Thompson CRNA - 10/28/2024 12:49 PM BELT GLASS SANDER Min Thompson CRNA 10/28/2024 12:49 PM Airway Patient location: OR Urgency: elective Indications for airway management: anesthesia Difficult airway: no Staff: Placed by: GREASE RACK WORKER: Min Thompson CRNA Emergent airway documentation: Risks [...] between attempts: none Planned trial extubation: yes Erin Dickinson MD ANESTHESIA ORDERABLES Fi nal Result * ECG 12 lead (10/28/2024 11:17 AM BELT GLASS SANDER) 10/28/2024 11:1 7 AM BELT GLASS SANDER Narrative [facility] - 10/28/2024 1:38 PM BELT GLASS SANDER Vent Rate: 91 bpm RR Interval: 659 msec MA Interval: 0 msec QRS Duration: 93 msec QT Interval: 388 msec QTC Interval: 436 msec P-R-T Laporte: [id number] - 12 - 32 degrees IMPRESSION: ATRIAL [...] Vazquez MD ECG ORDERABLES Fin al Result [facility] * Potassium, whole blood (10/28/2024 11:15 AM BELT GLASS SANDER) Potassium, bld 3.7 3.3 - 4.9 mmol/L Comment: Interpretive Data This method is not able to assess for hemolysis, which may falsely increase potassium concentrations. If further testing is needed to evaluate this result, consider in-laboratory plasma potassium. Current Interpretive Data was last revised on 2022. Blood 10/28/2024 11:1 5 AM BELT GLASS SANDER 10/28/2024 11:18 AM BELT GLASS SANDER us Hector Vaguhn MD LAB BLOOD ORDERABLES F inal Result [facility] ([place] 1 [facility] Department [place] [address] * Urine culture Urine, bladder (10/25/2024 2:52 PM BELT GLASS SANDER) Pathologist [facility] Report Final Report: Less than 100,000 colonies/mL (clinically insignificant growth based on current clinical standards) Comment:Testing performed by : [facility], [address] [place] [address] Organism (CLINICALLY INSIGNIFICANT GROWTH JOLENE Urine, bladder 10/25/2024 2: 52 PM BELT GLASS SANDER 10/25/2024 8:35 PM BELT GLASS SANDER Narrative [facility] - 10/27/2024 10:17 AM BELT GLASS SANDER Testing performed by [facility] Microbiology Laboratory ([phone]) us Vu Berg OPERATIONS SECTION MANAGER LAB MICROBIOLOGY - GENERA L ORDERABLES Final Result JOLENE [address] Department [place] [address] * POCT urinalysis dipstick (10/25/2024 2:51 PM [facility]T [facility] SANDER) Color, Urine, POC Light Yellow Clarity, ur, POC Clear Clear Glucose, ur, POC Negative Negative MG/DL Bilirubin, ur, POC Negative Negative, Small, Moderate, Large Ketones, ur, POC Negative Negative Specific Henning, POC 1.005 1.003 - 1.030 Blood, ur, POC Negative Negative pH, ur, POC 5.5 5.0 - 8.0 Protein, ur, POC Negative Negative Urobilinogen, urine, POC 0.2 0.2 - 1.0 mg/dL Nitrite, ur, POC Negative Negative Leukocytes, ur, POC Negative Negative Lot Number [id number] Urine 10/25/2024 2:51 PM [facility] Vu Berg OPERATIONS SECTION MANAGER POINT OF CARE TEST ORDERA BLES Final Result * POCT urinalysis dipstick (10/18/2024 3:07 PM [facility]ANDER) Color, Urine, POC Yellow Clarity, ur, POC Clear Clear Glucose, ur, POC Negative Negative MG/DL Bilirubin, ur, POC Negative Negative, Small, Moderate, Large Ketones, ur, POC Negative Negative Specific Henning, POC 1.015 1.003 - 1.030 Blood, ur, POC Negative Negative pH, ur, POC 5.5 5.0 - 8.0 Protein, ur, POC Negative Negative Urobilinogen, urine, POC 0.2 0.2 - 1.0 mg/dL Nitrite, ur, POC Negative Negative Leukocytes, ur, POC Negative Negative Lot Number [id number] Urine 10/18/2024 3:07 PM [facility]ER Eula ORTIZ POINT OF CARE TEST ORDERABLES Final Result * Urine culture Urine, bladder (10/18/2024 3:07 PM BELT [facility]ANDER) Report Final Report: Less than 100,000 colonies/mL (clinically insignificant growth based on current clinical standards) Comment:Testing performed by : [facility], [address] [place]., [address] Organism (CLINICALLY INSIGNIFICANT GROWTH JOLENE Urine, bladder 10/18/2024 3: 07 PM [facility]ER 10/18/2024 10:08 PM [facility]ANDER Narrative JOLENE - 10/20/2024 7:40 AM [facility] Testing performed by [facility] Microbiology Laboratory ([phone]) us Eula ORTIZ LAB MICROBIOLOGY - GENERAL ORDERABLES Final Result JOLENE PATTERSON [address] Department [place] [address] * Dexa Axial Skeleton Bone Density 1 or 2 Site (09/05/2024 11:26 AM [facility] SANDER) Anatomical Region Laterality Modality Body N/A Other 09/05/2024 4:44 PM [facility]ER Narrative 09/05/2024 4:45 PM [facility]ER EXAM DESCRIPTION: DEXA AXIAL SKELETON BONE DENSITY 1 OR MORE SITES REASON FOR STUDY: 83 y/o year old F with given history of: Assess for bone loss while on AI., Assess for bone strength vs loss. She is starting [facility] use of an aromatase inhibitor. 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 MF: [email or web address] Report ID: [id number] Reading Location: [id number] Procedure Note Haile Adler MD - 09/05/2024 EXAM DESCRIPTION: DEXA AXIAL SKELETON BONE DENSITY 1 OR MORE SITES REASON FOR STUDY: 83 y/o year old F with given history of: Assess for bone loss while on AI., Assess for bone strength vs loss. 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 MF: [email or web address] Report ID: [id number] Reading Location: [id number] Ava Pimentel NP IMG DXA PROCEDURES Final R esult * COLONOSCOPY (09/06/2021 9:21 AM [facility]ANDER) Anatomical Region Laterality Modality Other Narrative Procedure Note Abilio Pond MD - 09/06/2021 9:21 AM CST [facility] Patient Name: Pedro Pablo Recinos Procedure Date: 09/06/2021 9:21 AM Date of : 1940 Admit Type: Outpatient Age: 80 Gender: Female Attending MD: Abilio Pond M.D. Room: [facility] 2 Note Status: Finalized Patient [...] scope was passed under direct vision. TheColonoscope [id number] was introduced through the anus and advanced [...] 9:21 AM Procedure Code(s): --- Professional --- 91423, Colonoscopy, flexible; with removal of tumor(s), polyp(s), or other lesion(s) by hot biopsy forceps Diagnosis Code(s): --- Professional --- K57.30, Diverticulosis of large intestine without perforation orabscess without bleeding Z80.0, Family history of malignant neoplasm of digestive organs K63.5, Polyp of colon K64.9, Unspecified hemorrhoids Z86.010, Personal history of colonic polyps CPT copyright 2019 [employer]. All rights reserved. The codes documented in this report are preliminary and upon certified medical coder reviewmay be revised to meet current compliance requirements. Recognized by the [place] [employer] for promoting quality in endoscopy Abilio Pond MD ENDOSCOPY PROCEDURES Final Re sult from Last 3 Months or Most Recently Relevant to Health Maintenance Insurance MEDICARE [facility] [employer] [place] [employer] [place] Member Subscriber Plan / Payer (Ef fective 2006-Present) Name:Pedro Pablo Recinos Relation to Subscriber:Self Name:Pedro Pablo Recinos Payer ID:[id number] Group ID:Not on file Type:COMMERCIAL Address: [address] Advance Directives For more information, please contact: [phone] * Full Code (Latest Code Status on [...] 9:39 AM 09/06/2021 9:41 AM Care Teams Apparel Cutter Relationship Specialty Start Date End Date Latesha Munroe NP [facility] [place] [address] PCP - General Nurse Practitioner 08/05/24 Stas Stafford MD Consulting Physician Cardiology 01/08/19 Zachary Gabriel MD Consulting Physician Nephrology 03/04/20 Mode Sanderson MD PhD [address] [facility] [place] [address] Radiation Oncologist Radiation Oncology 07/30/24 [place] [address] [facility] [address] [place], [place] [id number] Consulting Physician General Surgery 07/30/24 Javan Puente NP [address] [place] [address] [address] [place] [address] Nurse Practitioner Orthopedic Surgery 12/09/24
[2025-01-14 20:02] LABS: Add Urine Microscopic? YES; Appearance Urine Clear (Clear); Bacteria Urine None Seen /hpf; Bilirubin Urine Negative (Negative); Blood Urine Negative (Negative); Color Urine Yellow (Yellow); Glucose Urine UA Negative (Negative); Ketones Urine Negative (Negative); Leukocyte Esterase Ur Trace LEU/UL (Negative); Nitrate Urine Negative (Negative); Non Pathogenic Casts 0-2; Protein Urine Negative (Negative); RBC Urine 0-2 /hpf (0-2); Specific Grav Ur 1.005 (1.001-1.035); Squamous Epithelial Cell Urine None Seen /hpf (Few); Urobilinogen Urine 0.2 mg/dL (<2.0); WBC Urine 0-5 /hpf (0-3)
== END 2025-01-14 16:18 | disposition home or self-care (01) ==
PROVIDERS: PCP Nurse Practitioner Adult Health; Visit Provider Nurse Practitioner Adult Health
DX: N39.0 Urinary tract infection, site not specified (principal); R39.9 Unspecified symptoms and signs involving the genitourinary system
CPT/HCPCS: 81001; 87086